=== PATIENT | female | born 1975 | race Native Hawaiian/Other Pacific Islander ===

== ENCOUNTER → 2018-11-04 | Outpatient (CLI) | payer OTHER ==
[~2018-11-04] MED LIST: ACHD5005 PO; AMOX500C2 PO; CEPH-38; CLOT45CR28 VG; DOXY100C2 PO; FRS325T PO; Glyburide PO; IBP600T1 PO; IBP800T PO; IBUP-1773 PO; INSASP10V SQ; INSU100C3 SQ; INSU100V13 IJ; INSULIN; LABE100T6 PO; METF-380 PO; METH4TAB PO; MTF500T PO; NAPR-243 PO; NPH,100V SQ; NPH,100V8 SQ; OMG1KC PO; PAMI30VI8 SQ; PRD20T PO; PREN1TAB39 PO; PREN1TAB86 PO; PRNMV1T PO; SULI200T4
--- NOTE | 2018-11-04 16:42 | Diagnostic Imaging Report ---
INDICATION: survey. TECHNIQUE: Multiple real-time grayscale images were obtained over the gravid uterus. COMPARISON: None FINDINGS: Intrauterine gestation is present. There is normal amount of amniotic fluid. Anterior placenta reveals no evidence of previa. cardiac activity is present with a rate of 150 beats per minute. Cervical length is 3.6 cm. No anomaly is identified on anatomic survey. biometry indicates gestational age of 21 weeks which indicates normal progression when compared to reported previous ultrasound exam. Biometrical measurements are as follows: Biparietal 5.10 cm, age 21 weeks 4 days. Head circumference 18.93 cm, age 21 weeks 2 days. Abdominal circumference 15.65 cm, age 20 weeks 6 days. Femur length 3.25 cm, age 20 weeks 1 days. Sonographic estimate age: 21 weeks 0 days. Sonographic estimated date of delivery: 03/17/2019. Estimated Weight: 365 gm (+/- 53 gm). LMP percentile: 39%. heart rate: 150 beats per minute. number: 1 of 1. IMPRESSION: Unremarkable obstetrical ultrasound with estimated gestational age of 21 weeks. Sonographic EDC is 03/17/2019. Dictated by: Dictated on workstation # [id number]
== END ==
LOC: RAD 14:39
PROVIDERS: ATTEND Obstetrics & Gynecology
DX: O24.112 Pre-existing type 2 diabetes mellitus, in pregnancy, second trimester (principal); O09.522 Supervision of elderly multigravida, second trimester; Z3A.21 21 weeks gestation of pregnancy
CPT/HCPCS: 76805

== ENCOUNTER → 2018-12-25 | Outpatient (CLI) | payer OTHER ==
--- NOTE | 2018-12-25 13:29 | Diagnostic Imaging Report ---
INDICATION: Follow-up growth and amniotic fluid volume. TECHNIQUE: Multiple real-time grayscale images were obtained over the gravid uterus. COMPARISON: 11/04/2018. FINDINGS: There is a single live fetus in a cephalic presentation. heart rate was recorded at 152 bpm. Placenta is anterior. Amniotic fluid volume is normal with amniotic fluid index of approximately 16 cm. A biophysical profile score is normal 8 out of 8. Biometrical measurements are as follows: Biparietal 7.54 cm, age 30 weeks 2 days. Head circumference 27.49 cm, age 30 weeks 1 days. Abdominal circumference 25.91 cm, age 30 weeks 1 days. Femur length 5.33 cm, age 28 weeks 3 days. Sonographic estimate age: 29 weeks 6 days. Sonographic estimated date of delivery: 03/06/2019. Estimated Weight: 1405 gm (+/- 205 gm). LMP percentile: 90%. heart rate: 152 beats per minute. number: 1 of 1. IMPRESSION: Single live IUP approximately 30 weeks gestational age measuring approximately two weeks earlier when compared with prior ultrasound from 11/04/2018. Biophysical profile score is normal at 8 out of 8. Dictated by: Dictated on workstation # [id number]
== END ==
LOC: RAD 11:08
PROVIDERS: ATTEND Nurse Practitioner Women's Health
DX: O24.913 Unspecified diabetes mellitus in pregnancy, third trimester (principal); Z3A.30 30 weeks gestation of pregnancy
CPT/HCPCS: 76805; 76819

== ENCOUNTER → 2019-01-21 | Outpatient (CLI) | payer OTHER ==
--- NOTE | 2019-01-21 12:55 | Diagnostic Imaging Report ---
INDICATION: Preexisting diabetes. TECHNIQUE: Multiple real-time grayscale images were obtained over the gravid uterus. COMPARISON: None 11/04/2018 and 12/25/2018. FINDINGS: The previous OB ultrasound exam of 12/25/2018 noted a single live fetus approximately 30 weeks gestation. On this study the fetus is again visualized. The fetus is transverse in presentation with the head on the maternal right. heart motion was noted and a rate of 156 BPM was recorded. There were no abnormalities identified. The biophysical profile score is 8 out of 8 and within normal limits. The placenta is anterior and there is no previa. The amniotic fluid index is 19.8 cm. On the prior exam, the JULIA was 16. The growth parameters have progressed as expected since the prior exam. The estimated weight however is in the 91st percentile. The cervix was identified and measures 4.5 cm in length. Biometrical measurements are as follows: Biparietal 8.44 cm, age 34 weeks 0 days. Head circumference 32.49 cm, age 36 weeks 6 days. Abdominal circumference 29.3 cm, age 33 weeks 4 days. Femur length 6.36 cm, age 33 weeks 0 days. Sonographic estimate age: 34 weeks 3 days. Sonographic estimated date of delivery: 03/01/2019. Estimated Weight: 2256 gm (+/- 329 gm). LMP percentile: 91%. heart rate: 156 beats per minute. number: 1 of 1. IMPRESSION: 1. There is a single live fetus approximately 32 weeks gestation +/- 1.5 weeks. EDC remains 03/17/2019 by the first exam of 11/04/2018. 2. There were no abnormalities identified. 3. The biophysical profile score is 8 out of 8 and within normal limits. 4. The growth parameters are at the upper most limits of normal with the estimated weight in the 91st percentile. Dictated by: Dictated on workstation # [id number]
== END ==
LOC: RAD 10:40
PROVIDERS: ATTEND Obstetrics & Gynecology
DX: O24.113 Pre-existing type 2 diabetes mellitus, in pregnancy, third trimester (principal); E11.9 Type 2 diabetes mellitus without complications; O09.293 Supervision of pregnancy with other poor reproductive or obstetric history, third trimester; O09.523 Supervision of elderly multigravida, third trimester; Z3A.32 32 weeks gestation of pregnancy
CPT/HCPCS: 76805; 76819

== ENCOUNTER → 2019-02-10 | Outpatient (CLI) | payer OTHER ==
--- NOTE | 2019-02-10 14:35 | Diagnostic Imaging Report ---
INDICATION: Gestational diabetes. TECHNIQUE: Multiple real-time grayscale images were obtained over the gravid uterus. COMPARISON: 01/21/2019. FINDINGS: There is a single live fetus in a cephalic presentation. heart rate was recorded at 138 bpm. Placenta is anterior. Amniotic fluid index is upper limits at 22 cm. Biophysical profile was also performed. Biophysical profile score is normal at 8 out of 8. Biometrical measurements are as follows: Biparietal 9.12 cm, age 37 weeks 0 days. Head circumference 33.89 cm, age 39 weeks 0 days. Abdominal circumference 36.52 cm, age 40 weeks 4 days. Femur length 6.97 cm, age 35 weeks 6 days. Sonographic estimate age: 38 weeks 1 days. Sonographic estimated date of delivery: 02/23/2019. Estimated Weight: 3617 gm (+/- 528 gm). LMP percentile: 98%. heart rate: 138 beats per minute. number: 1 of 1. IMPRESSION: Single live IUP measuring 38 weeks 1 day gestational age (+/- 3 weeks). Amniotic fluid index is upper limits at 22 cm. Biophysical profile score is normal at 8 out of 8. Dictated by: Dictated on workstation # [id number]
== END ==
LOC: RAD 10:38
PROVIDERS: ATTEND Nurse Practitioner Women's Health
DX: O24.419 Gestational diabetes mellitus in pregnancy, unspecified control (principal); Z3A.38 38 weeks gestation of pregnancy
CPT/HCPCS: 76805; 76819

== ENCOUNTER 2019-02-21 12:40 | Inpatient (IN) | payer OTHER ==
[2019-02-21] VITALS (20 sets, daily range): BP systolic 110–149; BP diastolic 56–84
[~2019-02-21] VITALS: Ht 160 cm; Wt 131.5 kg
--- NOTE | 2019-02-21 12:40 | NUR ---
NORMA CHACKO presented to unit via ambulatory from Dr Jimenez's office, unaccompanied , with c/o INDUCTION. NORMA CHACKO weighed, gowned, voided, and to bed. EFHM and TOCO applied, VS taken. NORMA CHACKO oriented to bed controls, call light, TV, heat, and A/C controls.
--- NOTE | 2019-02-21 13:00 | NUR ---
negative response on patella reflexes bilat.
[2019-02-21] MEDS ORDERED: AMPICILLIN FOR IV USE 2,000 MG in WATER (STERILE) FOR INJECTION 14.8 ML IV SCH (13:19)
[2019-02-21] MEDS ORDERED: CALCIUM GLUC. 10% 4.65 MEQ/10 ML VIAL IV PRN (13:30)
[2019-02-21] MEDS ORDERED: MISOPROSTOL 100 MCG (CYTOTEC) TAB PO NR (13:30)
[2019-02-21] MEDS ORDERED: MAGNESIUM 4 GM/100 ML IVPB 100 ML IV SCH (13:30)
[2019-02-21] MEDS ORDERED: TERBUTALINE INJ 1 MG/ML (BRETHINE) AMP SC PRN (13:30)
[2019-02-21] MEDS: LACTATED RINGERS 1,000 ML IV SCH ×2 (14:00→23:02)
[2019-02-21 14:16] LABS: BASOPHILS % (AUTO) 0 % (0-10); EOSINOPHILS # (AUTO) 0.1 10^3/uL (0.0-0.3); EOSINOPHILS % (AUTO) 1 % (0-10); HEMATOCRIT 38 % (35-52); HEMOGLOBIN 11.7 G/DL (11.5-16.0); LYMPHOCYTES # (AUTO) 1.2 X 10^3 (1.0-4.0); LYMPHOCYTES % (AUTO) 17 % (12-44); MEAN CORPUSCULAR HEMOGLOBIN 24 PG (25-34); MEAN CORPUSCULAR HGB CONC 31 G/DL (32-36); MEAN CORPUSCULAR VOLUME 78 FL (80-99); MEAN PLATELET VOLUME 10.6 FL (7.4-10.4); MONOCYTES # (AUTO) 0.7 X 10^3 (0.0-1.0); MONOCYTES % (AUTO) 11 % (0-12); NEUTROPHILS # (AUTO) 5.1 X 10^3 (1.8-7.8); NEUTROPHILS % (AUTO) 72 % (42-75); PLATELET COUNT 220 10^3/uL (130-400); RED CELL DISTRIBUTION WIDTH 14.3 % (10.0-14.5); WHITE BLOOD COUNT 7.1 10^3/uL (4.3-11.0)
[2019-02-21 14:25] LABS: BILIRUBIN,URINE NEGATIVE (NEGATIVE); CLARITY,URINE CLEAR; COLOR,URINE YELLOW; GLUCOSE, URINE (UA) TRACE (NEGATIVE); KETONES,URINE NEGATIVE (NEGATIVE); LEUKOCYTE ESTERASE ,URINE TRACE (NEGATIVE); NITRITE,URINE NEGATIVE (NEGATIVE); PROTEIN,URINE 2+ (NEGATIVE)
[2019-02-21 14:31] LABS: BACTERIA,URINE FEW /HPF; RBC,URINE RARE /HPF
[2019-02-21] MEDS: MAGNESIUM SULFATE DRIP 500 ML IV SCH (14:35)
[2019-02-21 14:38] LABS: ALANINE AMINOTRANSFERASE 13 U/L (0-55); ALBUMIN 3.4 GM/DL (3.2-4.5); ALKALINE PHOSPHATASE 126 U/L (40-136); BILIRUBIN,TOTAL 0.2 MG/DL (0.1-1.0); BUN/CREATININE RATIO 19; CALCIUM 9.3 MG/DL (8.5-10.1); CARBON DIOXIDE 19 MMOL/L (21-32); CHLORIDE 106 MMOL/L (98-107); CREATININE SERUM 0.64 MG/DL (0.60-1.30); GFR ESTIMATED > 60; GLUCOSE 84 MG/DL (70-105); MAGNESIUM 1.8 MG/DL (1.6-2.4); POTASSIUM 4.2 MMOL/L (3.6-5.0); SODIUM 137 MMOL/L (135-145); TOTAL PROTEIN 7.1 GM/DL (6.4-8.2); URIC ACID 5.4 MG/DL (2.6-7.2)
[2019-02-21] MEDS ORDERED: MISOPROSTOL 100 MCG (CYTOTEC) TAB PO SCH (17:30)
--- NOTE | 2019-02-21 17:51 | NUR ---
called to check on pt. status update given. no new orders received.
--- NOTE | 2019-02-21 17:55 | NUR ---
clear liquid diet served.
[2019-02-21] MEDS: AMPICILLIN FOR IV USE 1,000 MG in WATER (STERILE) FOR INJECTION 7.4 ML IV SCH ×2 (18:26→22:53)
--- NOTE | 2019-02-21 18:52 | NUR ---
was called with SVE update. new orders received.
[2019-02-22] VITALS (59 sets, daily range): BP systolic 113–239; BP diastolic 56–112
[2019-02-22] MEDS: MAGNESIUM SULFATE DRIP 500 ML IV SCH ×3 (00:43→21:02)
[2019-02-22] MEDS: AMPICILLIN FOR IV USE 1,000 MG in WATER (STERILE) FOR INJECTION 7.4 ML IV SCH ×4 (03:10→14:54)
[2019-02-22] MEDS ORDERED: OXYTOCIN/NORMAL SALINE 500 ML IV SCH ×2 (06:02→11:47)
--- NOTE | 2019-02-22 06:29 | Progress Note ---
Progress Note Assessment/Plan Date Seen by Provider: Feb 22, 2019 Time Seen by Provider: 06:00 Events since last exam Diuresed 2300 ml BP much better with bedrest and magnesium misoprostol x 1 given. Rare contractions, but has dilated to 5-6 cm dilation. Cervix is more effaced but still high (-2) however, easier to examine. Has received several doses of ampicillin toco 2 5-6 minutes, she is comfortable with contractions and has been able to sleep in a recliner FHT initially more reassuring than in the office. However, with magnesium, rare accelerations. There are no decelerations however Blood sugars have been < 100 and have required treatment for symptomatic hypogl ycemia (took am meds but did not eat lunch or dinner). No insulin has been given. 02/21/19 02/21/19 02/21/19 02/21/19 18:45 19:15 19:45 20:15 Pulse 80 84 84 80 Resp 20 20 20 18 B/P (MAP) 141/67 (91) 133/63 (86) 129/78 (95) 131/60 (83) O2 Delivery Room Air Room Air Room Air Room Air 02/21/19 02/21/19 02/21/19 02/21/19 20:45 21:15 21:45 22:15 Temp 36.2 Pulse 77 78 78 84 Resp 18 18 18 18 B/P (MAP) 144/67 (92) 124/56 (78) 140/65 (90) 147/64 (91) O2 Delivery Room Air Room Air Room Air Room Air 02/21/19 02/21/19 02/21/19 02/22/19 22:45 23:15 23:45 00:15 Temp 36.2 Pulse 80 80 74 75 Resp 18 18 18 18 B/P (MAP) 119/59 (79) 135/62 (86) 133/62 (85) 126/60 (82) O2 Delivery Room Air Room Air Room Air Room Air 02/22/19 02/22/19 02/22/19 02/22/19 00:45 01:15 01:45 02:15 Temp 36.0 Pulse 75 73 75 Resp 18 18 18 18 B/P (MAP) 135/59 (84) 128/62 (84) 120/79 (93) O2 Delivery Room Air Room Air Room Air Room Air 02/22/19 02/22/19 02/22/19 02/22/19 02:45 03:15 03:45 04:15 Temp 36.5 Pulse 72 74 73 73 Resp 18 18 18 18 B/P (MAP) 129/59 (82) 121/56 (77) 113/57 (75) 128/61 (83) O2 Delivery Room Air Room Air Room Air Room Air 02/22/19 02/22/19 04:45 05:02 Pulse 70 73 Resp 18 18 B/P (MAP) 140/65 (90) 128/61 (83) O2 Delivery Room Air Room Air 02/22/19 00:00 Intake Total 1987.4 ml Output Total 1250 ml Balance 737.4 ml Laboratory Tests Test 02/21/19 14:00 02/21/19 14:10 02/21/19 14:39 02/21/19 16:49 Range/Units White Blood Count 7.1 4.3-11.0 10^3/uL Red Blood Count 4.83 4.35-5.85 10^6/uL Hemoglobin 11.7 11.5-16.0 G/DL Hematocrit 38 35-52 % Mean Corpuscular Volume 78 L 80-99 FL Mean Corpuscular Hemoglobin 24 L 25-34 PG Mean Corpuscular Hemoglobin Concent 31 L 32-36 G/DL Red Cell Distribution Width 14.3 10.0-14.5 % Platelet Count 220 130-400 10^3/uL Mean Platelet Volume 10.6 H 7.4-10.4 FL Neutrophils (%) (Auto) 72 42-75 % Lymphocytes (%) (Auto) 17 12-44 % Monocytes (%) (Auto) 11 0-12 % Eosinophils (%) (Auto) 1 0-10 % Basophils (%) (Auto) 0 0-10 % Neutrophils # (Auto) 5.1 1.8-7.8 X 10^3 Lymphocytes # (Auto) 1.2 1.0-4.0 X 10^3 Monocytes # (Auto) 0.7 0.0-1.0 X 10^3 Eosinophils # (Auto) 0.1 0.0-0.3 10^3/uL Basophils # (Auto) 0.0 0.0-0.1 10^3/uL Sodium Level 137 135-145 MMOL/L Potassium Level 4.2 3.6-5.0 MMOL/L Chloride Level 106 98-107 MMOL/L Carbon Dioxide Level 19 L 21-32 MMOL/L Anion Gap 12 5-14 MMOL/L Blood Urea Nitrogen 12 7-18 MG/DL Creatinine 0.64 0.60-1.30 MG/DL Estimat Glomerular Filtration Rate > 60 BUN/Creatinine Ratio 19 Glucose Level 84 70-105 MG/DL Uric Acid 5.4 2.6-7.2 MG/DL Calcium Level 9.3 8.5-10.1 MG/DL Corrected Calcium 9.8 8.5-10.1 MG/DL Magnesium Level 1.8 1.6-2.4 MG/DL Total Bilirubin 0.2 0.1-1.0 MG/DL Aspartate Amino Transf (AST/SGOT) 18 5-34 U/L Alanine Aminotransferase (ALT/SGPT) 13 0-55 U/L Alkaline Phosphatase 126 40-136 U/L Lactate Dehydrogenase 238 H 125-220 U/L Total Protein 7.1 6.4-8.2 GM/DL Albumin 3.4 3.2-4.5 GM/DL Urine Color YELLOW Urine Clarity CLEAR Urine pH 6.0 5-9 Urine Specific Mckittrick 1.020 1.016-1.022 Urine Protein 2+ H NEGATIVE Urine Glucose (UA) TRACE H NEGATIVE Urine Ketones NEGATIVE NEGATIVE Urine Nitrite NEGATIVE NEGATIVE Urine Bilirubin NEGATIVE NEGATIVE Urine Urobilinogen 0.2 < = 1.0 MG/DL Urine Leukocyte Esterase TRACE NEGATIVE Urine RBC (Auto) TRACE-I NEGATIVE Urine RBC RARE /HPF Urine WBC 5-10 H /HPF Urine Squamous Epithelial Cells 5-10 /HPF Urine Crystals NONE /LPF Urine Bacteria FEW H /HPF Urine Casts NONE /LPF Urine Mucus NEGATIVE /LPF Urine Culture Indicated YES Glucometer 62 L 85 70-110 MG/DL Test 02/21/19 22:01 02/21/19 22:56 02/22/19 06:06 Range/Units Glucometer 61 L 93 89 70-110 MG/DL Assessment/Plan 1. 36 4/7 week gestation 2. Preeclampsia on Magnesium 3. preexisting diabetes on insulin/metformin and glyburide. adequate control (last A1C was 5.6 but more difficult to control recently) 4. GBS + 5. advanced maternal age over 40 6. polyhydramnios/LGA 7. grand multipara 8. history of shoulder dystocia Plan - continue magnesium, ampicillin. Start oxytocin for augmentation. will AROM when able but head still high. I also have to go to the OR, so do not want to AROM until I have completed the surgery. Anticipate Vitals Last set of Vitals Signs Vital Signs Date Time Temp Pulse Resp B/P (MAP) Pulse Ox O2 Delivery O2 Flow Rate FiO2 02/22/19 05:02 73 18 128/61 (83) Room Air 02/22/19 03:45 36.5 02/21/19 13:15 98 I&O I&O Intake and Output 02/22/19 00:00 Intake Total 1987.4 ml Output Total 1250 ml Balance 737.4 ml Intake Oral 1080 ml IV Total 907.4 ml Output Urine Total 1250 ml Daily Weight Change No Labs Laboratory Tests 02/21/19 14:00: White Blood Count 7.1, Red Blood Count 4.83, Hemoglobin 11.7, Hematocrit 38, Mean Corpuscular Volume 78L, Mean Corpuscular Hemoglobin 24L, Mean Corpuscular Hemoglobin Concent 31L, Red Cell Distribution Width 14.3, Platelet Count 220, Mean Platelet Volume 10.6H, Neutrophils (%) (Auto) 72, Lymphocytes (%) (Auto) 17, Monocytes (%) (Auto) 11, Eosinophils (%) (Auto) 1, Basophils (%) (Auto) 0, Neutrophils # (Auto) 5.1, Lymphocytes # (Auto) 1.2, Monocytes # (Auto) 0.7, Eosinophils # (Auto) 0.1, Basophils # (Auto) 0.0, Sodium Level 137, Potassium Level 4.2, Chloride Level 106, Carbon Dioxide Level 19L, Anion Gap 12, Blood Urea Nitrogen 12, Creatinine 0.64, Estimat Glomerular Filtration Rate > 60, BUN/Creatinine Ratio 19, Glucose Level 84, Uric Acid 5.4, Calcium Level 9.3, Corrected Calcium 9.8, Magnesium Level 1.8, Total Bilirubin 0.2, Aspartate Amino Transf (AST/SGOT) 18, Alanine Aminotransferase (ALT/SGPT) 13, Alkaline Phosphatase 126, Lactate Dehydrogenase 238H, Total Protein 7.1, Albumin 3.4 02/21/19 14:10: Urine Color YELLOW, Urine Clarity CLEAR, Urine pH 6.0, Urine Specific Mckittrick 1.020, Urine Protein 2+H, Urine Glucose (UA) TRACEH, Urine Ketones NEGATIVE, Urine Nitrite NEGATIVE, Urine Bilirubin NEGATIVE, Urine Urobilinogen 0.2, Urine Leukocyte Esterase TRACE, Urine RBC (Auto) TRACE-I, Urine RBC RARE, Urine WBC 5- 10H, Urine Squamous Epithelial Cells 5-10, Urine Crystals NONE, Urine Bacteria FEWH, Urine Casts NONE, Urine Mucus NEGATIVE, Urine Culture Indicated YES 02/21/19 14:39: Glucometer 62L 02/21/19 16:49: Glucometer 85 02/21/19 22:01: Glucometer 61L 02/21/19 22:56: Glucometer 93 02/22/19 06:06: Glucometer 89 Clinical Quality Measures DVT/VTE Risk/Contraindication: Risk Factor Score Per Nursin RFS Level Per Nursing on Admit: 2=Moderate NIKKI CRUZ DO Feb 22, 2019 06:29
--- NOTE | 2019-02-22 10:05 | NUR ---
was called with SVE update. no new orders received.
[2019-02-22] MEDS ORDERED: WITCH HAZEL(TUCKS) 40 EA JAR TOP PRN (12:00)
[2019-02-22] MEDS ORDERED: TETANUS,DIPTH,PERTUSS P/F (BOOSTRIX) 0.5 ML VIAL IM ONE (12:00)
[2019-02-22] MEDS ORDERED: MEASLES,MUMPS,RUBELLA 1 EA INJ SQ ONE (12:00)
[2019-02-22] MEDS ORDERED: BENZOCAINE/MENTHOL (DERMOPLAST) 56 ML CAN TP PRN (12:00)
[2019-02-22] MEDS ORDERED: LACTATED RINGERS 1,000 ML IV ONE (12:52)
[2019-02-22] MEDS: LACTATED RINGERS 1,000 ML IV SCH (12:56)
[2019-02-22] MEDS ORDERED: LIDOCAINE/EPI 2% 1:200,00 (XYLOCAINE) 10 ML VIAL ONE (13:59)
[2019-02-22] MEDS ORDERED: CATHETER FLUSH 10 ML SYR IV SCH (14:00)
[2019-02-22] MEDS ORDERED: AMPICILLIN FOR IV USE 1,000 MG/VIAL ONE (14:48)
[2019-02-22] MEDS ORDERED: WATER (STERILE) FOR INJECTION 10 ML ONE (14:49)
--- NOTE | 2019-02-22 15:28 | OB Labor & Delivery Record ---
Vag Delivery Note Vag Delivery Note Date of Delivery: 02/22/19 Preoperative Diagnosis: Georgia Chowdary is a (43 /Para 8/5 ,Gestational Age 36 4/7 weeks with preeclampsia, GBS +, non reassuring testing, polyhyrdamnios, suspected LGA/macrosomia, preexisting type II diabetes, advancer maternal age, abnormal qs (increased risk of down syndrome, normal anatomy scan). Postoperative Diagnosis: Same, moderate shoulder dystocia x 1 minute Surgeon: NIKKI CRUZ Anesthesia: none Delivery Type: [spontaneous vaginal Findings: Viable female , apgars pending (currently on Vapotherm, weight 9#6ounces Lacerations: none Intact placenta with 3 vessel cord. No nuchal cord or body cord. Moderate shoulder dystocia Estimated Blood Loss: 150 ml Complications: None Condition: Stable Description of Procedure: The patient is a 43 year old female who presented for induction of labor. she was started on magnesium sulfate. She was given misoprostol x 1 and then had augmentation with Pitocin and AROM.She was admitted and informed consent was obtained. Her labor course was remarkable for AROM, augmentation, ampicillin, good blood pressure control and diuresis with Magnesium sulfate. She progressed slowly to complete dilatation and began to push. However, was able to bring the baby from 0-+3 station with 1 push. the head was then delivered and the mother did not continue to push despite desperate urging to do so. The head was out but there was should dystocia, mainly due to maternal effort and tissue dy stocia, but the shoulder were delivered. Please see dystocia note. She was then set up for delivery. The 's head was delivered atraumatically in the SOILA position. The shoulders and remainder of the infant's body were then delivered (see note). Upon delivery, The cord was doubly clamped and cut and the was handed off to the pediatric staff. Cord blood was sampled and cord gases sent. An intact placenta with 3-vessel cord delivered via Luís and there was found to be moderate bleeding with a boggy uterus.~ Vigorous fundal massage was performed and the fundus was found to be firm. IV oxytocin was given. Examination of the vagina and perineum revealed no lacerations. Following the delivery, sponge, instrument and needle counts were correct. Mom and baby were both in stable condition in the labor suite. Vitals - Labs Vital Signs - I&O Vital Signs Date Time Temp Pulse Resp B/P (MAP) Pulse Ox O2 Delivery O2 Flow Rate FiO2 02/22/19 13:00 94 18 149/65 (93) Room Air 02/22/19 12:45 93 18 137/66 (89) Room Air 02/22/19 12:30 18 Room Air 02/22/19 12:15 93 18 154/69 (97) Room Air 02/22/19 12:00 93 18 154/69 (97) Room Air 02/22/19 11:45 99 18 164/79 (107) Room Air 02/22/19 11:30 100 18 143/63 (89) Room Air 02/22/19 11:15 90 18 149/67 (94) Room Air 02/22/19 11:00 36.7 94 18 135/56 (82) Room Air 02/22/19 10:45 90 18 149/67 (94) Room Air 02/22/19 10:30 90 18 137/64 (88) Room Air 02/22/19 10:15 88 18 150/65 (93) Room Air 02/22/19 10:00 85 18 142/64 (90) Room Air 02/22/19 09:45 84 18 137/63 (87) Room Air 02/22/19 09:30 87 18 145/67 (93) Room Air 02/22/19 09:15 94 18 139/66 (90) Room Air 02/22/19 09:00 80 18 139/62 (87) Room Air 02/22/19 08:45 87 18 150/65 (93) 96 Room Air 02/22/19 08:30 87 18 146/68 (94) 96 Room Air 02/22/19 08:15 78 18 136/62 (86) Room Air 02/22/19 08:00 79 18 139/67 (91) Room Air 02/22/19 07:50 36.2 02/22/19 07:45 86 18 135/67 (89) Room Air 02/22/19 07:30 84 18 129/62 (84) Room Air 02/22/19 07:15 76 18 128/64 (85) Room Air 02/22/19 07:00 85 18 131/61 (84) Room Air 02/22/19 06:45 85 18 140/65 (90) Room Air 02/22/19 06:30 83 18 138/63 (88) Room Air 02/22/19 06:15 84 18 124/60 (81) Room Air 02/22/19 05:45 36.2 72 18 136/62 (86) Room Air 02/22/19 05:15 71 18 139/63 (88) Room Air 02/22/19 05:02 73 18 128/61 (83) Room Air 02/22/19 04:45 70 18 140/65 (90) Room Air 02/22/19 04:15 73 18 128/61 (83) Room Air 02/22/19 03:45 36.5 73 18 113/57 (75) Room Air 02/22/19 03:15 74 18 121/56 (77) Room Air 02/22/19 02:45 72 18 129/59 (82) Room Air 02/22/19 02:15 75 18 120/79 (93) Room Air 02/22/19 01:45 73 18 128/62 (84) Room Air 02/22/19 01:15 36.0 75 18 135/59 (84) Room Air 02/22/19 00:45 18 Room Air 02/22/19 00:15 75 18 126/60 (82) Room Air 02/21/19 23:45 74 18 133/62 (85) Room Air 02/21/19 23:15 80 18 135/62 (86) Room Air 02/21/19 22:45 36.2 80 18 119/59 (79) Room Air 02/21/19 22:15 84 18 147/64 (91) Room Air 02/21/19 21:45 78 18 140/65 (90) Room Air 02/21/19 21:15 78 18 124/56 (78) Room Air 02/21/19 20:45 36.2 77 18 144/67 (92) Room Air 02/21/19 20:15 80 18 131/60 (83) Room Air 02/21/19 19:45 84 20 129/78 (95) Room Air 02/21/19 19:15 84 20 133/63 (86) Room Air 02/21/19 18:45 80 20 141/67 (91) Room Air 02/21/19 18:15 84 20 141/63 (89) Room Air 02/21/19 17:45 35.6 78 20 110/60 (77) Room Air 02/21/19 17:15 72 20 147/78 (101) Room Air 02/21/19 16:45 75 20 140/75 (96) Room Air 02/21/19 16:15 81 20 140/84 (102) Room Air 02/21/19 15:45 75 20 145/78 (100) Room Air I & O 02/22/19 07:00 Intake Total 3234.8 ml Output Total 3550 ml Balance -315.2 ml Labs Laboratory Tests 02/21/19 16:49: Glucometer 85 02/21/19 22:01: Glucometer 61L 02/21/19 22:56: Glucometer 93 02/22/19 06:06: Glucometer 89 02/22/19 10:57: Glucometer 160H Microbiology 02/21/19 Urine Culture - Final, Complete NO GROWTH NIKKI CRUZ DO Feb 22, 2019 15:28
--- NOTE | 2019-02-22 15:34 | OB Shoulder Dystocia Record ---
Shoulder Dystocia Note Shoulder Dystocia Start Time of Delivery of HEAD: 15:06 Time shoulder dystocia called: 15:06 HOB in lowered position: Yes Time of delivery of BODY: 15:07 (Total time 60 seconds. ) Positional Maneuvers Garry, Suprapubic: Right delivery of the posterior arm by Menticoglou maneuver delivered the left arm and then baby then delivered Delivery Approach Delivery of posterior arm: Left NIKKI CRUZ DO Feb 22, 2019 15:34
--- NOTE | 2019-02-22 16:15 | NUR ---
FFu/0. family @ side. no c/o's voiced.
[2019-02-22] MEDS: ACETAMINOPHEN 500 MG TAB (TYLENOL) PO SCH ×2 (16:42→23:18)
[2019-02-22] MEDS: IBUPROFEN 600 MG (MOTRIN) TAB PO SCH ×2 (16:42→23:18)
--- NOTE | 2019-02-22 16:55 | NUR ---
FFu/0. moderate rubra noted. no clots expressed. ena-care offered. v-pad and mesh panties in place.
--- NOTE | 2019-02-22 16:57 | NUR ---
pt transferred to room 308 via w/c with [facility] NRP @ side.
[2019-02-22] MEDS: metFORMIN 500 MG (GLUCOPHAGE) TAB PO SCH (18:47)
--- NOTE | 2019-02-22 18:52 | NUR ---
calf SCD's applied.
--- NOTE | 2019-02-22 19:09 | NUR ---
report given to HAILEY Denis. care assumed of pt.
--- NOTE | 2019-02-22 20:22 | NUR ---
Assessment completed. blood sugar and b/p reported to new orders received.
[2019-02-22] MEDS ORDERED: inSUlin ASPART (NovoLOG) 1 UNIT/0.01 ML (CHARGE PER UNIT) SC ONE (20:30)
--- NOTE | 2019-02-22 20:30 | NUR ---
Diabetic teaching provided to patient. discussed the importance of following a diabetic diet and proper food choices. patient and verbalized understanding.
[2019-02-22] MEDS: LABETALOL 200 MG (NORMODYNE) TAB PO SCH (20:36)
[2019-02-22] MEDS: DOCUSATE SODIUM 100 MG (COLACE) CAP PO SCH (20:36)
--- NOTE | 2019-02-22 22:02 | NUR ---
pericare completed. pad and panties changed. gown changed. pt tolerated well. notified of repeat blood sugar
[2019-02-22] MEDS: inSUlin ASPART (NovoLOG) 1 UNIT/0.01 ML (CHARGE PER UNIT) SC SCH (22:12)
[2019-02-23] VITALS: BP 132/64
[2019-02-23 01:00] VITALS: BP 115/58
[2019-02-23 02:00] VITALS: BP 122/58
--- NOTE | 2019-02-23 02:10 | NUR ---
pt up eating [employer] sandwich will check 2hr pp,
[2019-02-23 03:00] VITALS: BP 120/58
--- NOTE | 2019-02-23 03:00 | NUR ---
long mason, cristian RAMIREZ,
[2019-02-23] MEDS: inSUlin ASPART (NovoLOG) 1 UNIT/0.01 ML (CHARGE PER UNIT) SC SCH ×2 (04:24→09:58)
[2019-02-23 04:32] VITALS: BP 134/63
--- NOTE | 2019-02-23 04:32 | NUR ---
pt requesting shower. shower set up, iv covered. pt denies any dizziness, ambulating well. Pt assisted to shower. orientated to call light. will continue to monitor closely
[2019-02-23] MEDS: ACETAMINOPHEN 500 MG TAB (TYLENOL) PO SCH (05:18)
[2019-02-23] MEDS: IBUPROFEN 600 MG (MOTRIN) TAB PO SCH ×2 (05:19→11:26)
--- NOTE | 2019-02-23 05:23 | NUR ---
pt finished with shower, positive void. pericare completed. 3 5-6cm clots noted in hat. ff 1 below. discussed with patient to notify rn if she continues to pass clots. pt verbalized understanding. will continue to monitor.
[2019-02-23] MEDS ORDERED: GLYBURIDE 3 MG PO SCH (06:30)
[2019-02-23] MEDS: metFORMIN 500 MG (GLUCOPHAGE) TAB PO SCH (06:33)
[2019-02-23 06:42] LABS: BASOPHILS % (AUTO) 0 % (0-10); EOSINOPHILS # (AUTO) 0.1 10^3/uL (0.0-0.3); EOSINOPHILS % (AUTO) 1 % (0-10); HEMATOCRIT 32 % (35-52); LYMPHOCYTES # (AUTO) 1.2 X 10^3 (1.0-4.0); LYMPHOCYTES % (AUTO) 14 % (12-44); MEAN CORPUSCULAR HEMOGLOBIN 25 PG (25-34); MEAN CORPUSCULAR HGB CONC 32 G/DL (32-36); MEAN CORPUSCULAR VOLUME 78 FL (80-99); MEAN PLATELET VOLUME 10.3 FL (7.4-10.4); MONOCYTES % (AUTO) 12 % (0-12); NEUTROPHILS # (AUTO) 6.6 X 10^3 (1.8-7.8); NEUTROPHILS % (AUTO) 74 % (42-75); PLATELET COUNT 221 10^3/uL (130-400); RED CELL DISTRIBUTION WIDTH 14.4 % (10.0-14.5)
[2019-02-23] MEDS ORDERED: PRENATAL VITAMIN 1 EA TAB PO SCH (07:00)
[2019-02-23] MEDS ORDERED: MISOPROSTOL 200 MCG (CYTOTEC) TABLET PO ONE (07:30)
[2019-02-23] MEDS ORDERED: ACET-93 PO (07:32)
[2019-02-23] MEDS ORDERED: IBUP-1773 PO (07:32)
--- NOTE | 2019-02-23 08:00 | NUR ---
here. dismissal orders received.
--- NOTE | 2019-02-23 08:32 | Postpartum Progress Note ---
Note Note Day # 1 s/p Subjective: Patient is without complaints. Ambulating, voiding. Tolerating a regular diet without nausea or vomiting. Normal lochia. Pain is well controlled with oral pain medications. bottle feeding. She began eating yesterday and is not following an ADA diet. Without eating during labor her blood sugars were normal but as soon as she ate she had blood sugars into the 400s. She states she did not understand the diabetic diet and had not been following this She was given SS insulin but this does not really touch her blood sugars. She was taking Levemir and Metformin prior to getting . she was also on Losartan. She is not sure of the dosing but does have it at home. I have asked that she resume her prepregnancy dosing. however, she will require frequent dosing changes as her A1C was 10 at her first ob visit which indicates that her blood sugars were not well controlled at all. She will be going to see her baby at [place]. Will continue the glyburide/metf ormin for now and then she can restart the levemir when she is able to get it at home. Would recommend follow up with her PCP as soon as possible (Dr. Gazra) She diuresed over 3 liters when the magnesium was started and then another 3 liters after delivery. the edema is much better today. Passed a large clot this am. Cytotec given orally Objective: 02/22/19 02/22/19 02/22/19 02/23/19 21:00 22:00 23:00 00:00 Pulse 99 86 84 84 Resp 18 18 18 18 B/P (MAP) 182/79 (113) 144/76 (98) 145/63 (90) 132/64 (86) Pulse Ox 97 97 93 93 O2 Delivery Room Air Room Air Room Air Room Air 02/23/19 02/23/19 02/23/19 02/23/19 01:00 02:00 03:00 04:32 Temp 36.5 Pulse 84 76 76 78 Resp 18 18 18 18 B/P (MAP) 115/58 (77) 122/58 (79) 120/58 (78) 134/63 (86) Pulse Ox 93 93 94 94 O2 Delivery Room Air Room Air Room Air Room Air 02/23/19 00:00 Intake Total 1960 ml Output Total 1450 ml Balance 510 ml Laboratory Tests Test 02/22/19 10:57 02/22/19 20:07 02/22/19 21:47 02/23/19 04:19 Range/Units Glucometer 160 H 459 *H 341 H 292 H 70-110 MG/DL Test 02/23/19 06:30 Range/Units White Blood Count 9.0 4.3-11.0 10^3/uL Red Blood Count 4.04 L 4.35-5.85 10^6/uL Hemoglobin 10.0 L 11.5-16.0 G/DL Hematocrit 32 L 35-52 % Mean Corpuscular Volume 78 L 80-99 FL Mean Corpuscular Hemoglobin 25 25-34 PG Mean Corpuscular Hemoglobin Concent 32 32-36 G/DL Red Cell Distribution Width 14.4 10.0-14.5 % Platelet Count 221 130-400 10^3/uL Mean Platelet Volume 10.3 7.4-10.4 FL Neutrophils (%) (Auto) 74 42-75 % Lymphocytes (%) (Auto) 14 12-44 % Monocytes (%) (Auto) 12 0-12 % Eosinophils (%) (Auto) 1 0-10 % Basophils (%) (Auto) 0 0-10 % Neutrophils # (Auto) 6.6 1.8-7.8 X 10^3 Lymphocytes # (Auto) 1.2 1.0-4.0 X 10^3 Monocytes # (Auto) 1.0 0.0-1.0 X 10^3 Eosinophils # (Auto) 0.1 0.0-0.3 10^3/uL Basophils # (Auto) 0.0 0.0-0.1 10^3/uL Physical Exam: General - Alert and oriented, no apparent distress Abdomen - Soft, appropriately tender to palpation, non-distended, fundus firm at umbilicus Extremities - 2+ edema, negative Ravi's bilaterally Assessment: 1. post- day # 1, status post spontaneous vaginal delivery. Recovering well, hemodynamically stable 2. Preeclampsia with residual elevated blood pressures Continue labatelol in house but will restart Losartan post 3. Preexisting diabetes/GDM B - poor antepartum control of blood sugars. Much improvement during (last A1C was 5.6) but macrosomic baby with polyhydramnios 4. AMA (41) I strongly encouraged Georgia and her that this is the last . It is too risky to her and to the baby. Needs follow up with me JANE Plan: Routine care. Encourage breast feeding. Encourage ambulation. Ferrous sulfate supplementation. Plan for discharge today. Plan as above Vitals - Labs Vital Signs - I&O Vital Signs Date Time Temp Pulse Resp B/P (MAP) Pulse Ox O2 Delivery O2 Flow Rate FiO2 02/23/19 04:32 78 18 134/63 (86) 94 Room Air 02/23/19 03:00 36.5 76 18 120/58 (78) 94 Room Air 02/23/19 02:00 76 18 122/58 (79) 93 Room Air 02/23/19 01:00 84 18 115/58 (77) 93 Room Air 02/23/19 00:00 84 18 132/64 (86) 93 Room Air 02/22/19 23:00 84 18 145/63 (90) 93 Room Air 02/22/19 22:00 86 18 144/76 (98) 97 Room Air 02/22/19 21:00 99 18 182/79 (113) 97 Room Air 02/22/19 20:00 36.9 97 18 161/72 (101) 97 Room Air 02/22/19 18:52 99 18 157/78 (104) 93 Room Air 02/22/19 18:00 36.2 105 18 136/74 (94) 98 Room Air 02/22/19 16:45 93 18 161/71 (101) Room Air 02/22/19 16:30 94 18 168/81 (110) Room Air 02/22/19 16:15 36.4 93 18 164/76 (105) Room Air 02/22/19 16:00 92 18 160/73 (102) Room Air 02/22/19 15:45 88 18 156/74 (101) Room Air 02/22/19 15:30 89 18 149/70 (96) Room Air 02/22/19 15:00 110 20 179/112 (134) Room Air 02/22/19 14:45 103 20 149/75 (99) Room Air 02/22/19 14:30 101 20 169/81 (110) Room Air 02/22/19 14:15 102 20 239/111 (153) Room Air 02/22/19 14:00 101 18 156/68 (97) Room Air 02/22/19 13:51 36.1 02/22/19 13:45 96 18 142/71 (94) Room Air 02/22/19 13:30 95 18 134/70 (91) Room Air 02/22/19 13:15 93 18 159/70 (99) Room Air 02/22/19 13:00 94 18 149/65 (93) Room Air 02/22/19 12:45 93 18 137/66 (89) Room Air 02/22/19 12:30 18 Room Air 02/22/19 12:15 93 18 154/69 (97) Room Air 02/22/19 12:00 93 18 154/69 (97) Room Air 02/22/19 11:45 99 18 164/79 (107) Room Air 02/22/19 11:30 100 18 143/63 (89) Room Air 02/22/19 11:15 90 18 149/67 (94) Room Air 02/22/19 11:00 36.7 94 18 135/56 (82) Room Air 02/22/19 10:45 90 18 149/67 (94) Room Air 02/22/19 10:30 90 18 137/64 (88) Room Air 02/22/19 10:15 88 18 150/65 (93) Room Air 02/22/19 10:00 85 18 142/64 (90) Room Air 02/22/19 09:45 84 18 137/63 (87) Room Air 02/22/19 09:30 87 18 145/67 (93) Room Air 02/22/19 09:15 94 18 139/66 (90) Room Air 02/22/19 09:00 80 18 139/62 (87) Room Air 02/22/19 08:45 87 18 150/65 (93) 96 Room Air 02/22/19 08:30 87 18 146/68 (94) 96 Room Air 02/22/19 08:15 78 18 136/62 (86) Room Air 02/22/19 08:00 79 18 139/67 (91) Room Air 02/22/19 07:50 36.2 02/22/19 07:45 86 18 135/67 (89) Room Air 02/22/19 07:30 84 18 129/62 (84) Room Air I & O 02/23/19 07:00 Intake Total 3660 ml Output Total 4600 ml Balance -940 ml Labs Laboratory Tests 02/22/19 10:57: Glucometer 160H 02/22/19 20:07: Glucometer 459*H 02/22/19 21:47: Glucometer 341H 02/23/19 04:19: Glucometer 292H 02/23/19 06:30: White Blood Count 9.0, Red Blood Count 4.04L, Hemoglobin 10.0L, Hematocrit 32L, Mean Corpuscular Volume 78L, Mean Corpuscular Hemoglobin 25, Mean Corpuscular Hemoglobin Concent 32, Red Cell Distribution Width 14.4, Platelet Count 221, Mean Platelet Volume 10.3, Neutrophils (%) (Auto) 74, Lymphocytes (%) (Auto) 14, Monocytes (%) (Auto) 12, Eosinophils (%) (Auto) 1, Basophils (%) (Auto) 0, Neutrophils # (Auto) 6.6, Lymphocytes # (Auto) 1.2, Monocytes # (Auto) 1.0, Eosinophils # (Auto) 0.1, Basophils # (Auto) 0.0 Microbiology 02/21/19 Urine Culture - Final, Complete NO GROWTH NIKKI CRUZ DO Feb 23, 2019 08:32
[2019-02-23] MEDS ORDERED: MISO200T4 PO (08:36)
[2019-02-23] MEDS ORDERED: GLYB3TAB3 PO (08:36)
[2019-02-23] MEDS ORDERED: METF-397 PO (08:36)
[2019-02-23] MEDS ORDERED: IBUP-844 PO (08:36)
--- NOTE | 2019-02-23 08:53 | Short Stay Summary ---
Discharge Summary Hospital Course Was the Problem List Reviewed?: Yes Problems/Dx: (1) Preeclampsia Status: Resolved Assessment & Plan: Restart Losartan at prepregnancy dosing. Georgia states she has prescription at home. Follow up in my office in 7-10 days for BP check and evaluation 02/22/19 02/22/19 02/22/19 02/23/19 21:00 22:00 23:00 00:00 Pulse 99 86 84 84 Resp 18 18 18 18 B/P (MAP) 182/79 (113) 144/76 (98) 145/63 (90) 132/64 (86) Pulse Ox 97 97 93 93 O2 Delivery Room Air Room Air Room Air Room Air 02/23/19 02/23/19 02/23/19 02/23/19 01:00 02:00 03:00 04:32 Temp 36.5 Pulse 84 76 76 78 Resp 18 18 18 18 B/P (MAP) 115/58 (77) 122/58 (79) 120/58 (78) 134/63 (86) Pulse Ox 93 93 94 94 O2 Delivery Room Air Room Air Room Air Room Air 02/23/19 00:00 Intake Total 1960 ml Output Total 1450 ml Balance 510 ml Qualifiers: Qualified Codes: O14.93 - Unspecified pre-eclampsia, third trimester (2) Group B streptococcal carriage complicating Status: Resolved (3) Pre-eclampsia during in third trimester, antepartum Status: Resolved (4) Preexisting diabetes complicating in third trimester, antepartum Status: Chronic Assessment & Plan: Will continue metformin and glyburide. Restart Levemir at prepregnancy dosing. Patient states she has prescription at home. Follow up with Dr. Garza within 2 weeks of delivery. Need to see diabetic education again as reeducation is necessary. Blood sugar elevations are directly related to food choices. Laboratory Tests Test 02/22/19 10:57 02/22/19 20:07 02/22/19 21:47 02/23/19 04:19 Range/Units Glucometer 160 H 459 *H 341 H 292 H 70-110 MG/DL Test 02/23/19 06:30 Range/Units White Blood Count 9.0 4.3-11.0 10^3/uL Red Blood Count 4.04 L 4.35-5.85 10^6/uL Hemoglobin 10.0 L 11.5-16.0 G/DL Hematocrit 32 L 35-52 % Mean Corpuscular Volume 78 L 80-99 FL Mean Corpuscular Hemoglobin 25 25-34 PG Mean Corpuscular Hemoglobin Concent 32 32-36 G/DL Red Cell Distribution Width 14.4 10.0-14.5 % Platelet Count 221 130-400 10^3/uL Mean Platelet Volume 10.3 7.4-10.4 FL Neutrophils (%) (Auto) 74 42-75 % Lymphocytes (%) (Auto) 14 12-44 % Monocytes (%) (Auto) 12 0-12 % Eosinophils (%) (Auto) 1 0-10 % Basophils (%) (Auto) 0 0-10 % Neutrophils # (Auto) 6.6 1.8-7.8 X 10^3 Lymphocytes # (Auto) 1.2 1.0-4.0 X 10^3 Monocytes # (Auto) 1.0 0.0-1.0 X 10^3 Eosinophils # (Auto) 0.1 0.0-0.3 10^3/uL Basophils # (Auto) 0.0 0.0-0.1 10^3/uL (5) Advanced maternal age (AMA), 40 years or greater Status: Chronic Assessment & Plan: I do not recommend that Georgia attempt again. The risks to mom and baby are just too risky. Follow up with me regarding her options. (6) 36 weeks gestation of Status: Resolved (7) Non-reactive NST (non-stress test) Status: Resolved Final Diagnosis: Delivered Hospital Course Date of Admission: Feb 21, 2019 at 12:40 Admission Diagnosis : Family Physician/Provider: Rani Mistry DO Date of Discharge: 02/23/19 Discharge Diagnosis: 1. Preeclampsia, third trimester 2. non reactive testing 3. Preexisting diabetes in 4. Advanced maternal age 5. GBS positive 6. Abnormal quad screen 7. Macrosomia 8. shoulder dystocia Hospital Course: Georgia was admitted to the hospital from the clinic on 02/21/19 due to proteinuria (new onset) and elevations of blood pressure. she does have preexisting hypertension but was not treated through the as the blood pressures were controlled until the last visit (160/90s). She was admitted and induction was begun. Her cervix was not favorable so misoprostol cervical ripening was done. Magnesium was started for seizure prophylaxis. Ampicillin was also started. She diuresed 3 liters of urine in the first 6 hours on the magnesium. She did not require antihypertensives while in labor. As she was npo, her blood sugars were controlled (she had taken her insulin and glyburide that morning). She did have a blood sugar of 160 just prior to delivery. She delivered on 02/22. Baby was (36 4/7 weeks) and macrosomic (> 4200 grams) with polyhydramnios. The baby was transferred to [place] due to respiratory difficulty requiring surfactant and hypoglycemia. Baby is reportedly doing well. After delivery, mother was started back on oral diet with a 2000 kcal ADA diet. However, she did not follow this and resultant blood sugars were in the 3-400 range. Sliding scale was used as the metformin had just been restarted. in addition blood pressures were more elevated after delivery. Labetalol was given for blood pressures. She diuresed over 3 liters in 12 hours and the magnesium and protocol was discontinued. Despite some large clots with the lochia post , her post hemoglobin was 11.3. She was given a dose of oral misoprostol to help with the clots and bleeding but her fundus was firm. and she was asymptomatic. She will be discharged to home. She will be visiting her baby at [place]. She will restart her prepregnancy dosing of losartan so labetalol was not continued. in addition, she has Levemir at home and will resume the prepregnancy dosing at home. She will also continue metformin and glyburide at the predelivery dosing. i have encouraged her to follow up with Dr. Garza within two weeks for reassessment of blood sugars. She was on Levemir and metformin before but her A1C was 10. During we were able to achieve an A1C of 5.6. She also needs reeducation of the diabetic diet and ways to control her blood sugar. Labs and Pending Lab Test: Laboratory Tests 02/22/19 10:57: Glucometer 160H 02/22/19 20:07: Glucometer 459*H 02/22/19 21:47: Glucometer 341H 02/23/19 04:19: Glucometer 292H 02/23/19 06:30: White Blood Count 9.0, Red Blood Count 4.04L, Hemoglobin 10.0L, Hematocrit 32L, Mean Corpuscular Volume 78L, Mean Corpuscular Hemoglobin 25, Mean Corpuscular Hemoglobin Concent 32, Red Cell Distribution Width 14.4, Platelet Count 221, Mean Platelet Volume 10.3, Neutrophils (%) (Auto) 74, Lymphocytes (%) (Auto) 14, Monocytes (%) (Auto) 12, Eosinophils (%) (Auto) 1, Basophils (%) (Auto) 0, Neutrophils # (Auto) 6.6, Lymphocytes # (Auto) 1.2, Monocytes # (Auto) 1.0, Eosinophils # (Auto) 0.1, Basophils # (Auto) 0.0 Microbiology 02/21/19 Urine Culture - Final, Complete NO GROWTH Home Meds Active Misoprostol 200 Mcg Tablet 200 Mcg PO TID 1 Days Glyburide Micronized (Glyburide,Micronized) 3 Mg Tablet 5 Mg PO DAILY@0630 Metformin HCl 500 Mg Tablet 1,000 Mg PO BID@07,17 Ibu (Ibuprofen) 600 Mg Tablet 600 Mg PO Q6HR Acetaminophen 500 Mg Tablet 1,000 Mg PO Q6HR Ibuprofen 600 Mg Tablet 600 Mg PO Q6H Reported Labetalol HCl 100 Mg Tablet 100 Mg PO DAILY Metformin 500 Mg (Metformin HCl) 500 Mg Tablet 1 Each PO BID WITH MEALS Assessment/Pt Instructions She will restart her prepregnancy dosing of losartan so labetalol was not continued. in addition, she has Levemir at home and will resume the prepregnancy dosing at home. She will also continue metformin and glyburide at the predelivery dosing. i have encouraged her to follow up with Dr. Garza within two weeks for reassessment of blood sugars. She was on Levemir and metformin before but her A1C was 10. During we were able to achieve an A1C of 5.6. She also needs reeducation of the diabetic diet and ways to control her blood sugar Discharge Instructions Discharge Diet: ADA Diet Activity as Tolerated: Yes Pneumonia Vaccine Order Indica: Yes Discharge Physical Examination General Appearance: Alert, Oriented X3 HEENT: Atraumatic Respiratory: Clear to Auscultation, Normal Air Movement Extremities: Other (2+ edema no pitting) Allergies: Coded Allergies: No Known Drug Allergies (Unverified , 8/7/16) Copy Copies To 1: DON GARZA MD Discharge Summary Date of Admission Feb 21, 2019 at 12:40 Date of Discharge Discharge Date: Feb 23, 2019 Admission Diagnosis 1. Preeclampsia, third trimester 2. non reactive testing 3. Preexisting diabetes in 4. Advanced maternal age 5. GBS positive 6. Abnormal quad screen Consults/Procedures Procedures Vaginal delivery Shoulder dystocia Discharge Diagnosis 1. Preeclampsia, third trimester 2. non reactive testing 3. Preexisting diabetes in 4. Advanced maternal age 5. GBS positive 6. Abnormal quad screen 7. Macrosomia 8. shoulder dystocia (1) Shoulder (girdle) dystocia during labor and delivery, delivered Status: Resolved (2) Macrosomia Status: Resolved (3) Group B streptococcal carriage complicating Status: Resolved (4) Pre-eclampsia during in third trimester, antepartum Status: Resolved (5) Preexisting diabetes complicating in third trimester, antepartum Status: Chronic (6) Advanced maternal age (AMA), 40 years or greater Status: Chronic (7) 36 weeks gestation of Status: Resolved (8) Non-reactive NST (non-stress test) Status: Resolved (9) Preeclampsia Status: Resolved Qualifiers: Qualified Codes: O14.93 - Unspecified pre-eclampsia, third trimester Clinical Quality Measures DVT/VTE Risk/Contraindication: Risk Factor Score Per Nursin RFS Level Per Nursing on Admit: 2=Moderate NIKKI CRUZ DO Feb 23, 2019 08:49
[2019-02-23] MEDS ORDERED: FERROUS SULF 325 MG (IRON) TAB PO SCH (09:00)
[2019-02-23] MEDS ORDERED: MISOPROSTOL 200 MCG (CYTOTEC) TABLET ONE (09:47)
--- NOTE | 2019-02-23 09:48 | NUR ---
FSBS 254mg/dl.
[2019-02-23] MEDS: LABETALOL 200 MG (NORMODYNE) TAB PO SCH (09:49)
[2019-02-23] MEDS: DOCUSATE SODIUM 100 MG (COLACE) CAP PO SCH (09:49)
[2019-02-23 09:50] VITALS: BP 141/73
--- NOTE | 2019-02-23 09:50 | NUR ---
initial shift assessment completed, see interventions for further.
--- NOTE | 2019-02-23 11:26 | NUR ---
dismissal instructions given, verbalizes understanding.. reviewed dismissal medications and schedule. instructed to schedule follow up appointment. signature page signed, placed on chart.
--- NOTE | 2019-02-23 11:35 | NUR ---
pt dismissed to private vehicle via w/c with this RN and family members @ side. pt stable with no sx's of distress noted.
== END 2019-02-23 11:35 | disposition home or self-care (01) | DRG 807 ==
LOC: LDRP 12:40
PROVIDERS: ADMIT Obstetrics & Gynecology; ATTEND Obstetrics & Gynecology
PROC: 10E0XZZ Delivery of Products of Conception, External Approach (ICD-10-PCS; principal; 2019-02-22)
PROC: 3E033VJ Introduction of Other Hormone into Peripheral Vein, Percutaneous Approach (ICD-10-PCS; 2019-02-22)
PROC: 10907ZC Drainage of Amniotic Fluid, Therapeutic from Products of Conception, Via Natural or Artificial Opening (ICD-10-PCS; 2019-02-22)
PROC: 3E0P7VZ Introduction of Hormone into Female Reproductive, Via Natural or Artificial Opening (ICD-10-PCS; 2019-02-22)
DX: O11.4 Pre-existing hypertension with pre-eclampsia, complicating childbirth (principal); Z37.0 Single live birth; O10.92 Unspecified pre-existing hypertension complicating childbirth; O24.32 Unspecified pre-existing diabetes mellitus in childbirth; O40.3XX0 Polyhydramnios, third trimester, not applicable or unspecified; E11.9 Type 2 diabetes mellitus without complications; O99.824 Streptococcus B carrier state complicating childbirth; O36.63X0 Maternal care for excessive fetal growth, third trimester, not applicable or unspecified; O66.0 Obstructed labor due to shoulder dystocia; Z3A.36 36 weeks gestation of pregnancy; Z79.4 Long term (current) use of insulin; O76 Abnormality in fetal heart rate and rhythm complicating labor and delivery
CPT/HCPCS: 36415; 80053; 81000; 82962; 83615; 83735; 84550; 85025; 86850; 86900; 86901; 87088

== ENCOUNTER 2019-07-26 05:26 | Inpatient (IN) | payer MEDICAID, OTHER ==
[~2019-07-26] VITALS: Ht 162.5 cm; Wt 105.0 kg
[2019-07-26] VITALS (13 sets, daily range): BP systolic 139–176; BP diastolic 81–115
[~2019-07-26 05:26] MED LIST changes: +ACET-93 PO; +GLYB3TAB3 PO; +IBUP-844 PO; +METF-397 PO; +MISO200T4 PO
[2019-07-26] MEDS ORDERED: NS IV 500 ML 500 ML IV ONE (05:31)
[2019-07-26] MEDS ORDERED: NS IV 1000 ML 1,000 ML IV SCH (05:31)
--- OUTSIDE RECORDS SUMMARY | 2019-07-26 05:33 | XMS REPORT ---
Author Author Georgia Hilton Organization [facility] Address [address] [place] [address] Care Team Providers Care Import Specialist Name Role Phone LENORE Hilton Unavailable PROBLEMS Type Condition ICD9-CM Code MRT67-DF Code Onset Dates Condition S tatus SNOMED Code Problem Type 2 diabetes mellitus with other diabetic kid mirela complication E11.29 Active 84132130 Problem Mixed hyperlipidemia E78.2 Active 231748567 Problem Onychomycosis due to dermatophyte B35.1 Active 635018156 Problem Other hammer toe(s) (acquired), right foot M20.41 Active 933108448 Problem Essential hypertension I10 Active 36713335 Problem BMI 40.0-44.9, adult Z68.41 Active 084469960 Problem Type 2 diabetes mellitus with hyperglycemia E11.65 Active [id number] Problem long 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 care pharmacist 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.4 Active 114702771 Problem Type 2 diabetes mellitus wit h diabetic neuropathy, 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 Active 403210 06 Problem Other hammer toe(s) (acquired), left foot M20.42 Active [id number] ALLERGIES No Information ENCOUNTERS Encounter Location Date Diagnosis [place] [address] [address] [facility] [id number] [address] [place] [phone] Sep, [id number] [facility] [id number] [address] [place] [address] June, Type 2 diabetes mellitus wit h other diabetic kidney complication E11.29 ; Essential hypertension I10 ; skilled nursing 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.4 ; Mixed hyperlipidemia E78.2 and BMI 40.0-44.9, adult Z68.41 [id number] [facility] [id number] [address] [place] [address] 12 Jun, 2019 Type 2 diabetes mellitus wit h other diabetic kidney complication E11.29 [place] [address] [address] [facility] [id number] [address] [place] [address] 08 Jun, 2019 Type 2 diabetes mellitus wit h diabetic neuropathy, 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 ; Other hammer toe(s) (acquired), left foot M20.42 ; Other hammer toe(s) (acquired), right foot M20.41 and Onychomycosis due to dermatophyte B35.1 [place] [address] [address] [facility] [id number] [address] [place] [address] June, Type 2 diabetes mellitus wit h diabetic neuropathy, unspecified whether senior care insulin use E11.40 and Type 2 diabetes mellitus with other diabetic kidney complication E11.29 [place] [address] [address] [facility] [id number] [address] [place] [address] May, [place] [address] [address] [place] [id number] [address] [place] [address] May, Type 2 diabetes mellitus wit h hyperglycemia E11.65 [place] [address] [address] [facility] [id number] [address] [place] [address] May, Type 2 diabetes mellitus wit h hyperglycemia E11.65 ; Type 2 diabetes mellitus with diabetic neuropathy, unspecified whether senior care insulin use E11.40 ; Blurry vision H53.8 ; Type 2 diabetes mellitus with other diabetic kidney complication E11.29 ; Mixed hyperlipidemia E78.2 ; skilled nursing 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.4 and BMI 40.0-44.9, adult Z68.41 [place] [address] [address] [facility] [id number] [address] [place] [address] May, [place] [address] [address] [facility] [id number] [address] [place] [address] Apr, [place] [address] [address] [place] [id number] [address] [place] [address] Apr, [place] [address] [address] [facility] [id number] [address] [place] [address] Apr, Type 2 diabetes mellitus wit h other diabetic kidney complication E11.29 [place] [address] [address] 14 Mar, 2019 Onychomycosis B35.1 ; Other hammer toe(s) (acquired), right foot M20.41 ; Other hammer toe(s) (acquired), left foot M20.42 and Type 2 diabetes mellitus with diabetic neuropathy, 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 [address] 17 Feb, 2019 [place] [address] [address] Feb, [address] [address] Feb, Type 2 diabetes mellitus wit h other diabetic kidney complication E11.29 ; Type 2 diabetes mellitus with hyperglycemia E11.65 ; skilled nursing 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.4 ; Essential hypertension I10 and BMI 40.0-44.9, adult Z68.[address] [address] Nov, [address] [address] Oct, [address] [address] Aug, Onychomycosis B35.1 ; Contus ion of right foot, initial encounter S90.31XA ; Contusion of toe with damage to nail, unspecified toe, initial encounter S90.229A and Type 2 diabetes mellitus with diabetic neuropathy, unspecified whether senior care insulin use E11.[address] [address] 15 Aug, [address] [address] Jul, [address] [address] Jul, [place] [address] [id number] [address] [place] [address] Jul, [facility] [address] [id number] [address] [place] [address] Jul, [facility] [address] [id number] [address] [place] [address] Jul, Type 2 diabetes mellitus wit h other diabetic kidney complication E11.29 [facility] [address] [id number] [address] [place] [address] June, [facility] [address] [id number] [address] [place] [address] June, [facility] [address] [id number] [address] [place] [address] June, [facility] [address] [facility] [id number] [address] [place] [phone] May, [facility] [address] [facility] [id number] [address] [place] [address] May, Type 2 diabetes mellitus wit h other diabetic kidney complication E11.29 and Type 2 diabetes mellitus with hyperglycemia E11.65 [facility] [address] [id number] [address] [place] [address] May, [facility] [address] [facility] [id number] [address] [place] [address] May, Onychomycosis B35.1 ; Other hammer toe(s) (acquired), left foot M20.42 ; Other hammer toe(s) (acquired), right foot M20.41 and Type 2 diabetes mellitus with diabetic neuropathy, unspecified whether senior care insulin use E11.40 [facility] [address] [id number] [address] [place] [address] May, [facility] [address] [facility] [id number] [address] [place] [address] Mar, [facility] [address] [facility] [id number] [address] [place] [address] 15 Mar, 2018 [place] [address] [address] [place] [id number] [address] [place] [address] 07 Mar, 2018 Type 2 diabetes mellitus wit h other diabetic kidney complication E11.29 ; Essential hypertension I10 ; Mixed hyperlipidemia E78.2 ; Type 2 diabetes mellitus with hyperglycemia E11.65 ; skilled nursing 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.4 and Type 2 diabetes mellitus with diabetic neuropathy, 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 [place] [address] [address] [place] [id number] [address] [place] [address] 07 Feb, 2018 [place] [address] [address] [place] [id number] [address] [place] [address] 13 Jan, 2018 [place] [address] [address] [place] [id number] [place] [phone] 16 Dec, 2017 Onychomycosis B35.1 ; Type 2 diabetes mellitus with diabetic neuropathy, unspecified whether senior care insulin use E11.40 ; Other hammer toe(s) (acquired), right foot M20.41 and Other hammer toe(s) (acquired), left foot M20.42 [place] [address] [address] 08 Dec, 2017 [place] [address] [address] [place] [id number] [place] [address] 07 Dec, 2017 Dental examination Z01.20 [place] [address] [address] [place] [id number] [address] [place] [address] 07 Dec, 2017 Type 2 diabetes mellitus wit h other diabetic kidney complication E11.29 ; Type 2 diabetes mellitus with hyperglycemia E11.65 ; Essential hypertension I10 and Mixed hyperlipidemia E78.2 [place] [address] [address] [place] [id number] [address] [place] [address] 08 Nov, 2017 Type 2 diabetes mellitus wit h other diabetic kidney complication E11.29 ; Type 2 diabetes mellitus with hyperglycemia E11.65 ; Essential hypertension I10 ; Vaginal itching N89.8 and Encounter for immunization Z23 [place] [address] [address] [place] [id number] [place] [address] 13 Oct, 2017 Type 2 diabetes mellitus wit h other diabetic kidney complication E11.29 [facility] [address] [id number] [address] [place] [id number] 04 Oct, 2017 [facility] [address] [facility] [id number] [address] [place] [address] Sep, Onychomycosis B35.1 and Type 2 diabetes mellitus without complications E11.9 [facility] [address] [id number] [address] [place] [address] Aug, [facility] [address] [id number] [address] [place] [address] Jul, [facility] [address] [facility] [id number] [address] [place] [address] Jul, [facility] [address] [facility] [facility] [id number] [address] [place] [address] Jul, [facility] [address] [facility] [id number] [address] [place] [phone] June, [facility] [address] [facility] [id number] [address] [place] [address] June, Type 2 diabetes mellitus wit h other diabetic kidney complication E11.29 ; Essential hypertension I10 ; Mixed hyperlipidemia E78.2 ; long term care pharmacist 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.4 and High blood triglycerides E78.1 [facility] [address] [facility] [id number] [address] [place] [address] May, [facility] [address] [id number] [address] [place] [address] Apr, [facility] [address] [facility] [id number] [address] [place] [address] Apr, [facility] [address] [facility] [id number] [address] [place] [address] Mar, [facility] [address] [facility] [id number] [address] [place] [address] Feb, [facility] [address] [id number] [address] [place] [address] Feb, [facility] [address] [id number] [address] [place] [phone] Feb, [facility] [address] [facility] [id number] [address] [place] [address] Jan, Type 2 diabetes mellitus wit h other diabetic kidney complication E11.29 [facility] [address] [id number] [id number] Dec, Dental examination Z01.20 [facility] [address] [id number] [address] [place] [address] Dec, High blood triglycerides E78 .1 [facility] [address] [id number] [place] [id number] Dec, Dental examination Z01.20 [facility] [address] [facility] [id number] [address] [place] [address] Dec, High blood triglycerides E78 .1 [facility] [address] [facility] [id number] [address] [place] [address] 09 Dec, 2016 Type 2 diabetes mellitus wit h other diabetic kidney complication E11.29 [facility] [address] [facility] [id number] [address] [place] [address] Nov, Type 2 diabetes mellitus wit h other diabetic kidney complication E11.29 [facility] [address] [facility] [id number] [address] [place] [address] Nov, [facility] [address] [facility] [id number] [address] [place] [address] Nov, Type 2 diabetes mellitus wit h other diabetic kidney complication E11.29 [facility] [address] [facility] [id number] [address] [place] [address] 09 Nov, 2016 long term care pharmacist current use of ins ulin Z79.4 ; Encounter for immunization Z23 ; Essential hypertension I10 ; Type 2 diabetes mellitus with other diabetic kidney complication E11.29 and Mixed hyperlipidemia E78.2 [facility] [address] [id number] [address] [place] [id number] 04 Nov, 2016 [facility] [address] [id number] [address] [place] [address] 20 Oct, 2016 [facility] [address] [id number] [address] [place] [id number] 15 Oct, 2016 Candidiasis of female genita eduard B37.3 and Vaginal discharge N89.8 [facility] [address] [id number] [address] [place] [phone] 15 Oct, 2016 [facility] [address] [id number] [address] [place] [address] 14 Oct, 2016 [facility] [address] [id number] [address] [place] [address] Sep, Vaginal yeast infection B37. 3 [facility] [address] [id number] [address] [place] [address] Jul, [facility] [address] [id number] [address] [place] [address] Jul, [facility] [address] [id number] [address] [place] [address] Jul, [facility] [address] [id number] [address] [place] [address] June, [facility] [address] [id number] [address] [place] [address] June, [facility] [address] [id number] [address] [place] [address] June, Type 2 diabetes mellitus wit hout complications E11.9 [facility] [address] [id number] [address] [place] [address] June, Essential hypertension I10 ; Type 2 diabetes mellitus without complications E11.9 ; skilled nursing 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.4 and Hair loss L65.9 [facility] [address] [place] [id number] [address] [place] [address] June, [facility] [address] [place] [id number] [address] [place] [address] May, Onychomycosis B35.1 ; Onycho cryptosis L60.0 and Type 2 diabetes mellitus without complications E11.9 [place] [id number] [place] [address] May, [facility] [address] [place] [id number] [address] [place] [address] Apr, Type 2 diabetes mellitus wit hout complications E11.9 [place] [address] [place] [id number] [place] [address] Apr, [place] [address] [place] [id number] [place] [address] Apr, Type 2 diabetes mellitus wit hout complications E11.9 ; Type 2 diabetes mellitus with hyperglycemia E11.65 and skilled nursing 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.4 [place] [address] [address] Apr, [place] [address] [place] [id number] [place] [phone] Mar, [place] [address] [place] [id number] [address] [place] [address] Mar, [place] [address] [place] [id number] [address] [place] [address] Mar, Mixed hyperlipidemia E78.2 ; Type 2 diabetes mellitus with other diabetic kidney complication E11.29 ; Essential hypertension I10 and Onychomycosis due to dermatophyte B35.1 [place] [address] [address] [place] [id number] [address] [place] [address] Jan, Type 2 diabetes mellitus wit h other diabetic kidney complication E11.29 ; Mixed hyperlipidemia E78.2 and Essential hypertension I10 [place] [address] [place] [id number] [address] [place] [address] Sep, [facility] [address] [id number] [address] [place] [address] Sep, [facility] [address] [id number] [address] [place] [address] Feb, [facility] [address] [facility] [id number] [address] [place] [address] Feb, Type 2 diabetes mellitus wit h other diabetic kidney complication E11.29 ; Essential hypertension I10 and Abnormal menstrual cycle N92.6 [facility] [address] [id number] [address] [place] [address] Dec, Type 2 diabetes mellitus wit h other diabetic kidney complication E11.29 [facility] [address] [id number] [address] [place] [address] Nov, Type 2 diabetes mellitus wit h other diabetic kidney complication E11.29 and Essential hypertension I10 [facility] [address] [facility] [id number] [address] [place] [id number] Nov, [facility] [address] [facility] [id number] [address] [place] [address] Nov, [facility] [address] [facility] [id number] [address] [place] [address] Nov, [facility] [address] [id number] [address] [place] [address] Oct, [facility] [address] [facility] [id number] [address] [place] [address] 17 Oct, 2014 [facility] [address] [facility] [id number] [address] [place] [address] 15 Oct, 2014 Diabetes type 2, uncontrolle d 250.02 and Hyperlipidemia 272.4 [facility] [address] [id number] [address] [place] [address] 14 Oct, 2014 Hyperlipidemia 272.4 and Penny betes type 2, uncontrolled 250.02 [facility] [address] [id number] [address] [place] [address] Sep, [facility] [address] [id number] [address] [place] [address] Sep, [facility] [address] [id number] [address] [place] [address] Aug, [facility] [address] [id number] [address] [place] [address] Aug, [facility] [address] [id number] [address] [place] [address] Aug, [facility] [address] [id number] [address] [place] [address] Aug, [facility] [address] [id number] [address] [place] [phone] Aug, [facility] [address] [id number] [address] [place] [address] Aug, [facility] [address] [id number] [address] [place] [address] Aug, [facility] [address] [id number] [address] [place] [address] Jul, [facility] [address] [id number] [address] [place] [address] Jul, [facility] [address] [id number] [address] [place] [address] Jul, Hyperlipidemia 272.4 [facility] [address] [id number] [address] [place] [address] Jul, [facility] [address] [id number] [address] [place] [address] Jul, Diabetes type 2, uncontrolle d 250.02 ; Ankle pain, right 719.47 and Hyperlipidemia 272.4 [facility] [address] [id number] [address] [place] [address] June, [facility] [address] [id number] [address] [place] [address] June, Unspecified essential hypert ension 401.9 ; Diabetes type 2, uncontrolled 250.02 ; Joint pain 719.40 and Hyperlipidemia 272.4 [facility] [address] [id number] [address] [place] [address] May, [facility] [address] [id number] [address] [place] [address] May, [facility] [address] [id number] [address] [place] [address] May, [facility] [address] [id number] [address] [place] [address] May, [facility] [address] [id number] [address] [place] [phone] Apr, [facility] [address] [id number] [address] [place] [phone] Apr, [facility] [address] [id number] [address] [place] [address] Feb, [facility] [address] [id number] [address] [place] [phone] Feb, [facility] [address] [id number] [address] [place] [address] Feb, [facility] [address] [id number] [address] [place] [address] Feb, [facility] [address] [id number] [address] [place] [address] Feb, [facility] [address] [id number] [address] [place] [address] Feb, [facility] [address] [id number] [address] [place] [phone] Feb, [facility] [address] [id number] [address] [place] [phone] Feb, [facility] [address] [id number] [address] [place] [address], [place] [address] Dec, [facility] [address] [id number] [address] [place] [address], [place] [address] Dec, [facility] [address] [id number] [address] [place] [address], [place] [address] Dec, [facility] [address] [id number] [address] [place] [address], [place] [address] Dec, [facility] [address] [id number] [address] [place] [address], [place] [address] Dec, [facility] [address] [id number] [address] [place] [address], [place] [address] Nov, [facility] [address] [id number] [address] [place] [address], [place] [address] Nov, [facility] [address] [id number] [address] [place] [address], [place] [address] Nov, [facility] [address] [id number] [address] [place] [address], [place] [address] Nov, [facility] [address] [id number] [address] [place] [address], [place] [address] 26 Oct, 2013 [facility] [address] [id number] [address] [place] [address], [place] [address] 26 Oct, 2013 [facility] [address] [id number] [address] [place] [address], [place] [address] 25 Oct, 2013 [facility] [address] [id number] [address] [place] [address], [place] [address] Oct, [facility] [address] [id number] [address] [place] [address], [place] [address] Aug, [facility] [address] [id number] [address] [place] [address], [place] [address] Aug, [facility] [address] [id number] [address] [place] [address], [place] [address] Aug, [facility] [address] [id number] [address] [place] [address], [place] [address] Aug, [facility] [address] [id number] [address] [place] [address], [place] [address] Jul, [facility] [address] [id number] [address] [place] [address], [place] [address] Jul, [facility] [address] [id number] [address] [place] [address], [place] [address] June, [facility] [address] [id number] [address] [place] [address], [place] [address] June, [facility] [address] [id number] [address] [place] [address], [place] [address] May, [facility] [address] [id number] [address] [place] [address], [place] [address] May, [facility] [address] [id number] [address] [place] [address], [place] [address] May, [facility] [address] [id number] [address] [place] [address], [place] [address] May, [facility] [address] [id number] [address] [place] [address], [place] [address] May, [facility] [address] [id number] [address] [place] [address], [place] [address] May, [facility] [address] [id number] [address] [place] [address], [place] [address] Apr, [facility] [address] [id number] [address] [place] [address], [place] [address] Apr, [facility] [address] [id number] [address] [place] [address], [place] [address] Mar, [facility] [address] [id number] [address] [place] [address], [place] [address] Mar, [facility] [address] [id number] [address] [place] [address], [place] [address] Jan, [facility] [address] [id number] [address] [place] [address], [place] [address] Jan, [facility] [address] [id number] [address] [place] [address], [place] [address] Dec, [facility] [address] [id number] [address] [place] [address], [place] [address] Dec, [facility] [address] [id number] [address] [place] [address], [place] [address] Dec, [facility] [address] [id number] [address] [place] [address], [place] [address] Dec, [facility] [address] [id number] [address] [place] [address], [place] [address] Dec, [facility] [address] [id number] [address] [place] [address], [place] [address] Dec, [facility] [address] [id number] [address] [place] [address], [place] [address] Nov, [facility] [address] [id number] [address] [place] [address], [place] [address] Nov, [facility] [address] [id number] [address] [place] [address], [place] [address] Nov, [facility] [address] [id number] [address] [place] [address], [place] [address] Nov, [facility] [address] [id number] [address] [place] [address], [place] [address] Nov, [facility] [address] [id number] [address] [place] [address], [place] [address] Nov, [facility] [address] [id number] [address] [place] [address], [place] [address] 08 Nov, 2012 [facility] [address] [id number] [address] [place] [address], [place] [address] Nov, [facility] [address] [id number] [address] [place] [address], [place] [address] Nov, [facility] [address] [id number] [address] [place] [address], [place] [address] 06 Oct, 2012 [facility] [address] [id number] [address] [place] [address], [place] [address] 04 Oct, 2012 [facility] [address] [id number] [address] [place] [address], [place] [address] 17 Aug, 2012 [facility] [address] [id number] [address] [place] [address], [place] [address] 16 Aug, 2012 [facility] [address] [id number] [address] [place] [address], [place] [address] 15 Aug, 2012 [facility] [address] [id number] [address] [place] [address], [place] [address] Jul, [facility] [address] [id number] [address] [place] [address], [place] [address] Dec, [facility] [address] [id number] [address] [place] [address], [place] [address] Nov, [facility] [address] [id number] [address] [place] [address], [place] [address] Nov, [facility] [address] [id number] [address] [place] [address], [place] [address] 30 Nov, 2011 [facility] [address] [id number] [address] [place] [phone] Nov, [facility] [address] [id number] [address] [place] [address], [place] [address] Nov, [facility] [address] [id number] [address] [place] [address], [place] [address] Nov, [facility] [address] [id number] [address] [place] [address], [place] [address] Mar, [facility] [address] [id number] [address] [place] [address], [place] [address] 16 Feb, 2011 [facility] [address] [id number] [address] [place] [address], [place] [address] 13 Feb, 2011 [facility] [address] [id number] [address] [place] [address], [place] [address] 10 Feb, 2011 [facility] [address] [id number] [address] [place] [address], [place] [address] 10 Feb, 2011 [facility] [address] [id number] [address] [place] [address], [place] [address] 09 Feb, 2011 [facility] [address] [id number] [address] [place] [address], [place] [address] 09 Jan, 2011 [facility] [address] [id number] [address] [place] [address], [place] [address] 12 Oct, 2010 [facility] [address] [id number] [address] [place] [address], [place] [address] 13 Feb, 2010 [facility] [address] [id number] [address] [place] [address], [place] [address] 19 Jan, 2010 [facility] [address] [id number] [address] [place] [address], [place] [address] 14 Jan, 2010 [facility] [address] [id number] [address] [place] [address], [place] [address] 13 Jan, 2010 [facility] [address] [id number] [address] [place] [address], [place] [address] 13 Jan, 2010 [facility] [address] [id number] [address] [place] [address], [place] [address] 24 Dec, 2009 [facility] [address] [id number] [address] [place] [address], [place] [address] Dec, [facility] [address] [id number] [address] [place] [address], [place] [address] 30 Dec, 2008 [facility] [address] [id number] [address] [place] [address], [place] [address] 14 Aug, 2008 [facility] [address] [facility] [id number] [address] [place] [id number] Jul, [facility] [address] [id number] [address] [place] [phone] June, [facility] [address] [facility] [place] [id number] [address] [place] [id number] June, [facility] [address] [facility] [place] [id number] [address] [place] [phone] May, [facility] [address] [facility] [place] [id number] [address] [place] [phone] Apr, IMMUNIZATIONS No Known Immunizations SOCIAL HISTORY Never Assessed REASON FOR VISIT PLAN OF CARE VITAL SIGNS Height 64 in 2012-11-28 Weight 219.8 lbs 2012-11-28 Temperature 98.2 degrees Fahrenheit 2012-11-28 Heart Rate 80 bpm 2012-11-28 Respiratory Rate 16 2012-11-28 Blood pressure systolic 118 mmHg 2012-11-28 Blood pressure diastolic 66 mmHg 2012-11-28 MEDICATIONS Unknown Medications RESULTS No Results PROCEDURES Procedure Date Ordered Result Body Site HEPATIC FUNCTION PANEL Nov 28, 2012 MRI LUMBAR SPINE W/O DYE Nov 28, 2012 VENIPUNCT, ROUTINE* Nov 28, 2012 INSTRUCTIONS MEDICATIONS ADMINISTERED No Known Medications MEDICAL (GENERAL) HISTORY Type Description Date Medical History HYPERTENSION Medical History RENAL DISEASE- MICROALBUMINURIA Medical History HYPERLIPIDEMIA Medical History DM TYPE 2- DX'D 2007 Surgical History No Surgical history information
--- OUTSIDE RECORDS SUMMARY | 2019-07-26 05:33 | XMS REPORT ---
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 [facility] Address [address] [place] [address] Care Team Providers Care Sas Developer Name Role Phone GUIDO LUNA Unavailable Unavailable [facility] Unavailable LUNACHINAA Starr Unavailable PREMA ARANGO Unavailable Unavailable JADE TINEO Unavailable Unavailable NIKKI CRUZ Unavailable LUNACHINAA K Unavailable [facility] Unavailable [phone] CHERYL GUIDO K Unavailable GAULT, DON Unavailable GAULT, DON Unavailable GAULT, DON Unavailable GAULT, DON Unavailable GAULT, DON Unavailable GAULT, DON Unavailable GAULT, DON Unavailable JOSE M, JOHNNY Unavailable GAULT, DON Unavailable zzMORRIS, RADHA Unavailable zzMORRIS, RADHA Unavailable GAULT, DON Unavailable AHMED, EDEL Unavailable AHMED, EDEL Unavailable GAULT, DON Unavailable GAULT, DON Unavailable GAULT, DON Unavailable GAULT, DON Unavailable GAULT, DON Unavailable GAULT, DON Unavailable GAULT, DON Unavailable STUART MUELLER Unavailable GAULT, DON Unavailable GAULT, DON Unavailable GAULT, DON Unavailable GAULT, DON Unavailable GAULT, DON Unavailable GAULT, DON Unavailable GAULT, DON Unavailable GAULT, DON Unavailable GAULT, DON Unavailable JOSE M, JOHNNY Unavailable GAULT, DON Unavailable GAULT, DON Unavailable GAULT, DON Unavailable GAULT, DON Unavailable CHRISTINA MARIA Unavailable JOSE M, JOHNNY Unavailable GAULT, DON Unavailable Migration, Doctor Unavailable Unavailable Migration, Doctor Unavailable Unavailable Migration, Doctor Unavailable Unavailable SLIM DIAZ APRN Unavailable Unavailable FENECH DO, QUYEN S Unavailable Unavailable CRUZ DO, NIKKI C Unavailable Unavailable CRUZ DO, NIKKI C Unavailable Unavailable AMANDA, LENORE R ULTRASOUND COORDINATOR Unavailable Unavailable DIEGO MOSQUEDA Unavailable Unavailable OC DO, REGINA K Unavailable Unavailable ERLINDA CLARK, DANIELLE Layton Unavailable Unavailable Migration, Doctor Unavailable Unavailable Migration, Doctor Unavailable Unavailable Migration, Doctor Unavailable Unavailable Migration, Doctor Unavailable Unavailable zzSANCHEZ, LENORE Unavailable zzSANCHEZ, LENORE Unavailable zzSANCHEZ, LENORE Unavailable zzSANCHEZ, LENORE Unavailable zzSANCHEZ, LENORE Unavailable zzSANCHEZ, LENORE Unavailable GAULT, DON Unavailable Unavailable zzSANCHEZ, LENORE Unavailable DIEGO MOSQUEDA Unavailable Unavailable SLIM DIAZ ULTRASOUND COORDINATOR Unavailable Unavailable LENORE PATEL ULTRASOUND COORDINATOR Unavailable Unavailable DANIELLE COFFEY MD Unavailable Unavailable NIKKI CRUZ DO Unavailable Unavailable QUYEN SANTIZO DO Unavailable Unavailable NANCY LEONARDO, NIKKI Osuna Unavailable Unavailable BRENDA MO ULTRASOUND COORDINATOR Unavailable Unavailable LUNA, GUIDO Unavailable LUNA, GUIDO Unavailable Unavailable Unavailable Migration, Doctor Unavailable Unavailable Migration, Doctor Unavailable Unavailable zzSANCHEZ, LENORE Unavailable LUNA, GUIDO Unavailable LUNA, GUIDO Unavailable LUNA, GUIDO Unavailable LUNA, GUIDO Unavailable LUNA, GUIDO Unavailable zzSANCHEZ, LENORE Unavailable zzSANCHEZ, LENORE Unavailable zzSANCHEZ, LENORE Unavailable LUNA, GUIDO Unavailable zzSANCHEZ, LENORE Unavailable zzSANCHEZ, LENORE Unavailable Unavailable Unavailable Unavailable Unavailable Unavailable Unavailable Unavailable Unavailable Allergies Normalized Allergy Reported Date of Reaction(s) Care Provider Facility Allergy Type classification allergen Allergy Onset DA (20 Unclassified No Known Drug 10-03-2015 - no information NIKKI CRUZ , Not Available sources.) Allergies DO (21989) Medications The data below is from unstructured sourcesNo Known Medications No Known Medications No Known Medications No Known Medications No Known Medications No Known Medications No Known Medications No Known Medications No Known Medications No Known Medications No Known Medications No Known Medications No Known Medications Unknown Medications Unknown Medications Unknown Medications Unknown Medications Unknown Medications Unknown Medications Unknown Medications Unknown Medications Unknown Medications Unknown Medications Unknown Medications Unknown Medications Unknown Medications Unknown Medications Unknown Medications Unknown Medications Unknown Medications Unknown Medications Unknown Medications Unknown Medications Unknown Medications Unknown Medications Unknown Medications Unknown Medications Unknown Medications Unknown Medications Unknown Medications Unknown Medications Unknown Medications Unknown Medications Unknown Medications Unknown Medications Unknown Medications Unknown Medications Unknown Medications Unknown Medications Unknown Medications Unknown Medications Unknown Medications Unknown Medications Unknown Medications Unknown Medications Unknown Medications Unknown Medications Unknown Medications Unknown Medications Unknown Medications Unknown Medications Unknown Medications Unknown Medications Unknown Medications Unknown Medications Unknown Medications Unknown Medications Unknown Medications Unknown Medications Unknown Medications Unknown Medications Unknown Medications Unknown Medications Unknown Medications Unknown Medications Unknown Medications Unknown Medications Unknown Medications Unknown Medications Unknown Medications Unknown Medications Unknown Medications Unknown Medications Unknown Medications Unknown Medications Unknown Medications No Known Medications No Known Medications No Known Medications No Known Medications No Known Medications No Known Medications No Known Medications No Known Medications No Known Medications No Known Medications No Known Medications No Known Medications No Known Medications No Known Medications No Known Medications No Known Medications No Known Medications No Known Medications No Known Medications No Known Medications No Known Medications No Known Medications No Known Medications No Known Medications No Known Medications No Known Medications No Known Medications No Known Medications No Known Medications No Known Medications No Known Medications No Known Medications No Known Medications No Known Medications No Known Medications No Known Medications No Known Medications No Known Medications No Known Medications No Known Medications No Known Medications No Known Medications No Known Medications No Known Medications No Known Medications No Known Medications No Known Medications No Known Medications No Known Medications No Known Medications No Known Medications No Known Medications No Known Medications No Known Medications No Known Medications No Known Medications No Known Medications No Known Medications No Known Medications No Known Medications No Known Medications No Known Medications No Known Medications No Known Medications Unknown Medications No Known Medications Problems Active Problems Problem Normalized Date Last Normalized Normalized Provider Fa cility Classification Problem(s) Recorded Problem Problem Sta tus Duration Residual 21 weeks Episodic Active NIKKI CRUZ , [facility] Via codes; gestation of DO [facility] - (7 sources.) [place] () Residual 22 weeks Episodic Active DIEGO [facility] Via codes; gestation of GAVIOTA LEWIS [facility] - (6 sources.) [place] () Residual 28 weeks Episodic Active DANIELLE [facility] Via codes; [facility] of [facility] - (7 sources.) [place] () Residual 30 weeks Episodic Active BRENDA MO [facility] Via codes; gestation of [facility] - (5 sources.) [place] () Residual 32 weeks Episodic Active NIKKI CRUZ , [facility] Via codes; gestation of DO [facility] - (5 sources.) [place] () Residual 35 weeks Episodic Active NIKKI CRUZ , [facility] Via codes; gestation of DO [facility] - (8 sources.) [place] () Residual 36 weeks Episodic Active NIKKI CRUZ , [facility] Via codes; gestation of DO [facility] - (4 sources.) [place] (22434) Residual 38 weeks Episodic Active NIKKI CRUZ , [facility] Via codes; gestation of DO [facility] - (13 sources.) [place] (25545) Other Abnormality in Episodic Active NIKKI CRUZ , [facility] Via complications heart DO [facility] of ; rate and Hospital - puerperium rhythm [place] affecting complicating (29777) management of labor and mother (4 delivery sources.) Other Abnormality in Episodic Active NIKKI CRUZ , [facility] Via complications heart DO [facility] of ; rate or Hospital - puerperium rhythm, [place] affecting delivered, (63617) management of with or mother (9 without sources.) mention of antepartum condition Other Anemia of Chronic Active NIKKI CRUZ , Not Avai lable complications mother, DO (09556) of ; delivered, puerperium with mention affecting of management of complication mother (1 source.) Other nervous Carpal tunnel Chronic Active SLIM DIAZ [facility] Via system syndrome [facility] disorders (20 Hospital - sources.) [place] (75890) Chronic kidney Chronic kidney Chronic Active NIKKI CRUZ , [facility] Via disease (11 disease, DO [facility] sources.) unspecified Hospital - [place] (32351) External cause Civilian Episodic Active DIEGO [facility] Via codes: activity done GAVIOTA LEWIS Unspecified (6 for income or Hospital - sources.) pay [place] (46617) Other Decreased Episodic Active QUYEN SANTIZO [facility] Via complications , DO [facility] of movements, Hospital - (10 sources.) affecting [place] management of (14692) mother, antepartum condition or complication Spondylosis; 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 intervertebral disorders; disc without other back myelopathy problems (1 source.) Other Excessive Episodic Active NIKKI CRUZ , Not Avai lable complications growth, DO (86837) of affecting (11 sources.) management of mother, delivered, with or without mention of antepartum condition External cause Fall on same Episodic Active DIEGO [facility] Via codes: Fall (6 level from GAVIOTA LEWIS sources.) slipping, Hospital - tripping and [place] stumbling (59740) without subsequent striking against object, initial encounter Diabetes or Gestational Episodic Active NIKKI CRUZ , [facility] Via abnormal diabetes DO [facility] glucose mellitus in Hospital - tolerance , [place] complicating insulin (09204) ; controlled childbirth; or Translations: the puerperium [ GESTATNL (24 sources.) DIAB IN CHLDBRTH, CTRL BY ORAL , GESTATIONAL DIABETES MELLITUS IN PREGNAN] Other Maternal care Episodic Active NIKKI CRUZ , [facility] Via complications for excessive DO [facility] of growth, Hospital - (4 sources.) third [place] trimester, not (88089) applicable or unspecified Umbilical cord Other and Episodic Active NIKKI CRUZ , [facility] Via complication unspecified DO [facility] (9 sources.) cord [facility] without (43996) mention of compression, complicating labor and delivery, delivered, with or without mention of antepartum condition Other Other current Episodic Active NIKKI CRUZ , Not Available complications conditions DO (95873) of ; classifiable puerperium elsewhere of affecting mother, management of delivered, mother (11 with or sources.) without mention of antepartum condition Other Other Episodic Active DIEGO [facility] Via complications specified GAVIOTA LEWIS of diseases and Hospital - (9 sources.) conditions [place] complicating (74136) , childbirth and the puerperium External cause Other Episodic Active DIEGO [facility] Via codes: Place specified GAVIOTA LWEIS of occurrence places as the Hospital - (6 sources.) place of [place] occurrence of (18756) the external cause Other Pain in right Episodic Active DANIELLE [facility] Via connective lower leg [facility] COFFEY tissue disease [facility] - (18 sources.) [place] (00166) Polyhydramnios Polyhydramnios Episodic Active NIKKI CRUZ , Not Available and other , delivered, DO (40899) problems of with or amniotic without cavity (6 mention of sources.) antepartum condition Translations: [ POLYHYDRAMNIOS , THIRD TRIMESTER, NOT HEMALATHA] Fetopelvic Shoulder Episodic Active NIKKI CRUZ , Not Avai lable disproportion; (girdle) DO (49333) obstruction (6 dystocia, sources.) delivered, with or without mention of antepartum condition Translations: [ OBSTRUCTED LABOR DUE TO SHOULDER DYSTOCI] Other Streptococcus Episodic Active NIKKI CRUZ , [facility] Via complications B carrier DO [facility] of ; [facility] - puerperium complicating [place] affecting childbirth (69264) management of mother (4 sources.) Other Supervision of Episodic Active NIKKI CRUZ , [facility] Via complications elderly DO [facility] of multigravida, Hospital - (7 sources.) second [place] trimester (85081) Other Supervision of Episodic Active NIKKI CRUZ , [facility] Via complications elderly DO [facility] of multigravida, Hospital - (13 sources.) third [place] trimester (45131) Other Supervision of Episodic Active NIKKI CRUZ , [facility] Via complications elderly DO [facility] of primigravida, Hospital - (8 sources.) third [place] trimester (01472) Other Supervision of Episodic Active NIKKI CRUZ , [facility] Via complications with DO [facility] of other [facility] - (5 sources.) reproductive [place] or obstetric (95451) history, third trimester Other injuries Unspecified Episodic Active DIEGO [facility] V ia and conditions injury of GAVIOTA LEWIS due to right hip, Hospital - external initial [place] causes (9 encounter (88412) sources.) Hypertension Unspecified Chronic Active NIKKI CRUZ , Not Available complicating pre-existing DO (11472) ; hypertension childbirth and complicating the puerperium , (23 sources.) third trimester Translations: [ HYPERTENS NOS-DELIVERED, PRE-EXIST HYP CHRONIC KIDNEY DISEASE COM, PRE-EXISTING HTN WITH PRE-ECLAMPSIA, COM, UNSP PRE-EXISTING HYPERTENSION COMPLICAT] Past or Other Problems Problem Normalized Date Last Normalized Normalized Provider Fa cility Classification Problem(s) Recorded Problem Problem Sta tus Duration Residual 22 weeks no information no information DIEGO Not Available codes; gestation of GAVIOTA LEWIS (81441) unclassified (3 sources.) Residual 28 weeks no information no information DANIELLE Not Available codes; gestation of ERLINDA , (00998) unclassified MD (2 sources.) Residual 35 weeks no information no information NIKKI NANCY , Not Available codes; gestation of DO (97980) unclassified (3 sources.) Residual 38 weeks no information no information NIKKI CRUZ , Not Available codes; gestation of DO (11334) unclassified (3 sources.) Other upper Acute upper Episodic Completed REGINA OC , DO Not Available respiratory respiratory (46728) infections (1 infections of source.) unspecified site Deficiency and Anemia, Episodic Completed NIKKI CRUZ , Not Available other anemia unspecified DO (05794) (1 source.) External cause Civilian no information no information DIEGO Not Available codes: activity done GAVIOTA LEWIS (57250) Unspecified (3 for income or sources.) pay Other lower Cough Episodic Completed REGINA OC , DO Not Av ailable respiratory (61473) disease (1 source.) External cause Fall on same no information no information GRETC HEN Not Available codes: Fall (3 level from GAVIOTA LEWIS (34613) sources.) slipping, tripping and stumbling without subsequent striking against object, initial encounter Diabetes or Gestational no information no information NIKKI PENG AW , Not Available abnormal diabetes DO (11208) glucose mellitus in tolerance childbirth, complicating controlled by ; oral childbirth; or hypoglycemic the puerperium drugs (3 sources.) External cause Other no information no information DIEGO Not Available codes: Place specified GAVIOTA LEWIS (35595) of occurrence places as the (3 sources.) place of occurrence of the external cause Other Pain in joint, Episodic Completed DIEGO Not Marybel ilable non-traumatic pelvic region GAVIOTA LEWIS (56604) joint and thigh disorders (1 source.) Other lower Painful Episodic Completed REGINA OC , DO Not Av ailable respiratory respiration (38795) disease (1 source.) Other Supervision of no information no information NIKKI THAKUR , Not Available complications elderly DO (33179) of multigravida, (3 sources.) third trimester Other Supervision of no information no information NIKKI THAKUR , Not Available complications elderly DO (79647) of primigravida, (3 sources.) third trimester Procedures Procedure Normalized Procedure Procedure Result Performer Facility Date 01-02-2018 Billing Notes on claim no information no name [facility] ([id number]) 01-11-2018 Debridement nail any no information no name Co replaced by [facility] [address] [place] [address] (50011) 10-05-2017 Debridement nail any no information no name [facility] replaced by [facility] [address] [place] [address] ([id number]) 02-22-2019 DELIVERY OF PRODUCTS no information no name [facility] (16512) 01-17-2016 DELIVERY OF PRODUCTS no information no name [facility] (48667) DELIVERY OF PRODUCTS no information no name Not Avail able (74912) OF CONCEPTION, EXTE 02-22-2019 DRAINAGE OF AMNIOTIC no information no name [facility] [place], THERAP FROM [facility] (64983) Episiotomy no information no name Not Available ( 95330) 12-03-2017 Hemoglobin no information no name [facility] glycosylated a1c [facility] (60889) 02-22-2019 INTRODUCTION OF no information no name [facility] HORMONE INTO [facility] REPROD, ([id number]) 02-22-2019 INTRODUCTION OF OTH no information no name [facility] HORMONE INTO [facility] (76739) 02-12-2014 Other manually no information no name [facility] assisted delivery [facility] (31673) Other manually no information no name Not Available ( 89141) assisted delivery 01-02-2018 Screening of a patient no information no name [facility] (95890) Vacuum extraction with no information no name Not Marybel ilable (63384) episiotomy Immunizations Normalized Immunization Date Notes Care Provider Facili ty Immunization influenza, 12-11-2018 no information no name [facility] injectable, [facility] quadrivalent, - [facility] preservative free (76564) influenza, 12-03-2017 no information DON DENTON [address] [facility], [place] (46189) preservative free influenza, 12-04-2016 no information no name Not Availab le injectable, (81802) quadrivalent, preservative free influenza, seasonal, 12-03-2017 - no information DON DENTON [phone] [facility] injectable 12-03-2017 [facility] Translations: [ [place] (97059) SINGLE IMMUNIZATION ADMIN, IMMUNIZATION ADMIN, EACH ADD (please include units)] pneumococcal 12-03-2017 - no information DON DENTON [address] [facility] conjugate vaccine, 12-03-2017 [facility] 13 valent [place] (86824) Translations: [ PCV 13] Results Test Name Value Interpretation Reference Range Date Time Fa cility (Normalized) (Normalized) (Medline Reference) a1c (in house) on null Hemoglobin 12.9 % (no code) 0 - 5.7 % [facility] A1c/Hemoglobin.t [facility] fraction (Bld) (23245) Hemoglobin 9.7 % (no code) 0 - 5.7 % [facility] A1c/Hemoglobin.t [facility] fraction (d) (65335) A1C (IN HOUSE) 0856 (no code) [facility] (13367) A1C (IN HOUSE) 04/2019 (no code) [facility] (19765) not yet categorized on 2019-07-24 Control neg~neg~+ (no code) [facility] (78195) Exp date 2022-01-15 (no code) [facility] (68152) Exp date neg~+~410c11~ (no code) [facility] 03-06-29 [facility] (43278) Lot # [id number] (no code) [facility] (55164) not yet categorized on 2019-03-06 Exp date 09/2020 (no code) [facility] (38193) Lot 6.8~10.7~0552 (no code) [facility] (69959) not yet categorized on 2018-08-01 Exp date 04/2020 (no code) [facility] (85759) Lot 10.7~11.0~0993 (no code) [facility] (86314) other on 2017-07-16 Exp date 04/2019 (no code) [facility] (18655) Lot 9.7~8.7~0856 (no code) [facility] (75360) urinalysis on 2016-12-05 Albumin DL <= 20 99.7 (no code) 12-05-2016 Not Avail able mg/L mass conc 12:11-0400 (44328) (U) Albumin/Creatini 131.0 (H) 12-05-2016 Not Avail able ne DL <= 20 mg/L 12:11-0400 (76906) mass ratio (U) Creatinine mass 76.1 mg/dL (no code) 12-05-2016 Not Availa ble conc (U) 12: (86443) other on 2016-12-05 Albumin/Globulin 1.4 {ratio} (no code) 1 - 2.5 {ratio} 7 Not Available mass ratio 11: (79833) Cholesterol in Comment (no code) 12-05-2016 Not Availab le LDL mass conc : (63777) Cholesterol in Comment (no code) 12-05-2016 Not Availab le VLDL mass conc : (10683) Globulin 3.3 g/dL (no code) 2 - 3.5 g/dL 12-05-2016 Not Avail able Calculated mass : (77760) conc (S) Immature 0.0 10*3/uL (no code) 0 - 0.2 10*3/uL 12-05-2016 Not Available granulocytes 08: (33481) #/vol (Bld) Immature 0 % (no code) 0 - 0.5 % 12-05-2016 Not Availabl e granulocytes/100 08: (08502) WBC (Bld) metabolic panel on 2016-12-05 Albumin mass 4.6 g/dL (no code) 3.4 - 5.4 g/dL 12-05-2016 Not Available conc 11: (60073) ALP enzyme 71 U/L (no code) 44 - 147 U/L 12-05-2016 Not Avai lable act/vol 11: (22179) ALT enzyme 17 U/L (no code) 4 - 40 U/L 12-05-2016 Not Availa ble act/vol 11: (22651) AST enzyme 16 U/L (no code) 10 - 34 U/L 12-05-2016 Not Avail able act/vol 11: (27068) Bilirubin mass mg/dL (no code) 0.1 - 1.2 mg/dL 12-05-2016 N ot Available conc : (41840) Calcium mass 9.9 mg/dL (no code) 8.5 - 10.2 mg/dL 12-05-2016 No t Available conc 11: (17045) Chloride molar 98 mmol/L (no code) 95 - 106 mmol/L 12-05-2016 N ot Available conc 11: (29544) CO2 molar conc 21 mmol/L (no code) 23 - 29 mmol/L 12-05-2016 No t Available 11: (28423) Creatinine mass 0.66 mg/dL (no code) 12-05-2016 Not Availa ble conc 11: (52382) GFR/1.73 sq M 129 (no code) - 120 12-05-2016 Not Avai lable predicted among mL/min/{1.73_m2} mL/min/{1.73_m2} 11: (24535) blacks MDRD vol rate/area (S/P/Bld) GFR/1.73 sq M 112 (no code) 90 120 12-05-2016 Not Avai lable predicted among mL/min/{1.73_m2} mL/min/{1.73_m2} 11: (19373) non-blacks MDRD vol rate/area (S/P/Bld) Glucose mass 207 mg/dL (H) 60 - 125 mg/dL 12-05-2016 Not Available conc 11: (62855) Potassium molar 4.3 mmol/L (no code) 3.7 - 5.2 mmol/L 12-05-2016 Not Available conc : (48799) Protein mass 7.9 g/dL (no code) 6.4 - 8.3 g/dL 12-05-2016 Not Available conc 11: (67206) Sodium molar 138 mmol/L (no code) 135 - 145 mmol/L 12-05-2016 N ot Available conc : (16136) Urea nitrogen 18 mg/dL (no code) 7 - 20 mg/dL 12-05-2016 Not A vailable mass conc 11: (73288) Urea 27 mg/mg (H) 6 - 22 mg/mg 12-05-2016 Not Avail able nitrogen/Creatin 11: (29690) ine mass ratio hematology on 2016-12-05 Basophils Auto 0.0 10*3/uL (no code) 0 - 0.3 10*3/uL 12-05-2016 Not Available #/vol (Bld) 08: (61946) Basophils/100 0 % (no code) 0.5 - 1 % 12-05-2016 Not Avai lable WBC Auto (Bld) 08: (63011) Eosinophils Auto 0.1 10*3/uL (no code) 0.05 - 0.5 12-05-2016 No t Available #/vol (Bld) 10*3/uL 08: (04420) Eosinophils/100 1 % (no code) 1 - 4 % 12-05-2016 Not Av ailable WBC Auto (Bld) 08: (79131) Erythrocyte 12.9 % (no code) 11.6 - 14.6 % 12-05-2016 Not Av ailable distribution 08: (64469) width Auto Ratio (RBC) Hematocrit Auto 36.2 % (no code) 36.1 - 50.3 % 12-05-2016 No t Available Volume Fraction 08: (24292) (Bld) Hemoglobin mass 11.6 g/dL (no code) 12.1 - 17.2 g/dL 12-05-2016 Not Available conc (Bld) 08: (95484) Lymphocytes Auto 1.7 10*3/uL (no code) 0.9 - 2.9 12-05-2016 Not Available #/vol (Bld) 10*3/uL 08: (26234) Lymphocytes/100 30 % (no code) 20 - 40 % 12-05-2016 Not Av ailable WBC Auto (Bld) 08: (87360) MCH Auto Entitic 26.4 pg (L) 27 - 31 pg 12-05-2016 Not Available mass (RBC) 08: (45528) MCHC Auto mass 32.0 g/dL (no code) 32 - 36 g/dL 12-05-2016 Not Available conc (RBC) 08: ([id number]) MCV Auto Entitic 82 fL (no code) 80 - 100 fL 12-05-2016 Not Available volume (RBC) 08: ([id number]) Monocytes Auto 0.5 10*3/uL (no code) 0.3 - 0.9 12-05-2016 Not A vailable #/vol (Bld) 10*3/uL 08:040 ([id number]) Monocytes/100 8 % (no code) 2 - 8 % 12-05-2016 Not Avai lable WBC Auto (Bld) 08: ([id number]) Neutrophils Auto 3.6 10*3/uL (no code) 1.7 - 7 10*3/uL 7 Not Available #/vol (Bld) 08: ([id number]) Neutrophils/100 61 % (no code) 40 - 60 % 12-05-2016 Not Av ailable WBC Auto (Bld) 08: ([id number]) Platelets Auto 337 10*3/uL (no code) 150 - 450 12-05-2016 Not A vailable #/vol (Bld) 10*3/uL 08: ([id number]) RBC Auto #/vol 4.40 10*6/uL (no code) 4.2 - 6.1 12-05-2016 Not Available (Bld) 10*6/uL 08:040 ([id number]) WBC Auto #/vol 5.9 10*3/uL (no code) 3.5 - 10.5 12-05-2016 Not Available (Bld) 10*3/uL 08:0 ([id number]) cardiac on 2016-12-05 Cholesterol in 31 mg/dL (L) 12-05-2016 Not Availab le HDL mass conc 11:0400 ([id number]) Cholesterol mass 190 mg/dL (no code) 180 - 200 mg/dL 12-05-2016 Not Available conc 11:0400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
--- OUTSIDE RECORDS SUMMARY | 2019-07-26 05:33 | XMS REPORT ---
Author Author Georgia LUNA Organization [facility] Address [address] [place] [address] Care Team Providers Care House Admin Name Role Phone CHERYLCHINAA Unavailable PROBLEMS Type Condition ICD9-CM Code CLX94-HA Code Onset Dates Condition S tatus SNOMED Code Problem Type 2 diabetes mellitus with other diabetic kid mirela complication E11.29 Active 31333898 Problem Mixed hyperlipidemia E78.2 Active 024896574 Problem Onychomycosis due to dermatophyte B35.1 Active 964873288 Problem Other hammer toe(s) (acquired), right foot M20.41 Active 571691950 Problem Essential hypertension I10 Active 88612196 Problem BMI 40.0-44.9, adult Z68.41 Active 343828672 Problem Type 2 diabetes mellitus with hyperglycemia E11.65 Active [id number] Problem senior care 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.4 Active 823223689 Problem Type 2 diabetes mellitus wit h diabetic neuropathy, unspecified whether buttermaker helper insulin use E11.40 Active 479385 06 Problem Other hammer toe(s) (acquired), left foot M20.42 Active 32136537 ALLERGIES No Information ENCOUNTERS Encounter Location Date Diagnosis [place] [address] [facility] [id number] [address] [place] [phone] Sep, [facility] [address] [facility] [id number] [address] [place] [phone] June, [facility] [address] [facility] [id number] [address] [place] [phone] June, Type 2 diabetes mellitus wit h other diabetic kidney complication E11.29 [facility] [address] [facility] [id number] [address] [place] [phone] June, Type 2 diabetes mellitus wit h diabetic neuropathy, unspecified whether buttermaker helper insulin use E11.40 ; Other hammer toe(s) (acquired), left foot M20.42 ; Other hammer toe(s) (acquired), right foot M20.41 and Onychomycosis due to dermatophyte B35.1 [place] [address] [place] [id number] [address] [place] [phone] June, Type 2 diabetes mellitus wit h diabetic neuropathy, unspecified whether buttermaker helper insulin use E11.40 and Type 2 diabetes mellitus with other diabetic kidney complication E11.29 [place] [id number] [place] [phone] May, [place] [address] [place] [id number] [address] [place] [id number] May, Type 2 diabetes mellitus wit h hyperglycemia E11.65 [place] [address] [place] [id number] [address] [place] [phone] May, Type 2 diabetes mellitus wit h hyperglycemia E11.65 ; Type 2 diabetes mellitus with diabetic neuropathy, unspecified whether residential insulin use E11.40 ; Blurry vision H53.8 ; Type 2 diabetes mellitus with other diabetic kidney complication E11.29 ; Mixed hyperlipidemia E78.2 ; senior care 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.4 and BMI 40.0-44.9, adult Z68.41 [place] [address] [place] [id number] [address] [place] [phone] May, [place] [address] [place] [id number] [address] [place] [phone] Apr, [place] [address] [place] [id number] [address] [place] [phone] Apr, [place] [address] [place] [id number] [address] [place] [phone] Apr, Type 2 diabetes mellitus wit h other diabetic kidney complication E11.29 [place] [address] [place] [id number] [address] [place] [phone] Mar, Onychomycosis B35.1 ; Other hammer toe(s) (acquired), right foot M20.41 ; Other hammer toe(s) (acquired), left foot M20.42 and Type 2 diabetes mellitus with diabetic neuropathy, unspecified whether residential insulin use E11.40 [place] [address] [place] [id number] [address] [place] [phone] 17 Feb, 2019 [facility] [address] [place] [id number] [address] [place] [phone] 14 Feb, 2019 [place] [address] [place] [id number] [place] [phone] Feb, Type 2 diabetes mellitus wit h other diabetic kidney complication E11.29 ; Type 2 diabetes mellitus with hyperglycemia E11.65 ; oysterman 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.4 ; Essential hypertension I10 and BMI 40.0-44.9, adult Z68.41 [place] [address] [place] [id number] [address] [place] [id number] 30 Nov, 2018 [place] [address] [place] [id number] [address] [place] [phone] Oct, [place] [address] [place] [id number] [address] [place] [phone] Aug, Onychomycosis B35.1 ; Contus ion of right foot, initial encounter S90.31XA ; Contusion of toe with damage to nail, unspecified toe, initial encounter S90.229A and Type 2 diabetes mellitus with diabetic neuropathy, unspecified whether buttermaker helper insulin use E11.40 [place] [address] [place] [id number] [address] [place] [id number] 15 Aug, 2018 [place] [address] [place] [id number] [address] [place] [phone] Jul, [place] [address] [place] [id number] [address] [place] [phone] Jul, [facility] [address] [place] [id number] [address] [place] [phone] Jul, [place] [address] [place] [id number] [address] [place] [phone] Jul, [facility] [address] [facility] [id number] [address] [place] [phone] Jul, Type 2 diabetes mellitus wit h other diabetic kidney complication E11.29 [facility] [address] [facility] [id number] [address] [place] [phone] June, [facility] [address] [facility] [id number] [address] [place] [phone] June, [facility] [address] [facility] [id number] [address] [place] [phone] June, [facility] [address] [facility] [id number] [address] [place] [phone] May, [facility] [address] [facility] [id number] [address] [place] [phone] May, Type 2 diabetes mellitus wit h other diabetic kidney complication E11.29 and Type 2 diabetes mellitus with hyperglycemia E11.65 [facility] [address] [facility] [id number] [address] [place] [phone] May, [facility] [address] [facility] [id number] [address] [place] [phone] May, Onychomycosis B35.1 ; Other hammer toe(s) (acquired), left foot M20.42 ; Other hammer toe(s) (acquired), right foot M20.41 and Type 2 diabetes mellitus with diabetic neuropathy, unspecified whether residential insulin use E11.40 [facility] [address] [facility] [id number] [address] [place] [phone] May, [facility] [address] [facility] [id number] [address] [place] [phone] Mar, [facility] [address] [facility] [id number] [address] [place] [phone] Mar, [facility] [address] [facility] [id number] [address] [place] [phone] Mar, Type 2 diabetes mellitus wit h other diabetic kidney complication E11.29 ; Essential hypertension I10 ; Mixed hyperlipidemia E78.2 ; Type 2 diabetes mellitus with hyperglycemia E11.65 ; senior care 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.4 and Type 2 diabetes mellitus with diabetic neuropathy, unspecified whether residential insulin use E11.40 [place] [address] [place] [id number] [address] [place] [id number] 07 Feb, 2018 [place] [address] [id number] 13 Jan, 2018 [place] [address] [id number] 16 Dec, 2017 Onychomycosis B35.1 ; Type 2 diabetes mellitus with diabetic neuropathy, unspecified whether residential insulin use E11.40 ; Other hammer toe(s) (acquired), right foot M20.41 and Other hammer toe(s) (acquired), left foot M20.42 [place] [address] [id number] 08 Dec, 2017 [place] [address] [id number] 07 Dec, 2017 Dental examination Z01.[address] [id number] 07 Dec, 2017 Type 2 diabetes mellitus wit h other diabetic kidney complication E11.29 ; Type 2 diabetes mellitus with hyperglycemia E11.65 ; Essential hypertension I10 and Mixed hyperlipidemia E78.2 [place] [address] [id number] 08 Nov, 2017 Type 2 diabetes mellitus wit h other diabetic kidney complication E11.29 ; Type 2 diabetes mellitus with hyperglycemia E11.65 ; Essential hypertension I10 ; Vaginal itching N89.8 and Encounter for immunization Z23 [place] [address] [place] [id number] [address] [place] [id number] 13 Oct, 2017 Type 2 diabetes mellitus wit h other diabetic kidney complication E11.29 [place] [address] [id number] 04 Oct, 2017 [place] [address] [id number] [address] [place] [phone] Sep, Onychomycosis B35.1 and Type 2 diabetes mellitus without complications E11.9 [facility] [address] [id number] [address] [place] [phone] Aug, [facility] [address] [id number] [address] [place] [phone] Jul, [facility] [address] [id number] [address] [place] [phone] Jul, [facility] [address] [id number] [address] [place] [phone] Jul, [facility] [address] [facility] [id number] [address] [place] [phone] June, [facility] [address] [facility] [id number] [address] [place] [phone] June, Type 2 diabetes mellitus wit h other diabetic kidney complication E11.29 ; Essential hypertension I10 ; Mixed hyperlipidemia E78.2 ; oysterman 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.4 and High blood triglycerides E78.1 [facility] [address] [id number] [address] [place] [phone] May, [facility] [address] [facility] [id number] [address] [place] [id number] Apr, [facility] [address] [id number] [address] [place] [phone] Apr, [facility] [address] [facility] [id number] [address] [place] [phone] Mar, [facility] [address] [facility] [id number] [address] [place] [phone] Feb, [facility] [address] [facility] [id number] [address] [place] [phone] Feb, [facility] [address] [facility] [id number] [address] [place] [phone] Feb, [facility] [address] [facility] [id number] [address] [place] [id number] Jan, Type 2 diabetes mellitus wit h other diabetic kidney complication E11.29 [facility] [address] [id number] [id number] Dec, Dental examination Z01.20 [facility] [address] [id number] [address] [place] [phone] Dec, High blood triglycerides E78 .1 [facility] [address] [id number] [id number] Dec, Dental examination Z01.20 [facility] [address] [id number] [address] [place] [phone] Dec, High blood triglycerides E78 .1 [facility] [address] [facility] [id number] [address] [place] [phone] Dec, Type 2 diabetes mellitus wit h other diabetic kidney complication E11.29 [facility] [address] [id number] [address] [place] [id number] Nov, Type 2 diabetes mellitus wit h other diabetic kidney complication E11.29 [facility] [address] [facility] [id number] [address] [place] [phone] Nov, [facility] [address] [facility] [id number] [address] [place] [id number] Nov, Type 2 diabetes mellitus wit h other diabetic kidney complication E11.29 [facility] [address] [id number] [address] [place] [phone] 09 Nov, 2016 oysterman current use of ins ulin Z79.4 ; Encounter for immunization Z23 ; Essential hypertension I10 ; Type 2 diabetes mellitus with other diabetic kidney complication E11.29 and Mixed hyperlipidemia E78.2 [facility] [address] [id number] [address] [place] [phone] Nov, [facility] [address] [facility] [id number] [address] [place] [phone] 20 Oct, 2016 [facility] [address] [id number] [address] [place] [id number] 15 Oct, 2016 Candidiasis of female genita eduard B37.3 and Vaginal discharge N89.8 [facility] [address] [id number] [address] [place] [phone] 15 Oct, 2016 [facility] [address] [id number] [address] [place] [phone] 14 Oct, 2016 [facility] [address] [id number] [address] [place] [phone] Sep, Vaginal yeast infection B37. 3 [facility] [address] [id number] [address] [place] [phone] Jul, [facility] [address] [id number] [address] [place] [phone] Jul, [facility] [address] [id number] [address] [place] [phone] Jul, [facility] [address] [id number] [address] [place] [id number] June, [facility] [address] [id number] [address] [place] [phone] June, [facility] [address] [id number] [address] [place] [id number] June, Type 2 diabetes mellitus wit hout complications E11.9 [facility] [address] [id number] [address] [place] [phone] June, Essential hypertension I10 ; Type 2 diabetes mellitus without complications E11.9 ; senior care 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.4 and Hair loss L65.9 [facility] [address] [id number] [address] [place] [phone] June, [facility] [address] [id number] [address] [place] [id number] 21 Apr, 2017 Onychomycosis B35.1 ; Onycho cryptosis L60.0 and Type 2 diabetes mellitus without complications E11.9 [facility] [address] [facility] [id number] [address] [place] [phone] May, [facility] [address] [facility] [id number] [address] [place] [phone] Apr, Type 2 diabetes mellitus wit hout complications E11.9 [facility] [address] [facility] [id number] [address] [place] [phone] Apr, [facility] [address] [facility] [id number] [address] [place] [phone] Apr, Type 2 diabetes mellitus wit hout complications E11.9 ; Type 2 diabetes mellitus with hyperglycemia E11.65 and oysterman 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.4 [facility] [address] [place] [id number] [address] [place] [phone] Apr, [facility] [address] [facility] [id number] [address] [place] [phone] Mar, [facility] [address] [facility] [id number] [address] [place] [phone] Mar, [facility] [address] [facility] [id number] [address] [place] [phone] Mar, Mixed hyperlipidemia E78.2 ; Type 2 diabetes mellitus with other diabetic kidney complication E11.29 ; Essential hypertension I10 and Onychomycosis due to dermatophyte B35.1 [facility] [address] [facility] [id number] [address] [place] [phone] Jan, Type 2 diabetes mellitus wit h other diabetic kidney complication E11.29 ; Mixed hyperlipidemia E78.2 and Essential hypertension I10 [facility] [address] [facility] [id number] [address] [place] [phone] Sep, [facility] [address] [facility] [id number] [address] [place] [phone] Sep, [facility] [address] [id number] [address] [place] [phone] Feb, [facility] [address] [id number] [address] [place] [id number] Feb, Type 2 diabetes mellitus wit h other diabetic kidney complication E11.29 ; Essential hypertension I10 and Abnormal menstrual cycle N92.6 [facility] [address] [id number] [address] [place] [id number] Dec, Type 2 diabetes mellitus wit h other diabetic kidney complication E11.29 [facility] [address] [id number] [address] [place] [phone] Nov, Type 2 diabetes mellitus wit h other diabetic kidney complication E11.29 and Essential hypertension I10 [facility] [address] [id number] [address] [place] [phone] Nov, [facility] [address] [facility] [id number] [address] [place] [phone] Nov, [facility] [address] [id number] [address] [place] [phone] Nov, [facility] [address] [id number] [address] [place] [phone] Oct, [facility] [address] [id number] [address] [place] [phone] Oct, [facility] [address] [id number] [address] [place] [id number] 15 Oct, 2014 Diabetes type 2, uncontrolle d 250.02 and Hyperlipidemia 272.4 [facility] [address] [id number] [address] [place] [id number] Oct, Hyperlipidemia 272.4 and Penny betes type 2, uncontrolled 250.02 [facility] [address] [id number] [address] [place] [id number] Sep, [facility] [address] [facility] [id number] [address] [place] [phone] Sep, [facility] [address] [id number] [address] [place] [phone] Aug, [facility] [address] [id number] [address] [place] [id number] Aug, [facility] [address] [id number] [address] [place] [phone] Aug, [facility] [address] [id number] [address] [place] [id number] Aug, [facility] [address] [id number] [address] [place] [phone] Aug, [facility] [address] [id number] [address] [place] [phone] Aug, [facility] [address] [id number] [address] [place] [phone] Aug, [facility] [address] [id number] [address] [place] [phone] Jul, [facility] [address] [id number] [address] [place] [phone] Jul, [facility] [address] [id number] [address] [place] [phone] Jul, Hyperlipidemia 272.4 [facility] [address] [id number] [address] [place] [phone] Jul, [facility] [address] [id number] [address] [place] [phone] Jul, Diabetes type 2, uncontrolle d 250.02 ; Ankle pain, right 719.47 and Hyperlipidemia 272.4 [facility] [address] [id number] [address] [place] [id number] June, [facility] [address] [id number] [address] [place] [phone] June, Unspecified essential hypert ension 401.9 ; Diabetes type 2, uncontrolled 250.02 ; Joint pain 719.40 and Hyperlipidemia 272.4 [facility] [address] [id number] [address] [place] [address], [place] [address] 28 May, 2014 [facility] [address] [id number] [address] [place] [address], [place] [address] 28 May, 2014 [facility] [address] [id number] [address] [place] [address], [place] [phone] 14 May, 2014 [facility] [address] [id number] [address] [place] [address], [place] [address] May, [facility] [address] [id number] [address] [place] [address], [place] [address] 30 Apr, 2014 [facility] [address] [id number] [address] [place] [address], [place] [address] Apr, [facility] [address] [id number] [address] [place] [address], [place] [address] Feb, [facility] [address] [id number] [address] [place] [address], [place] [address] Feb, [facility] [address] [id number] [address] [place] [address], [place] [address] Feb, [facility] [address] [id number] [address] [place] [address], [place] [address] Feb, [facility] [address] [id number] [address] [place] [address], [place] [address] Feb, [facility] [address] [id number] [address] [place] [address], [place] [address] Feb, [facility] [address] [id number] [address] [place] [address], [place] [address] Feb, [facility] [address] [id number] [address] [place] [address], [place] [address] Feb, [facility] [address] [id number] [address] [place] [address], [place] [address] Dec, [facility] [address] [id number] [address] [place] [address], [place] [address] Dec, [facility] [address] [id number] [address] [place] [address], [place] [address] Dec, [facility] [address] [id number] [address] [place] [address], [place] [address] Dec, [facility] [address] [id number] [address] [place] [address], [place] [address] Dec, [facility] [address] [id number] [address] [place] [address], [place] [address] Nov, [facility] [address] [id number] [address] [place] [address], [place] [address] Nov, [facility] [address] [id number] [address] [place] [address], [place] [address] Nov, [facility] [address] [id number] [address] [place] [address], [place] [address] Nov, [facility] [address] [id number] [address] [place] [address], [place] [address] Oct, [facility] [address] [id number] [address] [place] [address], [place] [address] Oct, [facility] [address] [id number] [address] [place] [address], [place] [address] Oct, [facility] [address] [id number] [address] [place] [address], [place] [address] Oct, [facility] [address] [id number] [address] [place] [address], [place] [address] Aug, [facility] [address] [id number] [address] [place] [address], [place] [address] Aug, [facility] [address] [id number] [address] [place] [address], [place] [address] Aug, [facility] [address] [id number] [address] [place] [address], [place] [address] Aug, [facility] [address] [id number] [address] [place] [address], [place] [address] Jul, [facility] [address] [id number] [address] [place] [address], [place] [address] Jul, [facility] [address] [id number] [address] [place] [address], [place] [address] June, [facility] [address] [id number] [address] [place] [address], [place] [address] June, [facility] [address] [id number] [address] [place] [address], [place] [address] May, [facility] [address] [id number] [address] [place] [address], [place] [address] May, [facility] [address] [id number] [address] [place] [address], [place] [address] May, [facility] [address] [id number] [address] [place] [address], [place] [address] May, [facility] [address] [id number] [address] [place] [address], [place] [address] May, [facility] [address] [id number] [address] [place] [address], [place] [address] May, [facility] [address] [id number] [address] [place] [address], [place] [address] Apr, [facility] [address] [id number] [address] [place] [address], [place] [address] Apr, [facility] [address] [id number] [address] [place] [address], [place] [address] Mar, [facility] [address] [id number] [address] [place] [address], [place] [address] Mar, [facility] [address] [id number] [address] [place] [address], [place] [address] Jan, [facility] [address] [id number] [address] [place] [address], [place] [address] Jan, [facility] [address] [id number] [address] [place] [address], [place] [address] Dec, [facility] [address] [id number] [address] [place] [address], [place] [address] Dec, [facility] [address] [id number] [address] [place] [address], [place] [address] Dec, [facility] [address] [id number] [address] [place] [address], [place] [address] Dec, [facility] [address] [id number] [address] [place] [address], [place] [address] Dec, [facility] [address] [id number] [address] [place] [address], [place] [address] Dec, [facility] [address] [id number] [address] [place] [address], [place] [address] Nov, [facility] [address] [id number] [address] [place] [address], [place] [address] Nov, [facility] [address] [id number] [address] [place] [address], [place] [address] Nov, [facility] [address] [id number] [address] [place] [address], [place] [address] Nov, [facility] [address] [id number] [address] [place] [address], [place] [address] Nov, [facility] [address] [id number] [address] [place] [address] Nov, [facility] [address] [id number] [address] [place] [address], [place] [address] Nov, [facility] [address] [id number] [address] [place] [address], [place] [address] Nov, [facility] [address] [id number] [address] [place] [address] Nov, [facility] [address] [id number] [address] [place] [address], [place] [address] 06 Oct, 2012 [facility] [address] [id number] [address] [place] [address], [place] [address] 04 Oct, 2012 [facility] [address] [id number] [address] [place] [address], [place] [address] 17 Aug, 2012 [facility] [address] [id number] [address] [place] [address], [place] [address] 16 Aug, 2012 [facility] [address] [id number] [address] [place] [address], [place] [address] 15 Aug, 2012 [facility] [address] [id number] [address] [place] [address], [place] [address] Jul, [facility] [address] [id number] [address] [place] [address], [place] [address] Dec, [facility] [address] [id number] [address] [place] [address], [place] [address] Nov, [facility] [address] [id number] [address] [place] [address], [place] [address] Nov, [facility] [address] [id number] [address] [place] [address], [place] [address] 30 Nov, 2011 [facility] [address] [id number] [address] [place] [address], [place] [address] 30 Nov, 2011 [facility] [address] [id number] [address] [place] [address], [place] [address] Nov, [facility] [address] [id number] [address] [place] [address], [place] [address] Nov, [facility] [address] [id number] [address] [place] [address], [place] [address] Mar, [facility] [address] [id number] [address] [place] [address], [place] [address] Feb, [facility] [address] [id number] [address] [place] [address], [place] [address] Feb, [facility] [address] [id number] [address] [place] [address], [place] [address] 10 Feb, 2011 [facility] [address] [id number] [address] [place] [address], [place] [address] 10 Feb, 2011 [facility] [address] [id number] [address] [place] [address], [place] [address] 09 Feb, 2011 [facility] [address] [id number] [address] [place] [address], [place] [address] 09 Jan, 2011 [facility] [address] [id number] [address] [place] [address], [place] [address] 12 Oct, 2010 [facility] [address] [id number] [address] [place] [address], [place] [address] 13 Feb, 2010 [facility] [address] [id number] [address] [place] [address], [place] [address] 19 Jan, 2010 [facility] [address] [id number] [address] [place] [address], [place] [address] 14 Jan, 2010 [facility] [address] [id number] [address] [place] [address], [place] [address] Jan, [facility] [address] [id number] [address] [place] [address], [place] [address] Jan, [facility] [address] [id number] [address] [place] [address], [place] [address] 24 Dec, 2009 [facility] [address] [id number] [address] [place] [address], [place] [address] Dec, [facility] [address] [id number] [address] [place] [address], [place] [address] 30 Dec, 2008 [facility] [address] [id number] [address] [place] [address], [place] [address] 14 Aug, 2008 [facility] [address] [id number] [address] [place] [address], [place] [address] Jul, [facility] [address] [id number] [address] [place] [address], [place] [address] June, [facility] [address] [facility] [id number] [address] [place] [id number] June, [facility] [address] [facility] [id number] [address] [place] [address] May, [facility] [address] [facility] [id number] [address] [place] [address] Apr, IMMUNIZATIONS No Known Immunizations SOCIAL HISTORY Never Assessed REASON FOR VISIT PLAN OF CARE VITAL SIGNS MEDICATIONS Unknown Medications RESULTS No Results PROCEDURES No Known procedures INSTRUCTIONS MEDICATIONS ADMINISTERED No Known Medications MEDICAL (GENERAL) HISTORY Type Description Date Medical History HYPERTENSION Medical History RENAL DISEASE- MICROALBUMINURIA Medical History HYPERLIPIDEMIA Medical History DM TYPE 2- DX'D 2007 Surgical History No Surgical history information
--- OUTSIDE RECORDS SUMMARY | 2019-07-26 05:33 | XMS REPORT ---
Author Author Georgia Hilton Organization [facility] Address [address] [place] [address] Care Team Providers Care Inventory Control Coordinator Name Role Phone LENORE Hilton Unavailable PROBLEMS Type Condition ICD9-CM Code [id number] Code Onset Dates Condition S tatus SNOMED Code Problem Type 2 diabetes mellitus with other diabetic kid mirela complication E11.29 Active 04015988 Problem Mixed hyperlipidemia E78.2 Active 306551801 Problem Onychomycosis due to dermatophyte B35.1 Active 664824861 Problem Other hammer toe(s) (acquired), right foot M20.41 Active 685744637 Problem Essential hypertension I10 Active 66088513 Problem BMI 40.0-44.9, adult Z68.41 Active 028029331 Problem Type 2 diabetes mellitus with hyperglycemia E11.65 Active [id number] Problem 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.4 Active 835685401 Problem Type 2 diabetes mellitus wit h diabetic neuropathy, unspecified whether exterminator helper termite insulin use E11.40 Active 241613 06 Problem Other hammer toe(s) (acquired), left foot M20.42 Active [id number] ALLERGIES No Information ENCOUNTERS Encounter Location Date Diagnosis [place] [address] [address] [facility] [place] [id number] [address] [place] [phone] Sep, [place] [id number] [facility] [place] [id number] [address] [place] [phone] June, [place] [address] [address] [facility] [place] [id number] [address] [place] [address] June, Type 2 diabetes mellitus wit h other diabetic kidney complication E11.29 [place] [id number] [facility] [place] [id number] [address] [place] [id number] June, Type 2 diabetes mellitus wit h diabetic neuropathy, unspecified whether assisted insulin use E11.40 ; Other hammer toe(s) (acquired), left foot M20.42 ; Other hammer toe(s) (acquired), right foot M20.41 and Onychomycosis due to dermatophyte B35.1 [place] [address] [address] [place] [id number] [address] [place] [address] June, Type 2 diabetes mellitus wit h diabetic neuropathy, unspecified whether exterminator helper termite insulin use E11.40 and Type 2 diabetes mellitus with other diabetic kidney complication E11.29 [place] [address] [address] [place] [id number] [address] [place] [id number] May, [place] [address] [address] [place] [id number] [address] [place] [address] May, Type 2 diabetes mellitus wit h hyperglycemia E11.65 [place] [address] [address] [place] [id number] [address] [place] [address] May, Type 2 diabetes mellitus wit h hyperglycemia E11.65 ; Type 2 diabetes mellitus with diabetic neuropathy, unspecified whether assisted insulin use E11.40 ; Blurry vision H53.8 ; Type 2 diabetes mellitus with other diabetic kidney complication E11.29 ; Mixed hyperlipidemia E78.2 ; 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.4 and BMI 40.0-44.9, adult Z68.41 [place] [address] [address] [place] [id number] [address] [place] [phone] May, [place] [address] [address] [place] [id number] [address] [place] [phone] Apr, [place] [address] [address] [place] [id number] [address] [place] [address] Apr, [place] [address] [address] [place] [id number] [address] [place] [id number] Apr, Type 2 diabetes mellitus wit h other diabetic kidney complication E11.29 [place] [address] [address] [facility] [place] [id number] [address] [place] [phone] Mar, Onychomycosis B35.1 ; Other hammer toe(s) (acquired), right foot M20.41 ; Other hammer toe(s) (acquired), left foot M20.42 and Type 2 diabetes mellitus with diabetic neuropathy, unspecified whether exterminator helper termite insulin use E11.40 [facility] [address] [facility] [place] [id number] [address] [place] [id number] 17 Feb, 2019 [facility] [address] [place] [id number] [address] [place] [phone] Feb, [facility] [address] [place] [id number] [place] [id number] Feb, Type 2 diabetes mellitus wit h other diabetic kidney complication E11.29 ; Type 2 diabetes mellitus with hyperglycemia E11.65 ; alf 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.4 ; Essential hypertension I10 and BMI 40.0-44.9, adult Z68.41 [place] [address] [address] [place] [id number] [address] [place] [id number] 30 Nov, 2018 [place] [address] [address] [place] [id number] [address] [place] [address] Oct, [place] [address] [address] [place] [id number] [address] [place] [address] Aug, Onychomycosis B35.1 ; Contus ion of right foot, initial encounter S90.31XA ; Contusion of toe with damage to nail, unspecified toe, initial encounter S90.229A and Type 2 diabetes mellitus with diabetic neuropathy, unspecified whether exterminator helper termite insulin use E11.40 [place] [address] [address] [place] [id number] [address] [place] [id number] 15 Aug, 2018 [place] [address] [address] [place] [id number] [address] [place] [id number] Jul, [place] [address] [address] [place] [id number] [address] [place] [phone] Jul, [place] [address] [address] [facility] [place] [id number] [address] [place] [phone] Jul, [place] [address] [address] [place] [id number] [address] [place] [phone] Jul, [facility] [address] [facility] [place] [id number] [address] [place] [address] Jul, Type 2 diabetes mellitus wit h other diabetic kidney complication E11.29 [facility] [address] [id number] [address] [place] [phone] June, [facility] [address] [id number] [address] [place] [phone] June, [facility] [address] [id number] [address] [place] [id number] June, [facility] [address] [facility] [place] [id number] [address] [place] [phone] May, [facility] [address] [facility] [place] [id number] [address] [place] [id number] May, Type 2 diabetes mellitus wit h other diabetic kidney complication E11.29 and Type 2 diabetes mellitus with hyperglycemia E11.65 [facility] [address] [facility] [place] [id number] [address] [place] [phone] May, [facility] [address] [facility] [place] [id number] [address] [place] [id number] May, Onychomycosis B35.1 ; Other hammer toe(s) (acquired), left foot M20.42 ; Other hammer toe(s) (acquired), right foot M20.41 and Type 2 diabetes mellitus with diabetic neuropathy, unspecified whether assisted insulin use E11.40 [facility] [address] [facility] [place] [id number] [address] [place] [phone] May, [facility] [address] [facility] [place] [id number] [address] [place] [id number] Mar, [facility] [address] [facility] [place] [id number] [address] [place] [phone] Mar, [facility] [address] [facility] [place] [id number] [address] [place] [address] Mar, Type 2 diabetes mellitus wit h other diabetic kidney complication E11.29 ; Essential hypertension I10 ; Mixed hyperlipidemia E78.2 ; Type 2 diabetes mellitus with hyperglycemia E11.65 ; alf 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.4 and Type 2 diabetes mellitus with diabetic neuropathy, unspecified whether assisted insulin use E11.40 [place] [id number] [place] [id number] 07 Feb, 2018 [place] [address] [id number] 13 Jan, 2018 [place] [address] [id number] 16 Dec, 2017 Onychomycosis B35.1 ; Type 2 diabetes mellitus with diabetic neuropathy, unspecified whether exterminator helper termite insulin use E11.40 ; Other hammer toe(s) (acquired), right foot M20.41 and Other hammer toe(s) (acquired), left foot M20.42 [place] [address] [id number] 08 Dec, 2017 [place] [address] [id number] 07 Dec, 2017 Dental examination Z01.[address] [id number] 07 Dec, 2017 Type 2 diabetes mellitus wit h other diabetic kidney complication E11.29 ; Type 2 diabetes mellitus with hyperglycemia E11.65 ; Essential hypertension I10 and Mixed hyperlipidemia E78.2 [place] [address] [id number] 08 Nov, 2017 Type 2 diabetes mellitus wit h other diabetic kidney complication E11.29 ; Type 2 diabetes mellitus with hyperglycemia E11.65 ; Essential hypertension I10 ; Vaginal itching N89.8 and Encounter for immunization Z23 [place] [address] [address] [place] [id number] [address] [place] [id number] 13 Oct, 2017 Type 2 diabetes mellitus wit h other diabetic kidney complication E11.29 [place] [address] [id number] Oct, [facility] [address] [id number] [address] [place] [phone] Sep, Onychomycosis B35.1 and Type 2 diabetes mellitus without complications E11.9 [facility] [address] [id number] [address] [place] [phone] Aug, [facility] [address] [id number] [address] [place] [phone] Jul, [facility] [address] [id number] [address] [place] [id number] Jul, [facility] [address] [id number] [address] [place] [phone] Jul, [facility] [address] [id number] [address] [place] [id number] June, [facility] [address] [id number] [address] [place] [phone] June, Type 2 diabetes mellitus wit h other diabetic kidney complication E11.29 ; Essential hypertension I10 ; Mixed hyperlipidemia E78.2 ; 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.4 and High blood triglycerides E78.1 [facility] [address] [id number] [address] [place] [phone] May, [facility] [address] [id number] [address] [place] [phone] Apr, [facility] [address] [id number] [address] [place] [phone] Apr, [facility] [address] [id number] [address] [place] [phone] Mar, [facility] [address] [id number] [address] [place] [phone] Feb, [facility] [address] [id number] [address] [place] [id number] Feb, [facility] [address] [id number] [address] [place] [id number] Feb, [facility] [address] [id number] [address] [place] [id number] Jan, Type 2 diabetes mellitus wit h other diabetic kidney complication E11.29 [facility] [address] [facility] [address] [id number] [id number] Dec, Dental examination Z01.20 [facility] [address] [id number] [address] [place] [id number] Dec, High blood triglycerides E78 .1 [facility] [address] [facility] [address] [id number] [id number] Dec, Dental examination Z01.20 [facility] [address] [facility] [place] [id number] [address] [place] [phone] Dec, High blood triglycerides E78 .1 [facility] [address] [facility] [place] [id number] [address] [place] [id number] 09 Dec, 2016 Type 2 diabetes mellitus wit h other diabetic kidney complication E11.29 [facility] [address] [facility] [place] [id number] [address] [place] [id number] 30 Nov, 2016 Type 2 diabetes mellitus wit h other diabetic kidney complication E11.29 [facility] [address] [facility] [place] [id number] [address] [place] [id number] Nov, [facility] [address] [facility] [place] [id number] [address] [place] [id number] 17 Nov, 2016 Type 2 diabetes mellitus wit h other diabetic kidney complication E11.29 [facility] [address] [id number] [address] [place] [id number] 09 Nov, 2016 alf current use of ins ulin Z79.4 ; Encounter for immunization Z23 ; Essential hypertension I10 ; Type 2 diabetes mellitus with other diabetic kidney complication E11.29 and Mixed hyperlipidemia E78.2 [facility] [address] [facility] [place] [id number] [address] [place] [phone] Nov, [facility] [address] [id number] [address] [place] [id number] 20 Oct, 2016 [facility] [address] [id number] [address] [place] [id number] 15 Oct, 2016 Candidiasis of female genita eduard B37.3 and Vaginal discharge N89.8 [facility] [address] [id number] [address] [place] [id number] 15 Oct, 2016 [facility] [address] [id number] [address] [place] [id number] 14 Oct, 2016 [facility] [address] [id number] [address] [place] [id number] Sep, Vaginal yeast infection B37. 3 [facility] [address] [id number] [address] [place] [id number] Jul, [facility] [address] [id number] [address] [place] [phone] Jul, [facility] [address] [id number] [address] [place] [id number] Jul, [facility] [address] [id number] [address] [place] [id number] June, [facility] [address] [id number] [address] [place] [id number] June, [facility] [address] [id number] [address] [place] [id number] June, Type 2 diabetes mellitus wit hout complications E11.9 [facility] [address] [id number] [address] [place] [id number] June, Essential hypertension I10 ; Type 2 diabetes mellitus without complications E11.9 ; alf 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.4 and Hair loss L65.9 [facility] [address] [id number] [address] [place] [id number] June, [facility] [address] [facility] [place] [id number] [address] [place] [id number] May, Onychomycosis B35.1 ; Onycho cryptosis L60.0 and Type 2 diabetes mellitus without complications E11.9 [facility] [address] [facility] [place] [id number] [address] [place] [id number] May, [facility] [address] [facility] [place] [id number] [address] [place] [phone] Apr, Type 2 diabetes mellitus wit hout complications E11.9 [facility] [address] [facility] [place] [id number] [address] [place] [id number] Apr, [facility] [address] [facility] [place] [id number] [address] [place] [phone] Apr, Type 2 diabetes mellitus wit hout complications E11.9 ; Type 2 diabetes mellitus with hyperglycemia E11.65 and 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.4 [facility] [address] [facility] [place] [id number] [address] [place] [address] Apr, [facility] [address] [facility] [place] [id number] [address] [place] [phone] Mar, [facility] [address] [facility] [place] [id number] [address] [place] [phone] Mar, [facility] [address] [facility] [place] [id number] [address] [place] [id number] Mar, Mixed hyperlipidemia E78.2 ; Type 2 diabetes mellitus with other diabetic kidney complication E11.29 ; Essential hypertension I10 and Onychomycosis due to dermatophyte B35.1 [facility] [address] [facility] [place] [id number] [address] [place] [id number] Jan, Type 2 diabetes mellitus wit h other diabetic kidney complication E11.29 ; Mixed hyperlipidemia E78.2 and Essential hypertension I10 [facility] [address] [facility] [place] [id number] [address] [place] [id number] Sep, [facility] [address] [facility] [place] [id number] [address] [place] [id number] Sep, [facility] [address] [place] [id number] [address] [place] [id number] Feb, [facility] [address] [facility] [place] [id number] [address] [place] [id number] Feb, Type 2 diabetes mellitus wit h other diabetic kidney complication E11.29 ; Essential hypertension I10 and Abnormal menstrual cycle N92.6 [facility] [address] [id number] [address] [place] [id number] Dec, Type 2 diabetes mellitus wit h other diabetic kidney complication E11.29 [facility] [address] [id number] [address] [place] [address] Nov, Type 2 diabetes mellitus wit h other diabetic kidney complication E11.29 and Essential hypertension I10 [facility] [address] [id number] [address] [place] [id number] Nov, [facility] [address] [facility] [place] [id number] [address] [place] [id number] Nov, [facility] [address] [id number] [address] [place] [phone] Nov, [facility] [address] [facility] [place] [id number] [address] [place] [id number] Oct, [facility] [address] [facility] [place] [id number] [address] [place] [phone] Oct, [facility] [address] [facility] [place] [id number] [address] [place] [id number] 15 Oct, 2014 Diabetes type 2, uncontrolle d 250.02 and Hyperlipidemia 272.4 [facility] [address] [id number] [address] [place] [id number] Oct, Hyperlipidemia 272.4 and Penny betes type 2, uncontrolled 250.02 [facility] [address] [id number] [address] [place] [phone] Sep, [facility] [address] [facility] [place] [id number] [address] [place] [phone] Sep, [facility] [address] [id number] [address] [place] [id number] Aug, [facility] [address] [id number] [address] [place] [id number] Aug, [facility] [address] [id number] [address] [place] [id number] Aug, [facility] [address] [id number] [address] [place] [phone] Aug, [facility] [address] [id number] [address] [place] [id number] Aug, [facility] [address] [id number] [address] [place] [id number] Aug, [facility] [address] [id number] [address] [place] [id number] Aug, [facility] [address] [id number] [address] [place] [id number] Jul, [facility] [address] [id number] [address] [place] [id number] Jul, [facility] [address] [id number] [address] [place] [id number] Jul, Hyperlipidemia 272.4 [facility] [address] [id number] [address] [place] [id number] Jul, [facility] [address] [id number] [address] [place] [id number] Jul, Diabetes type 2, uncontrolle d 250.02 ; Ankle pain, right 719.47 and Hyperlipidemia 272.4 [facility] [address] [id number] [address] [place] [id number] June, [facility] [address] [id number] [address] [place] [id number] June, Unspecified essential hypert ension 401.9 ; Diabetes type 2, uncontrolled 250.02 ; Joint pain 719.40 and Hyperlipidemia 272.4 [facility] [address] [id number] [address] [place] [address], [place] [id number] May, [facility] [address] [id number] [address] [place] [address], [place] [id number] 28 May, 2014 [facility] [address] [id number] [address] [place] [address], [place] [address] 14 May, 2014 [facility] [address] [id number] [address] [place] [address], [place] [id number] May, [facility] [address] [id number] [address] [place] [address], [place] [address] Apr, [facility] [address] [id number] [address] [place] [address], [place] [address] Apr, [facility] [address] [id number] [address] [place] [address], [place] [address] Feb, [facility] [address] [id number] [address] [place] [address], [place] [address] Feb, [facility] [address] [id number] [address] [place] [address], [place] [address] Feb, [facility] [address] [id number] [address] [place] [address], [place] [address] Feb, [facility] [address] [id number] [address] [place] [address], [place] [address] Feb, [facility] [address] [id number] [address] [place] [id number] Feb, [facility] [address] [id number] [address] [place] [address], [place] [address] Feb, [facility] [address] [id number] [address] [place] [address], [place] [address] Feb, [facility] [address] [id number] [address] [place] [address], [place] [address] Dec, [facility] [address] [id number] [address] [place] [id number] Dec, [facility] [address] [id number] [address] [place] [address], [place] [address] Dec, [facility] [address] [id number] [address] [place] [address], [place] [address] Dec, [facility] [address] [id number] [address] [place] [address] [address] Dec, [facility] [address] [id number] [address] [place] [address], [place] [address] Nov, [facility] [address] [id number] [address] [place] [address], [place] [address] Nov, [facility] [address] [id number] [address] [place] [address], [place] [address] Nov, [facility] [address] [id number] [address] [place] [address], [place] [address] Nov, [facility] [address] [id number] [address] [place] [address], [place] [address] Oct, [facility] [address] [id number] [address] [place] [address], [place] [address] Oct, [facility] [address] [id number] [address] [place] [address], [place] [address] Oct, [facility] [address] [id number] [address] [place] [address], [place] [address] Oct, [facility] [address] [id number] [address] [place] [address], [place] [address] Aug, [facility] [address] [id number] [address] [place] [address], [place] [address] Aug, [facility] [address] [id number] [address] [place] [address], [place] [address] Aug, [facility] [address] [id number] [address] [place] [address], [place] [address] Aug, [facility] [address] [id number] [address] [place] [address], [place] [address] Jul, [facility] [address] [id number] [address] [place] [address], [place] [address] Jul, [facility] [address] [id number] [address] [place] [address], [place] [address] June, [facility] [address] [id number] [address] [place] [address], [place] [address] June, [facility] [address] [id number] [address] [place] [address], [place] [address] May, [facility] [address] [id number] [address] [place] [address], [place] [address] May, [facility] [address] [id number] [address] [place] [address], [place] [address] May, [facility] [address] [id number] [address] [place] [address], [place] [address] May, [facility] [address] [id number] [address] [place] [address], [place] [address] May, [facility] [address] [id number] [address] [place] [address], [place] [address] May, [facility] [address] [id number] [address] [place] [address], [place] [address] Apr, [facility] [address] [id number] [address] [place] [address], [place] [address] Apr, [facility] [address] [id number] [address] [place] [address], [place] [address] Mar, [facility] [address] [id number] [address] [place] [address], [place] [address] Mar, [facility] [address] [id number] [address] [place] [address], [place] [address] Jan, [facility] [address] [id number] [address] [place] [address] [address] Jan, [facility] [address] [id number] [address] [place] [address], [place] [address] Dec, [facility] [address] [id number] [address] [place] [address], [place] [address] Dec, [facility] [address] [id number] [address] [place] [address], [place] [address] Dec, [facility] [address] [id number] [address] [place] [address], [place] [address] Dec, [facility] [address] [id number] [address] [place] [address], [place] [address] Dec, [facility] [address] [id number] [address] [place] [address], [place] [address] Dec, [facility] [address] [id number] [address] [place] [address], [place] [address] Nov, [facility] [address] [id number] [address] [place] [id number] Nov, [facility] [address] [id number] [address] [place] [address] Nov, [facility] [address] [id number] [address] [place] [address] Nov, [facility] [address] [id number] [address] [place] [address] Nov, [facility] [address] [id number] [address] [place] [id number] Nov, [facility] [address] [id number] [address] [place] [address] Nov, [facility] [address] [id number] [address] [place] [address] Nov, [facility] [address] [id number] [address] [place] [address] Nov, [facility] [address] [id number] [address] [place] [address], [place] [address] 06 Oct, 2012 [facility] [address] [id number] [address] [place] [address], [place] [address] 04 Oct, 2012 [facility] [address] [id number] [address] [place] [address], [place] [address] 17 Aug, 2012 [facility] [address] [id number] [address] [place] [address], [place] [address] 16 Aug, 2012 [facility] [address] [id number] [address] [place] [address], [place] [address] 15 Aug, 2012 [facility] [address] [id number] [address] [place] [address], [place] [address] 10 Jul, 2012 [facility] [address] [id number] [address] [place] [address], [place] [address] Dec, [facility] [address] [id number] [address] [place] [address], [place] [address] Nov, [facility] [address] [id number] [address] [place] [address], [place] [address] Nov, [facility] [address] [id number] [address] [place] [address], [place] [address] 30 Nov, 2011 [facility] [address] [id number] [address] [place] [address], [place] [address] 30 Nov, 2011 [facility] [address] [id number] [address] [place] [address], [place] [address] 29 Nov, 2011 [facility] [address] [id number] [address] [place] [address], [place] [address] Nov, [facility] [address] [id number] [address] [place] [address], [place] [address] Mar, [facility] [address] [id number] [address] [place] [address], [place] [address] Feb, [facility] [address] [id number] [address] [place] [address], [place] [address] Feb, [facility] [address] [id number] [address] [place] [address], [place] [address] 10 Feb, 2011 [facility] [address] [id number] [address] [place] [address], [place] [address] 10 Feb, 2011 [facility] [address] [id number] [address] [place] [address], [place] [address] 09 Feb, 2011 [facility] [address] [id number] [address] [place] [address], [place] [address] 09 Jan, 2011 [facility] [address] [id number] [address] [place] [address], [place] [address] 12 Oct, 2010 [facility] [address] [id number] [address] [place] [address], [place] [address] 13 Feb, 2010 [facility] [address] [id number] [address] [place] [address], [place] [address] 19 Jan, 2010 [facility] [address] [id number] [address] [place] [address], [place] [address] 14 Jan, 2010 [facility] [address] [id number] [address] [place] [address], [place] [address] Jan, [facility] [address] [id number] [address] [place] [address], [place] [address] Jan, [facility] [address] [id number] [address] [place] [address], [place] [address] 24 Dec, 2009 [facility] [address] [id number] [address] [place] [address], [place] [address] Dec, [facility] [address] [id number] [address] [place] [address], [place] [address] 30 Dec, 2008 [facility] [address] [id number] [address] [place] [address], [place] [address] 14 Aug, 2008 [facility] [address] [id number] [address] [place] [address], [place] [address] 16 Jul, 2008 [facility] [address] [id number] [address] [place] [id number] June, [facility] [address] [facility] [place] [id number] [address] [place] [id number] June, [facility] [address] [facility] [place] [id number] [address] [place] [id number] May, [facility] [address] [facility] [place] [id number] [address] [place] [id number] Apr, IMMUNIZATIONS No Known Immunizations SOCIAL HISTORY [...]
--- OUTSIDE RECORDS SUMMARY | 2019-07-26 05:34 | XMS REPORT ---
Author Author Georgia Hilton Organization 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 Name Role Phone LENORE Hilton Unavailable PROBLEMS Type Condition ICD9-CM Code [id number] Code Onset Dates Condition S tatus SNOMED Code Problem Type 2 diabetes mellitus with other diabetic kid mirela complication E11.29 Active 21077157 Problem Mixed hyperlipidemia E78.2 Active 130288860 Problem Onychomycosis due to dermatophyte B35.1 Active 154153536 Problem Other hammer toe(s) (acquired), right foot M20.41 Active 835389135 Problem Essential hypertension I10 Active 09218172 Problem BMI 40.0-44.9, adult Z68.41 Active 422377065 Problem Type 2 diabetes mellitus with hyperglycemia E11.65 Active [id number] Problem 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 Active 223218352 Problem Type 2 diabetes mellitus wit h diabetic neuropathy, 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 Active 786446 06 Problem Other hammer toe(s) (acquired), left foot M20.42 Active 22630842 ALLERGIES No Information ENCOUNTERS Encounter Location Date Diagnosis [place] [address] [id number] [address] [place] [id number] June, [place] [address] [place] [id number] [address] [place] [id number] 14 May, 2019 Type 2 diabetes mellitus wit h hyperglycemia E11.65 [place] [address] [id number] [address] [place] [id number] 09 May, 2019 Type 2 diabetes mellitus wit h hyperglycemia E11.65 ; Type 2 diabetes mellitus with diabetic neuropathy, unspecified whether skilled nursing insulin use E11.40 ; Blurry vision H53.8 ; Type 2 diabetes mellitus with other diabetic kidney complication E11.29 ; Mixed hyperlipidemia E78.2 ; [facility] 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.4 and BMI 40.0-44.9, adult Z68.41 [place] [address] [address] May, [place] [address] [place] [id number] [address] [place] [phone] Apr, [place] [address] [place] [id number] [place] [address] Apr, [place] [address] [place] [id number] [phone] Apr, Type 2 diabetes mellitus wit h other diabetic kidney complication E11.[address] [address] Mar, Onychomycosis B35.1 ; Other hammer toe(s) (acquired), right foot M20.41 ; Other hammer toe(s) (acquired), left foot M20.42 and Type 2 diabetes mellitus with diabetic neuropathy, unspecified whether skilled nursing insulin use E11.40 [place] [address] [address] 17 Feb, 2019 [place] [address] [id number] Feb, [place] [address] [address] Feb, Type 2 diabetes mellitus wit h other diabetic kidney complication E11.29 ; Type 2 diabetes mellitus with hyperglycemia E11.65 ; [facility] 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.4 ; Essential hypertension I10 and BMI 40.0-44.9, adult Z68.41 [place] [address] [place] [id number] [address] [place] [id number] Nov, [place] [address] [place] [id number] [place] [id number] Oct, [place] [address] [address] Aug, Onychomycosis B35.1 ; Contus ion of right foot, initial encounter S90.31XA ; Contusion of toe with damage to nail, unspecified toe, initial encounter S90.229A and Type 2 diabetes mellitus with diabetic neuropathy, unspecified whether skilled nursing insulin use E11.40 [facility] [address] [id number] [address] [place] [id number] 15 Aug, 2018 [facility] [address] [id number] [address] [place] [id number] 27 Jul, 2018 [facility] [address] [id number] [address] [place] [id number] Jul, [facility] [address] [id number] [address] [place] [id number] Jul, [facility] [address] [id number] [address] [place] [id number] Jul, [facility] [address] [id number] [address] [place] [id number] Jul, Type 2 diabetes mellitus wit h other diabetic kidney complication E11.29 [facility] [address] [id number] [address] [place] [id number] June, [facility] [address] [id number] [address] [place] [phone] June, [facility] [address] [id number] [address] [place] [id number] June, [facility] [address] [id number] [address] [place] [id number] May, [facility] [address] [id number] [address] [place] [address] May, Type 2 diabetes mellitus wit h other diabetic kidney complication E11.29 and Type 2 diabetes mellitus with hyperglycemia E11.65 [facility] [address] [id number] [address] [place] [id number] 17 May, 2018 [place] [address] [id number] [address] [place] [id number] 05 May, 2018 Onychomycosis B35.1 ; Other hammer toe(s) (acquired), left foot M20.42 ; Other hammer toe(s) (acquired), right foot M20.41 and Type 2 diabetes mellitus with diabetic neuropathy, unspecified whether skilled nursing insulin use E11.40 [place] [address] [id number] [address] [place] [id number] May, [place] [address] [id number] [address] [place] [phone] Mar, [place] [address] [id number] [address] [place] [phone] Mar, [place] [address] [id number] [address] [place] [id number] 07 Mar, 2018 Type 2 diabetes mellitus wit h other diabetic kidney complication E11.29 ; Essential hypertension I10 ; Mixed hyperlipidemia E78.2 ; Type 2 diabetes mellitus with hyperglycemia E11.65 ; [facility] 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.4 and Type 2 diabetes mellitus with diabetic neuropathy, 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 [place] [address] [id number] [address] [place] [id number] Feb, [place] [address] [id number] [address] [place] [id number] Jan, [place] [address] [id number] [address] [place] [address] Dec, Onychomycosis B35.1 ; Type 2 diabetes mellitus with diabetic neuropathy, unspecified whether skilled nursing insulin use E11.40 ; Other hammer toe(s) (acquired), right foot M20.41 and Other hammer toe(s) (acquired), left foot M20.42 [place] [address] [id number] [address] [place] [id number] 08 Dec, 2017 [place] [address] [id number] [address] [place] [id number] 07 Dec, [address] [facility] [address] [id number] [address] [place] [id number] 07 Dec, 2017 Type 2 diabetes mellitus wit h other diabetic kidney complication E11.29 ; Type 2 diabetes mellitus with hyperglycemia E11.65 ; Essential hypertension I10 and Mixed hyperlipidemia E78.2 [facility] [address] [id number] [address] [place] [id number] 08 Nov, 2017 Type 2 diabetes mellitus wit h other diabetic kidney complication E11.29 ; Type 2 diabetes mellitus with hyperglycemia E11.65 ; Essential hypertension I10 ; Vaginal itching N89.8 and Encounter for immunization Z23 [facility] [address] [id number] [address] [place] [phone] 13 Oct, 2017 Type 2 diabetes mellitus wit h other diabetic kidney complication E11.29 [facility] [address] [id number] [address] [place] [id number] Oct, [facility] [address] [id number] [address] [place] [address] Sep, Onychomycosis B35.1 and Type 2 diabetes mellitus without complications E11.9 [facility] [address] [id number] [address] [place] [phone] Aug, [facility] [address] [id number] [address] [place] [phone] Jul, [facility] [address] [id number] [address] [place] [phone] Jul, [facility] [address] [id number] [address] [place] [address] Jul, [facility] [address] [id number] [address] [place] [phone] June, [facility] [address] [id number] [address] [place] [id number] June, Type 2 diabetes mellitus wit h other diabetic kidney complication E11.29 ; Essential hypertension I10 ; Mixed hyperlipidemia E78.2 ; [facility] 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.4 and High blood triglycerides E78.1 [facility] [address] [id number] [address] [place] [phone] May, [facility] [address] [id number] [address] [place] [id number] Apr, [facility] [address] [id number] [address] [place] [phone] Apr, [facility] [address] [id number] [address] [place] [id number] Mar, [facility] [address] [id number] [address] [place] [phone] Feb, [facility] [address] [id number] [address] [place] [id number] Feb, [facility] [address] [id number] [address] [place] [id number] Feb, [facility] [address] [id number] [address] [place] [id number] Jan, Type 2 diabetes mellitus wit h other diabetic kidney complication E11.29 [facility] [address] [id number] [id number] 21 Dec, [address] [facility] [address] [id number] [address] [place] [id number] 17 Dec, 2016 High blood triglycerides E78 .1 [facility] [id number] [place] [id number] 14 Dec, [address] [facility] [address] [id number] [address] [place] [id number] 09 Dec, 2016 High blood triglycerides E78 .1 [facility] [address] [id number] [address] [place] [id number] 09 Dec, 2016 Type 2 diabetes mellitus wit h other diabetic kidney complication E11.29 [facility] [address] [id number] [address] [place] [id number] 30 Nov, 2016 Type 2 diabetes mellitus wit h other diabetic kidney complication E11.29 [facility] [address] [id number] [address] [place] [id number] 18 Nov, 2016 [facility] [address] [id number] [address] [place] [id number] 17 Nov, 2016 Type 2 diabetes mellitus wit h other diabetic kidney complication E11.29 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 [address] [id number] 20 Oct, 2016 [facility] [address] [place] [id number] [id number] 15 Oct, 2016 Candidiasis of female genita eduard B37.3 and Vaginal discharge N89.8 [facility] [address] [place] [id number] [place] [id number] 15 Oct, 2016 [facility] [address] [place] [id number] [place] [id number] 14 Oct, 2016 [facility] [address] [place] [id number] [place] [phone] Sep, Vaginal yeast infection B37. 3 [facility] [address] [id number] [address] [place] [id number] Jul, [facility] [address] [place] [id number] [place] [phone] Jul, [facility] [address] [place] [id number] [place] [id number] 07 Jul, 2016 [place] [address] [id number] [address] [place] [address] June, [facility] [address] [id number] [address] [place] [id number] June, [facility] [address] [id number] [address] [place] [id number] June, Type 2 diabetes mellitus wit hout complications E11.9 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 [address] [id number] [address] [place] [id number] June, [place] [address] [id number] [address] [place] [phone] May, Onychomycosis B35.1 ; Onycho cryptosis L60.0 and Type 2 diabetes mellitus without complications E11.9 [facility] [address] [id number] [address] [place] [address] May, [facility] [address] [id number] [address] [place] [id number] Apr, Type 2 diabetes mellitus wit hout complications E11.9 [place] [address] [id number] [address] [place] [id number] Apr, 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 [address] [id number] [address] [place] [id number] Apr, [facility] [address] [id number] [address] [place] [phone] Mar, [facility] [address] [id number] [address] [place] [id number] Mar, [facility] [address] [id number] [address] [place] [phone] Mar, Mixed hyperlipidemia E78.2 ; Type 2 diabetes mellitus with other diabetic kidney complication E11.29 ; Essential hypertension I10 and Onychomycosis due to dermatophyte B35.1 [facility] [address] [id number] [address] [place] [id number] Jan, Type 2 diabetes mellitus wit h other diabetic kidney complication E11.29 ; Mixed hyperlipidemia E78.2 and Essential hypertension I10 [facility] [address] [id number] [address] [place] [id number] Sep, [facility] [address] [id number] [address] [place] [phone] Sep, [facility] [address] [id number] [address] [place] [id number] Feb, [facility] [address] [id number] [address] [place] [id number] Feb, Type 2 diabetes mellitus wit h other diabetic kidney complication E11.29 ; Essential hypertension I10 and Abnormal menstrual cycle N92.6 [facility] [address] [id number] [address] [place] [id number] Dec, Type 2 diabetes mellitus wit h other diabetic kidney complication E11.29 [facility] [address] [id number] [address] [place] [id number] Nov, Type 2 diabetes mellitus wit h other diabetic kidney complication E11.29 and Essential hypertension I10 [facility] [address] [id number] [address] [place] [address] Nov, [facility] [address] [id number] [address] [place] [id number] Nov, [facility] [address] [id number] [address] [place] [id number] Nov, [facility] [address] [id number] [address] [place] [id number] Oct, [facility] [address] [id number] [address] [place] [id number] Oct, [facility] [address] [id number] [address] [place] [id number] 15 Oct, 2014 Diabetes type 2, uncontrolle d 250.02 and Hyperlipidemia 272.4 [facility] [address] [id number] [address] [place] [id number] 14 Oct, 2014 Hyperlipidemia 272.4 and Penny betes type 2, uncontrolled 250.02 [facility] [address] [id number] [address] [place] [id number] Sep, [facility] [address] [id number] [address] [place] [phone] Sep, [facility] [address] [id number] [address] [place] [id number] Aug, [facility] [address] [id number] [address] [place] [id number] Aug, [facility] [address] [id number] [address] [place] [id number] Aug, [facility] [address] [id number] [address] [place] [id number] Aug, [facility] [address] [id number] [address] [place] [id number] Aug, [facility] [address] [id number] [address] [place] [phone] Aug, [facility] [address] [id number] [address] [place] [id number] Aug, [facility] [address] [id number] [address] [place] [phone] Jul, [facility] [address] [id number] [address] [place] [id number] Jul, [facility] [address] [id number] [address] [place] [id number] Jul, Hyperlipidemia 272.4 [facility] [address] [id number] [address] [place] [id number] Jul, [facility] [address] [id number] [address] [place] [id number] Jul, Diabetes type 2, uncontrolle d 250.02 ; Ankle pain, right 719.[address] [facility] [address] [id number] [address] [place] [id number] June, [facility] [address] [id number] [address] [place] [id number] June, Unspecified essential hypert ension 401.9 ; Diabetes type 2, uncontrolled 250.02 ; Joint pain 719.[address] [facility] [address] [id number] [address] [place] [id number] May, [facility] [address] [id number] [address] [place] [id number] May, [facility] [address] [id number] [address] [place] [id number] May, [facility] [address] [id number] [address] [place] [phone] May, [facility] [address] [id number] [address] [place] [id number] Apr, [facility] [address] [id number] [address] [place] [phone] Apr, [facility] [address] [id number] [address] [place] [id number] Feb, [facility] [address] [id number] [address] [place] [id number] Feb, [facility] [address] [id number] [address] [place] [address] [place] [phone] Feb, [facility] [address] [id number] [address] [place] [address], [place] [phone] Feb, [facility] [address] [id number] [address] [place] [id number] 16 Feb, 2014 [facility] [address] [id number] [address] [place] [address], [place] [id number] 16 Feb, 2014 [facility] [address] [id number] [address] [place] [address], [place] [id number] 15 Feb, 2014 [facility] [address] [id number] [address] [place] [address], [place] [id number] 15 Feb, 2014 [facility] [address] [id number] [address] [place] [address], [place] [id number] Dec, [facility] [address] [id number] [address] [place] [address], [place] [id number] Dec, [facility] [address] [id number] [address] [place] [address], [place] [id number] Dec, [facility] [address] [id number] [address] [place] [address], [place] [id number] Dec, [facility] [address] [id number] [address] [place] [address], [place] [id number] Dec, [facility] [address] [id number] [address] [place] [address], [place] [id number] Nov, [facility] [address] [id number] [address] [place] [id number] Nov, [facility] [address] [id number] [address] [place] [address], [place] [id number] Nov, [facility] [address] [id number] [address] [place] [id number] Nov, [facility] [address] [id number] [address] [place] [address], [place] [id number] Oct, [facility] [address] [id number] [facility] [place] [id number] Oct, [facility] [address] [id number] [address] [place] [address], [place] [id number] Oct, [facility] [address] [id number] [address] [place] [address], [place] [id number] Oct, [facility] [address] [id number] [address] [place] [address], [place] [id number] Aug, [facility] [address] [id number] [address] [place] [address], [place] [id number] Aug, [facility] [address] [id number] [address] [place] [address], [place] [id number] Aug, [facility] [address] [id number] [address] [place] [address], [place] [id number] Aug, [facility] [address] [id number] [address] [place] [address], [place] [id number] Jul, [facility] [address] [id number] [address] [place] [address], [place] [id number] Jul, [facility] [address] [id number] [address] [place] [address], [place] [id number] June, [facility] [address] [id number] [address] [place] [address], [place] [id number] June, [facility] [address] [id number] [address] [place] [address], [place] [id number] May, [facility] [address] [id number] [address] [place] [address], [place] [id number] May, [facility] [address] [id number] [address] [place] [address], [place] [id number] May, [facility] [facility] [address] [id number] [address] [place] [address], [place] [id number] May, [facility] [address] [id number] [address] [place] [address], [place] [id number] May, [facility] [address] [id number] [address] [place] [address], [place] [id number] May, [facility] [address] [id number] [address] [place] [address], [place] [id number] Apr, [facility] [address] [id number] [address] [place] [address], [place] [id number] Apr, [facility] [address] [id number] [address] [place] [address], [place] [id number] Mar, [facility] [address] [id number] [address] [place] [address], [place] [id number] Mar, [facility] [address] [id number] [address] [place] [address], [place] [id number] Jan, [facility] [address] [id number] [address] [place] [address], [place] [id number] Jan, [facility] [address] [id number] [address] [place] [address], [place] [id number] Dec, [facility] [address] [id number] [address] [place] [address], [place] [id number] Dec, [facility] [address] [id number] [address] [place] [address], [place] [id number] Dec, [facility] [address] [id number] [address] [place] [address], [place] [id number] Dec, [facility] [address] [id number] [address] [place] [id number] Dec, [facility] [address] [id number] [address] [place] [address], [place] [id number] Dec, [facility] [address] [id number] [address] [place] [address], [place] [id number] Nov, [facility] [address] [id number] [address] [place] [address], [place] [id number] Nov, [facility] [address] [id number] [address] [place] [address], [place] [id number] 17 Nov, 2012 [facility] [address] [id number] [address] [place] [address], [place] [id number] 17 Nov, 2012 [facility] [address] [id number] [address] [place] [address], [place] [id number] 10 Nov, 2012 [facility] [address] [id number] [address] [place] [address], [place] [id number] 10 Nov, 2012 [facility] [address] [id number] [address] [place] [address], [place] [id number] 08 Nov, 2012 [facility] [address] [id number] [address] [place] [address], [place] [id number] 04 Nov, 2012 [facility] [address] [id number] [address] [place] [address], [place] [id number] Nov, [facility] [address] [id number] [address] [place] [address], [place] [id number] 06 Oct, 2012 [facility] [address] [id number] [address] [place] [address], [place] [id number] 04 Oct, 2012 [facility] [address] [id number] [address] [place] [address], [place] [id number] 17 Aug, 2012 [facility] [address] [id number] [address] [place] [address], [place] [id number] 16 Aug, 2012 [facility] [address] [id number] [address] [place] [address], [place] [id number] 15 Aug, 2012 [facility] [address] [id number] [address] [place] [address], [place] [id number] 10 Jul, 2012 [facility] [address] [id number] [address] [place] [address], [place] [id number] 05 Dec, 2011 [facility] [address] [id number] [address] [place] [address], [place] [id number] Nov, [facility] [address] [id number] [address] [place] [address], [place] [id number] Nov, [facility] [address] [id number] [address] [place] [address], [place] [id number] Nov, [facility] [address] [id number] [address] [place] [address], [place] [id number] Nov, [facility] [address] [id number] [address] [place] [address], [place] [id number] Nov, [facility] [address] [id number] [address] [place] [address], [place] [id number] Nov, [facility] [address] [id number] [address] [place] [address], [place] [id number] Mar, [facility] [address] [id number] [address] [place] [address], [place] [id number] Feb, [facility] [address] [id number] [address] [place] [address], [place] [id number] Feb, [facility] [address] [id number] [address] [place] [id number] Feb, [facility] [address] [id number] [address] [place] [address], [place] [id number] Feb, [facility] [address] [id number] [address] [place] [id number] Feb, [facility] [address] [id number] [address] [place] [id number] Jan, [facility] [address] [id number] [address] [place] [id number] Oct, [facility] [address] [id number] [address] [place] [address], [place] [id number] Feb, [facility] [address] [id number] [address] [place] [id number] 19 Jan, 2010 [facility] [address] [id number] [address] [place] [id number] 14 Jan, 2010 [facility] [address] [id number] [address] [place] [id number] [address], [address] [facility] [address] [id number] [address] [place] [id number] Jan, [facility] [address] [id number] [address] [place] [id number] Dec, [facility] [address] [id number] [address] [place] [id number] Dec, [facility] [address] [id number] [address] [place] [id number] Dec, [facility] [address] [id number] [address] [place] [id number] Aug, [facility] [address] [id number] [address] [place] [id number] Jul, [facility] [address] [id number] [address] [place] [id number] June, [facility] [address] [id number] [address] [place] [id number] June, [facility] [address] [id number] [address] [place] [id number] May, [facility] [address] [id number] [address] [place] [id number] Apr, IMMUNIZATIONS No Known Immunizations SOCIAL HISTORY [...]
--- OUTSIDE RECORDS SUMMARY | 2019-07-26 05:34 | XMS REPORT ---
Author Author Georgia LUNA Organization [facility] Address [address] [place] [address] Care Team Providers Care Extract Mixer Name Role Phone CHERYLGUIDO Unavailable PROBLEMS Type Condition ICD9-CM Code [id number] Code Onset Dates Condition S tatus SNOMED Code Problem Type 2 diabetes mellitus with other diabetic kid mirela complication E11.29 Active 99210821 Problem Mixed hyperlipidemia E78.2 Active 679197401 Problem Onychomycosis due to dermatophyte B35.1 Active 248291491 Problem Other hammer toe(s) (acquired), right foot M20.41 Active 399186662 Problem Essential hypertension I10 Active 41312789 Problem BMI 40.0-44.9, adult Z68.41 Active 719711795 Problem Type 2 diabetes mellitus with hyperglycemia E11.65 Active [id number] Problem care home 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.4 Active 618481010 Problem Type 2 diabetes mellitus wit h diabetic neuropathy, unspecified whether intermediate frame tender insulin use E11.40 Active 499423 06 Problem Other hammer toe(s) (acquired), left foot M20.42 Active [id number] ALLERGIES No Information ENCOUNTERS Encounter Location Date Diagnosis [place] [id number] [facility] [id number] [address] [place] [address] June, [facility] [address] [id number] [address] [place] [address] May, [facility] [address] [id number] [address] [place] [address] May, [facility] [address] [facility] [id number] [address] [place] [address] Apr, [facility] [address] [facility] [id number] [address] [place] [address] Apr, [facility] [id number] [place] [address] 20 Apr, 2019 Type 2 diabetes mellitus wit h other diabetic kidney complication E11.29 [place] [address] [place] [address] 14 Mar, 2019 Onychomycosis B35.1 ; Other hammer toe(s) (acquired), right foot M20.41 ; Other hammer toe(s) (acquired), left foot M20.42 and Type 2 diabetes mellitus with diabetic neuropathy, unspecified whether intermediate frame tender insulin use E11.40 [place] [address] [place] [address] 17 Feb, 2019 [place] [address] [address] Feb, [place] [address] [address] Feb, Type 2 diabetes mellitus wit h other diabetic kidney complication E11.29 ; Type 2 diabetes mellitus with hyperglycemia E11.65 ; care home 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.4 ; Essential hypertension I10 and BMI 40.0-44.9, adult Z68.41 [place] [address] [place] [id number] [address] [place] [address] 30 Nov, 2018 [place] [address] [place] [id number] [address] [place] [address] Oct, [place] [address] [place] [id number] [address] [place] [address] Aug, Onychomycosis B35.1 ; Contus ion of right foot, initial encounter S90.31XA ; Contusion of toe with damage to nail, unspecified toe, initial encounter S90.229A and Type 2 diabetes mellitus with diabetic neuropathy, unspecified whether longterm insulin use E11.40 [place] [address] [place] [id number] [address] [place] [address] 15 Aug, 2018 [place] [address] [place] [id number] [address] [place] [address] Jul, [facility] [address] [id number] [address] [place] [address] Jul, [facility] [address] [id number] [address] [place] [address] Jul, [facility] [address] [id number] [address] [place] [address] Jul, [facility] [address] [id number] [address] [place] [address] Jul, Type 2 diabetes mellitus wit h other diabetic kidney complication E11.29 [facility] [address] [id number] [address] [place] [address] June, [facility] [address] [id number] [address] [place] [address] June, [facility] [address] [id number] [address] [place] [address] June, [facility] [address] [id number] [address] [place] [address] May, [facility] [address] [id number] [address] [place] [address] May, Type 2 diabetes mellitus wit h other diabetic kidney complication E11.29 and Type 2 diabetes mellitus with hyperglycemia E11.65 [facility] [address] [id number] [address] [place] [address] 17 May, 2018 [facility] [address] [id number] [address] [place] [address] May, Onychomycosis B35.1 ; Other hammer toe(s) (acquired), left foot M20.42 ; Other hammer toe(s) (acquired), right foot M20.41 and Type 2 diabetes mellitus with diabetic neuropathy, unspecified whether longterm insulin use E11.40 [facility] [address] [id number] [address] [place] [address] May, [facility] [address] [id number] [address] [place] [address] Mar, [facility] [address] [facility] [id number] [address] [place] [address] Mar, [facility] [address] [facility] [id number] [address] [place] [address] 07 Mar, 2018 Type 2 diabetes mellitus wit h other diabetic kidney complication E11.29 ; Essential hypertension I10 ; Mixed hyperlipidemia E78.2 ; Type 2 diabetes mellitus with hyperglycemia E11.65 ; 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 and Type 2 diabetes mellitus with diabetic neuropathy, unspecified whether longterm insulin use E11.40 [facility] [address] [facility] [id number] [address] [place] [address] Feb, [facility] [address] [facility] [id number] [address] [place] [address] Jan, [facility] [address] [place] [id number] [address] [place] [address] 16 Dec, 2017 Onychomycosis B35.1 ; Type 2 diabetes mellitus with diabetic neuropathy, unspecified whether longterm insulin use E11.40 ; Other hammer toe(s) (acquired), right foot M20.41 and Other hammer toe(s) (acquired), left foot M20.42 [place] [place] [id number] [address] [place] [address] 08 Dec, 2017 [facility] [address] [place] [id number] [address] [place] [address] Dec, Dental examination Z01.20 [place] [address] [facility] [id number] [address] [place] [address] 07 Dec, 2017 Type 2 diabetes mellitus wit h other diabetic kidney complication E11.29 ; Type 2 diabetes mellitus with hyperglycemia E11.65 ; Essential hypertension I10 and Mixed hyperlipidemia E78.2 [facility] [address] [facility] [id number] [address] [place] [address] 08 Nov, 2017 Type 2 diabetes mellitus wit h other diabetic kidney complication E11.29 ; Type 2 diabetes mellitus with hyperglycemia E11.65 ; Essential hypertension I10 ; Vaginal itching N89.8 and Encounter for immunization Z23 [facility] [address] [id number] [address] [place] [address] 13 Oct, 2017 Type 2 diabetes mellitus wit h other diabetic kidney complication E11.29 [facility] [address] [id number] [address] [place] [address] 04 Oct, 2017 [facility] [address] [id number] [address] [place] [address] Sep, Onychomycosis B35.1 and Type 2 diabetes mellitus without complications E11.9 [facility] [address] [id number] [address] [place] [address] Aug, [facility] [address] [id number] [address] [place] [address] Jul, [facility] [address] [facility] [id number] [address] [place] [address] Jul, [facility] [address] [id number] [address] [place] [address] Jul, [facility] [address] [facility] [id number] [address] [place] [address] June, [facility] [address] [facility] [id number] [address] [place] [address] June, Type 2 diabetes mellitus wit h other diabetic kidney complication E11.29 ; Essential hypertension I10 ; Mixed hyperlipidemia E78.2 ; care home 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.4 and High blood triglycerides E78.1 [facility] [address] [id number] [address] [place] [address] May, [facility] [address] [id number] [address] [place] [address] Apr, [facility] [address] [facility] [id number] [address] [place] [address] Apr, [facility] [address] [facility] [id number] [address] [place] [address] Mar, [facility] [address] [id number] [address] [place] [address] Feb, [facility] [address] [id number] [address] [place] [address] Feb, [facility] [address] [facility] [id number] [address] [place] [address] Feb, [facility] [address] [facility] [id number] [address] [place] [address] Jan, Type 2 diabetes mellitus wit h other diabetic kidney complication E11.29 [facility] [address] [id number] [id number] Dec, Dental examination Z01.20 [facility] [address] [facility] [id number] [address] [place] [address] 17 Dec, 2016 High blood triglycerides E78 .1 [facility] [address] [id number] [id number] Dec, Dental examination Z01.20 [facility] [address] [facility] [id number] [address] [place] [address] 09 Dec, 2016 High blood triglycerides E78 .1 [facility] [address] [facility] [id number] [address] [place] [address] 09 Dec, 2016 Type 2 diabetes mellitus wit h other diabetic kidney complication E11.29 [facility] [address] [id number] [address] [place] [address] 30 Nov, 2016 Type 2 diabetes mellitus wit h other diabetic kidney complication E11.29 [facility] [address] [id number] [address] [place] [address] Nov, [facility] [address] [facility] [id number] [address] [place] [address] 17 Nov, 2016 Type 2 diabetes mellitus wit h other diabetic kidney complication E11.29 [facility] [address] [facility] [id number] [address] [place] [address] Nov, 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 ; Encounter for immunization Z23 ; Essential hypertension I10 ; Type 2 diabetes mellitus with other diabetic kidney complication E11.29 and Mixed hyperlipidemia E78.2 [facility] [address] [id number] [address] [place] [address] 04 Nov, 2016 [facility] [address] [id number] [address] [place] [address] 20 Oct, 2016 [facility] [address] [id number] [address] [place] [address] 15 Oct, 2016 Candidiasis of female genita eduard B37.3 and Vaginal discharge N89.8 [facility] [address] [id number] [address] [place] [address] 15 Oct, 2016 [facility] [address] [facility] [id number] [address] [place] [address] Oct, [facility] [address] [facility] [id number] [address] [place] [address] Sep, Vaginal yeast infection B37. 3 [facility] [address] [id number] [address] [place] [address] Jul, [facility] [address] [id number] [address] [place] [address] Jul, [facility] [address] [id number] [address] [place] [address] Jul, [facility] [address] [facility] [id number] [address] [place] [address] June, [facility] [address] [id number] [address] [place] [address] June, [facility] [address] [facility] [id number] [address] [place] [address] June, Type 2 diabetes mellitus wit hout complications E11.9 [facility] [address] [facility] [id number] [address] [place] [address] June, Essential hypertension I10 ; Type 2 diabetes mellitus without complications E11.9 ; care home 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.4 and Hair loss L65.9 [place] [address] [place] [id number] [address] [place] [address] June, [place] [address] [facility] [id number] [address] [place] [address] May, Onychomycosis B35.1 ; Onycho cryptosis L60.0 and Type 2 diabetes mellitus without complications E11.9 [place] [address] [facility] [id number] [address] [place] [address] May, [place] [address] [place] [id number] [address] [place] [address] Apr, Type 2 diabetes mellitus wit hout complications E11.9 [place] [address] [place] [id number] [address] [place] [address] Apr, [place] [address] [place] [id number] [address] [place] [address] Apr, Type 2 diabetes mellitus wit hout complications E11.9 ; Type 2 diabetes mellitus with hyperglycemia E11.65 and care home 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.4 [place] [address] [facility] [id number] [address] [place] [address] Apr, [place] [address] [facility] [id number] [address] [place] [address] Mar, [place] [address] [place] [id number] [address] [place] [address] Mar, [place] [address] [facility] [id number] [address] [place] [address] Mar, Mixed hyperlipidemia E78.2 ; Type 2 diabetes mellitus with other diabetic kidney complication E11.29 ; Essential hypertension I10 and Onychomycosis due to dermatophyte B35.1 [place] [address] [facility] [id number] [address] [place] [address] Jan, Type 2 diabetes mellitus wit h other diabetic kidney complication E11.29 ; Mixed hyperlipidemia E78.2 and Essential hypertension I10 [facility] [address] [facility] [id number] [address] [place] [address] Sep, [facility] [address] [facility] [id number] [address] [place] [address] Sep, [facility] [address] [facility] [id number] [address] [place] [address] Feb, [facility] [address] [facility] [id number] [address] [place] [address] Feb, Type 2 diabetes mellitus wit h other diabetic kidney complication E11.29 ; Essential hypertension I10 and Abnormal menstrual cycle N92.6 [facility] [address] [facility] [id number] [address] [place] [address] Dec, Type 2 diabetes mellitus wit h other diabetic kidney complication E11.29 [facility] [address] [facility] [id number] [address] [place] [address] Nov, Type 2 diabetes mellitus wit h other diabetic kidney complication E11.29 and Essential hypertension I10 [facility] [address] [facility] [id number] [address] [place] [address] Nov, [facility] [address] [facility] [id number] [address] [place] [address] Nov, [facility] [address] [facility] [id number] [address] [place] [address] Nov, [facility] [address] [facility] [id number] [address] [place] [address] Oct, [facility] [address] [facility] [id number] [address] [place] [address] 17 Oct, 2014 [facility] [address] [facility] [id number] [address] [place] [address] 15 Oct, 2014 Diabetes type 2, uncontrolle d 250.02 and Hyperlipidemia 272.4 [facility] [address] [facility] [id number] [address] [place] [address] Oct, Hyperlipidemia 272.4 and Penny betes type 2, uncontrolled 250.02 [facility] [address] [id number] [address] [place] [address] Sep, [facility] [address] [id number] [address] [place] [address] Sep, [facility] [address] [id number] [address] [place] [address] Aug, [facility] [address] [id number] [address] [place] [address] Aug, [facility] [address] [id number] [address] [place] [address] Aug, [facility] [address] [id number] [address] [place] [address] Aug, [facility] [address] [id number] [address] [place] [address] Aug, [facility] [address] [id number] [address] [place] [address] Aug, [facility] [address] [id number] [address] [place] [address] Aug, [facility] [address] [id number] [address] [place] [address] Jul, [facility] [address] [id number] [address] [place] [id number] Jul, [facility] [address] [id number] [address] [place] [address] Jul, Hyperlipidemia 272.4 [facility] [address] [id number] [address] [place] [address] Jul, [facility] [address] [id number] [address] [place] [address] Jul, Diabetes type 2, uncontrolle d 250.02 ; Ankle pain, right 719.47 and Hyperlipidemia 272.4 [facility] [address] [id number] [address] [place] [address] June, [facility] [address] [id number] [address] [place] [address] June, Unspecified essential hypert ension 401.9 ; Diabetes type 2, uncontrolled 250.02 ; Joint pain 719.40 and Hyperlipidemia 272.4 [facility] [address] [id number] [address] [place] [address] May, [facility] [address] [id number] [address] [place] [address] May, [facility] [address] [id number] [address] [place] [address] May, [facility] [address] [id number] [address] [place] [address] May, [facility] [address] [id number] [address] [place] [address] Apr, [facility] [address] [id number] [address] [place] [address] Apr, [facility] [address] [id number] [address] [place] [address] Feb, [facility] [address] [id number] [address] [place] [address] Feb, [facility] [address] [id number] [address] [place] [address] Feb, [facility] [address] [id number] [address] [place] [address] Feb, [facility] [address] [id number] [address] [place] [address] Feb, [facility] [address] [id number] [address] [place] [address] Feb, [facility] [address] [id number] [address] [place] [address] Feb, [facility] [address] [id number] [address] [place] [address], [place] [address] Feb, [facility] [address] [id number] [address] [place] [address], [place] [address] Dec, [facility] [address] [id number] [address] [place] [address], [place] [address] Dec, [facility] [address] [id number] [address] [place] [address], [place] [address] Dec, [facility] [address] [id number] [address] [place] [address], [place] [address] Dec, [facility] [address] [id number] [address] [place] [address], [place] [address] Dec, [facility] [address] [id number] [address] [place] [address], [place] [address] Nov, [facility] [address] [id number] [address] [place] [address], [place] [address] Nov, [facility] [address] [id number] [address] [place] [address], [place] [address] Nov, [facility] [address] [id number] [address] [place] [address], [place] [address] Nov, [facility] [address] [id number] [address] [place] [address], [place] [address] Oct, [facility] [address] [id number] [address] [place] [address], [place] [address] 26 Oct, 2013 [facility] [address] [id number] [address] [place] [address], [place] [address] 25 Oct, 2013 [facility] [address] [id number] [address] [place] [address], [place] [address] 25 Oct, 2013 [facility] [address] [id number] [address] [place] [address], [place] [address] 14 Aug, 2013 [facility] [address] [id number] [address] [place] [address], [place] [address] Aug, [facility] [address] [id number] [address] [place] [address], [place] [address] Aug, [facility] [address] [id number] [address] [place] [address], [place] [address] Aug, [facility] [address] [id number] [address] [place] [address], [place] [address] Jul, [facility] [address] [id number] [address] [place] [address], [place] [address] Jul, [facility] [address] [id number] [address] [place] [address], [place] [address] June, [facility] [address] [id number] [address] [place] [address], [place] [address] June, [facility] [address] [id number] [address] [place] [address], [place] [address] May, [facility] [address] [id number] [address] [place] [address], [place] [address] May, [facility] [address] [id number] [address] [place] [address], [place] [address] May, [facility] [address] [id number] [address] [place] [address], [place] [address] May, [facility] [address] [id number] [address] [place] [address], [place] [address] May, [facility] [address] [id number] [address] [place] [address], [place] [address] May, [facility] [address] [id number] [address] [place] [address], [place] [address] Apr, [facility] [address] [id number] [address] [place] [address], [place] [address] Apr, [facility] [address] [id number] [address] [place] [address], [place] [address] Mar, [facility] [address] [id number] [address] [place] [address], [place] [address] Mar, [facility] [address] [id number] [address] [place] [address], [place] [address] Jan, [facility] [address] [id number] [address] [place] [address], [place] [address] Jan, [facility] [address] [id number] [address] [place] [address], [place] [address] Dec, [facility] [address] [id number] [address] [place] [address], [place] [address] Dec, [facility] [address] [id number] [address] [place] [address], [place] [address] Dec, [facility] [address] [id number] [address] [place] [address], [place] [address] Dec, [facility] [address] [id number] [address] [place] [address] Dec, [facility] [address] [id number] [address] [place] [address], [place] [address] Dec, [facility] [address] [id number] [address] [place] [address] Nov, [facility] [address] [id number] [address] [place] [address] Nov, [facility] [address] [id number] [address] [place] [address] Nov, [facility] [address] [id number] [address] [place] [address] Nov, [facility] [address] [id number] [address] [place] [address] Nov, [facility] [address] [id number] [address] [place] [address] Nov, [facility] [address] [id number] [address] [place] [address], [place] [address] 08 Nov, 2012 [facility] [address] [id number] [address] [place] [address], [place] [address] 04 Nov, 2012 [facility] [address] [id number] [address] [place] [address], [place] [address] 03 Nov, 2012 [facility] [address] [id number] [address] [place] [address], [place] [address] 06 Oct, 2012 [facility] [address] [id number] [address] [place] [address], [place] [address] 04 Oct, 2012 [facility] [address] [id number] [address] [place] [address], [place] [address] 17 Aug, 2012 [facility] [address] [id number] [address] [place] [address], [place] [address] 16 Aug, 2012 [facility] [address] [id number] [address] [place] [address], [place] [address] 15 Aug, 2012 [facility] [address] [id number] [address] [place] [address], [place] [address] 10 Jul, 2012 [facility] [address] [id number] [address] [place] [address], [place] [address] 05 Dec, 2011 [facility] [address] [id number] [address] [place] [address], [place] [address] 31 Nov, 2011 [facility] [address] [id number] [address] [place] [address], [place] [address] 31 Nov, 2011 [facility] [address] [id number] [address] [place] [address], [place] [address] 30 Nov, 2011 [facility] [address] [id number] [address] [place] [address], [place] [address] 30 Nov, 2011 [facility] [address] [id number] [address] [place] [address], [place] [address] 29 Nov, 2011 [facility] [address] [id number] [address] [place] [address], [place] [address] 29 Nov, 2011 [facility] [address] [id number] [address] [place] [address], [place] [address] 08 Mar, 2011 [facility] [address] [id number] [address] [place] [address], [place] [address] 16 Feb, 2011 [facility] [address] [id number] [address] [place] [address], [place] [address] 13 Feb, 2011 [facility] [address] [id number] [address] [place] [address], [place] [address] 10 Feb, 2011 [facility] [address] [id number] [address] [place] [address], [place] [address] 10 Feb, 2011 [facility] [address] [id number] [address] [place] [address], [place] [address] 09 Feb, 2011 [facility] [address] [id number] [address] [place] [address], [place] [address] 09 Jan, 2011 [facility] [address] [id number] [address] [place] [address], [place] [address] 12 Oct, 2010 [facility] [address] [id number] [address] [place] [address], [place] [address] 13 Feb, 2010 [facility] [address] [id number] [address] [place] [address], [place] [address] 19 Jan, 2010 [facility] [address] [id number] [address] [place] [address], [place] [address] 14 Jan, 2010 [facility] [address] [id number] [address] [place] [address], [place] [address] 13 Jan, 2010 [facility] [address] [id number] [address] [place] [address], [place] [address] 13 Jan, 2010 [facility] [address] [id number] [address] [place] [address], [place] [address] 24 Dec, 2009 [facility] [address] [id number] [address] [place] [address], [place] [address] Dec, [facility] [address] [id number] [address] [address] 30 Dec, 2008 [facility] [address] [facility] [id number] [address] [place] [address] Aug, [facility] [address] [facility] [id number] [address] [place] [address] Jul, [facility] [address] [facility] [id number] [address] [place] [address] June, [facility] [address] [facility] [id number] [address] [place] [address] June, [facility] [address] [facility] [id number] [address] [place] [address] May, [facility] [address] [facility] [id number] [address] [place] [address] Apr, IMMUNIZATIONS No Known Immunizations SOCIAL HISTORY Never Assessed REASON FOR VISIT PLAN OF CARE VITAL SIGNS Height 64 in 2012-12-30 Temperature 97.6 degrees Fahrenheit 2012-12-30 Heart Rate 80 bpm 2012-12-30 Respiratory Rate 20 2012-12-30 Blood pressure systolic 138 mmHg 2012-12-30 Blood pressure diastolic 86 mmHg 2012-12-30 MEDICATIONS Unknown Medications RESULTS No Results PROCEDURES Procedure Date Ordered Result Body Site MICROALBUMIN, SEMIQUANT Dec 30, 2012 GLYCATED HEMOGLOBIN TEST Dec 30, 2012 MICROALBUMIN, QUANTITATIVE Dec 30, 2012 INSTRUCTIONS MEDICATIONS ADMINISTERED No Known Medications MEDICAL (GENERAL) HISTORY Type Description Date Medical History HYPERTENSION Medical History RENAL DISEASE- MICROALBUMINURIA Medical History HYPERLIPIDEMIA Medical History DM TYPE 2- DX'D 2007 Surgical History No Surgical history information
--- OUTSIDE RECORDS SUMMARY | 2019-07-26 05:34 | XMS REPORT ---
Author Author Georgia Hilton Organization [facility] Address [address] [place] [address] Care Team Providers Care Assistant Commissioner Name Role Phone LENORE Hilton Unavailable PROBLEMS Type Condition ICD9-CM Code SIZ47-XK Code Onset Dates Condition S tatus SNOMED Code Problem Type 2 diabetes mellitus with other diabetic kid mirela complication E11.29 Active 60086612 Problem Mixed hyperlipidemia E78.2 Active 422374764 Problem Onychomycosis due to dermatophyte B35.1 Active 034455995 Problem Other hammer toe(s) (acquired), right foot M20.41 Active 345772562 Problem Essential hypertension I10 Active 22739237 Problem BMI 40.0-44.9, adult Z68.41 Active 520428506 Problem Type 2 diabetes mellitus with hyperglycemia E11.65 Active [id number] Problem 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 [id number] [address] [place] [phone] 26 Jun, 2019 [place] [address] [facility] [id number] [address] [place] [address] June, [place] [address] [facility] [id number] [address] [place] [phone] 14 May, 2019 Type 2 diabetes mellitus wit h hyperglycemia E11.65 [place] [address] [facility] [id number] [address] [place] [id number] 09 May, 2019 Type 2 diabetes mellitus wit h hyperglycemia E11.65 ; Type 2 diabetes mellitus with diabetic neuropathy, unspecified whether terminal worker insulin use E11.40 ; Blurry vision H53.8 ; Type 2 diabetes mellitus with other diabetic kidney complication E11.29 ; Mixed hyperlipidemia E78.2 ; [facility]FP 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.4 and BMI 40.0-44.9, adult Z68.41 [place] [address] [facility] [id number] [address] [place] [id number] May, [place] [address] [facility] [id number] [address] [place] [id number] Apr, [place] [address] [facility] [id number] [address] [place] [phone] Apr, [place] [address] [place] [id number] [address] [place] [address] Apr, Type 2 diabetes mellitus wit h other diabetic kidney complication E11.29 [place] [id number] [address] [place] [address] Mar, Onychomycosis B35.1 ; Other hammer toe(s) (acquired), right foot M20.41 ; Other hammer toe(s) (acquired), left foot M20.42 and Type 2 diabetes mellitus with diabetic neuropathy, unspecified whether terminal worker insulin use E11.40 [place] [address] [place] [id number] [address] [place] [phone] 17 Feb, [address] [place] [address] 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.4 ; Essential hypertension I10 and BMI 40.0-44.9, adult Z68.41 [place] [address] [place] [id number] [address] [place] [phone] Nov, [place] [address] [place] [id number] [address] [place] [phone] Oct, [facility] [address] [id number] [address] [place] [id number] Aug, Onychomycosis B35.1 ; Contus ion of right foot, initial encounter S90.31XA ; Contusion of toe with damage to nail, unspecified toe, initial encounter S90.229A and Type 2 diabetes mellitus with diabetic neuropathy, unspecified whether mcfp insulin use E11.40 [facility] [address] [id number] [address] [place] [id number] 15 Aug, 2018 [facility] [address] [id number] [address] [place] [phone] Jul, [facility] [address] [id number] [address] [place] [phone] Jul, [facility] [address] [id number] [address] [place] [phone] Jul, [facility] [address] [id number] [address] [place] [id number] Jul, [facility] [address] [id number] [address] [place] [address] Jul, Type 2 diabetes mellitus wit h other diabetic kidney complication E11.29 [facility] [address] [id number] [address] [place] [address] June, [facility] [address] [id number] [address] [place] [address] June, [facility] [address] [id number] [address] [place] [id number] June, [facility] [address] [id number] [address] [place] [address] May, [facility] [address] [id number] [address] [place] [address] May, Type 2 diabetes mellitus wit h other diabetic kidney complication E11.29 and Type 2 diabetes mellitus with hyperglycemia E11.65 [place] [address] [place] [id number] [address] [place] [address] May, [place] [address] [place] [id number] [address] [place] [address] May, Onychomycosis B35.1 ; Other hammer toe(s) (acquired), left foot M20.42 ; Other hammer toe(s) (acquired), right foot M20.41 and Type 2 diabetes mellitus with diabetic neuropathy, unspecified whether terminal worker insulin use E11.40 [place] [address] [place] [id number] [address] [place] [id number] May, [place] [address] [place] [id number] [address] [place] [address] Mar, [place] [address] [place] [id number] [address] [place] [address] Mar, [place] [address] [place] [id number] [address] [place] [address] Mar, Type 2 diabetes mellitus wit h other diabetic kidney complication E11.29 ; Essential hypertension I10 ; Mixed hyperlipidemia E78.2 ; Type 2 diabetes mellitus with hyperglycemia E11.65 ; [facility]FP 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.4 and Type 2 diabetes mellitus with diabetic neuropathy, unspecified whether terminal worker insulin use E11.40 [place] [address] [place] [id number] [address] [place] [phone] Feb, [place] [address] [place] [id number] [address] [place] [address] Jan, [place] [address] [place] [id number] [address] [place] [address] Dec, Onychomycosis B35.1 ; Type 2 diabetes mellitus with diabetic neuropathy, unspecified whether terminal worker insulin use E11.40 ; Other hammer toe(s) (acquired), right foot M20.41 and Other hammer toe(s) (acquired), left foot M20.42 [place] [address] [place] [id number] [address] [place] [address] Dec, [facility] [address] [facility] [id number] [address] [place] [address] Dec, Dental examination Z01.20 [facility] [address] [facility] [id number] [address] [place] [id number] 07 Dec, 2017 Type 2 diabetes mellitus wit h other diabetic kidney complication E11.29 ; Type 2 diabetes mellitus with hyperglycemia E11.65 ; Essential hypertension I10 and Mixed hyperlipidemia E78.2 [facility] [address] [facility] [id number] [address] [place] [id number] 08 Nov, 2017 Type 2 diabetes mellitus wit h other diabetic kidney complication E11.29 ; Type 2 diabetes mellitus with hyperglycemia E11.65 ; Essential hypertension I10 ; Vaginal itching N89.8 and Encounter for immunization Z23 [facility] [address] [facility] [id number] [address] [place] [id number] 13 Oct, 2017 Type 2 diabetes mellitus wit h other diabetic kidney complication E11.29 [facility] [address] [facility] [id number] [address] [place] [address] Oct, [facility] [address] [facility] [id number] [address] [place] [address] Sep, Onychomycosis B35.1 and Type 2 diabetes mellitus without complications E11.9 [facility] [address] [facility] [id number] [address] [place] [phone] Aug, [facility] [address] [facility] [id number] [address] [place] [address] Jul, [facility] [address] [facility] [id number] [address] [place] [phone] Jul, [facility] [address] [facility] [id number] [address] [place] [phone] Jul, [facility] [address] [facility] [id number] [address] [place] [address] June, [facility] [address] [facility] [id number] [address] [place] [address] June, Type 2 diabetes mellitus wit h other diabetic kidney complication E11.29 ; Essential hypertension I10 ; Mixed hyperlipidemia E78.2 ; [facility]FP 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.4 and High blood triglycerides E78.1 [facility] [address] [id number] [address] [place] [address] May, [facility] [address] [id number] [address] [place] [address] Apr, [facility] [address] [id number] [address] [place] [phone] Apr, [facility] [address] [id number] [address] [place] [address] Mar, [facility] [address] [facility] [id number] [address] [place] [address] Feb, [facility] [address] [facility] [id number] [address] [place] [address] Feb, [facility] [address] [id number] [address] [place] [address] Feb, [facility] [address] [facility] [id number] [address] [place] [id number] Jan, Type 2 diabetes mellitus wit h other diabetic kidney complication E11.29 [facility] [address] [facility] [address] [id number] [id number] Dec, Dental examination Z01.20 [facility] [address] [id number] [address] [place] [id number] 17 Dec, 2016 High blood triglycerides E78 .[address] [facility] [address] [id number] [id number] 14 Dec, 2016 Dental examination Z01.20 [facility] [address] [facility] [id number] [address] [place] [id number] 09 Dec, 2016 High blood triglycerides E78 .1 [facility] [address] [facility] [id number] [address] [place] [id number] Dec, Type 2 diabetes mellitus wit h other diabetic kidney complication E11.29 [facility] [address] [facility] [id number] [address] [place] [phone] 30 Nov, 2016 Type 2 diabetes mellitus wit h other diabetic kidney complication E11.29 [facility] [address] [facility] [id number] [address] [place] [id number] 18 Nov, 2016 [facility] [address] [facility] [id number] [address] [place] [address] 17 Nov, 2016 Type 2 diabetes mellitus wit h other diabetic kidney complication E11.29 [facility] [address] [facility] [id number] [address] [place] [phone] 09 Nov, 2016 [facility] current use of ins ulin Z79.4 ; Encounter for immunization Z23 ; Essential hypertension I10 ; Type 2 diabetes mellitus with other diabetic kidney complication E11.29 and Mixed hyperlipidemia E78.2 [facility] [address] [facility] [id number] [address] [place] [phone] 04 Nov, 2016 [facility] [address] [facility] [id number] [address] [place] [address] Oct, [facility] [address] [facility] [id number] [address] [place] [id number] 15 Oct, 2016 Candidiasis of female genita eduard B37.3 and Vaginal discharge N89.8 [facility] [address] [facility] [id number] [address] [place] [phone] 15 Oct, 2016 [facility] [address] [facility] [id number] [address] [place] [id number] 14 Oct, 2016 [facility] [address] [facility] [id number] [address] [place] [phone] Sep, Vaginal yeast infection B37. 3 [facility] [address] [facility] [id number] [address] [place] [phone] Jul, [facility] [address] [facility] [id number] [address] [place] [address] Jul, [place] [address] [facility] [id number] [address] [place] [phone] Jul, [facility] [address] [facility] [id number] [address] [place] [phone] June, [facility] [address] [facility] [id number] [address] [place] [phone] June, [facility] [address] [facility] [id number] [address] [place] [address] June, Type 2 diabetes mellitus wit hout complications E11.9 [facility] [address] [facility] [id number] [address] [place] [address] June, Essential hypertension I10 ; Type 2 diabetes mellitus without complications E11.9 ; intermission coordinator 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.4 and Hair loss L65.9 [facility] [address] [facility] [id number] [address] [place] [id number] June, [facility] [address] [facility] [id number] [address] [place] [address] May, Onychomycosis B35.1 ; Onycho cryptosis L60.0 and Type 2 diabetes mellitus without complications E11.9 [facility] [address] [facility] [id number] [address] [place] [address] May, [facility] [address] [facility] [id number] [address] [place] [id number] Apr, Type 2 diabetes mellitus wit hout complications E11.9 [facility] [address] [facility] [id number] [address] [place] [address] Apr, [facility] [address] [facility] [id number] [address] [place] [address] Apr, Type 2 diabetes mellitus wit hout complications E11.9 ; Type 2 diabetes mellitus with hyperglycemia E11.65 and [facility]FP 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.4 [facility] [address] [facility] [id number] [address] [place] [phone] Apr, [facility] [address] [id number] [address] [place] [address] Mar, [facility] [address] [facility] [id number] [address] [place] [id number] Mar, [facility] [address] [facility] [id number] [address] [place] [address] Mar, Mixed hyperlipidemia E78.2 ; Type 2 diabetes mellitus with other diabetic kidney complication E11.29 ; Essential hypertension I10 and Onychomycosis due to dermatophyte B35.1 [facility] [address] [id number] [address] [place] [address] Jan, Type 2 diabetes mellitus wit h other diabetic kidney complication E11.29 ; Mixed hyperlipidemia E78.2 and Essential hypertension I10 [facility] [address] [facility] [id number] [address] [place] [phone] Sep, [facility] [address] [facility] [id number] [address] [place] [address] Sep, [facility] [address] [facility] [id number] [address] [place] [id number] Feb, [facility] [address] [facility] [id number] [address] [place] [address] Feb, Type 2 diabetes mellitus wit h other diabetic kidney complication E11.29 ; Essential hypertension I10 and Abnormal menstrual cycle N92.6 [facility] [address] [facility] [id number] [address] [place] [phone] Dec, Type 2 diabetes mellitus wit h other diabetic kidney complication E11.29 [facility] [address] [id number] [address] [place] [address] Nov, Type 2 diabetes mellitus wit h other diabetic kidney complication E11.29 and Essential hypertension I10 [facility] [address] [facility] [id number] [address] [place] [address] Nov, [facility] [address] [facility] [id number] [address] [place] [address] Nov, [facility] [address] [id number] [address] [place] [phone] Nov, [facility] [address] [id number] [address] [place] [address] Oct, [facility] [address] [id number] [address] [place] [phone] Oct, [facility] [address] [id number] [address] [place] [address] 15 Oct, 2014 Diabetes type 2, uncontrolle d 250.02 and Hyperlipidemia 272.4 [facility] [address] [id number] [address] [place] [address] Oct, Hyperlipidemia 272.4 and Penny betes type 2, uncontrolled 250.02 [facility] [address] [id number] [address] [place] [id number] Sep, [facility] [address] [id number] [address] [place] [phone] Sep, [facility] [address] [id number] [address] [place] [address] Aug, [facility] [address] [id number] [address] [place] [phone] Aug, [facility] [address] [id number] [address] [place] [address] Aug, [facility] [address] [id number] [address] [place] [address] Aug, [facility] [address] [id number] [address] [place] [address] Aug, [facility] [address] [id number] [address] [place] [phone] Aug, [facility] [address] [id number] [address] [place] [address] Aug, [facility] [address] [id number] [address] [place] [id number] Jul, [facility] [address] [id number] [address] [place] [address] Jul, [facility] [address] [id number] [address] [place] [id number] Jul, Hyperlipidemia 272.4 [facility] [address] [id number] [address] [place] [id number] Jul, [facility] [address] [id number] [address] [place] [id number] Jul, Diabetes type 2, uncontrolle d 250.02 ; Ankle pain, right 719.47 and Hyperlipidemia 272.4 [facility] [address] [id number] [address] [place] [address] June, [facility] [address] [id number] [address] [place] [address] June, Unspecified essential hypert ension 401.9 ; Diabetes type 2, uncontrolled 250.02 ; Joint pain 719.40 and Hyperlipidemia 272.4 [facility] [address] [id number] [address] [place] [phone] May, [facility] [address] [id number] [address] [place] [phone] May, [facility] [address] [id number] [address] [place] [phone] May, [facility] [address] [id number] [address] [place] [phone] May, [facility] [address] [id number] [address] [place] [phone] Apr, [facility] [address] [id number] [address] [place] [phone] Apr, [facility] [address] [id number] [address] [place] [address] Feb, [facility] [address] [id number] [address] [place] [address] [place] [address] Feb, [facility] [address] [id number] [address] [place] [address], [place] [address] Feb, [facility] [address] [id number] [address] [place] [address] Feb, [facility] [address] [id number] [address] [place] [address], [place] [address] Feb, [facility] [address] [id number] [address] [place] [address], [place] [address] Feb, [facility] [address] [id number] [address] [place] [address], [place] [address] Feb, [facility] [address] [id number] [address] [place] [address], [place] [address] Feb, [facility] [address] [id number] [address] [place] [address], [place] [address] Dec, [facility] [address] [id number] [address] [place] [address], [place] [id number] Dec, [facility] [address] [id number] [address] [place] [address], [place] [address] Dec, [facility] [address] [id number] [address] [place] [address], [place] [address] Dec, [facility] [address] [id number] [address] [place] [address], [place] [address] Dec, [facility] [address] [id number] [address] [place] [id number] Nov, [facility] [address] [id number] [address] [place] [address], [place] [address] Nov, [facility] [address] [id number] [address] [place] [address], [place] [address] Nov, [facility] [address] [id number] [address] [place] [id number] Nov, [facility] [address] [id number] [facility] [place] [address] Oct, [facility] [address] [id number] [address] [place] [address], [place] [address] Oct, [facility] [address] [address] [id number] [address] [place] [address], [place] [address] Oct, [facility] [address] [id number] [address] [place] [address], [place] [address] Oct, [facility] [address] [id number] [address] [place] [address], [place] [address] Aug, [facility] [address] [id number] [address] [place] [address], [place] [address] Aug, [facility] [address] [id number] [address] [place] [address], [place] [address] Aug, [facility] [address] [id number] [address] [place] [address], [place] [address] Aug, [facility] [address] [id number] [address] [place] [address], [place] [address] Jul, [facility] [address] [id number] [address] [place] [address], [place] [address] Jul, [facility] [address] [id number] [address] [place] [address], [place] [address] June, [facility] [address] [id number] [address] [place] [address], [place] [address] June, [facility] [address] [id number] [address] [place] [address], [place] [address] May, [facility] [address] [id number] [address] [place] [address], [place] [address] May, [facility] [address] [id number] [address] [place] [address], [place] [address] May, [facility] [address] [id number] [address] [place] [address], [place] [address] May, [facility] [address] [id number] [address] [place] [address], [place] [address] May, [facility] [address] [id number] [address] [place] [address], [place] [address] May, [facility] [address] [id number] [address] [place] [address], [place] [address] Apr, [facility] [address] [id number] [address] [place] [address], [place] [address] Apr, [facility] [address] [id number] [address] [place] [address], [place] [address] Mar, [facility] [address] [id number] [address] [place] [address], [place] [address] Mar, [facility] [address] [id number] [address] [place] [address], [place] [address] Jan, [facility] [address] [id number] [address] [place] [address], [place] [address] Jan, [facility] [address] [id number] [address] [place] [address], [place] [address] Dec, [facility] [address] [id number] [address] [place] [address], [place] [address] Dec, [facility] [address] [id number] [address] [place] [address], [place] [address] Dec, [facility] [address] [id number] [address] [place] [address] Dec, [facility] [address] [id number] [address] [place] [address], [place] [address] Dec, [facility] [address] [id number] [address] [place] [address], [place] [address] Dec, [facility] [address] [id number] [address] [place] [address], [place] [address] Nov, [facility] [address] [id number] [address] [place] [address], [place] [address] 23 Nov, 2012 [facility] [address] [id number] [address] [place] [address], [place] [address] Nov, 2012 [facility] [address] [id number] [address] [place] [address], [place] [address] 17 Nov, 2012 [facility] [address] [id number] [address] [place] [address], [place] [address] Nov, [facility] [address] [id number] [address] [place] [address], [place] [address] 10 Nov, 2012 [facility] [address] [id number] [address] [place] [address], [place] [address] 08 Nov, 2012 [facility] [address] [id number] [address] [place] [address], [place] [address] Nov, [facility] [address] [id number] [address] [place] [address], [place] [address] Nov, [facility] [address] [id number] [address] [place] [address], [place] [address] 06 Oct, 2012 [facility] [address] [id number] [address] [place] [address], [place] [address] 04 Oct, 2012 [facility] [address] [id number] [address] [place] [address], [place] [address] 17 Aug, 2012 [facility] [address] [id number] [address] [place] [address], [place] [address] 16 Aug, 2012 [facility] [address] [id number] [address] [place] [address], [place] [address] 15 Aug, 2012 [facility] [address] [id number] [address] [place] [address], [place] [address] 10 Jul, 2012 [facility] [address] [id number] [address] [place] [address], [place] [address] 05 Dec, 2011 [facility] [address] [id number] [address] [place] [address], [place] [address] Nov, [facility] [address] [id number] [address] [place] [address], [place] [address] Nov, [facility] [address] [id number] [address] [place] [address], [place] [address] Nov, [facility] [address] [id number] [address] [place] [address], [place] [address] Nov, [facility] [address] [id number] [address] [place] [address], [place] [address] Nov, [facility] [address] [id number] [address] [place] [address], [place] [address] Nov, [facility] [address] [id number] [address] [place] [address], [place] [address] Mar, [facility] [address] [id number] [address] [place] [address], [place] [address] Feb, [facility] [address] [id number] [address] [place] [address] Feb, [facility] [address] [id number] [address] [place] [address], [place] [address] Feb, [facility] [address] [id number] [address] [place] [address] Feb, [facility] [address] [id number] [address] [place] [address] Feb, [facility] [address] [id number] [address] [place] [address] Jan, [facility] [address] [id number] [address] [place] [address], [place] [address] Oct, [facility] [address] [id number] [address] [place] [address] 13 Feb, 2010 [facility] [address] [id number] [address] [place] [address] Jan, [facility] [address] [id number] [address] [place] [address] 14 Jan, 2010 [facility] [address] [id number] [address] [place] [address] 13 Jan, 2010 [facility] [address] [id number] [address] [place] [address] Jan, [facility] [address] [id number] [address] [place] [address] Dec, [facility] [address] [id number] [address] [place] [address] Dec, [facility] [address] [id number] [address] [place] [address] Dec, [facility] [address] [id number] [address] [place] [address] Aug, [facility] [address] [id number] [address] [place] [address] Jul, [facility] [address] [id number] [address] [place] [address] June, [facility] [address] [id number] [address] [place] [address] June, [facility] [address] [id number] [address] [place] [address] May, [facility] [address] [id number] [address] [place] [address] Apr, IMMUNIZATIONS No Known Immunizations SOCIAL HISTORY [...]
--- OUTSIDE RECORDS SUMMARY | 2019-07-26 05:34 | XMS REPORT ---
Author Author Georgia Hilton Organization [facility] Address [address] [place] [address] Care Team Providers Care Driller Multiple Spindle Name Role Phone LENORE Hilton Unavailable PROBLEMS Type Condition ICD9-CM Code NNB51-SY Code Onset Dates Condition S tatus SNOMED Code Problem Type 2 diabetes mellitus with other diabetic kid mirela complication E11.29 Active 56331180 Problem Mixed hyperlipidemia E78.2 Active 211243008 Problem Onychomycosis due to dermatophyte B35.1 Active 571526164 Problem Other hammer toe(s) (acquired), right foot M20.41 Active 808353990 Problem Essential hypertension I10 Active 29429460 Problem BMI 40.0-44.9, adult Z68.41 Active 359230205 Problem Type 2 diabetes mellitus with hyperglycemia E11.65 Active [id number] Problem 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 Active 552069785 Problem Type 2 diabetes mellitus wit h diabetic neuropathy, unspecified whether intermission coordinator insulin use E11.40 Active 036008 06 Problem Other hammer toe(s) (acquired), left foot M20.42 Active [id number] ALLERGIES No Information ENCOUNTERS Encounter Location Date Diagnosis [place] [address] [address] [facility] [id number] [address] [place] [address] June, [place] [address] [address] [place] [id number] [address] [place] [id number] 14 May, 2019 Type 2 diabetes mellitus wit h hyperglycemia E11.65 [place] [address] [address] [facility] [id number] [address] [place] [id number] 09 May, 2019 Type 2 diabetes mellitus wit h hyperglycemia E11.65 ; Type 2 diabetes mellitus with diabetic neuropathy, unspecified whether penitentiary insulin use E11.40 ; Blurry vision H53.8 ; Type 2 diabetes mellitus with other diabetic kidney complication E11.29 ; Mixed hyperlipidemia E78.2 ; group home 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.4 and BMI 40.0-44.9, adult Z68.41 [place] [address] [address] May, [place] [address] [address] [place] [id number] [address] [place] [phone] Apr, [place] [address] [address] [place] [id number] [place] [address] Apr, [place] [address] [address] [place] [id number] [place] [phone] Apr, Type 2 diabetes mellitus wit h other diabetic kidney complication E11.[address] [address] Mar, Onychomycosis B35.1 ; Other hammer toe(s) (acquired), right foot M20.41 ; Other hammer toe(s) (acquired), left foot M20.42 and Type 2 diabetes mellitus with diabetic neuropathy, unspecified whether penitentiary insulin use E11.40 [place] [address] [id number] 17 Feb, 2019 [place] [address] [address] Feb, [place] [address] [address] Feb, Type 2 diabetes mellitus wit h other diabetic kidney complication E11.29 ; Type 2 diabetes mellitus with hyperglycemia E11.65 ; group home 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.4 ; Essential hypertension I10 and BMI 40.0-44.9, adult Z68.41 [place] [address] [address] [place] [id number] [address] [place] [id number] Nov, [place] [address] [address] [place] [id number] [address] [place] [id number] Oct, [place] [address] [address] Aug, Onychomycosis B35.1 ; Contus ion of right foot, initial encounter S90.31XA ; Contusion of toe with damage to nail, unspecified toe, initial encounter S90.229A and Type 2 diabetes mellitus with diabetic neuropathy, unspecified whether penitentiary insulin use E11.40 [facility] [address] [id number] [address] [place] [id number] 15 Aug, 2018 [facility] [address] [id number] [address] [place] [id number] 27 Jul, 2018 [facility] [address] [id number] [address] [place] [phone] Jul, [facility] [address] [id number] [address] [place] [id number] Jul, [facility] [address] [id number] [address] [place] [id number] Jul, [facility] [address] [id number] [address] [place] [id number] Jul, Type 2 diabetes mellitus wit h other diabetic kidney complication E11.29 [facility] [address] [id number] [address] [place] [id number] June, [facility] [address] [id number] [address] [place] [id number] June, [facility] [address] [id number] [address] [place] [id number] June, [facility] [address] [id number] [address] [place] [id number] May, [facility] [address] [id number] [address] [place] [address] May, Type 2 diabetes mellitus wit h other diabetic kidney complication E11.29 and Type 2 diabetes mellitus with hyperglycemia E11.65 [facility] [address] [id number] [address] [place] [id number] 17 May, 2018 [place] [address] [address] [facility] [id number] [address] [place] [id number] 05 May, 2018 Onychomycosis B35.1 ; Other hammer toe(s) (acquired), left foot M20.42 ; Other hammer toe(s) (acquired), right foot M20.41 and Type 2 diabetes mellitus with diabetic neuropathy, unspecified whether penitentiary insulin use E11.40 [place] [address] [address] [facility] [id number] [address] [place] [phone] May, [place] [address] [address] [facility] [id number] [address] [place] [phone] Mar, [place] [address] [address] [facility] [id number] [address] [place] [id number] Mar, [place] [address] [address] [facility] [id number] [address] [place] [id number] 07 Mar, 2018 Type 2 diabetes mellitus wit h other diabetic kidney complication E11.29 ; Essential hypertension I10 ; Mixed hyperlipidemia E78.2 ; Type 2 diabetes mellitus with hyperglycemia E11.65 ; group home 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.4 and Type 2 diabetes mellitus with diabetic neuropathy, unspecified whether intermission coordinator insulin use E11.40 [place] [address] [address] [facility] [id number] [address] [place] [phone] Feb, [place] [address] [address] [facility] [id number] [address] [place] [address] Jan, [place] [address] [address] [facility] [id number] [address] [place] [id number] Dec, Onychomycosis B35.1 ; Type 2 diabetes mellitus with diabetic neuropathy, unspecified whether penitentiary insulin use E11.40 ; Other hammer toe(s) (acquired), right foot M20.41 and Other hammer toe(s) (acquired), left foot M20.42 [place] [address] [address] [facility] [id number] [address] [place] [id number] 08 Dec, 2017 [place] [address] [address] [facility] [id number] [address] [place] [id number] 07 Dec, 2017 Dental examination Z01.20 [facility] [address] [facility] [id number] [address] [place] [id number] 07 Dec, 2017 Type 2 diabetes mellitus wit h other diabetic kidney complication E11.29 ; Type 2 diabetes mellitus with hyperglycemia E11.65 ; Essential hypertension I10 and Mixed hyperlipidemia E78.2 [facility] [address] [facility] [id number] [address] [place] [id number] 08 Nov, 2017 Type 2 diabetes mellitus wit h other diabetic kidney complication E11.29 ; Type 2 diabetes mellitus with hyperglycemia E11.65 ; Essential hypertension I10 ; Vaginal itching N89.8 and Encounter for immunization Z23 [facility] [address] [facility] [id number] [address] [place] [id number] 13 Oct, 2017 Type 2 diabetes mellitus wit h other diabetic kidney complication E11.29 [facility] [address] [facility] [id number] [address] [place] [id number] Oct, [facility] [address] [facility] [id number] [address] [place] [phone] Sep, Onychomycosis B35.1 and Type 2 diabetes mellitus without complications E11.9 [facility] [address] [facility] [id number] [address] [place] [phone] Aug, [facility] [address] [facility] [id number] [address] [place] [phone] Jul, [facility] [address] [facility] [id number] [address] [place] [phone] Jul, [facility] [address] [id number] [address] [place] [id number] Jul, [facility] [address] [facility] [id number] [address] [place] [phone] June, [facility] [address] [facility] [id number] [address] [place] [address] June, Type 2 diabetes mellitus wit h other diabetic kidney complication E11.29 ; Essential hypertension I10 ; Mixed hyperlipidemia E78.2 ; group home 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.4 and High blood triglycerides E78.1 [facility] [address] [id number] [address] [place] [id number] May, [facility] [address] [id number] [address] [place] [id number] Apr, [facility] [address] [id number] [address] [place] [phone] Apr, [facility] [address] [id number] [address] [place] [phone] Mar, [facility] [address] [id number] [address] [place] [phone] Feb, [facility] [address] [id number] [address] [place] [phone] Feb, [facility] [address] [id number] [address] [place] [address] Feb, [facility] [address] [id number] [address] [place] [id number] Jan, Type 2 diabetes mellitus wit h other diabetic kidney complication E11.29 [facility] [address] [facility] [address] [id number] [id number] 21 Dec, 2016 Dental examination Z01.20 [facility] [address] [id number] [address] [place] [id number] 17 Dec, 2016 High blood triglycerides E78 .1 [facility] [id number] [place] [id number] 14 Dec, 2016 Dental examination Z01.20 [facility] [address] [id number] [address] [place] [id number] 09 Dec, 2016 High blood triglycerides E78 .1 [facility] [address] [id number] [address] [place] [id number] 09 Dec, 2016 Type 2 diabetes mellitus wit h other diabetic kidney complication E11.29 [facility] [address] [id number] [address] [place] [id number] 30 Nov, 2016 Type 2 diabetes mellitus wit h other diabetic kidney complication E11.29 [facility] [address] [facility] [id number] [address] [place] [phone] 18 Nov, 2016 [facility] [address] [facility] [id number] [address] [place] [id number] 17 Nov, 2016 Type 2 diabetes mellitus wit h other diabetic kidney complication E11.29 [facility] [address] [place] [id number] [place] [phone] 09 Nov, 2016 termite treater current use of ins ulin Z79.4 ; Encounter for immunization Z23 ; Essential hypertension I10 ; Type 2 diabetes mellitus with other diabetic kidney complication E11.29 and Mixed hyperlipidemia E78.2 [facility] [address] [place] [id number] [address] [place] [id number] 04 Nov, 2016 [facility] [address] [address] 20 Oct, 2016 [facility] [address] [place] [id number] [place] [phone] 15 Oct, 2016 Candidiasis of female genita eduard B37.3 and Vaginal discharge N89.8 [facility] [address] [place] [id number] [address] [place] [id number] 15 Oct, 2016 [facility] [address] [place] [id number] [address] [place] [id number] 14 Oct, 2016 [facility] [address] [place] [id number] [address] [place] [phone] Sep, Vaginal yeast infection B37. 3 [facility] [address] [facility] [id number] [address] [place] [id number] Jul, [facility] [address] [place] [id number] [place] [id number] Jul, [facility] [address] [place] [id number] [address] [place] [id number] 07 Jul, 2016 [place] [address] [address] [facility] [id number] [address] [place] [phone] June, [facility] [address] [facility] [id number] [address] [place] [phone] June, [facility] [address] [facility] [id number] [address] [place] [id number] June, Type 2 diabetes mellitus wit hout complications E11.9 [facility] [address] [facility] [id number] [address] [place] [address] June, Essential hypertension I10 ; Type 2 diabetes mellitus without complications E11.9 ; 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 and Hair loss L65.9 [facility] [address] [facility] [id number] [address] [place] [address] June, [place] [address] [address] [facility] [id number] [address] [place] [address] May, Onychomycosis B35.1 ; Onycho cryptosis L60.0 and Type 2 diabetes mellitus without complications E11.9 [facility] [address] [facility] [id number] [address] [place] [phone] May, [facility] [address] [facility] [id number] [address] [place] [phone] Apr, Type 2 diabetes mellitus wit hout complications E11.9 [place] [address] [address] [facility] [id number] [address] [place] [phone] Apr, [facility] [address] [facility] [id number] [address] [place] [id number] Apr, Type 2 diabetes mellitus wit hout complications E11.9 ; Type 2 diabetes mellitus with hyperglycemia E11.65 and 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 [facility] [address] [facility] [id number] [address] [place] [phone] Apr, [facility] [address] [facility] [id number] [address] [place] [address] Mar, [facility] [address] [facility] [id number] [address] [place] [phone] Mar, [facility] [address] [facility] [id number] [address] [place] [address] Mar, Mixed hyperlipidemia E78.2 ; Type 2 diabetes mellitus with other diabetic kidney complication E11.29 ; Essential hypertension I10 and Onychomycosis due to dermatophyte B35.1 [facility] [address] [facility] [id number] [address] [place] [phone] Jan, Type 2 diabetes mellitus wit h other diabetic kidney complication E11.29 ; Mixed hyperlipidemia E78.2 and Essential hypertension I10 [facility] [address] [facility] [id number] [address] [place] [id number] Sep, [facility] [address] [facility] [id number] [address] [place] [id number] Sep, [facility] [address] [facility] [id number] [address] [place] [address] Feb, [facility] [address] [facility] [id number] [address] [place] [address] Feb, Type 2 diabetes mellitus wit h other diabetic kidney complication E11.29 ; Essential hypertension I10 and Abnormal menstrual cycle N92.6 [facility] [address] [facility] [id number] [address] [place] [address] Dec, Type 2 diabetes mellitus wit h other diabetic kidney complication E11.29 [facility] [address] [facility] [id number] [address] [place] [id number] Nov, Type 2 diabetes mellitus wit h other diabetic kidney complication E11.29 and Essential hypertension I10 [facility] [address] [facility] [id number] [address] [place] [id number] Nov, [facility] [address] [facility] [id number] [address] [place] [id number] Nov, [facility] [address] [facility] [id number] [address] [place] [address] Nov, [facility] [place] [address] [id number] [address] [place] [id number] Oct, [facility] [place] [address] [id number] [address] [place] [id number] Oct, [facility] [place] [address] [id number] [address] [place] [id number] 15 Oct, 2014 Diabetes type 2, uncontrolle d 250.02 and Hyperlipidemia 272.4 [facility] [place] [address] [id number] [address] [place] [id number] 14 Oct, 2014 Hyperlipidemia 272.4 and Penny betes type 2, uncontrolled 250.02 [facility] [place] [address] [id number] [address] [place] [id number] Sep, [facility] [place] [address] [id number] [address] [place] [id number] Sep, [facility] [place] [address] [id number] [address] [place] [id number] Aug, [facility] [place] [address] [id number] [address] [place] [id number] Aug, [facility] [place] [address] [id number] [address] [place] [id number] Aug, [facility] [place] [address] [id number] [address] [place] [phone] Aug, [facility] [place] [address] [id number] [address] [place] [id number] Aug, [facility] [place] [address] [id number] [address] [place] [id number] Aug, [facility] [place] [address] [id number] [address] [place] [id number] Aug, [facility] [place] [address] [id number] [address] [place] [id number] Jul, [facility] [place] [address] [id number] [address] [place] [id number] Jul, [facility] [address] [id number] [address] [place] [address] Jul, Hyperlipidemia 272.4 [facility] [address] [id number] [address] [place] [id number] Jul, [facility] [address] [id number] [address] [place] [id number] Jul, Diabetes type 2, uncontrolle d 250.02 ; Ankle pain, right 719.47 and Hyperlipidemia 272.4 [facility] [address] [id number] [address] [place] [phone] June, [facility] [address] [id number] [address] [place] [id number] June, Unspecified essential hypert ension 401.9 ; Diabetes type 2, uncontrolled 250.02 ; Joint pain 719.40 and Hyperlipidemia 272.4 [facility] [address] [id number] [address] [place] [id number] May, [facility] [address] [id number] [address] [place] [id number] May, [facility] [address] [id number] [address] [place] [id number] May, [facility] [address] [id number] [address] [place] [phone] May, [facility] [address] [id number] [address] [place] [id number] Apr, [facility] [address] [id number] [address] [place] [id number] Apr, [facility] [address] [id number] [address] [place] [id number] Feb, [facility] [address] [id number] [address] [place] [id number] Feb, [facility] [address] [id number] [address] [place] [address] [place] [address] Feb, [facility] [address] [id number] [address] [place] [address], [place] [address] Feb, [facility] [address] [id number] [address] [place] [id number] 16 Feb, 2014 [facility] [address] [id number] [address] [place] [address], [place] [id number] 16 Feb, 2014 [facility] [address] [id number] [address] [place] [address], [place] [id number] 15 Feb, 2014 [facility] [address] [id number] [address] [place] [address], [place] [address] 15 Feb, 2014 [facility] [address] [id number] [address] [place] [address], [place] [address] Dec, [facility] [address] [id number] [address] [place] [address], [place] [id number] Dec, [facility] [address] [id number] [address] [place] [address], [place] [id number] Dec, [facility] [address] [id number] [address] [place] [address], [place] [address] Dec, [facility] [address] [id number] [address] [place] [address], [place] [address] Dec, [facility] [address] [id number] [address] [place] [address], [place] [address] Nov, [facility] [address] [id number] [address] [place] [id number] Nov, [facility] [address] [id number] [address] [place] [address], [place] [id number] Nov, [facility] [address] [id number] [address] [place] [id number] Nov, [facility] [address] [id number] [address] [place] [address], [place] [id number] Oct, [facility] [address] [id number] [facility] [place] [address] Oct, [facility] [address] [id number] [address] [place] [address], [place] [address] Oct, [facility] [address] [id number] [address] [place] [address], [place] [address] Oct, [facility] [address] [id number] [address] [place] [address], [place] [address] Aug, [facility] [address] [id number] [address] [place] [address], [place] [address] Aug, [facility] [facility] [address] [id number] [address] [place] [address], [place] [address] Aug, [facility] [address] [id number] [address] [place] [address], [place] [address] Aug, [facility] [address] [id number] [address] [place] [address], [place] [address] Jul, [facility] [address] [id number] [address] [place] [address], [place] [address] Jul, [facility] [address] [id number] [address] [place] [address], [place] [address] June, [facility] [address] [id number] [address] [place] [address], [place] [address] June, [facility] [address] [id number] [address] [place] [address], [place] [address] May, [facility] [address] [id number] [address] [place] [address], [place] [address] May, [facility] [address] [id number] [address] [place] [address], [place] [address] May, [facility] [address] [id number] [address] [place] [address], [place] [address] May, [facility] [address] [id number] [address] [place] [address], [place] [address] May, [facility] [address] [id number] [address] [place] [address], [place] [address] May, [facility] [address] [id number] [address] [place] [address], [place] [address] Apr, [facility] [address] [id number] [address] [place] [address], [place] [address] Apr, [facility] [address] [id number] [address] [place] [address], [place] [address] Mar, [facility] [address] [id number] [address] [place] [address], [place] [address] Mar, [facility] [address] [id number] [address] [place] [address], [place] [address] Jan, [facility] [address] [id number] [address] [place] [address], [place] [address] Jan, [facility] [address] [id number] [address] [place] [address], [place] [address] Dec, [facility] [address] [id number] [address] [place] [address], [place] [address] Dec, [facility] [address] [id number] [address] [place] [address], [place] [address] Dec, [facility] [address] [id number] [address] [place] [address], [place] [address] Dec, [facility] [address] [id number] [address] [place] [id number] Dec, [facility] [address] [id number] [address] [place] [address], [place] [address] Dec, [facility] [address] [id number] [address] [place] [address], [place] [address] Nov, [facility] [address] [id number] [address] [place] [address], [place] [address] Nov, [facility] [address] [id number] [address] [place] [address], [place] [address] 17 Nov, 2012 [facility] [address] [id number] [address] [place] [address], [place] [address] 17 Nov, 2012 [facility] [address] [id number] [address] [place] [address], [place] [address] 10 Nov, 2012 [facility] [address] [id number] [address] [place] [address], [place] [address] 10 Nov, 2012 [facility] [address] [id number] [address] [place] [address], [place] [address] 08 Nov, 2012 [facility] [address] [id number] [address] [place] [address], [place] [address] 04 Nov, 2012 [facility] [address] [id number] [address] [place] [address], [place] [address] Nov, [facility] [address] [id number] [address] [place] [address], [place] [address] 06 Oct, 2012 [facility] [address] [id number] [address] [place] [address], [place] [address] 04 Oct, 2012 [facility] [address] [id number] [address] [place] [address], [place] [address] 17 Aug, 2012 [facility] [address] [id number] [address] [place] [address], [place] [address] 16 Aug, 2012 [facility] [address] [id number] [address] [place] [address], [place] [address] 15 Aug, 2012 [facility] [address] [id number] [address] [place] [address], [place] [address] 10 Jul, 2012 [facility] [address] [id number] [address] [place] [address], [place] [address] 05 Dec, 2011 [facility] [address] [id number] [address] [place] [address], [place] [address] Nov, [facility] [address] [id number] [address] [place] [address], [place] [address] Nov, [facility] [address] [id number] [address] [place] [address], [place] [address] Nov, [facility] [address] [id number] [address] [place] [address], [place] [address] Nov, [facility] [address] [id number] [address] [place] [address], [place] [address] Nov, [facility] [address] [id number] [address] [place] [address], [place] [address] Nov, [facility] [address] [id number] [address] [place] [address], [place] [address] Mar, [facility] [address] [id number] [address] [place] [address], [place] [address] Feb, [facility] [address] [id number] [address] [place] [address], [place] [address] Feb, [facility] [address] [id number] [address] [place] [address] Feb, [facility] [address] [id number] [address] [place] [address], [place] [address] Feb, [facility] [address] [id number] [address] [place] [address] Feb, [facility] [address] [id number] [address] [place] [address] Jan, [facility] [address] [id number] [address] [place] [address] Oct, [facility] [address] [id number] [address] [place] [address], [place] [address] Feb, [facility] [address] [id number] [address] [place] [id number] 19 Jan, 2010 [facility] [address] [id number] [address] [place] [id number] 14 Jan, 2010 [facility] [address] [id number] [address] [place] [id number] 13 Jan, 2010 [facility] [address] [id number] [address] [place] [address] Jan, [facility] [address] [id number] [address] [place] [address] Dec, [facility] [address] [id number] [address] [place] [id number] Dec, [facility] [address] [id number] [address] [place] [id number] Dec, [facility] [address] [id number] [address] [place] [id number] Aug, [facility] [address] [id number] [address] [place] [address] Jul, [facility] [address] [id number] [address] [place] [id number] June, [facility] [address] [id number] [address] [place] [id number] June, [facility] [address] [id number] [address] [place] [id number] May, [facility] [address] [facility] [id number] [address] [place] [address] Apr, IMMUNIZATIONS No Known Immunizations SOCIAL HISTORY [...]
--- OUTSIDE RECORDS SUMMARY | 2019-07-26 05:35 | XMS REPORT ---
Author Author Georgia Hilton Organization [facility] Address [address] [place] [address] Care Team Providers Care Telecommunication Operator Name Role Phone LENORE Hilton Unavailable PROBLEMS Type Condition ICD9-CM Code [id number] Code Onset Dates Condition S tatus SNOMED Code Problem Type 2 diabetes mellitus with other diabetic kid mirela complication E11.29 Active 62639583 Problem Mixed hyperlipidemia E78.2 Active 468396870 Problem Onychomycosis due to dermatophyte B35.1 Active 307928004 Problem Other hammer toe(s) (acquired), right foot M20.41 Active 983723780 Problem Essential hypertension I10 Active 89890098 Problem BMI 40.0-44.9, adult Z68.41 Active 278580880 Problem Type 2 diabetes mellitus with hyperglycemia E11.65 Active [id number] Problem 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.4 Active 770100442 Problem Type 2 diabetes mellitus wit h diabetic neuropathy, unspecified whether case checker insulin use E11.40 Active 080233 06 Problem Other hammer toe(s) (acquired), left foot M20.42 Active [id number] ALLERGIES No Information ENCOUNTERS Encounter Location Date Diagnosis [facility] [id number] [place] [address] 14 Mar, 2019 [place] [address] [address] Feb, [place] [address] [address] Feb, [place] [address] [address] Feb, Type 2 diabetes mellitus with other diab etic kidney complication E11.29 ; Type 2 diabetes mellitus with hyperglycemia E11.65 ; [facility] 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.4 ; Essential hypertension I10 and BMI 40.0-44.9, adult Z68.41 [facility] [address] [address] Nov, [facility] [address] [address] Oct, [facility] [address] [address] Aug, Onychomycosis B35.1 ; Contusion of right foot, initial encounter S90.31XA ; Contusion of toe with damage to nail, unspecified toe, initial encounter S90.229A and Type 2 diabetes mellitus with diabetic neuropathy, unspecified whether case checker insulin use E11.40 [place] [address] [address] Aug, [facility] [address] [address] Jul, [facility] [address] [address] Jul, [facility] [address] [address] Jul, [facility] [address] [address] Jul, [facility] [address] [address] Jul, Type 2 diabetes mellitus with other diab etic kidney complication E11.29 [facility] [address] [address] June, [facility] [address] [address] June, [facility] [address] [address] June, [facility] [address] [address] May, [facility] [address] [address] May, Type 2 diabetes mellitus with other diab etic kidney complication E11.29 and Type 2 diabetes mellitus with hyperglycemia E11.65 [place] [address] [address] May, [place] [address] [address] May, Onychomycosis B35.1 ; Other hammer toe(s ) (acquired), left foot M20.42 ; Other hammer toe(s) (acquired), right foot M20.41 and Type 2 diabetes mellitus with diabetic neuropathy, unspecified whether case checker insulin use E11.40 [place] [address] [address] May, [place] [address] [address] Mar, [place] [address] [address] Mar, [place] [address] [address] Mar, Type 2 diabetes mellitus with other diab etic kidney complication E11.29 ; Essential hypertension I10 ; Mixed hyperlipidemia E78.2 ; Type 2 diabetes mellitus with hyperglycemia E11.65 ; [facility] 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.4 and Type 2 diabetes mellitus with diabetic neuropathy, unspecified whether case checker insulin use E11.40 [place] [address] [address] Feb, [place] [address] [address] Jan, [place] [address] [address] Dec, Onychomycosis B35.1 ; Type 2 diabetes me llitus with diabetic neuropathy, unspecified whether [facility] insulin use E11.40 ; Other hammer toe(s) (acquired), right foot M20.41 and Other hammer toe(s) (acquired), left foot M20.42 [place] [address] [address] 08 Dec, 2017 [facility] [address] [address] Dec, Dental examination Z01.20 [place] [address] [address] 07 Dec, 2017 Type 2 diabetes mellitus with other diab etic kidney complication E11.29 ; Type 2 diabetes mellitus with hyperglycemia E11.65 ; Essential hypertension I10 and Mixed hyperlipidemia E78.2 [place] [address] [address] 08 Nov, 2017 Type 2 diabetes mellitus with other diab etic kidney complication E11.29 ; Type 2 diabetes mellitus with hyperglycemia E11.65 ; Essential hypertension I10 ; Vaginal itching N89.8 and Encounter for immunization Z23 [place] [address] [address] 13 Oct, 2017 Type 2 diabetes mellitus with other diab etic kidney complication E11.29 [facility] [address] [address] Oct, [place] [address] [address] Sep, Onychomycosis B35.1 and Type 2 diabetes mellitus without complications E11.9 [place] [address] [address] Aug, [facility] [address] [address] Jul, [facility] [address] [address] Jul, [facility] [address] [address] Jul, [facility] [address] [address] June, [facility] [address] [address] June, Type 2 diabetes mellitus with other diab etic kidney complication E11.29 ; Essential hypertension I10 ; Mixed hyperlipidemia E78.2 ; [facility] 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.4 and High blood triglycerides E78.1 [facility] [address] [id number] [place] [address] May, [facility] [address] [id number] [place] [address] Apr, [facility] [address] [address] Apr, [facility] [address] [address] Mar, [facility] [address] [address] Feb, [facility] [address] [address] Feb, [facility] [address] [address] Feb, [facility] [id number] [place] [address] Jan, Type 2 diabetes mellitus with other diab etic kidney complication E11.29 [facility] [id number] [place] [id number] Dec, Dental examination Z01.20 [facility] [id number] [place] [address] 17 Dec, 2016 High blood triglycerides E78.1 [facility] [id number] [place] [id number] 14 Dec, 2016 Dental examination Z01.20 [facility] [id number] [place] [address] 09 Dec, 2016 High blood triglycerides E78.1 [facility] [address] [address] 09 Dec, 2016 Type 2 diabetes mellitus with other diab etic kidney complication E11.29 [facility] [id number] [place] [address] 30 Nov, 2016 Type 2 diabetes mellitus with other diab etic kidney complication E11.29 [facility] [address] [address] 18 Nov, 2016 [facility] [address] [address] 17 Nov, 2016 Type 2 diabetes mellitus with other diab etic kidney complication E11.29 [facility] [address] [address] 09 Nov, 2016 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.4 ; Encounter for immunization Z23 ; Essential hypertension I10 ; Type 2 diabetes mellitus with other diabetic kidney complication E11.29 and Mixed hyperlipidemia E78.2 [facility] [address] [facility] [id number] [place] [address] 04 Nov, 2016 [facility] [address] [address] 20 Oct, 2016 [facility] [address] [facility] [id number] [address] [place] [address] 15 Oct, 2016 Candidiasis of female genita eduard B37.3 and Vaginal discharge N89.8 [place] [address] [address] 15 Oct, 2016 [facility] [address] [address] 14 Oct, 2016 [facility] [address] [address] Sep, Vaginal yeast infection B37.3 [facility] [address] [address] 28 Jul, 2016 [place] [address] [address] 13 Jul, 2016 [facility] [address] [address] 07 Jul, 2016 [facility] [address] [address] June, [facility] [address] [address] June, [facility] [address] [address] June, Type 2 diabetes mellitus without complic ations E11.9 [facility] [address] [address] June, Essential hypertension I10 ; Type 2 diab etes mellitus without complications E11.9 ; [facility] 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.4 and Hair loss L65.9 [facility] [address] [address] June, [facility] [address] [address] May, Onychomycosis B35.1 ; Onychocryptosis L6 0.0 and Type 2 diabetes mellitus without complications E11.9 [facility] [address] [address] May, [facility] [address] [address] Apr, Type 2 diabetes mellitus without complic ations E11.9 [facility] [address] [address] Apr, [facility] [address] [address] Apr, Type 2 diabetes mellitus without complic ations E11.9 ; Type 2 diabetes mellitus with hyperglycemia E11.65 and [facility] 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.4 [facility] [address] [address] Apr, [facility] [address] [address] Mar, [facility] [address] [address] Mar, [facility] [address] [address] Mar, Mixed hyperlipidemia E78.2 ; Type 2 diab etes mellitus with other diabetic kidney complication E11.29 ; Essential hypertension I10 and Onychomycosis due to dermatophyte B35.1 [facility] [address] [address] Jan, Type 2 diabetes mellitus with other diab etic kidney complication E11.29 ; Mixed hyperlipidemia E78.2 and Essential hypertension I10 [facility] [address] [address] Sep, [facility] [address] [address] Sep, [facility] [address] [address] Feb, [facility] [address] [address] Feb, Type 2 diabetes mellitus with other diab etic kidney complication E11.29 ; Essential hypertension I10 and Abnormal menstrual cycle N92.6 [facility] [address] [address] Dec, Type 2 diabetes mellitus with other diab etic kidney complication E11.29 [place] [address] [address] Nov, Type 2 diabetes mellitus with other diab etic kidney complication E11.29 and Essential hypertension I10 [facility] [address] [address] Nov, [facility] [address] [address] Nov, [facility] [address] [address] Nov, [facility] [address] [address] Oct, [facility] [address] [address] 17 Oct, 2014 [facility] [address] [id number] [place] [address] 15 Oct, 2014 Diabetes type 2, uncontrolled 250.02 and Hyperlipidemia 272.4 [facility] [address] [id number] [place] [address] 14 Oct, 2014 Hyperlipidemia 272.4 and Diabetes type 2 , uncontrolled 250.02 [facility] [address] [id number] [place] [address] Sep, [facility] [address] [id number] [place] [address] Sep, [facility] [address] [id number] [place] [address] Aug, [facility] [address] [id number] [place] [address] Aug, [facility] [id number] [place] [address] Aug, [facility] [address] [id number] [place] [address] Aug, [facility] [id number] [place] [address] Aug, [facility] [address] [id number] [place] [address] Aug, [facility] [id number] [place] [address] Aug, [facility] [address] [id number] [place] [address] Jul, [facility] [id number] [place] [address] Jul, [facility] [address] [id number] [place] [address] Jul, Hyperlipidemia 272.4 [facility] [address] [id number] [place] [address] Jul, [facility] [id number] [place] [address] Jul, Diabetes type 2, uncontrolled 250.02 ; A nkle pain, right 719.47 and Hyperlipidemia 272.4 [facility] [id number] [place] [address] June, [facility] [id number] [place] [address] June, Unspecified essential hypertension 401.9 ; Diabetes type 2, uncontrolled 250.02 ; Joint pain 719.40 and Hyperlipidemia 272.4 [facility] [id number] [place] [address] May, [facility] [id number] [place] [address] May, [facility] [id number] [place] [address] May, [facility] [id number] [place] [address] May, [facility] [id number] [place] [address] Apr, [facility] [id number] [place] [address] Apr, [facility] [id number] [place] [address] Feb, [facility] [id number] [place] [address] Feb, [facility] [id number] [place] [address] Feb, [facility] [id number] [place] [address] Feb, [facility] [id number] [place] [address] Feb, [facility] [id number] [place] [address] Feb, [facility] [address] [id number] [place] [address] Feb, [facility] [address] [id number] [place] [address] Feb, [facility] [address] [id number] [place] [address] Dec, [facility] [address] [id number] [place] [address] Dec, [facility] [address] [id number] [place] [address] Dec, [facility] [address] [id number] [place] [address] Dec, [facility] [address] [id number] [place] [address] Dec, [facility] [address] [id number] [place] [address] Nov, [facility] [address] [id number] [place] [address] Nov, [facility] [address] [id number] [place] [address] Nov, [facility] [address] [id number] [place] [address] 17 Nov, 2013 [facility] [address] [id number] [place] [address] 26 Oct, 2013 [facility] [address] [id number] [place] [address] 26 Oct, 2013 [facility] [address] [id number] [place] [address] 25 Oct, 2013 [facility] [address] [id number] [place] [address] 25 Oct, 2013 [facility] [address] [id number] [place] [address] 14 Aug, 2013 [facility] [address] [id number] [place] [address] Aug, [facility] [address] [facility] [id number] [facility] [address] Aug, [facility] [address] [facility] [id number] [facility] [place] [address] Aug, [facility] [address] [facility] [id number] [facility] [place] [address] Jul, [facility] [address] [facility] [id number] [facility] [place] [address] Jul, [facility] [address] [facility] [id number] [facility] [place] [address] June, [facility] [address] [facility] [id number] [facility] [place] [address] June, [facility] [address] [id number] [place] [address] May, [facility] [address] [id number] [facility] [place] [address] May, [facility] [address] [facility] [id number] [facility] [place] [address] May, [facility] [address] [id number] [facility] [place] [address] May, [facility] [address] [id number] [place] [address] May, [facility] [address] [id number] [place] [address] May, [facility] [address] [facility] [id number] [facility] [place] [address] Apr, [facility] [address] [facility] [id number] [place] [address] Apr, [facility] [address] [facility] [id number] [place] [address] Mar, [facility] [address] [id number] [place] [address] Mar, [facility] [address] [id number] [place] [address] Jan, [facility] [address] [id number] [place] [address] Jan, [facility] [address] [id number] [place] [address] Dec, [facility] [address] [id number] [place] [address] Dec, [facility] [address] [id number] [place] [address] Dec, [facility] [address] [id number] [place] [address] Dec, [facility] [address] [id number] [place] [address] Dec, [facility] [address] [id number] [place] [address] Dec, [facility] [address] [id number] [place] [address] Nov, [facility] [address] [id number] [place] [address] Nov, [facility] [address] [id number] [place] [address] Nov, [facility] [address] [id number] [place] [address] Nov, [facility] [address] [id number] [place] [address] Nov, [facility] [address] [id number] [place] [address] Nov, [facility] [id number] [place] [address] Nov, [facility] [address] [id number] [place] [address] Nov, [facility] [address] [id number] [place] [address] Nov, [facility] [address] [id number] [place] [address] 06 Oct, 2012 [facility] [address] [id number] [place] [address] 04 Oct, 2012 [facility] [address] [id number] [place] [address] 17 Aug, 2012 [facility] [address] [id number] [place] [address] 16 Aug, 2012 [facility] [address] [id number] [place] [address] 15 Aug, 2012 [facility] [address] [id number] [place] [address] Jul, [facility] [address] [id number] [place] [address] Dec, [facility] [address] [id number] [place] [address] Nov, [facility] [address] [id number] [place] [address] Nov, [facility] [address] [id number] [place] [address] Nov, [facility] [address] [id number] [place] [address] Nov, [facility] [address] [id number] [place] [address] Nov, [facility] [address] [id number] [place] [address] Nov, [facility] [address] [id number] [place] [address] Mar, [facility] [address] [id number] [place] [address] Feb, [facility] [address] [id number] [place] [address] Feb, [facility] [address] [id number] [place] [address] Feb, [facility] [address] [id number] [place] [address] Feb, [facility] [address] [id number] [place] [address] Feb, [facility] [address] [id number] [place] [address] 09 Jan, 2011 [facility] [address] [id number] [place] [address] Oct, [facility] [address] [id number] [place] [address] Feb, [facility] [address] [id number] [place] [address] Jan, [facility] [address] [id number] [place] [address] 14 Jan, 2010 [facility] [address] [id number] [place] [address] Jan, [facility] [address] [id number] [place] [address] Jan, [facility] [address] [id number] [place] [address] Dec, [facility] [address] [id number] [place] [address] Dec, [facility] [address] [id number] [place] [address] Dec, [facility] [address] [id number] [place] [address] 14 Aug, 2008 [facility] [address] [id number] [place] [address] Jul, [facility] [address] [facility] [id number] [place] [address] June, [facility] [address] [id number] [place] [address] June, [facility] [id number] [place] [address] May, [facility] [address] [facility] [id number] [place] [address] Apr, IMMUNIZATIONS No Known Immunizations SOCIAL HISTORY Never Assessed REASON FOR VISIT PLAN OF CARE VITAL SIGNS Height 64 in 2013-07-03 Weight 216.7 lbs 2013-07-03 Temperature 98.2 degrees Fahrenheit 2013-07-03 Heart Rate 82 bpm 2013-07-03 Respiratory Rate 16 2013-07-03 Blood pressure systolic 122 mmHg 2013-07-03 Blood pressure diastolic 68 mmHg 2013-07-03 MEDICATIONS Unknown Medications RESULTS No Results PROCEDURES Procedure Date Ordered Result Body Site OB US < 14 WKS, SINGLE FETUS July 03, 2013 URINE TEST July 03, 2013 MICROALBUMIN, SEMIQUANT July 03, 2013 INSTRUCTIONS MEDICATIONS ADMINISTERED No Known Medications MEDICAL (GENERAL) HISTORY Type Description Date Medical History HYPERTENSION Medical History RENAL DISEASE- MICROALBUMINURIA Medical History HYPERLIPIDEMIA Medical History DM TYPE 2- DX'D 2007 Surgical History No Surgical history information
--- OUTSIDE RECORDS SUMMARY | 2019-07-26 05:35 | XMS REPORT ---
Author Georgia Berry Organization 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 Name Role Phone CHERYLCHINAA Unavailable PROBLEMS Type Condition ICD9-CM Code VMD29-UC Code Onset Dates Condition S tatus SNOMED Code Problem Type 2 diabetes mellitus with other diabetic kid mirela complication E11.29 Active 12570443 Problem Mixed hyperlipidemia E78.2 Active 097550515 Problem Onychomycosis due to dermatophyte B35.1 Active 849439391 Problem Other hammer toe(s) (acquired), right foot M20.41 Active 857069407 Problem Essential hypertension I10 Active 20376632 Problem BMI 40.0-44.9, adult Z68.41 Active 372973441 Problem Type 2 diabetes mellitus with hyperglycemia E11.65 Active [id number] Problem [facility] 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.4 Active 013033633 Problem Type 2 diabetes mellitus wit h diabetic neuropathy, unspecified whether director long term care insulin use E11.40 Active 296797 06 Problem Other hammer toe(s) (acquired), left foot M20.42 Active [id number] ALLERGIES No Information ENCOUNTERS Encounter Location Date Diagnosis [place] [address] [address] June, [facility] [address] [address] May, [place] [address] [address] 14 Mar, 2019 Onychomycosis B35.1 ; Other hammer toe(s ) (acquired), right foot M20.41 ; Other hammer toe(s) (acquired), left foot M20.42 and Type 2 diabetes mellitus with diabetic neuropathy, unspecified whether director long term care insulin use E11.40 [place] [address] [address] Feb, [place] [address] [address] Feb, [place] [address] [address] Feb, Type 2 diabetes mellitus with other diab etic kidney complication E11.29 ; Type 2 diabetes mellitus with hyperglycemia E11.65 ; director long term care 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.4 ; Essential hypertension I10 and BMI 40.0-44.9, adult Z68.41 [place] [address] [address] Nov, [place] [address] [address] Oct, [place] [address] [address] Aug, Onychomycosis B35.1 ; Contusion of right foot, initial encounter S90.31XA ; Contusion of toe with damage to nail, unspecified toe, initial encounter S90.229A and Type 2 diabetes mellitus with diabetic neuropathy, unspecified whether penitentiary insulin use E11.40 [place] [address] [address] Aug, [place] [address] [address] Jul, [place] [address] [address] Jul, [place] [address] [address] Jul, [place] [address] [address] Jul, [place] [address] [address] Jul, Type 2 diabetes mellitus with other diab etic kidney complication E11.29 [place] [address] [address] June, [facility] [address] [place] [id number] [place] [address] June, [facility] [address] [place] [id number] [place] [address] June, [facility] [address] [place] [address] [id number] [place] [address] May, [facility] [address] [place] [id number] [place] [address] May, Type 2 diabetes mellitus with other diab etic kidney complication E11.29 and Type 2 diabetes mellitus with hyperglycemia E11.65 [facility] [address] [place] [id number] [place] [address] May, [facility] [address] [place] [id number] [place] [address] May, Onychomycosis B35.1 ; Other hammer toe(s ) (acquired), left foot M20.42 ; Other hammer toe(s) (acquired), right foot M20.41 and Type 2 diabetes mellitus with diabetic neuropathy, unspecified whether director long term care insulin use E11.40 [facility] [address] [place] [id number] [place] [address] May, [facility] [address] [place] [id number] [place] [address] Mar, [facility] [address] [place] [id number] [place] [address] Mar, [facility] [address] [address] Mar, Type 2 diabetes mellitus with other diab etic kidney complication E11.29 ; Essential hypertension I10 ; Mixed hyperlipidemia E78.2 ; Type 2 diabetes mellitus with hyperglycemia E11.65 ; [facility] 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.4 and Type 2 diabetes mellitus with diabetic neuropathy, unspecified whether director long term care insulin use E11.40 [facility] [address] [place] [id number] [place] [address] Feb, [facility] [address] [address] Jan, [place] [address] [address] Dec, Onychomycosis B35.1 ; Type 2 diabetes me llitus with diabetic neuropathy, unspecified whether director long term care insulin use E11.40 ; Other hammer toe(s) (acquired), right foot M20.41 and Other hammer toe(s) (acquired), left foot M20.42 [place] [address] [address] 08 Dec, [address] [address] 07 Dec, 2017 Dental examination Z01.[address] [address] 07 Dec, 2017 Type 2 diabetes mellitus with other diab etic kidney complication E11.29 ; Type 2 diabetes mellitus with hyperglycemia E11.65 ; Essential hypertension I10 and Mixed hyperlipidemia E78.2 [place] [address] [address] 08 Nov, 2017 Type 2 diabetes mellitus with other diab etic kidney complication E11.29 ; Type 2 diabetes mellitus with hyperglycemia E11.65 ; Essential hypertension I10 ; Vaginal itching N89.8 and Encounter for immunization Z23 [place] [address] [address] 13 Oct, 2017 Type 2 diabetes mellitus with other diab etic kidney complication E11.29 [place] [address] [address] 04 Oct, [address] [address] Sep, Onychomycosis B35.1 and Type 2 diabetes mellitus without complications E11.9 [place] [address] [address] Aug, [place] [address] [address] Jul, [facility] [id number] [place] [address] Jul, [facility] [address] [place] [id number] [place] [address] Jul, [facility] [id number] [place] [address] June, [facility] [address] [place] [id number] [place] [address] June, Type 2 diabetes mellitus with other diab etic kidney complication E11.29 ; Essential hypertension I10 ; Mixed hyperlipidemia E78.2 ; director long term care 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.4 and High blood triglycerides E78.1 [facility] [address] [place] [id number] [place] [address] May, [facility] [address] [place] [id number] [place] [address] Apr, [facility] [address] [place] [id number] [place] [address] Apr, [facility] [address] [place] [id number] [place] [address] Mar, [facility] [address] [place] [id number] [place] [address] Feb, [facility] [address] [place] [id number] [place] [address] Feb, [facility] [address] [place] [address] [id number] [place] [address] Feb, [facility] [address] [place] [address] [id number] [place] [address] Jan, Type 2 diabetes mellitus with other diab etic kidney complication E11.[address] [facility] [id number] [employer] [place] [id number] Dec, Dental examination Z01.20 [facility] [id number] [place] [address] Dec, High blood triglycerides E78.[address] [facility] [address] [id number] [place] [id number] 14 Dec, 2016 Dental examination Z01.20 [place] [address] [address] Dec, High blood triglycerides E78.1 [place] [address] [address] 09 Dec, 2016 Type 2 diabetes mellitus with other diab etic kidney complication E11.29 [place] [address] [address] 30 Nov, 2016 Type 2 diabetes mellitus with other diab etic kidney complication E11.29 [place] [address] [address] Nov, [address] [address] Nov, Type 2 diabetes mellitus with other diab etic kidney complication E11.29 [place] [address] [address] Nov, [facility] 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.4 ; Encounter for immunization Z23 ; Essential hypertension I10 ; Type 2 diabetes mellitus with other diabetic kidney complication E11.29 and Mixed hyperlipidemia E78.2 [facility] [address] [place] [address] Nov, [address] [address] Oct, [facility] [address] [place], [place] [id number] [address] [place] [address] 15 Oct, 2016 Candidiasis of female genita eduard B37.3 and Vaginal discharge N89.[address] [address] 15 Oct, [address] [address] 14 Oct, [address] [address] Sep, Vaginal yeast infection B37.3 [facility] [address] [place] [id number] [place] [address] Jul, [facility] [address] [address] Jul, [facility] [address] [address] Jul, [facility] [address] [address] June, [facility] [address] [address] June, [facility] [address] [address] June, Type 2 diabetes mellitus without complic ations E11.9 [place] [address] [address] June, Essential hypertension I10 ; Type 2 diab etes mellitus without complications E11.9 ; director long term care 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.4 and Hair loss L65.9 [place] [address] [place] [id number] [place] [address] June, [facility] [address] [address] May, Onychomycosis B35.1 ; Onychocryptosis L6 0.0 and Type 2 diabetes mellitus without complications E11.9 [place] [address] [place] [id number] [place] [address] May, [facility] [address] [address] Apr, Type 2 diabetes mellitus without complic ations E11.9 [facility] [address] [place] [id number] [place] [address] Apr, [facility] [address] [address] Apr, Type 2 diabetes mellitus without complic ations E11.9 ; Type 2 diabetes mellitus with hyperglycemia E11.65 and [facility] 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.4 [place] [address] [address] Apr, [facility] [address] [address] Mar, [facility] [address] [address] Mar, [facility] [address] [address] Mar, Mixed hyperlipidemia E78.2 ; Type 2 diab etes mellitus with other diabetic kidney complication E11.29 ; Essential hypertension I10 and Onychomycosis due to dermatophyte B35.1 [place] [address] [address] Jan, Type 2 diabetes mellitus with other diab etic kidney complication E11.29 ; Mixed hyperlipidemia E78.2 and Essential hypertension I10 [place] [address] [address] Sep, [place] [address] [address] Sep, [facility] [address] [address] Feb, [place] [address] [address] Feb, Type 2 diabetes mellitus with other diab etic kidney complication E11.29 ; Essential hypertension I10 and Abnormal menstrual cycle N92.6 [place] [address] [address] Dec, Type 2 diabetes mellitus with other diab etic kidney complication E11.29 [place] [address] [address] Nov, Type 2 diabetes mellitus with other diab etic kidney complication E11.29 and Essential hypertension I10 [place] [address] [address] Nov, [facility] [id number] [place] [address] Nov, [facility] [id number] [place] [address] Nov, [facility] [id number] [place] [address] Oct, [facility] [id number] [place] [address] 17 Oct, 2014 [facility] [id number] [place] [address] 15 Oct, 2014 Diabetes type 2, uncontrolled 250.02 and Hyperlipidemia 272.4 [facility] [address] [place] [id number] [place] [address] 14 Oct, 2014 Hyperlipidemia 272.4 and Diabetes type 2 , uncontrolled 250.02 [facility] [address] [place] [id number] [place] [address] Sep, [facility] [id number] [place] [address] Sep, [facility] [id number] [place] [address] Aug, [facility] [id number] [place] [address] Aug, [facility] [address] [place] [id number] [place] [address] Aug, [facility] [id number] [place] [address] Aug, [facility] [id number] [place] [address] Aug, [facility] [id number] [place] [address] Aug, [facility] [id number] [place] [address] Aug, 2014 [facility] [address] [address] [id number] [place] [address] Jul, [facility] [address] [place] [address] [id number] [place] [address] Jul, [facility] [address] [id number] [place] [address] Jul, Hyper[address] [facility] [id number] [place] [address] Jul, [facility] [address] [id number] [place] [address] Jul, Diabetes type 2, uncontrolled 250.02 ; A nkle pain, right 719.[address] [facility] [id number] [place] [address] June, [facility] [id number] [place] [address] June, Unspecified essential hypertension 401.9 ; Diabetes type 2, uncontrolled 250.02 ; Joint pain 719.[address] [facility] [id number] [place] [address] May, [facility] [id number] [place] [address] May, [facility] [id number] [place] [address] May, [facility] [id number] [place] [address] May, [facility] [id number] [place] [address] Apr, [facility] [id number] [place] [address] Apr, [facility] [address] [id number] [place] [address] Feb, [facility] [address] [id number] [place] [address] Feb, [facility] [id number] [place] [address] 19 Feb, 2014 [facility] [id number] [place] [address] Feb, [facility] [id number] [place] [address] 16 Feb, 2014 [facility] [id number] [place] [address] 16 Feb, 2014 [facility] [id number] [place] [address] 15 Feb, 2014 [facility] [id number] [place] [address] 15 Feb, 2014 [facility] [id number] [place] [address] Dec, [facility] [id number] [place] [address] Dec, [facility] [id number] [place] [address] Dec, [facility] [id number] [place] [address] Dec, [facility] [id number] [place] [address] Dec, [facility] [id number] [place] [address] Nov, [facility] [id number] [place] [address] Nov, [facility] [id number] [place] [address] Nov, [facility] [id number] [place] [address] Nov, [facility] [id number] [place] [address] Oct, [facility] [id number] [place] [address] Oct, [facility] [address] [facility] [id number] [place] [address] Oct, [facility] [id number] [place] [address] Oct, [facility] [id number] [place] [address] Aug, [facility] [id number] [place] [address] Aug, [facility] [address] [facility] [id number] [place] [address] Aug, [facility] [id number] [place] [address] Aug, [facility] [id number] [place] [address] Jul, [facility] [id number] [place] [address] Jul, [facility] [id number] [place] [address] June, [facility] [id number] [place] [address] June, [facility] [id number] [place] [address] May, [facility] [id number] [place] [address] May, [facility] [id number] [place] [address] May, [facility] [id number] [place] [address] May, [facility] [id number] [place] [address] May, [facility] [id number] [place] [address] May, [facility] [id number] [place] [address] Apr, [facility] [id number] [place] [address] Apr, [facility] [id number] [place] [address] Mar, [facility] [id number] [place] [address] Mar, [facility] [id number] [place] [address] Jan, [facility] [id number] [place] [address] Jan, [facility] [id number] [place] [address] Dec, [facility] [id number] [place] [address] Dec, [facility] [id number] [place] [address] Dec, [facility] [id number] [place] [address] Dec, [facility] [id number] [place] [address] Dec, [facility] [id number] [place] [address] Dec, [facility] [id number] [place] [address] Nov, [facility] [id number] [place] [address] Nov, [facility] [id number] [place] [address] Nov, [facility] [id number] [place] [address] Nov, [facility] [id number] [place] [address] Nov, [facility] [id number] [place] [address] 10 Nov, 2012 [facility] [id number] [place] [address] 08 Nov, 2012 [facility] [id number] [place] [address] Nov, [facility] [id number] [place] [address] Nov, 2012 [facility] [id number] [place] [address] 06 Oct, 2012 [facility] [id number] [place] [address] 04 Oct, 2012 [facility] [id number] [place] [address] 17 Aug, 2012 [facility] [id number] [place] [address] 16 Aug, 2012 [facility] [id number] [place] [address] 15 Aug, 2012 [facility] [id number] [place] [address] Jul, [facility] [id number] [place] [address] Dec, [facility] [id number] [place] [address] Nov, [facility] [id number] [place] [address] Nov, [facility] [id number] [place] [address] 30 Nov, 2011 [facility] [id number] [place] [address] 30 Nov, 2011 [facility] [id number] [place] [address] Nov, [facility] [id number] [place] [address] 29 Nov, 2011 [facility] [id number] [place] [address] 08 Mar, 2011 [facility] [id number] [place] [address] 16 Feb, 2011 [facility] [id number] [place] [address] 13 Feb, 2011 [facility] [id number] [place] [address] Feb, [facility] [id number] [place] [address] 10 Feb, 2011 [facility] [id number] [place] [address] 09 Feb, 2011 [facility] [id number] [place] [address] 09 Jan, 2011 [facility] [id number] [place] [address] Oct, [facility] [id number] [place] [address] 13 Feb, 2010 [facility] [id number] [place] [address] 19 Jan, 2010 [facility] [id number] [place] [address] 14 Jan, 2010 [facility] [id number] [place] [address] 13 Jan, 2010 [facility] [id number] [place] [address] 13 Jan, 2010 [facility] [id number] [place] [address] 24 Dec, 2009 [facility] [id number] [place] [address] Dec, [facility] [id number] [place] [address] 30 Dec, 2008 [facility] [id number] [place] [address] 14 Aug, 2008 [facility] [id number] [place] [address] Jul, [facility] [id number] [place] [address] June, [facility] [id number] [place] [address] June, [facility] [id number] [place] [address] May, [facility] [id number] [place] [address] Apr, IMMUNIZATIONS No Known Immunizations SOCIAL HISTORY [...]
--- OUTSIDE RECORDS SUMMARY | 2019-07-26 05:35 | XMS REPORT ---
Author Georgia Berry Organization [facility] Address [address] [place] [address] Care Team Providers Care Inspector Air Carrier Name Role Phone CHERYLCHINAA Unavailable PROBLEMS Type Condition ICD9-CM Code YRF17-[place] Code Onset Dates Condition S tatus SNOMED Code Problem Type 2 diabetes mellitus with other diabetic kid mirela complication E11.29 Active 32878866 Problem Mixed hyperlipidemia E78.2 Active 820760438 Problem Onychomycosis due to dermatophyte B35.1 Active 746810791 Problem Other hammer toe(s) (acquired), right foot M20.41 Active 870284000 Problem Essential hypertension I10 Active 92648897 Problem BMI 40.0-44.9, adult Z68.41 Active 951705151 Problem Type 2 diabetes mellitus with hyperglycemia E11.65 Active [id number] Problem MCC 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.4 Active 810396603 Problem Type 2 diabetes mellitus wit h diabetic neuropathy, unspecified whether watermelon inspector insulin use E11.40 Active 346206 06 Problem Other hammer toe(s) (acquired), left foot M20.42 Active [id number] ALLERGIES No Information ENCOUNTERS Encounter Location Date Diagnosis [place] [address] [address] June, [facility] [address] [address] May, [place] [address] [address] 14 Mar, 2019 Onychomycosis B35.1 ; Other hammer toe(s ) (acquired), right foot M20.41 ; Other hammer toe(s) (acquired), left foot M20.42 and Type 2 diabetes mellitus with diabetic neuropathy, unspecified whether watermelon inspector insulin use E11.40 [place] [id number] [address] Feb, [place] [address] [address] Feb, [place] [address] [address] Feb, Type 2 diabetes mellitus with other diab etic kidney complication E11.29 ; Type 2 diabetes mellitus with hyperglycemia E11.65 ; 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 ; Essential hypertension I10 and BMI 40.0-44.9, adult Z68.41 [place] [address] [address] Nov, [place] [address] [address] Oct, [place] [address] [address] Aug, Onychomycosis B35.1 ; Contusion of right foot, initial encounter S90.31XA ; Contusion of toe with damage to nail, unspecified toe, initial encounter S90.229A and Type 2 diabetes mellitus with diabetic neuropathy, unspecified whether chcf insulin use E11.40 [place] [address] [address] Aug, [place] [address] [address] Jul, [place] [address] [address] Jul, [place] [address] [address] Jul, [place] [address] [address] Jul, [place] [address] [address] Jul, Type 2 diabetes mellitus with other diab etic kidney complication E11.29 [place] [address] [address] June, [facility] [address] [place] [id number] [place] [address] June, [facility] [address] [place] [id number] [place] [address] June, [facility] [address] [place] [id number] [place] [address] May, [facility] [address] [place] [id number] [place] [address] May, Type 2 diabetes mellitus with other diab etic kidney complication E11.29 and Type 2 diabetes mellitus with hyperglycemia E11.65 [facility] [address] [place] [id number] [place] [address] May, [facility] [address] [place] [id number] [place] [address] May, Onychomycosis B35.1 ; Other hammer toe(s ) (acquired), left foot M20.42 ; Other hammer toe(s) (acquired), right foot M20.41 and Type 2 diabetes mellitus with diabetic neuropathy, unspecified whether watermelon inspector insulin use E11.40 [facility] [address] [place] [id number] [place] [address] May, [facility] [address] [place] [id number] [place] [address] Mar, [facility] [address] [place] [id number] [place] [address] Mar, [facility] [address] [address] Mar, Type 2 diabetes mellitus with other diab etic kidney complication E11.29 ; Essential hypertension I10 ; Mixed hyperlipidemia E78.2 ; Type 2 diabetes mellitus with hyperglycemia E11.65 ; MCC 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.4 and Type 2 diabetes mellitus with diabetic neuropathy, unspecified whether watermelon inspector insulin use E11.40 [facility] [address] [place] [id number] [place] [address] Feb, [facility] [address] [address] Jan, [place] [address] [address] Dec, Onychomycosis B35.1 ; Type 2 diabetes me llitus with diabetic neuropathy, unspecified whether watermelon inspector insulin use E11.40 ; Other hammer toe(s) (acquired), right foot M20.41 and Other hammer toe(s) (acquired), left foot M20.42 [place] [address] [address] 08 Dec, [address] [address] 07 Dec, 2017 Dental examination Z01.[address] [address] 07 Dec, 2017 Type 2 diabetes mellitus with other diab etic kidney complication E11.29 ; Type 2 diabetes mellitus with hyperglycemia E11.65 ; Essential hypertension I10 and Mixed hyperlipidemia E78.2 [place] [address] [address] 08 Nov, 2017 Type 2 diabetes mellitus with other diab etic kidney complication E11.29 ; Type 2 diabetes mellitus with hyperglycemia E11.65 ; Essential hypertension I10 ; Vaginal itching N89.8 and Encounter for immunization Z23 [place] [address] [address] 13 Oct, 2017 Type 2 diabetes mellitus with other diab etic kidney complication E11.29 [place] [address] [address] 04 Oct, [address] [address] Sep, Onychomycosis B35.1 and Type 2 diabetes mellitus without complications E11.9 [place] [address] [address] Aug, [place] [address] [address] Jul, [facility] [address] [id number] [place] [address] Jul, [facility] [address] [place] [id number] [place] [address] Jul, [facility] [address] [id number] [place] [address] June, [facility] [address] [place] [id number] [place] [address] June, Type 2 diabetes mellitus with other diab etic kidney complication E11.29 ; Essential hypertension I10 ; Mixed hyperlipidemia E78.2 ; 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 and High blood triglycerides E78.1 [facility] [address] [place] [id number] [place] [address] May, [facility] [address] [place] [id number] [place] [address] Apr, [facility] [address] [place] [id number] [place] [address] Apr, [facility] [address] [place] [id number] [place] [address] Mar, [facility] [address] [place] [id number] [place] [address] Feb, [facility] [address] [place] [id number] [place] [address] Feb, [facility] [address] [place] [id number] [place] [address] Feb, [facility] [address] [place] [id number] [place] [address] Jan, Type 2 diabetes mellitus with other diab etic kidney complication E11.[address] [facility] [id number] [facility] [place] [id number] Dec, Dental examination Z01.20 [facility] [address] [id number] [place] [address] Dec, High blood triglycerides E78.[address] [facility] [id number] [place] [id number] 14 Dec, 2016 Dental examination Z01.20 [place] [address] [address] Dec, High blood triglycerides E78.1 [place] [address] [address] 09 Dec, 2016 Type 2 diabetes mellitus with other diab etic kidney complication E11.29 [place] [address] [address] 30 Nov, 2016 Type 2 diabetes mellitus with other diab etic kidney complication E11.29 [place] [address] [address] Nov, [address] [address] Nov, Type 2 diabetes mellitus with other diab etic kidney complication E11.29 [place] [address] [address] Nov, [facility] 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.4 ; Encounter for immunization Z23 ; Essential hypertension I10 ; Type 2 diabetes mellitus with other diabetic kidney complication E11.29 and Mixed hyperlipidemia E78.2 [facility] [address] [place] [address] Nov, [address] [address] Oct, [facility] [address] [place], [place] [id number] [address] [place] [address] 15 Oct, 2016 Candidiasis of female genita eduard B37.3 and Vaginal discharge N89.[address] [address] 15 Oct, [address] [address] 14 Oct, [address] [address] Sep, Vaginal yeast infection B37.3 [facility] [address] [place] [id number] [place] [address] Jul, [facility] [address] [address] Jul, [facility] [address] [address] Jul, [facility] [address] [address] June, [facility] [address] [address] June, [facility] [address] [address] June, Type 2 diabetes mellitus without complic ations E11.9 [place] [address] [address] June, Essential hypertension I10 ; Type 2 diab etes mellitus without complications E11.9 ; 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 and Hair loss L65.9 [place] [address] [place] [id number] [place] [address] June, [facility] [address] [address] May, Onychomycosis B35.1 ; Onychocryptosis L6 0.0 and Type 2 diabetes mellitus without complications E11.9 [place] [address] [place] [id number] [place] [address] May, [facility] [address] [address] Apr, Type 2 diabetes mellitus without complic ations E11.9 [facility] [address] [place] [id number] [place] [address] Apr, [facility] [address] [address] Apr, Type 2 diabetes mellitus without complic ations E11.9 ; Type 2 diabetes mellitus with hyperglycemia E11.65 and MCC 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.4 [place] [address] [address] Apr, [facility] [address] [address] Mar, [facility] [address] [address] Mar, [facility] [address] [address] Mar, Mixed hyperlipidemia E78.2 ; Type 2 diab etes mellitus with other diabetic kidney complication E11.29 ; Essential hypertension I10 and Onychomycosis due to dermatophyte B35.1 [place] [address] [address] Jan, Type 2 diabetes mellitus with other diab etic kidney complication E11.29 ; Mixed hyperlipidemia E78.2 and Essential hypertension I10 [place] [address] [address] Sep, [place] [address] [address] Sep, [facility] [address] [address] Feb, [place] [address] [address] Feb, Type 2 diabetes mellitus with other diab etic kidney complication E11.29 ; Essential hypertension I10 and Abnormal menstrual cycle N92.6 [place] [address] [address] Dec, Type 2 diabetes mellitus with other diab etic kidney complication E11.29 [place] [address] [address] Nov, Type 2 diabetes mellitus with other diab etic kidney complication E11.29 and Essential hypertension I10 [place] [address] [address] Nov, [facility] [address] [id number] [place] [address] Nov, [facility] [address] [id number] [place] [address] Nov, [facility] [address] [id number] [place] [address] Oct, [facility] [address] [id number] [place] [address] 17 Oct, 2014 [facility] [address] [id number] [place] [address] 15 Oct, 2014 Diabetes type 2, uncontrolled 250.02 and Hyperlipidemia 272.4 [facility] [address] [place] [id number] [place] [address] 14 Oct, 2014 Hyperlipidemia 272.4 and Diabetes type 2 , uncontrolled 250.02 [facility] [address] [place] [id number] [place] [address] Sep, [facility] [address] [id number] [place] [address] Sep, [facility] [address] [id number] [place] [address] Aug, [facility] [address] [id number] [place] [address] Aug, [facility] [address] [place] [id number] [place] [address] Aug, [facility] [address] [id number] [place] [address] Aug, [facility] [address] [id number] [place] [address] Aug, [facility] [address] [id number] [place] [address] Aug, [facility] [address] [id number] [place] [address] Aug, 2014 [facility] [address] [place] [id number] [place] [address] Jul, [facility] [address] [place] [id number] [place] [address] Jul, [facility] [address] [place] [id number] [place] [address] Jul, Hyperlipidemia 272.4 [facility] [address] [place] [id number] [place] [address] Jul, [facility] [address] [place] [id number] [place] [address] Jul, Diabetes type 2, uncontrolled 250.02 ; A nkle pain, right 719.47 and Hyperlipidemia 272.4 [facility] [address] [place] [id number] [place] [address] June, [facility] [address] [place] [id number] [place] [address] June, Unspecified essential hypertension 401.9 ; Diabetes type 2, uncontrolled 250.02 ; Joint pain 719.40 and Hyperlipidemia 272.4 [facility] [address] [place] [id number] [place] [address] May, [facility] [address] [place] [id number] [place] [address] May, [facility] [address] [place] [id number] [place] [address] May, [facility] [address] [place] [id number] [place] [address] May, [facility] [address] [place] [address] [id number] [place] [address] Apr, [facility] [address] [place] [address] [id number] [place] [address] Apr, [facility] [address] [place] [id number] [place] [address] Feb, [facility] [address] [place] [address] [id number] [place] [address] Feb, [facility] [address] [id number] [place] [address] 19 Feb, 2014 [facility] [address] [id number] [place] [address] Feb, [facility] [address] [id number] [place] [address] 16 Feb, 2014 [facility] [address] [id number] [place] [address] 16 Feb, 2014 [facility] [address] [id number] [place] [address] 15 Feb, 2014 [facility] [address] [id number] [place] [address] 15 Feb, 2014 [facility] [address] [id number] [place] [address] Dec, [facility] [address] [id number] [place] [address] Dec, [facility] [address] [id number] [place] [address] Dec, [facility] [address] [id number] [place] [address] Dec, [facility] [address] [id number] [place] [address] Dec, [facility] [address] [id number] [place] [address] Nov, [facility] [address] [id number] [place] [address] Nov, [facility] [address] [id number] [place] [address] Nov, [facility] [address] [id number] [place] [address] Nov, [facility] [address] [id number] [place] [address] Oct, [facility] [address] [id number] [place] [address] Oct, [facility] [address] [facility] [id number] [place] [address] Oct, [facility] [address] [id number] [place] [address] Oct, [facility] [address] [id number] [place] [address] Aug, [facility] [address] [id number] [place] [address] Aug, [facility] [address] [facility] [id number] [place] [address] Aug, [facility] [address] [id number] [place] [address] Aug, [facility] [address] [id number] [place] [address] Jul, [facility] [address] [id number] [place] [address] Jul, [facility] [address] [id number] [place] [address] June, [facility] [address] [id number] [place] [address] June, [facility] [address] [id number] [place] [address] May, [facility] [address] [id number] [place] [address] May, [facility] [address] [id number] [place] [address] May, [facility] [address] [id number] [place] [address] May, [facility] [address] [id number] [place] [address] May, [facility] [address] [id number] [place] [address] May, [facility] [address] [id number] [place] [address] Apr, [facility] [address] [id number] [place] [address] Apr, [facility] [address] [id number] [place] [address] Mar, [facility] [address] [id number] [place] [address] Mar, [facility] [address] [id number] [place] [address] Jan, [facility] [address] [id number] [place] [address] Jan, [facility] [address] [id number] [place] [address] Dec, [facility] [address] [id number] [place] [address] Dec, [facility] [address] [id number] [place] [address] Dec, [facility] [address] [id number] [place] [address] Dec, [facility] [address] [id number] [place] [address] Dec, [facility] [address] [id number] [place] [address] Dec, [facility] [address] [id number] [place] [address] Nov, [facility] [address] [id number] [place] [address] Nov, [facility] [address] [id number] [place] [address] Nov, [facility] [address] [id number] [place] [address] Nov, [facility] [address] [id number] [place] [address] Nov, [facility] [address] [id number] [place] [address] 10 Nov, 2012 [facility] [address] [id number] [place] [address] 08 Nov, 2012 [facility] [address] [id number] [place] [address] Nov, [facility] [address] [id number] [place] [address] Nov, 2012 [facility] [address] [id number] [place] [address] 06 Oct, 2012 [facility] [address] [id number] [place] [address] 04 Oct, 2012 [facility] [address] [id number] [place] [address] 17 Aug, 2012 [facility] [address] [id number] [place] [address] 16 Aug, 2012 [facility] [address] [id number] [place] [address] 15 Aug, 2012 [facility] [address] [id number] [place] [address] Jul, [facility] [address] [id number] [place] [address] Dec, [facility] [address] [id number] [place] [address] Nov, [facility] [address] [id number] [place] [address] Nov, [facility] [address] [id number] [place] [address] 30 Nov, 2011 [facility] [address] [id number] [place] [address] 30 Nov, 2011 [facility] [address] [id number] [place] [address] Nov, [facility] [address] [id number] [place] [address] 29 Nov, 2011 [facility] [address] [id number] [place] [address] 08 Mar, 2011 [facility] [address] [id number] [place] [address] 16 Feb, 2011 [facility] [address] [id number] [place] [address] 13 Feb, 2011 [facility] [address] [id number] [place] [address] Feb, [facility] [address] [id number] [place] [address] 10 Feb, 2011 [facility] [address] [id number] [place] [address] 09 Feb, 2011 [facility] [address] [id number] [place] [address] 09 Jan, 2011 [facility] [id number] [place] [address] Oct, [facility] [address] [id number] [place] [address] 13 Feb, 2010 [facility] [address] [id number] [place] [address] 19 Jan, 2010 [facility] [address] [id number] [place] [address] 14 Jan, 2010 [facility] [id number] [place] [address] 13 Jan, 2010 [facility] [address] [id number] [place] [address] 13 Jan, 2010 [facility] [address] [id number] [place] [address] 24 Dec, 2009 [facility] [address] [id number] [place] [address] Dec, [facility] [address] [id number] [place] [address] 30 Dec, 2008 [facility] [address] [id number] [place] [address] 14 Aug, 2008 [facility] [address] [id number] [place] [address] Jul, [facility] [address] [id number] [place] [address] June, [facility] [address] [id number] [place] [address] June, [facility] [address] [id number] [place] [address] May, [facility] [address] [id number] [place] [address] Apr, IMMUNIZATIONS No Known Immunizations SOCIAL HISTORY [...]
--- OUTSIDE RECORDS SUMMARY | 2019-07-26 05:35 | XMS REPORT ---
Author Georgia Berry Organization [facility] [place] Address [address] [place] [address] Care Team Providers Care Dye Tub Operator Name Role Phone CHERYLCHINAA Unavailable PROBLEMS Type Condition ICD9-CM Code UML01-BZ Code Onset Dates Condition S tatus SNOMED Code Problem Type 2 diabetes mellitus with other diabetic kid mirela complication E11.29 Active 76076857 Problem Mixed hyperlipidemia E78.2 Active 137197799 Problem Onychomycosis due to dermatophyte B35.1 Active 328607218 Problem Other hammer toe(s) (acquired), right foot M20.41 Active 812341242 Problem Essential hypertension I10 Active 75568486 Problem BMI 40.0-44.9, adult Z68.41 Active 669454298 Problem Type 2 diabetes mellitus with hyperglycemia E11.65 Active [id number] Problem FPC 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.4 Active 353575826 Problem Type 2 diabetes mellitus wit h diabetic neuropathy, unspecified whether terminal press operator insulin use E11.40 Active 061676 06 Problem Other hammer toe(s) (acquired), left foot M20.42 Active 55197438 ALLERGIES No Information ENCOUNTERS Encounter Location Date Diagnosis [place] [address] [address] June, [facility] [place] [address] [address] May, [place] [address] [address] 14 Mar, 2019 Onychomycosis B35.1 ; Other hammer toe(s ) (acquired), right foot M20.41 ; Other hammer toe(s) (acquired), left foot M20.42 and Type 2 diabetes mellitus with diabetic neuropathy, unspecified whether terminal press operator insulin use E11.40 [place] [address] [address] Feb, [place] [address] [address] Feb, [place] [address] [address] Feb, Type 2 diabetes mellitus with other diab etic kidney complication E11.29 ; Type 2 diabetes mellitus with hyperglycemia E11.65 ; termination clerk 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.4 ; Essential hypertension I10 and BMI 40.0-44.9, adult Z68.41 [place] [address] [address] Nov, [place] [address] [address] Oct, [place] [address] [address] Aug, Onychomycosis B35.1 ; Contusion of right foot, initial encounter S90.31XA ; Contusion of toe with damage to nail, unspecified toe, initial encounter S90.229A and Type 2 diabetes mellitus with diabetic neuropathy, unspecified whether mcc insulin use E11.40 [place] [address] [address] Aug, [place] [address] [address] Jul, [place] [address] [address] Jul, [place] [address] [address] Jul, [place] [address] [address] Jul, [place] [address] [address] Jul, Type 2 diabetes mellitus with other diab etic kidney complication E11.29 [place] [address] [address] June, [facility] [place] [address] [place] [id number] [place] [address] June, [facility] [place] [address] [place] [id number] [place] [address] June, [facility] [place] [address] [place] [id number] [place] [address] May, [facility] [place] [address] [place] [address] [address] [place] [address] May, Type 2 diabetes mellitus with other diab etic kidney complication E11.29 and Type 2 diabetes mellitus with hyperglycemia E11.65 [facility] [place] [address] [place] [address] [address] [place] [address] May, [facility] [place] [address] [place] [id number] [place] [address] May, Onychomycosis B35.1 ; Other hammer toe(s ) (acquired), left foot M20.42 ; Other hammer toe(s) (acquired), right foot M20.41 and Type 2 diabetes mellitus with diabetic neuropathy, unspecified whether terminal press operator insulin use E11.40 [facility] [place] [address] [address] [address] [place] [address] May, [facility] [place] [address] [place] [address] [address] [place] [address] Mar, [facility] [place] [address] [place] [id number] [place] [address] Mar, [facility] [place] [address] [address] Mar, Type 2 diabetes mellitus with other diab etic kidney complication E11.29 ; Essential hypertension I10 ; Mixed hyperlipidemia E78.2 ; Type 2 diabetes mellitus with hyperglycemia E11.65 ; FPC 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.4 and Type 2 diabetes mellitus with diabetic neuropathy, unspecified whether terminal press operator insulin use E11.40 [facility] [place] [address] [place] [id number] [place] [address] Feb, [facility] [place] [address] [address] Jan, [place] [address] [address] Dec, Onychomycosis B35.1 ; Type 2 diabetes me llitus with diabetic neuropathy, unspecified whether terminal press operator insulin use E11.40 ; Other hammer toe(s) (acquired), right foot M20.41 and Other hammer toe(s) (acquired), left foot M20.42 [place] [address] [address] 08 Dec, [address] [address] 07 Dec, 2017 Dental examination Z01.[address] [address] 07 Dec, 2017 Type 2 diabetes mellitus with other diab etic kidney complication E11.29 ; Type 2 diabetes mellitus with hyperglycemia E11.65 ; Essential hypertension I10 and Mixed hyperlipidemia E78.2 [place] [address] [address] 08 Nov, 2017 Type 2 diabetes mellitus with other diab etic kidney complication E11.29 ; Type 2 diabetes mellitus with hyperglycemia E11.65 ; Essential hypertension I10 ; Vaginal itching N89.8 and Encounter for immunization Z23 [place] [address] [address] 13 Oct, 2017 Type 2 diabetes mellitus with other diab etic kidney complication E11.29 [place] [address] [address] 04 Oct, [address] [address] Sep, Onychomycosis B35.1 and Type 2 diabetes mellitus without complications E11.9 [place] [address] [address] Aug, [place] [address] [address] Jul, [facility] [place] [address] [id number] [place] [address] Jul, [facility] [place] [address] [place] [id number] [place] [address] Jul, [facility] [place] [address] [id number] [place] [address] June, [facility] [place] [address] [place] [id number] [place] [address] June, Type 2 diabetes mellitus with other diab etic kidney complication E11.29 ; Essential hypertension I10 ; Mixed hyperlipidemia E78.2 ; termination clerk 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.4 and High blood triglycerides E78.1 [facility] [place] [address] [place] [id number] [place] [address] May, [facility] [place] [address] [place] [id number] [place] [address] Apr, [facility] [place] [address] [place] [id number] [place] [address] Apr, [facility] [place] [address] [place] [id number] [place] [address] Mar, [facility] [place] [address] [place] [id number] [place] [address] Feb, [facility] [place] [address] [place] [id number] [place] [address] Feb, [facility] [place] [address] [place] [address] [id number] [place] [address] Feb, [facility] [place] [address] [place] [id number] [place] [address] Jan, Type 2 diabetes mellitus with other diab etic kidney complication E11.[address] [facility] [address] [id number] [facility] [place] [id number] Dec, Dental examination Z01.20 [facility] [place] [address] [id number] [place] [address] Dec, High blood triglycerides E78.[address] [facility] [id number] [place] [id number] 14 Dec, 2016 Dental examination Z01.20 [place] [address] [address] Dec, High blood triglycerides E78.1 [place] [address] [address] 09 Dec, 2016 Type 2 diabetes mellitus with other diab etic kidney complication E11.29 [place] [address] [address] 30 Nov, 2016 Type 2 diabetes mellitus with other diab etic kidney complication E11.29 [place] [address] [address] Nov, [address] [address] Nov, Type 2 diabetes mellitus with other diab etic kidney complication E11.29 [place] [address] [address] Nov, [facility]PC 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.4 ; Encounter for immunization Z23 ; Essential hypertension I10 ; Type 2 diabetes mellitus with other diabetic kidney complication E11.29 and Mixed hyperlipidemia E78.2 [facility] [address] [place] [address] Nov, [address] [address] Oct, [facility] [address] [place], [place] [id number] [address] [place] [address] 15 Oct, 2016 Candidiasis of female genita eduard B37.3 and Vaginal discharge N89.[address] [address] 15 Oct, [address] [address] 14 Oct, [address] [address] Sep, Vaginal yeast infection B37.3 [facility] [place] [address] [place] [id number] [place] [address] Jul, [facility] [place] [address] [address] Jul, [facility] [place] [address] [address] Jul, [facility] [place] [address] [address] June, [facility] [place] [address] [address] June, [facility] [place] [address] [address] June, Type 2 diabetes mellitus without complic ations E11.9 [place] [address] [address] June, Essential hypertension I10 ; Type 2 diab etes mellitus without complications E11.9 ; termination clerk 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.4 and Hair loss L65.9 [place] [address] [place] [address] [place] [address] June, [facility] [place] [address] [address] May, Onychomycosis B35.1 ; Onychocryptosis L6 0.0 and Type 2 diabetes mellitus without complications E11.9 [place] [address] [place] [id number] [place] [address] May, [facility] [place] [address] [address] Apr, Type 2 diabetes mellitus without complic ations E11.9 [facility] [place] [address] [place] [address] [address] [place] [address] Apr, [facility] [place] [address] [address] Apr, Type 2 diabetes mellitus without complic ations E11.9 ; Type 2 diabetes mellitus with hyperglycemia E11.65 and FPC 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.4 [place] [address] [address] Apr, [facility] [place] [address] [address] Mar, [facility] [place] [address] [address] Mar, [facility] [place] [address] [address] Mar, Mixed hyperlipidemia E78.2 ; Type 2 diab etes mellitus with other diabetic kidney complication E11.29 ; Essential hypertension I10 and Onychomycosis due to dermatophyte B35.1 [place] [address] [address] Jan, Type 2 diabetes mellitus with other diab etic kidney complication E11.29 ; Mixed hyperlipidemia E78.2 and Essential hypertension I10 [place] [address] [address] Sep, [place] [address] [address] Sep, [facility] [place] [address] [address] Feb, [place] [address] [address] Feb, Type 2 diabetes mellitus with other diab etic kidney complication E11.29 ; Essential hypertension I10 and Abnormal menstrual cycle N92.6 [place] [address] [address] Dec, Type 2 diabetes mellitus with other diab etic kidney complication E11.29 [place] [address] [address] Nov, Type 2 diabetes mellitus with other diab etic kidney complication E11.29 and Essential hypertension I10 [place] [address] [address] Nov, [facility] [address] [id number] [place] [address] Nov, [facility] [address] [id number] [place] [address] Nov, [facility] [address] [id number] [place] [address] Oct, [facility] [address] [id number] [place] [address] 17 Oct, 2014 [facility] [address] [id number] [place] [address] 15 Oct, 2014 Diabetes type 2, uncontrolled 250.02 and Hyperlipidemia 272.4 [facility] [address] [place] [id number] [place] [address] 14 Oct, 2014 Hyperlipidemia 272.4 and Diabetes type 2 , uncontrolled 250.02 [facility] [place] [address] [place] [id number] [place] [address] Sep, [facility] [address] [id number] [place] [address] Sep, [facility] [address] [id number] [place] [address] Aug, [facility] [address] [id number] [place] [address] Aug, [facility] [address] [place] [id number] [place] [address] Aug, [facility] [address] [id number] [place] [address] Aug, [facility] [address] [id number] [place] [address] Aug, [facility] [address] [id number] [place] [address] Aug, [facility] [address] [id number] [place] [address] Aug, 2014 [facility] [address] [place] [id number] [place] [address] Jul, [facility] [place] [address] [place] [address] [id number] [place] [address] Jul, [facility] [place] [address] [place] [address] [id number] [place] [address] Jul, Hyperlipidemia 272.4 [facility] [place] [address] [id number] [place] [address] Jul, [facility] [place] [address] [place] [address] [id number] [place] [address] Jul, Diabetes type 2, uncontrolled 250.02 ; A nkle pain, right 719.47 and Hyperlipidemia 272.4 [facility] [place] [address] [id number] [place] [address] June, [facility] [place] [address] [place] [id number] [place] [address] June, Unspecified essential hypertension 401.9 ; Diabetes type 2, uncontrolled 250.02 ; Joint pain 719.40 and Hyperlipidemia 272.4 [facility] [place] [address] [place] [id number] [place] [address] May, [facility] [place] [address] [id number] [place] [address] May, [facility] [place] [address] [id number] [place] [address] May, [facility] [place] [address] [id number] [place] [address] May, [facility] [place] [address] [place] [id number] [place] [address] Apr, [facility] [place] [address] [id number] [place] [address] Apr, [facility] [place] [address] [place] [id number] [place] [address] Feb, [facility] [place] [address] [place] [address] [id number] [place] [address] Feb, [facility] [address] [id number] [place] [address] 19 Feb, 2014 [facility] [address] [id number] [place] [address] Feb, [facility] [address] [id number] [place] [address] 16 Feb, 2014 [facility] [address] [id number] [place] [address] 16 Feb, 2014 [facility] [address] [id number] [place] [address] 15 Feb, 2014 [facility] [address] [id number] [place] [address] 15 Feb, 2014 [facility] [address] [id number] [place] [address] Dec, [facility] [address] [id number] [place] [address] Dec, [facility] [address] [id number] [place] [address] Dec, [facility] [address] [id number] [place] [address] Dec, [facility] [address] [id number] [place] [address] Dec, [facility] [address] [id number] [place] [address] Nov, [facility] [address] [id number] [place] [address] Nov, [facility] [address] [id number] [place] [address] Nov, [facility] [address] [id number] [place] [address] Nov, [facility] [address] [id number] [place] [address] Oct, [facility] [address] [id number] [place] [address] Oct, [facility] [address] [facility] [id number] [place] [address] Oct, [facility] [address] [id number] [place] [address] Oct, [facility] [address] [id number] [place] [address] Aug, [facility] [address] [id number] [place] [address] Aug, [facility] [address] [facility] [id number] [place] [address] Aug, [facility] [address] [id number] [place] [address] Aug, [facility] [address] [id number] [place] [address] Jul, [facility] [address] [id number] [place] [address] Jul, [facility] [address] [id number] [place] [address] June, [facility] [address] [id number] [place] [address] June, [facility] [address] [id number] [place] [address] May, [facility] [address] [id number] [place] [address] May, [facility] [address] [id number] [place] [address] May, [facility] [address] [id number] [place] [address] May, [facility] [address] [id number] [place] [address] May, [facility] [address] [id number] [place] [address] May, [facility] [address] [id number] [place] [address] Apr, [facility] [address] [id number] [place] [address] Apr, [facility] [address] [id number] [place] [address] Mar, [facility] [address] [id number] [place] [address] Mar, [facility] [address] [id number] [place] [address] Jan, [facility] [address] [id number] [place] [address] Jan, [facility] [address] [id number] [place] [address] Dec, [facility] [address] [id number] [place] [address] Dec, [facility] [address] [id number] [place] [address] Dec, [facility] [address] [id number] [place] [address] Dec, [facility] [address] [id number] [place] [address] Dec, [facility] [address] [id number] [place] [address] Dec, [facility] [address] [id number] [place] [address] Nov, [facility] [address] [id number] [place] [address] Nov, [facility] [address] [id number] [place] [address] Nov, [facility] [address] [id number] [place] [address] Nov, [facility] [address] [id number] [place] [address] Nov, [facility] [address] [id number] [place] [address] 10 Nov, 2012 [facility] [address] [id number] [place] [address] 08 Nov, 2012 [facility] [address] [id number] [place] [address] Nov, [facility] [address] [id number] [place] [address] Nov, 2012 [facility] [address] [id number] [place] [address] 06 Oct, 2012 [facility] [address] [id number] [place] [address] 04 Oct, 2012 [facility] [address] [id number] [place] [address] 17 Aug, 2012 [facility] [address] [id number] [place] [address] 16 Aug, 2012 [facility] [address] [id number] [place] [address] 15 Aug, 2012 [facility] [address] [id number] [place] [address] Jul, [facility] [address] [id number] [place] [address] Dec, [facility] [address] [id number] [place] [address] Nov, [facility] [id number] [place] [address] Nov, [facility] [id number] [place] [address] 30 Nov, 2011 [facility] [id number] [place] [address] 30 Nov, 2011 [facility] [id number] [place] [address] Nov, [facility] [id number] [place] [address] 29 Nov, 2011 [facility] [id number] [place] [address] 08 Mar, 2011 [facility] [id number] [place] [address] 16 Feb, 2011 [facility] [id number] [place] [address] 13 Feb, 2011 [facility] [id number] [place] [address] Feb, [facility] [id number] [place] [address] 10 Feb, 2011 [facility] [id number] [place] [address] 09 Feb, 2011 [facility] [id number] [place] [address] 09 Jan, 2011 [facility] [id number] [place] [address] Oct, [facility] [id number] [place] [address] 13 Feb, 2010 [facility] [id number] [place] [address] 19 Jan, 2010 [facility] [id number] [place] [address] 14 Jan, 2010 [facility] [id number] [place] [address] 13 Jan, 2010 [facility] [id number] [place] [address] 13 Jan, 2010 [facility] [id number] [place] [address] 24 Dec, 2009 [facility] [id number] [place] [address] Dec, [facility] [id number] [place] [address] 30 Dec, 2008 [facility] [id number] [place] [address] 14 Aug, 2008 [facility] [place] [id number] [place] [address] Jul, [facility] [place] [id number] [place] [address] June, [facility] [place] [id number] [place] [address] June, [facility] [place] [id number] [place] [address] May, [facility] [place] [id number] [place] [address] Apr, IMMUNIZATIONS No Known Immunizations SOCIAL HISTORY [...]
--- OUTSIDE RECORDS SUMMARY | 2019-07-26 05:36 | XMS REPORT ---
Author Author Georgia LUNA Organization [facility] Address [address] [place] [address] Care Team Providers Care Management Scientist Name Role Phone CHERYLCHINAA Unavailable PROBLEMS Type Condition ICD9-CM Code LMP54-BP Code Onset Dates Condition S tatus SNOMED Code Problem Type 2 diabetes mellitus with other diabetic kid mirela complication E11.29 Active 98642626 Problem Mixed hyperlipidemia E78.2 Active 854230516 Problem Onychomycosis due to dermatophyte B35.1 Active 842270319 Problem Other hammer toe(s) (acquired), right foot M20.41 Active 795335202 Problem Essential hypertension I10 Active 67192243 Problem BMI 40.0-44.9, adult Z68.41 Active 608040289 Problem Type 2 diabetes mellitus with hyperglycemia E11.65 Active 299813196019086 Problem FPC 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.4 Active 592662294 Problem Type 2 diabetes mellitus wit h diabetic neuropathy, 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 592445 06 Problem Other hammer toe(s) (acquired), left foot M20.42 Active 28718405 ALLERGIES No Information ENCOUNTERS Encounter Location Date Diagnosis [place] [id number] [place] [address] Mar, [facility] [address] [address] Feb, [place] [address] [address] Feb, [place] [address] [address] Feb, Type 2 diabetes mellitus with other diab etic kidney complication E11.29 ; Type 2 diabetes mellitus with hyperglycemia E11.65 ; meterman 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.4 ; Essential hypertension I10 and BMI 40.0-44.9, adult Z68.41 [facility] [address] [address] Nov, [facility] [address] [address] Oct, [facility] [address] [address] Aug, Onychomycosis B35.1 ; Contusion of right foot, initial encounter S90.31XA ; Contusion of toe with damage to nail, unspecified toe, initial encounter S90.229A and Type 2 diabetes mellitus with diabetic neuropathy, unspecified whether senior care insulin use E11.40 [facility] [address] [address] Aug, [facility] [address] [address] Jul, [facility] [address] [address] Jul, [facility] [address] [address] Jul, [facility] [address] [address] Jul, [facility] [address] [address] Jul, Type 2 diabetes mellitus with other diab etic kidney complication E11.29 [facility] [address] [address] June, [facility] [address] [address] June, [facility] [address] [address] June, [facility] [address] [address] May, [facility] [address] [address] May, Type 2 diabetes mellitus with other diab etic kidney complication E11.29 and Type 2 diabetes mellitus with hyperglycemia E11.65 [place] [address] [address] May, [place] [address] [address] May, Onychomycosis B35.1 ; Other hammer toe(s ) (acquired), left foot M20.42 ; Other hammer toe(s) (acquired), right foot M20.41 and Type 2 diabetes mellitus with diabetic neuropathy, 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 [place] [address] [address] May, [place] [address] [address] Mar, [place] [address] [address] Mar, [place] [address] [address] Mar, Type 2 diabetes mellitus with other diab etic kidney complication E11.29 ; Essential hypertension I10 ; Mixed hyperlipidemia E78.2 ; Type 2 diabetes mellitus with hyperglycemia E11.65 ; meterman 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.4 and Type 2 diabetes mellitus with diabetic neuropathy, 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 [place] [address] [address] Feb, [place] [address] [address] Jan, [address] [address] Dec, Onychomycosis B35.1 ; Type 2 diabetes me llitus with diabetic neuropathy, 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 ; Other hammer toe(s) (acquired), right foot M20.41 and Other hammer toe(s) (acquired), left foot M20.42 [place] [id number] [place] [address] 08 Dec, 2017 [facility] [address] [address] Dec, Dental examination Z01.20 [facility] [address] [address] 07 Dec, 2017 Type 2 diabetes mellitus with other diab etic kidney complication E11.29 ; Type 2 diabetes mellitus with hyperglycemia E11.65 ; Essential hypertension I10 and Mixed hyperlipidemia E78.2 [place] [address] [address] 08 Nov, 2017 Type 2 diabetes mellitus with other diab etic kidney complication E11.29 ; Type 2 diabetes mellitus with hyperglycemia E11.65 ; Essential hypertension I10 ; Vaginal itching N89.8 and Encounter for immunization Z23 [place] [address] [address] 13 Oct, 2017 Type 2 diabetes mellitus with other diab etic kidney complication E11.29 [place] [address] [address] Oct, [place] [address] [address] Sep, Onychomycosis B35.1 and Type 2 diabetes mellitus without complications E11.9 [place] [address] [address] Aug, [facility] [address] [address] Jul, [facility] [address] [address] Jul, [facility] [address] [address] Jul, [facility] [address] [address] June, [facility] [address] [address] June, Type 2 diabetes mellitus with other diab etic kidney complication E11.29 ; Essential hypertension I10 ; Mixed hyperlipidemia E78.2 ; FPC 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.4 and High blood triglycerides E78.1 [facility] [address] [id number] [place] [address] May, [facility] [address] [id number] [place] [address] Apr, [facility] [address] [id number] [place] [address] Apr, [facility] [address] [id number] [place] [address] Mar, [facility] [address] [id number] [place] [address] Feb, [facility] [address] [id number] [place] [address] Feb, [facility] [id number] [place] [address] Feb, [facility] [address] [id number] [place] [address] Jan, Type 2 diabetes mellitus with other diab etic kidney complication E11.29 [facility] [address] [facility] [id number] [place] [id number] Dec, Dental examination Z01.20 [facility] [address] [id number] [place] [address] 17 Dec, 2016 High blood triglycerides E78.[address] [facility] [id number] [place] [id number] 14 Dec, 2016 Dental examination Z01.20 [facility] [address] [id number] [place] [address] 09 Dec, 2016 High blood triglycerides E78.1 [facility] [address] [id number] [place] [address] 09 Dec, 2016 Type 2 diabetes mellitus with other diab etic kidney complication E11.29 [facility] [address] [address] 30 Nov, 2016 Type 2 diabetes mellitus with other diab etic kidney complication E11.29 [facility] [address] [address] 18 Nov, 2016 [place] [address] [address] 17 Nov, 2016 Type 2 diabetes mellitus with other diab etic kidney complication E11.29 [place] [address] [address] 09 Nov, 2016 FPC 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.4 ; Encounter for immunization Z23 ; Essential hypertension I10 ; Type 2 diabetes mellitus with other diabetic kidney complication E11.29 and Mixed hyperlipidemia E78.2 [facility] [address] [facility] [id number] [address] [address] 04 Nov, 2016 [place] [address] [address] 20 Oct, 2016 [facility] [address] [facility] [id number] [place] [address] 15 Oct, 2016 Candidiasis of female genita eduard B37.3 and Vaginal discharge N89.8 [place] [address] [address] 15 Oct, 2016 [place] [address] [address] 14 Oct, 2016 [place] [address] [address] Sep, Vaginal yeast infection B37.3 [place] [address] [address] Jul, [place] [address] [address] 13 Jul, 2016 [place] [address] [address] 07 Jul, 2016 [place] [address] [address] June, [facility] [id number] [place] [address] June, [facility] [id number] [place] [address] June, Type 2 diabetes mellitus without complic ations E11.9 [facility] [address] [address] June, Essential hypertension I10 ; Type 2 diab etes mellitus without complications E11.9 ; meterman 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.4 and Hair loss L65.9 [facility] [id number] [place] [address] June, [facility] [address] [address] May, Onychomycosis B35.1 ; Onychocryptosis L6 0.0 and Type 2 diabetes mellitus without complications E11.9 [place] [id number] [place] [address] May, [facility] [address] [address] Apr, Type 2 diabetes mellitus without complic ations E11.9 [facility] [id number] [place] [address] Apr, [facility] [address] [address] Apr, Type 2 diabetes mellitus without complic ations E11.9 ; Type 2 diabetes mellitus with hyperglycemia E11.65 and meterman 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.4 [facility] [id number] [place] [address] Apr, [facility] [address] [address] Mar, [facility] [address] [address] Mar, [facility] [address] [address] Mar, Mixed hyperlipidemia E78.2 ; Type 2 diab etes mellitus with other diabetic kidney complication E11.29 ; Essential hypertension I10 and Onychomycosis due to dermatophyte B35.1 [facility] [id number] [place] [address] Jan, Type 2 diabetes mellitus with other diab etic kidney complication E11.29 ; Mixed hyperlipidemia E78.2 and Essential hypertension I10 [facility] [address] [address] Sep, [facility] [address] [address] Sep, [facility] [address] [address] Feb, [facility] [address] [address] Feb, Type 2 diabetes mellitus with other diab etic kidney complication E11.29 ; Essential hypertension I10 and Abnormal menstrual cycle N92.6 [facility] [address] [address] Dec, Type 2 diabetes mellitus with other diab etic kidney complication E11.29 [facility] [address] [address] Nov, Type 2 diabetes mellitus with other diab etic kidney complication E11.29 and Essential hypertension I10 [facility] [address] [address] Nov, [facility] [address] [address] Nov, [facility] [address] [address] Nov, [facility] [address] [address] Oct, [facility] [address] [address] 17 Oct, 2014 [facility] [address] [id number] [place] [address] 15 Oct, 2014 Diabetes type 2, uncontrolled 250.02 and Hyperlipidemia 272.4 [facility] [address] [id number] [place] [address] 14 Oct, 2014 Hyperlipidemia 272.4 and Diabetes type 2 , uncontrolled 250.02 [facility] [address] [id number] [place] [address] Sep, [facility] [address] [id number] [place] [address] Sep, [facility] [id number] [place] [address] Aug, [facility] [id number] [place] [address] Aug, [facility] [id number] [place] [address] Aug, [facility] [address] [id number] [place] [address] Aug, [facility] [id number] [place] [address] Aug, [facility] [id number] [place] [address] Aug, [facility] [id number] [place] [address] Aug, [facility] [id number] [place] [address] Jul, [facility] [address] [id number] [place] [address] Jul, [facility] [id number] [place] [address] Jul, Hyperlipidemia 272.4 [facility] [id number] [place] [address] Jul, [facility] [id number] [place] [address] Jul, Diabetes type 2, uncontrolled 250.02 ; A nkle pain, right 719.47 and Hyperlipidemia 272.4 [facility] [id number] [place] [address] June, [facility] [id number] [place] [address] June, Unspecified essential hypertension 401.9 ; Diabetes type 2, uncontrolled 250.02 ; Joint pain 719.40 and Hyperlipidemia 272.4 [facility] [id number] [place] [address] May, [facility] [id number] [place] [address] May, [facility] [id number] [place] [address] May, [facility] [id number] [place] [address] May, [facility] [id number] [place] [address] Apr, [facility] [id number] [place] [address] Apr, [facility] [id number] [place] [address] Feb, [facility] [id number] [place] [address] Feb, [facility] [id number] [place] [address] Feb, [facility] [id number] [place] [address] Feb, [facility] [id number] [place] [address] Feb, [facility] [id number] [place] [address] Feb, [facility] [id number] [place] [address] 15 Feb, 2014 [facility] [address] [id number] [place] [address] Feb, [facility] [address] [id number] [place] [address] Dec, [facility] [address] [id number] [place] [address] Dec, [facility] [address] [id number] [place] [address] Dec, [facility] [address] [id number] [place] [address] Dec, [facility] [address] [id number] [place] [address] Dec, [facility] [address] [id number] [place] [address] Nov, [facility] [address] [id number] [place] [address] Nov, [facility] [address] [id number] [place] [address] Nov, [facility] [address] [id number] [place] [address] Nov, [facility] [address] [id number] [place] [address] Oct, [facility] [address] [id number] [place] [address] 26 Oct, 2013 [facility] [address] [id number] [place] [address] 25 Oct, 2013 [facility] [address] [id number] [place] [address] 25 Oct, 2013 [facility] [address] [id number] [place] [address] 14 Aug, 2013 [facility] [address] [id number] [place] [address] Aug, [facility] [address] [facility] [id number] [place] [address] Aug, [facility] [address] [id number] [place] [address] Aug, [facility] [address] [id number] [place] [address] Jul, [facility] [address] [id number] [place] [address] Jul, [facility] [address] [id number] [place] [address] June, [facility] [address] [id number] [place] [address] June, [facility] [address] [id number] [place] [address] May, [facility] [address] [id number] [place] [address] May, [facility] [address] [id number] [place] [address] May, [facility] [address] [id number] [place] [address] May, [facility] [address] [id number] [place] [address] May, [facility] [address] [id number] [place] [address] May, [facility] [address] [id number] [place] [address] Apr, [facility] [address] [facility] [id number] [place] [address] Apr, [facility] [address] [id number] [place] [address] Mar, [facility] [address] [id number] [place] [address] Mar, [facility] [address] [id number] [place] [address] Jan, [facility] [address] [id number] [place] [address] Jan, [facility] [address] [id number] [place] [address] Dec, [facility] [address] [id number] [place] [address] Dec, [facility] [address] [id number] [place] [address] Dec, [facility] [address] [id number] [place] [address] Dec, [facility] [address] [id number] [place] [address] Dec, [facility] [address] [id number] [place] [address] Dec, [facility] [address] [id number] [place] [address] Nov, [facility] [address] [id number] [place] [address] Nov, [facility] [address] [id number] [place] [address] Nov, [facility] [address] [id number] [place] [address] Nov, [facility] [address] [id number] [place] [address] Nov, [facility] [address] [id number] [place] [address] Nov, [facility] [address] [id number] [place] [address] Nov, [facility] [address] [id number] [place] [address] Nov, [facility] [address] [id number] [place] [address] Nov, [facility] [address] [id number] [place] [address] 06 Oct, 2012 [facility] [address] [facility] [id number] [place] [address] 04 Oct, 2012 [facility] [address] [id number] [place] [address] 17 Aug, 2012 [facility] [address] [id number] [place] [address] 16 Aug, 2012 [facility] [address] [id number] [place] [address] 15 Aug, 2012 [facility] [address] [id number] [place] [address] Jul, [facility] [address] [id number] [place] [address] Dec, [facility] [address] [id number] [place] [address] Nov, [facility] [address] [id number] [place] [address] Nov, [facility] [address] [id number] [place] [address] Nov, [facility] [address] [id number] [place] [address] Nov, [facility] [address] [id number] [place] [address] Nov, [facility] [address] [id number] [place] [address] 29 Nov, 2011 [facility] [address] [id number] [place] [address] Mar, [facility] [address] [id number] [place] [address] Feb, [facility] [address] [id number] [place] [address] Feb, [facility] [address] [id number] [place] [address] Feb, [facility] [address] [id number] [place] [address] 10 Feb, 2011 [facility] [address] [id number] [place] [address] Feb, [facility] [address] [id number] [place] [address] 09 Jan, 2011 [facility] [address] [id number] [place] [address] Oct, [facility] [address] [id number] [place] [address] 13 Feb, 2010 [facility] [address] [id number] [place] [address] Jan, [facility] [address] [id number] [place] [address] 14 Jan, 2010 [facility] [id number] [place] [address] Jan, [facility] [address] [id number] [place] [address] Jan, [facility] [address] [id number] [place] [address] Dec, [facility] [address] [id number] [place] [address] Dec, [facility] [address] [id number] [place] [address] Dec[facility] [address] [id number] [place] [address] 14 Aug, 2008 [facility] [address] [id number] [place] [address] Jul, [facility] [address] [id number] [place] [address] June, [facility] [address] [id number] [place] [address] June, [facility] [address] [id number] [place] [address] May, [facility] [place] [address] [facility] [id number] [place] [address] Apr, IMMUNIZATIONS No Known Immunizations SOCIAL HISTORY [...]
--- OUTSIDE RECORDS SUMMARY | 2019-07-26 05:36 | XMS REPORT ---
Author Author Sandra Georgia Doctor Organization [facility] Address Unknown Phone Unavailable Care Team Providers Care Bilingual Trainer Name Role Phone Migration, Doctor Unavailable Unavailable PROBLEMS Type Condition ICD9-CM Code NXI40-LG Code Onset Dates Condition S tatus SNOMED Code Problem Type 2 diabetes mellitus with other diabetic kid mirela complication E11.29 Active 75076053 Problem Mixed hyperlipidemia E78.2 Active 710639844 Problem Onychomycosis due to dermatophyte B35.1 Active 523867163 Problem Other hammer toe(s) (acquired), right foot M20.41 Active 737418876 Problem Essential hypertension I10 Active 96651440 Problem BMI 40.0-44.9, adult Z68.41 Active 481565642 Problem Type 2 diabetes mellitus with hyperglycemia E11.65 Active [id number] Problem long-term 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.4 Active 601776920 Problem Type 2 diabetes mellitus wit h diabetic neuropathy, unspecified whether [place] use E11.40 Active 965373 06 Problem Other hammer toe(s) (acquired), left foot M20.42 Active [id number] ALLERGIES No Information ENCOUNTERS Encounter Location Date Diagnosis [place] [address] [address] 14 Mar, 2019 [place] [address] [address] Feb, [place] [address] [address] Feb, [place] [address] [address] 09 Feb, 2019 Type 2 diabetes mellitus with other diab etic kidney complication E11.29 ; Type 2 diabetes mellitus with hyperglycemia E11.65 ; long-term 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.4 ; Essential hypertension I10 and BMI 40.0-44.9, adult Z68.41 [place] [address] [address] Nov, [facility] [id number] [place] [address] Oct, [facility] [address] [address] Aug, Onychomycosis B35.1 ; Contusion of right foot, initial encounter S90.31XA ; Contusion of toe with damage to nail, unspecified toe, initial encounter S90.229A and Type 2 diabetes mellitus with diabetic neuropathy, unspecified whether intermediate card tender insulin use E11.40 [facility] [id number] [place] [address] Aug, [facility] [address] [address] Jul, [facility] [id number] [place] [address] Jul, [facility] [id number] [place] [address] Jul, [facility] [id number] [place] [address] Jul, [facility] [address] [address] Jul, Type 2 diabetes mellitus with other diab etic kidney complication E11.29 [facility] [id number] [place] [address] June, [facility] [id number] [place] [address] June, [facility] [id number] [place] [address] June, [facility] [address] [address] May, [facility] [address] [address] May, Type 2 diabetes mellitus with other diab etic kidney complication E11.29 and Type 2 diabetes mellitus with hyperglycemia E11.65 [place] [address] [address] May, [place] [address] [address] May, Onychomycosis B35.1 ; Other hammer toe(s ) (acquired), left foot M20.42 ; Other hammer toe(s) (acquired), right foot M20.41 and Type 2 diabetes mellitus with diabetic neuropathy, unspecified [facility] insulin use E11.40 [place] [address] [address] May, [place] [address] [address] Mar, [place] [address] [address] Mar, [place] [address] [address] Mar, Type 2 diabetes mellitus with other diab etic kidney complication E11.29 ; Essential hypertension I10 ; Mixed hyperlipidemia E78.2 ; Type 2 diabetes mellitus with hyperglycemia E11.65 ; salvage determiner 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.4 and Type 2 diabetes mellitus with diabetic neuropathy, unspecified whether [place] insulin use E11.40 [place] [address] [address] Feb, [place] [address] [address] Jan, [place] [address] [address] Dec, Onychomycosis B35.1 ; Type 2 diabetes me llitus with diabetic neuropathy, unspecified whether intermediate card tender insulin use E11.40 ; Other hammer toe(s) (acquired), right foot M20.41 and Other hammer toe(s) (acquired), left foot M20.42 [place] [address] [address] Dec, [place] [address] [address] 07 Dec, 2017 Dental examination Z01.20 [place] [address] [address] 07 Dec, 2017 Type 2 diabetes mellitus with other diab etic kidney complication E11.29 ; Type 2 diabetes mellitus with hyperglycemia E11.65 ; Essential hypertension I10 and Mixed hyperlipidemia E78.2 [place] [address] [address] 08 Nov, 2017 Type 2 diabetes mellitus with other diab etic kidney complication E11.29 ; Type 2 diabetes mellitus with hyperglycemia E11.65 ; Essential hypertension I10 ; Vaginal itching N89.8 and Encounter for immunization Z23 [place] [address] [address] 13 Oct, 2017 Type 2 diabetes mellitus with other diab etic kidney complication E11.29 [place] [address] [address] Oct, [place] [address] [address] Sep, Onychomycosis B35.1 and Type 2 diabetes mellitus without complications E11.9 [place] [address] [address] Aug, [place] [address] [address] Jul, [place] [address] [address] Jul, [place] [address] [address] Jul, [place] [address] [address] June, [place] [address] [address] June, Type 2 diabetes mellitus with other diab etic kidney complication E11.29 ; Essential hypertension I10 ; Mixed hyperlipidemia E78.2 ; long-term 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.4 and High blood triglycerides E78.1 [facility] [id number] [place] [address] May, [facility] [address] [address] Apr, [facility] [address] [address] Apr, [facility] [address] [address] Mar, [facility] [address] [address] Feb, [facility] [address] [address] Feb, [facility] [address] [address] Feb, [facility] [address] [address] Jan, Type 2 diabetes mellitus with other diab etic kidney complication E11.29 [facility] [address] [facility] [address] Dec, Dental examination Z01.20 [facility] [id number] [place] [address] 17 Dec, 2016 High blood triglycerides E78.1 [facility] [address] [facility] [address] 14 Dec, 2016 Dental examination Z01.20 [facility] [id number] [place] [address] 09 Dec, 2016 High blood triglycerides E78.1 [facility] [address] [address] 09 Dec, 2016 Type 2 diabetes mellitus with other diab etic kidney complication E11.29 [facility] [address] [address] Nov, Type 2 diabetes mellitus with other diab etic kidney complication E11.29 [facility] [address] [address] 18 Nov, 2016 [facility] [address] [address] 17 Nov, 2016 Type 2 diabetes mellitus with other diab etic kidney complication E11.29 [facility] [address] [address] 09 Nov, 2016 long-term 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.4 ; Encounter for immunization Z23 ; Essential hypertension I10 ; Type 2 diabetes mellitus with other diabetic kidney complication E11.29 and Mixed hyperlipidemia E78.2 [facility] [address] [address] 04 Nov, 2016 [facility] [address] [address] 20 Oct, 2016 [facility] [address] [address] 15 Oct, 2016 Candidiasis of female genita eduard B37.3 and Vaginal discharge N89.8 [facility] [address] [address] 15 Oct, 2016 [facility] [address] [address] 14 Oct, 2016 [facility] [address] [address] Sep, Vaginal yeast infection B37.3 [facility] [address] [address] Jul, [facility] [address] [address] Jul, [facility] [address] [address] Jul, [facility] [address] [address] June, [facility] [address] [address] June, [place] [address] [address] June, Type 2 diabetes mellitus without complic ations E11.9 [place] [address] [address] June, Essential hypertension I10 ; Type 2 diab etes mellitus without complications E11.9 ; long-term 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.4 and Hair loss L65.9 [place] [address] [address] June, [place] [address] [address] May, Onychomycosis B35.1 ; Onychocryptosis L6 0.0 and Type 2 diabetes mellitus without complications E11.9 [place] [address] [address] May, [place] [address] [address] Apr, Type 2 diabetes mellitus without complic ations E11.9 [place] [address] [address] Apr, [place] [address] [address] Apr, Type 2 diabetes mellitus without complic ations E11.9 ; Type 2 diabetes mellitus with hyperglycemia E11.65 and salvage determiner 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.4 [place] [address] [address] Apr, [place] [address] [address] Mar, [place] [address] [address] Mar, [place] [address] [address] Mar, Mixed hyperlipidemia E78.2 ; Type 2 diab etes mellitus with other diabetic kidney complication E11.29 ; Essential hypertension I10 and Onychomycosis due to dermatophyte B35.1 [facility] [address] [address] Jan, Type 2 diabetes mellitus with other diab etic kidney complication E11.29 ; Mixed hyperlipidemia E78.2 and Essential hypertension I10 [facility] [id number] [place] [address] Sep, [facility] [address] [address] Sep, [facility] [address] [address] Feb, [facility] [address] [address] Feb, Type 2 diabetes mellitus with other diab etic kidney complication E11.29 ; Essential hypertension I10 and Abnormal menstrual cycle N92.6 [facility] [address] [address] Dec, Type 2 diabetes mellitus with other diab etic kidney complication E11.29 [facility] [address] [address] Nov, Type 2 diabetes mellitus with other diab etic kidney complication E11.29 and Essential hypertension I10 [facility] [address] [address] Nov, [facility] [address] [address] Nov, [facility] [id number] [place] [address] Nov, [facility] [address] [address] Oct, [facility] [address] [address] Oct, [facility] [address] [address] Oct, Diabetes type 2, uncontrolled 250.02 and Hyperlipidemia 272.4 [facility] [id number] [place] [address] Oct, Hyperlipidemia 272.4 and Diabetes type 2 , uncontrolled 250.02 [facility] [id number] [place] [address] Sep, [facility] [id number] [place] [address] Sep, [facility] [id number] [place] [address] Aug, [facility] [id number] [place] [address] Aug, [facility] [id number] [place] [address] Aug, [facility] [id number] [place] [address] Aug, [facility] [id number] [place] [address] Aug, [facility] [id number] [place] [address] Aug, [facility] [id number] [place] [address] Aug, [facility] [id number] [place] [address] Jul, [facility] [id number] [place] [address] Jul, [facility] [id number] [place] [address] Jul, Hyperlipidemia 272.4 [facility] [id number] [place] [address] Jul, [facility] [id number] [place] [address] Jul, Diabetes type 2, uncontrolled 250.02 ; A nkle pain, right 719.47 and Hyperlipidemia 272.4 [facility] [id number] [place] [address] June, [facility] [id number] [place] [address] June, Unspecified essential hypertension 401.9 ; Diabetes type 2, uncontrolled 250.02 ; Joint pain 719.40 and Hyperlipidemia 272.4 [facility] [id number] [place] [address] May, [facility] [id number] [place] [address] May, [facility] [id number] [place] [address] May, [facility] [id number] [place] [address] May, [facility] [id number] [place] [address] Apr, [facility] [id number] [place] [address] Apr, [facility] [id number] [place] [address] Feb, [facility] [id number] [place] [address] Feb, [facility] [id number] [place] [address] Feb, [facility] [id number] [place] [address] Feb, [facility] [id number] [place] [address] Feb, [facility] [id number] [place] [address] Feb, [facility] [id number] [place] [address] Feb, [facility] [address] [id number] [place] [address] 15 Feb, 2014 [facility] [address] [id number] [place] [address] Dec, [facility] [address] [id number] [place] [address] Dec, [facility] [address] [id number] [place] [address] Dec, [facility] [address] [id number] [place] [address] Dec, [facility] [address] [id number] [place] [address] Dec, [facility] [address] [id number] [place] [address] Nov, [facility] [address] [id number] [place] [address] Nov, [facility] [address] [id number] [place] [address] Nov, [facility] [address] [id number] [place] [address] Nov, [facility] [address] [id number] [place] [address] Oct, [facility] [address] [id number] [place] [address] Oct, 2013 [facility] [address] [id number] [place] [address] 25 Oct, 2013 [facility] [address] [id number] [place] [address] 25 Oct, 2013 [facility] [address] [id number] [place] [address] Aug, [facility] [address] [id number] [place] [address] Aug, [facility] [address] [id number] [place] [address] Aug, [facility] [address] [id number] [place] [address] Aug, [facility] [address] [id number] [place] [address] Jul, [facility] [address] [id number] [place] [address] Jul, [facility] [address] [id number] [place] [address] June, [facility] [address] [id number] [place] [address] June, [facility] [address] [id number] [place] [address] May, [facility] [address] [id number] [place] [address] May, [facility] [address] [id number] [place] [address] May, [facility] [address] [id number] [place] [address] May, [facility] [address] [id number] [place] [address] May, [facility] [address] [id number] [place] [address] May, [facility] [address] [id number] [place] [address] Apr, [facility] [address] [id number] [place] [address] Apr, [facility] [address] [id number] [place] [address] Mar, [facility] [address] [id number] [place] [address] Mar, [facility] [address] [id number] [place] [address] Jan, [facility] [address] [id number] [place] [address] Jan, [facility] [address] [id number] [place] [address] Dec, [facility] [address] [id number] [place] [address] Dec, [facility] [address] [id number] [place] [address] Dec, [facility] [address] [id number] [place] [address] Dec, [facility] [address] [id number] [place] [address] Dec, [facility] [address] [id number] [place] [address] Dec, [facility] [address] [id number] [place] [address] Nov, [facility] [address] [id number] [place] [address] Nov, [facility] [address] [id number] [place] [address] Nov, [facility] [address] [id number] [place] [address] Nov, [facility] [address] [id number] [place] [address] Nov, [facility] [address] [id number] [place] [address] Nov, [facility] [address] [id number] [place] [address] 08 Nov, 2012 [facility] [address] [id number] [place] [address] Nov, [facility] [address] [id number] [place] [address] Nov, [facility] [address] [id number] [place] [address] Oct, [facility] [address] [id number] [place] [address] 04 Oct, 2012 [facility] [address] [id number] [place] [address] Aug, [facility] [address] [id number] [place] [address] 16 Aug, 2012 [facility] [address] [id number] [place] [address] Aug, [facility] [address] [id number] [place] [address] Jul, [facility] [address] [id number] [place] [address] Dec, [facility] [address] [id number] [place] [address] Nov, [facility] [address] [id number] [place] [address] Nov, [facility] [address] [id number] [place] [address] Nov, [facility] [address] [id number] [place] [address] Nov, [facility] [address] [id number] [place] [address] Nov, [facility] [address] [id number] [place] [address] Nov, [facility] [address] [id number] [place] [address] Mar, [facility] [address] [id number] [place] [address] Feb, [facility] [address] [id number] [place] [address] Feb, [facility] [address] [id number] [place] [address] Feb, [facility] [address] [id number] [place] [address] 10 Feb, 2011 [facility] [address] [id number] [place] [address] 09 Feb, 2011 [facility] [address] [id number] [place] [address] 09 Jan, 2011 [facility] [address] [id number] [place] [address] 12 Oct, 2010 [facility] [address] [id number] [place] [address] 13 Feb, 2010 [facility] [address] [id number] [place] [address] Jan, [facility] [address] [id number] [place] [address] 14 Jan, 2010 [facility] [address] [id number] [place] [address] 13 Jan, 2010 [facility] [address] [id number] [place] [address] Jan, [facility] [address] [id number] [place] [address] Dec, [facility] [address] [id number] [place] [address] Dec, [facility] [address] [id number] [place] [address] Dec, [facility] [address] [id number] [place] [address] 14 Aug, 2008 [facility] [address] [id number] [place] [address] Jul, [facility] [address] [id number] [place] [address] June, [facility] [address] [id number] [place] [address] June, [facility] [address] [id number] [place] [address] May, [facility] [address] [id number] [place] [address] Apr, IMMUNIZATIONS No Known Immunizations SOCIAL HISTORY Never Assessed REASON FOR VISIT PLAN OF CARE VITAL SIGNS Height 64 in 2013-06-16 Weight 218.6 lbs 2013-06-16 Temperature 97.1 degrees Fahrenheit 2013-06-16 Heart Rate 76 bpm 2013-06-16 Respiratory Rate 18 2013-06-16 Blood pressure systolic 120 mmHg 2013-06-16 Blood pressure diastolic 72 mmHg 2013-06-16 MEDICATIONS Unknown Medications RESULTS No Results PROCEDURES Procedure Date Ordered Result Body Site GLYCATED HEMOGLOBIN TEST June 16, 2013 LIPID PANEL June 16, 2013 COMPREHEN METABOLIC PANEL June 16, 2013 VENIPUNCT, ROUTINE* June 16, 2013 INSTRUCTIONS MEDICATIONS ADMINISTERED No Known Medications MEDICAL (GENERAL) HISTORY Type Description Date Medical History HYPERTENSION Medical History RENAL DISEASE- MICROALBUMINURIA Medical History HYPERLIPIDEMIA Medical History DM TYPE 2- DX'D 2007 Surgical History No Surgical history information
--- OUTSIDE RECORDS SUMMARY | 2019-07-26 05:36 | XMS REPORT ---
Author Author Sandra Georgia Doctor Organization [facility] Address Unknown Phone Unavailable Care Team Providers Care Terrapin Fisher Name Role Phone Migration, Doctor Unavailable Unavailable PROBLEMS Type Condition ICD9-CM Code OQL56-YK Code Onset Dates Condition S tatus SNOMED Code Problem Type 2 diabetes mellitus with other diabetic kid mirela complication E11.29 Active 93276855 Problem Mixed hyperlipidemia E78.2 Active 777769321 Problem Onychomycosis due to dermatophyte B35.1 Active 323525001 Problem Other hammer toe(s) (acquired), right foot M20.41 Active 571321459 Problem Essential hypertension I10 Active 19767452 Problem BMI 40.0-44.9, adult Z68.41 Active 789433711 Problem Type 2 diabetes mellitus with hyperglycemia E11.65 Active [id number] Problem FPC 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.4 Active 554280559 Problem Type 2 diabetes mellitus wit h diabetic neuropathy, unspecified whether fpc insulin use E11.40 Active 480015 06 Problem Other hammer toe(s) (acquired), left foot M20.42 Active 33832022 ALLERGIES No Information ENCOUNTERS Encounter Location Date Diagnosis [place] [address] [address] 14 Mar, 2019 [place] [address] [address] Feb, [place] [address] [address] Feb, [place] [address] [address] 09 Feb, 2019 Type 2 diabetes mellitus with other diab etic kidney complication E11.29 ; Type 2 diabetes mellitus with hyperglycemia E11.65 ; FPC 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.4 ; Essential hypertension I10 and BMI 40.0-44.9, adult Z68.41 [place] [address] [address] Nov, [facility] [place] [id number] [place] [address] Oct, [facility], [place] [address] [address] Aug, Onychomycosis B35.1 ; Contusion of right foot, initial encounter S90.31XA ; Contusion of toe with damage to nail, unspecified toe, initial encounter S90.229A and Type 2 diabetes mellitus with diabetic neuropathy, unspecified whether lobsterman insulin use E11.40 [facility], [place] [address] [id number] [place] [address] Aug, [facility], [place] [address] [address] Jul, [facility], [place] [id number] [place] [address] Jul, [facility], [place] [id number] [place] [address] Jul, [facility], [place] [id number] [place] [address] Jul, [facility], [place] [address] [address] Jul, Type 2 diabetes mellitus with other diab etic kidney complication E11.29 [facility], [place] [id number] [place] [address] June, [facility], [place] [id number] [place] [address] June, [facility], [place] [id number] [place] [address] June, [facility], [place] [address] [address] May, [facility], [place] [address] [address] May, Type 2 diabetes mellitus with other diab etic kidney complication E11.29 and Type 2 diabetes mellitus with hyperglycemia E11.65 [place] [address] [address] May, [place] [address] [address] May, Onychomycosis B35.1 ; Other hammer toe(s ) (acquired), left foot M20.42 ; Other hammer toe(s) (acquired), right foot M20.41 and Type 2 diabetes mellitus with diabetic neuropathy, unspecified whether fpc insulin use E11.40 [place] [address] [address] May, [place] [address] [address] Mar, [place] [address] [address] Mar, [place] [address] [address] Mar, Type 2 diabetes mellitus with other diab etic kidney complication E11.29 ; Essential hypertension I10 ; Mixed hyperlipidemia E78.2 ; Type 2 diabetes mellitus with hyperglycemia E11.65 ; rn long term care 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.4 and Type 2 diabetes mellitus with diabetic neuropathy, unspecified whether fpc insulin use E11.40 [place] [address] [address] Feb, [place] [address] [address] Jan, [place] [address] [address] Dec, Onychomycosis B35.1 ; Type 2 diabetes me llitus with diabetic neuropathy, unspecified whether lobsterman insulin use E11.40 ; Other hammer toe(s) (acquired), right foot M20.41 and Other hammer toe(s) (acquired), left foot M20.42 [place] [address] [address] Dec, [place] [address] [address] 07 Dec, 2017 Dental examination Z01.20 [place] [address] [address] 07 Dec, 2017 Type 2 diabetes mellitus with other diab etic kidney complication E11.29 ; Type 2 diabetes mellitus with hyperglycemia E11.65 ; Essential hypertension I10 and Mixed hyperlipidemia E78.2 [place] [address] [address] 08 Nov, 2017 Type 2 diabetes mellitus with other diab etic kidney complication E11.29 ; Type 2 diabetes mellitus with hyperglycemia E11.65 ; Essential hypertension I10 ; Vaginal itching N89.8 and Encounter for immunization Z23 [place] [address] [address] 13 Oct, 2017 Type 2 diabetes mellitus with other diab etic kidney complication E11.29 [place] [address] [address] Oct, [place] [address] [address] Sep, Onychomycosis B35.1 and Type 2 diabetes mellitus without complications E11.9 [place] [address] [address] Aug, [place] [address] [address] Jul, [place] [address] [address] Jul, [place] [address] [address] Jul, [place] [address] [address] June, [place] [address] [address] June, Type 2 diabetes mellitus with other diab etic kidney complication E11.29 ; Essential hypertension I10 ; Mixed hyperlipidemia E78.2 ; FPC 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.4 and High blood triglycerides E78.1 [facility], [place] [id number] [place] [address] May, [facility], [place] [address] [address] Apr, [facility], [place] [address] [address] Apr, [facility], [place] [address] [address] Mar, [facility], [place] [address] [address] Feb, [facility], [place] [address] [address] Feb, [facility], [place] [address] [address] Feb, [facility], [place] [address] [address] Jan, Type 2 diabetes mellitus with other diab etic kidney complication E11.29 [facility] [address] [facility] [id number] Dec, Dental examination Z01.20 [facility], [place] [id number] [place] [address] 17 Dec, 2016 High blood triglycerides E78.1 [facility] [place] [address] [facility] [address] 14 Dec, 2016 Dental examination Z01.20 [facility], [place] [id number] [place] [address] 09 Dec, 2016 High blood triglycerides E78.1 [facility], [place] [address] [address] 09 Dec, 2016 Type 2 diabetes mellitus with other diab etic kidney complication E11.29 [facility], [place] [address] [address] Nov, Type 2 diabetes mellitus with other diab etic kidney complication E11.29 [facility], [place] [address] [address] 18 Nov, 2016 [facility], [place] [address] [address] 17 Nov, 2016 Type 2 diabetes mellitus with other diab etic kidney complication E11.29 [facility], [place] [address] [address] 09 Nov, 2016 FPC 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.4 ; Encounter for immunization Z23 ; Essential hypertension I10 ; Type 2 diabetes mellitus with other diabetic kidney complication E11.29 and Mixed hyperlipidemia E78.2 [facility] [address] [address] 04 Nov, 2016 [facility], [place] [address] [address] 20 Oct, 2016 [facility] [address] [address] 15 Oct, 2016 Candidiasis of female genita eduard B37.3 and Vaginal discharge N89.8 [facility], [place] [address] [address] 15 Oct, 2016 [facility], [place] [address] [address] 14 Oct, 2016 [facility], [place] [address] [address] Sep, Vaginal yeast infection B37.3 [facility], [place] [address] [address] Jul, [facility], [place] [address] [address] Jul, [facility], [place] [address] [address] Jul, [facility], [place] [address] [address] June, [facility], [place] [address] [address] June, [place] [address] [address] June, Type 2 diabetes mellitus without complic ations E11.9 [place] [address] [address] June, Essential hypertension I10 ; Type 2 diab etes mellitus without complications E11.9 ; FPC 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.4 and Hair loss L65.9 [place] [address] [address] June, [place] [address] [address] May, Onychomycosis B35.1 ; Onychocryptosis L6 0.0 and Type 2 diabetes mellitus without complications E11.9 [place] [address] [address] May, [place] [address] [address] Apr, Type 2 diabetes mellitus without complic ations E11.9 [place] [address] [address] Apr, [place] [address] [address] Apr, Type 2 diabetes mellitus without complic ations E11.9 ; Type 2 diabetes mellitus with hyperglycemia E11.65 and rn long term care 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.4 [place] [address] [address] Apr, [place] [address] [address] Mar, [place] [address] [address] Mar, [place] [address] [address] Mar, Mixed hyperlipidemia E78.2 ; Type 2 diab etes mellitus with other diabetic kidney complication E11.29 ; Essential hypertension I10 and Onychomycosis due to dermatophyte B35.1 [facility], [place] [address] [address] Jan, Type 2 diabetes mellitus with other diab etic kidney complication E11.29 ; Mixed hyperlipidemia E78.2 and Essential hypertension I10 [facility], [place] [id number] [place] [address] Sep, [facility], [place] [address] [address] Sep, [facility], [place] [address] [address] Feb, [facility], [place] [address] [address] Feb, Type 2 diabetes mellitus with other diab etic kidney complication E11.29 ; Essential hypertension I10 and Abnormal menstrual cycle N92.6 [facility], [place] [address] [address] Dec, Type 2 diabetes mellitus with other diab etic kidney complication E11.29 [facility], [place] [address] [address] Nov, Type 2 diabetes mellitus with other diab etic kidney complication E11.29 and Essential hypertension I10 [facility], [place] [address] [address] Nov, [facility], [place] [address] [address] Nov, [facility], [place] [address] [id number] [place] [address] Nov, [facility], [place] [address] [address] Oct, [facility], [place] [address] [address] Oct, [facility], [place] [address] [address] Oct, Diabetes type 2, uncontrolled 250.02 and Hyperlipidemia 272.4 [facility], [place] [id number] [place] [address] Oct, Hyperlipidemia 272.4 and Diabetes type 2 , uncontrolled 250.02 [facility], [place] [id number] [place] [address] Sep, [facility], [place] [id number] [place] [address] Sep, [facility], [place] [id number] [place] [address] Aug, [facility], [place] [address] [id number] [place] [address] Aug, [facility], [place] [address] [id number] [place] [address] Aug, [facility], [place] [address] [id number] [place] [address] Aug, [facility], [place] [address] [place] [id number] [place] [address] Aug, [facility], [place] [address] [id number] [place] [address] Aug, [facility], [place] [address] [id number] [place] [address] Aug, [facility], [place] [id number] [place] [address] Jul, [facility], [place] [id number] [place] [address] Jul, [facility], [place] [id number] [place] [address] Jul, Hyperlipidemia 272.4 [facility], [place] [id number] [place] [address] Jul, [facility], [place] [id number] [place] [address] Jul, Diabetes type 2, uncontrolled 250.02 ; A nkle pain, right 719.47 and Hyperlipidemia 272.4 [facility], [place] [id number] [place] [address] June, [facility], [place] [id number] [place] [address] June, Unspecified essential hypertension 401.9 ; Diabetes type 2, uncontrolled 250.02 ; Joint pain 719.40 and Hyperlipidemia 272.4 [facility], [place] [id number] [place] [address] May, [facility], [place] [id number] [place] [address] May, [facility], [place] [id number] [place] [address] May, [facility], [place] [id number] [place] [address] May, [facility], [place] [id number] [place] [address] Apr, [facility], [place] [id number] [place] [address] Apr, [facility], [place] [id number] [place] [address] Feb, [facility], [place] [id number] [place] [address] Feb, [facility], [place] [id number] [place] [address] Feb, [facility], [place] [id number] [place] [address] Feb, [facility], [place] [id number] [place] [address] Feb, [facility], [place] [id number] [place] [address] Feb, [facility], [place] [id number] [place] [address] Feb, [facility] [address] [id number] [place] [address] 15 Feb, 2014 [facility] [address] [id number] [place] [address] Dec, [facility] [address] [id number] [place] [address] Dec, [facility] [address] [id number] [place] [address] Dec, [facility] [address] [id number] [place] [address] Dec, [facility] [address] [id number] [place] [address] Dec, [facility] [address] [id number] [place] [address] Nov, [facility] [address] [id number] [place] [address] Nov, [facility] [address] [id number] [place] [address] Nov, [facility] [address] [id number] [place] [address] Nov, [facility] [address] [id number] [place] [address] Oct, [facility] [address] [id number] [place] [address] Oct, 2013 [facility] [address] [id number] [place] [address] 25 Oct, 2013 [facility] [address] [id number] [place] [address] 25 Oct, 2013 [facility] [address] [id number] [place] [address] Aug, [facility] [address] [id number] [place] [address] Aug, [facility] [address] [id number] [place] [address] Aug, [facility] [address] [id number] [place] [address] Aug, [facility] [address] [id number] [place] [address] Jul, [facility] [address] [id number] [place] [address] Jul, [facility] [address] [id number] [place] [address] June, [facility] [address] [id number] [place] [address] June, [facility] [address] [id number] [place] [address] May, [facility] [address] [id number] [place] [address] May, [facility] [address] [id number] [place] [address] May, [facility] [address] [id number] [place] [address] May, [facility] [address] [id number] [place] [address] May, [facility] [address] [id number] [place] [address] May, [facility] [address] [id number] [place] [address] Apr, [facility] [address] [id number] [place] [address] Apr, [facility] [address] [id number] [place] [address] Mar, [facility] [address] [id number] [place] [address] Mar, [facility] [address] [id number] [place] [address] Jan, [facility] [address] [id number] [place] [address] Jan, [facility] [address] [id number] [place] [address] Dec, [facility] [address] [id number] [place] [address] Dec, [facility] [address] [id number] [place] [address] Dec, [facility] [address] [id number] [place] [address] Dec, [facility] [address] [id number] [place] [address] Dec, [facility] [address] [id number] [place] [address] Dec, [facility] [address] [id number] [place] [address] Nov, [facility] [address] [id number] [place] [address] Nov, [facility] [address] [id number] [place] [address] Nov, [facility] [address] [id number] [place] [address] Nov, [facility] [address] [id number] [place] [address] Nov, [facility] [address] [id number] [place] [address] Nov, [facility] [address] [id number] [place] [address] 08 Nov, 2012 [facility] [address] [id number] [place] [address] Nov, [facility] [address] [id number] [place] [address] Nov, [facility] [address] [id number] [place] [address] Oct, [facility] [address] [id number] [place] [address] 04 Oct, 2012 [facility] [address] [id number] [place] [address] Aug, [facility] [address] [id number] [place] [address] 16 Aug, 2012 [facility] [address] [id number] [place] [address] Aug, [facility] [address] [id number] [place] [address] Jul, [facility] [address] [id number] [place] [address] Dec, [facility] [address] [id number] [place] [address] Nov, [facility] [address] [id number] [place] [address] Nov, [facility] [address] [id number] [place] [address] Nov, [facility] [address] [id number] [place] [address] Nov, [facility] [address] [id number] [place] [address] Nov, [facility] [address] [id number] [place] [address] Nov, [facility] [address] [id number] [place] [address] Mar, [facility] [address] [id number] [place] [address] Feb, [facility] [address] [id number] [place] [address] Feb, [facility] [address] [id number] [place] [address] Feb, [facility] [address] [id number] [place] [address] 10 Feb, 2011 [facility] [address] [id number] [place] [address] 09 Feb, 2011 [facility] [address] [id number] [place] [id number] 09 Jan, 2011 [facility] [address] [id number] [place] [id number] 12 Oct, 2010 [facility] [address] [id number] [place] [address] 13 Feb, 2010 [facility] [address] [id number] [place] [address] Jan, [facility] [address] [id number] [place] [address] 14 Jan, 2010 [facility] [address] [id number] [place] [id number] 13 Jan, 2010 [facility] [address] [id number] [place] [address] Jan, [facility] [address] [id number] [place] [address] Dec, [facility] [address] [id number] [place] [id number] Dec, [facility] [address] [id number] [place] [address] Dec, [facility] [address] [id number] [place] [id number] 14 Aug, 2008 [facility] [address] [id number] [place] [address] Jul, [facility] [address] [id number] [place] [address] June, [facility] [address] [id number] [place] [address] June, [facility] [address] [id number] [place] [address] May, [facility] [address] [id number] [place] [address] 17 Apr, 2008 IMMUNIZATIONS No Known Immunizations SOCIAL HISTORY Never [...]
--- NOTE | 2019-07-26 05:41 | ED Respiratory ---
General Stated Complaint: SOB Source: patient, EMS ([place]) Exam Limitations: language barrier (Yakut as a second language) (JEFF REBOLLAR) History of Present Illness Date Seen by Provider: July 26, 2019 Time Seen by Provider: 05:20 Initial Comments Patient arrives to ER by EMS from [facility], her home with chief complaint of shortness of breath. She does have a history of asthma and uses albuterol. She received an albuterol and Atrovent en route which she says did not help her breathing. She was in the low 80s on room air when EMS arrived and they put her on 4 L by nasal cannula which brought her up to 96%. She's had a cough but no fevers or chills. She was seen , 2 days ago at [facility] where she follows with Dr. Garza and diagnosed with pneumonia and put on azithromycin and prednisone. Patient does not smoke nor does anyone in her household. She was never a smoker. She does have a strong family history of lung disease. She feels significantly worse since being seen on . She had swabs for strep, influenza and COVID-19 at the clinic but has not received the results yet. She has a history of diabetes, hypertension on losartan and takes a statin. She had a moderate headache earlier and took 2 Tylenol. Her headache is now mild. (JEFF REBOLLAR) Allergies and Home Medications Allergies Coded Allergies: No Known Drug Allergies (Unverified , 10/03/15) Home Medications Acetaminophen 500 Mg Tablet, 1,000 MG PO Q6HR Prescribed by: NIKKI CRUZ on 02/23/19 0732 Atorvastatin Calcium 40 Mg Tablet, 40 MG PO DAILY, (Reported) Canagliflozin 300 Mg Tablet, 300 MG PO DAILY, (Reported) Glyburide,Micronized 3 Mg Tablet, 5 MG PO DAILY@0630 Prescribed by: NIKKI CRUZ on 02/23/19 0836 Ibuprofen 600 Mg Tablet, 600 MG PO Q6H Prescribed by: NIKKI CRUZ on 02/23/19 0732 Ibuprofen 600 Mg Tablet, 600 MG PO Q6HR Prescribed by: NIKKI CRUZ on 02/23/19 0836 Losartan Potassium 25 Mg Tablet, 25 MG PO DAILY, (Reported) Metformin HCl 500 Mg Tablet, 1,000 MG PO BID@ Prescribed by: NIKKI CRUZ on 02/23/19835 Misoprostol 200 Mcg Tablet, 200 MCG PO TID Prescribed by: NIKKI CRUZ on 02/23/19835 Patient Home Medication List Home Medication List Reviewed: Yes (JEFF REBOLLAR) Review of Systems Review of Systems Constitutional: No chills, No fever; malaise, weakness EENTM: No ear discharge, No ear pain Respiratory: cough; No orthopnea; phlegm, short of breath; No wheezing Cardiovascular: No chest pain, No edema, No Hx of Intervention, No palpi tations, No syncope Gastrointestinal: No abdominal pain, No constipation, No diarrhea, No dysphagia Genitourinary: No discharge, No dysuria Musculoskeletal: No back pain, No joint pain Skin: No pruritus, No rash Psychiatric/Neurological: Headache; Denies Numbness, Denies Paresthesia (JEFF REBOLLAR) All Other Systems Reviewed Negative Unless Noted: Yes (JEFF REBOLLAR) Past Mxebnsm-Pficpq-Gqzddm Hx Patient Social History Alcohol Use: Denies Use Recreational Drug Use: No Smoking Status: Never a Smoker Recent Hopitalizations: No (JEFF REBOLLAR) Immunizations Up To Date Tetanus Booster (TDap): Unknown Date of Pneumonia Vaccine: Aug 01, 2012 Date of Influenza Vaccine: Dec 25, 2018 (JEFF REBOLLAR) Seasonal Allergies Seasonal Allergies: No (JEFF REBOLLAR) Past Medical History Surgeries: No Respiratory: No Cardiac: No Neurological: No Reproductive Disorders: No Female Reproductive Disorders: Denies Sexually Transmitted Disease: No HIV/AIDS: No Genitourinary: No Gastrointestinal: No Musculoskeletal: No Endocrine: Yes Diabetes, Insulin dep HEENT: No Cancer: No Psychosocial: No Integumentary: No Blood Disorders: No Adverse Reaction/Blood Tranf: No (JEFF REBOLLAR) Family Medical History Diabetes mellitus (MOTHER- NON INSULIN FATHER- INSULIN) FH: CVA (cerebrovascular accident) (PARENTS) FH: epilepsy (MGF) FH: stroke (PARENTS) Hypertension (FATHER, PGM) No Pertinent Family Hx (JEFF REBOLLAR) Physical Exam Vital Signs - First Documented 07/26/19 05:26 Temp 37.2 Pulse 84 Resp 20 B/P (MAP) 117/69 (85) Pulse Ox 94 O2 Delivery Nasal Cannula O2 Flow Rate 2.00 (EVAN GREEN MD) Capillary Refill : (JEFF REBOLLAR) Height: 5'4.00" Weight: 256lbs. 0.8oz. 116.220584ua; 51.36 BMI Method:Stated General Appearance: WD/WN, moderate distress Eyes: Left Eye Normal Inspection, Left Eye PERRL, Left Eye EOMI HEENT: PERRL/EOMI, normal ENT inspection, pharynx normal Neck: full range of motion, supple, normal inspection Respiratory: respiratory distress (mild to moderate), decreased breath sounds, accessory muscle use (mild), rales (right base) Cardiovascular: normal peripheral pulses, regular rate, rhythm, no edema Gastrointestinal: normal bowel sounds, non tender, soft Extremities: normal inspection, no pedal edema, normal capillary refill Neurologic/Psychiatric: alert, normal mood/affect, oriented x 3 Skin: normal color, warm/dry (JEFF REBOLLAR) Focused Exam Lactate Level 07/26/19 05:35: Lactic Acid Level 1.14 (EVAN GREEN MD) Lactic Acid Level Laboratory Tests Test 07/26/19 05:35 Lactic Acid Level 1.14 MMOL/L (0.50-2.00) (EVAN GREEN MD) Progress/Results/Core Measures Suspected Sepsis SIRS Temperature: Pulse: Respiratory Rate: Laboratory Tests 07/26/19 05:35: White Blood Count 7.3 Blood Pressure / Mean: 07/26/19 05:35: Lactic Acid Level 1.14 Laboratory Tests 07/26/19 05:35: Creatinine 0.74, INR Comment 1.0, Platelet Count 244, Total Bilirubin 0.5 (JEFF REBOLLAR) Results/Orders Lab Results Laboratory Tests Test 07/26/19 05:35 07/26/19 05:47 07/26/19 07:45 Range/Units White Blood Count 7.3 4.3-11.0 10^3/uL Red Blood Count 4.99 4.35-5.85 10^6/uL Hemoglobin 11.9 11.5-16.0 G/DL Hematocrit 38 35-52 % Mean Corpuscular Volume 76 L 80-99 FL Mean Corpuscular Hemoglobin 24 L 25-34 PG Mean Corpuscular Hemoglobin Concent 31 L 32-36 G/DL Red Cell Distribution Width 16.2 H 10.0-14.5 % Platelet Count 244 130-400 10^3/uL Mean Platelet Volume 10.2 7.4-10.4 FL Neutrophils (%) (Auto) 81 H 42-75 % Lymphocytes (%) (Auto) 9 L 12-44 % Monocytes (%) (Auto) 10 0-12 % Eosinophils (%) (Auto) 0 0-10 % Basophils (%) (Auto) 0 0-10 % Neutrophils # (Auto) 5.9 1.8-7.8 X 10^3 Lymphocytes # (Auto) 0.7 L 1.0-4.0 X 10^3 Monocytes # (Auto) 0.7 0.0-1.0 X 10^3 Eosinophils # (Auto) 0.0 0.0-0.3 10^3/uL Basophils # (Auto) 0.0 0.0-0.1 10^3/uL Erythrocyte Sedimentation Rate 53 H 0-20 MM/HR Prothrombin Time 13.2 12.2-14.7 SEC INR Comment 1.0 0.8-1.4 Activated Partial Thromboplast Time 34 24-35 SEC D-Dimer 0.38 0.00-0.49 UG/ML Sodium Level 140 135-145 MMOL/L Potassium Level 4.2 3.6-5.0 MMOL/L Chloride Level 103 98-107 MMOL/L Carbon Dioxide Level 26 21-32 MMOL/L Anion Gap 11 5-14 MMOL/L Blood Urea Nitrogen 13 7-18 MG/DL Creatinine 0.74 0.60-1.30 MG/DL Estimat Glomerular Filtration Rate > 60 BUN/Creatinine Ratio 18 Glucose Level 119 H 70-105 MG/DL Lactic Acid Level 1.14 0.50-2.00 MMOL/L Calcium Level 9.1 8.5-10.1 MG/DL Corrected Calcium 9.1 8.5-10.1 MG/DL Total Bilirubin 0.5 0.1-1.0 MG/DL Aspartate Amino Transf (AST/SGOT) 30 5-34 U/L Alanine Aminotransferase (ALT/SGPT) 68 H 0-55 U/L Alkaline Phosphatase 93 40-136 U/L Lactate Dehydrogenase 311 H 125-220 U/L Troponin I < 0.028 <0.028 NG/ML C-Reactive Protein High Sensitivity 16.57 H 0.00-0.50 MG/DL B-Type Natriuretic Peptide 16.7 <100.0 PG/ML Total Protein 8.3 H 6.4-8.2 GM/DL Albumin 4.0 3.2-4.5 GM/DL Procalcitonin 0.07 <0.10 NG/ML Blood Gas Puncture Site RIGHT RADIAL Blood Gas Patient Temperature 37.2 Arterial Blood pH 7.48 H 7.37-7.43 Arterial Blood Partial Pressure CO2 38 35-45 MMHG Arterial Blood Partial Pressure O2 74 L 79-93 MMHG Arterial Blood HCO3 28 H 23-27 MMOL/L Arterial Blood Total CO2 28.7 21.0-31.0 MMOL/L Arterial Blood Oxygen Saturation 93 L 94-100 % Arterial Blood Base Excess 4.1 H -2.5-2.5 MMOL/L Eugene Test YES-POS Blood Gas Ventilator Setting NO Blood Gas Inspired Oxygen 4L (EVAN GREEN MD) Micro Results Microbiology 07/26/19 Influenza Types A,B Antigen (TIMOTEO) - Final, Complete (EVAN GREEN MD) My Orders Orders - EVAN GREEN MD Hs C Reactive Protein (07/26/19 06:13) Coronavirus Sars-Cov-2 So 2018 (07/26/19 07:36) Methylprednisolone Sod Succ (Solu-Medrol (07/26/19 08:04) (EVAN GREEN MD) Medications Given in ED Current Medications Medications Dose Ordered Sig/Alicia Route Start Time Stop Time Status Last Admin Dose Admin Azithromycin 500 mg/Sodium Chloride 250 ml @ 250 mls/hr ONCE ONCE IV 07/26/19 05:45 07/26/19 06:44 DC 07/26/19 06:09 250 MLS/HR Ceftriaxone Sodium 1000 mg/ Sterile Water 10 ml @ 200 mls/hr ONCE ONCE IV 07/26/19 05:45 07/26/19 05:47 DC 07/26/19 06:08 200 MLS/HR Sodium Chloride 500 ml @ 0 mls/hr Q0M ONCE IV 07/26/19 05:31 07/26/19 05:36 DC 07/26/19 06:08 500 MLS/HR (EVAN GREEN MD) Vital Signs/I&O 07/26/19 07/26/19 07/26/19 05:26 05:26 08:16 Temp 37.2 Pulse 84 Resp 20 B/P (MAP) 117/69 (85) Pulse Ox 94 94 94 O2 Delivery Nasal Cannula OxyMask O2 Flow Rate 2.00 2.00 10.00 (EVAN GREEN MD) Vital Signs/I&O Capillary Refill : (JEFF REBOLLAR) Progress Note : Time: 05:56 Progress Note Patient has crackles in the right lower base and was previously diagnosed with pneumonia. We'll get a chest x-ray, septic workup, ABG, EKG, BNP and troponin. She does not have any edema or JVD. We'll contact the clinic when they open to find out the results of her COVID-19 testing. She was reading in the 92-96% range on 4 L by nasal cannula and doing some mouth breathing so switched her to 6 L by simple O2 mask. (JEFF REBOLLAR) Progress Note : Progress Note Assumed care of the patient at 0600 pending labs. 0645: Patient is person under investigation and we do not have results from [facility]. She is requiring 4 L of oxygen to maintain O2 saturations above 92%. She is not normally on oxygen. We have added labs to evaluate for COVID-19 infection as well as d- dimer. D-dimer is negative. Other labs pending. Patient will require admission. Patient has been placed in appropriate COVID-19 person under investigation precautions. 0805: Patient with continued oxygen requirement currently on oxygen mask at 10 L to keep sats greater than 92% (currently 94%). I have significant concerns related to viral pneumonia. I was able to discuss with Dr. Mistry from the clinic regarding patient's COVID-19 testing that was done on . That swab is negative. Patient was initiated on azithromycin for concerns for community-acquired pneumonia outpatient and she has had Rocephin and azithromycin here today due to those concerns. Chest x-ray shows significant bilateral pulmonary infiltrates versus edema. BNP is normal so I do not think this is edema. CRP is significantly elevated with a normal white count and greater than 3-1 ratio of ANC to ALC ratio. LDH and erythrocyte sedimentation rate are elevated. Pro calcitonin is normal. All findings still point to viral etiology for pneumonia and ARDS pattern on chest x-ray. I did discuss with the patient regarding findings and concerns. We did discuss advanced airways including intubation. She would like to try to continue with the mask right now but understands that she may need more assistance. I did discuss the case with Dr. Brush, on-call for [facility] and she accepts patient for admission to the ICU, inpatient status. Requested discussion with Dr. Reddy. This was done. He agrees with continuing Rocephin and azithromycin given viral in etiology for community acquired pneumonia coverage. Also recommends initiation of Solu-Medrol given patient's history of asthma. Solu-Medrol 125 mg IV was ordered. We have repeated the COVID-19 swab due to concerns about COVID-19 infection and patient will remain person under investigation with appropriate protocols. Patient to be admitted to the ICU. I will discuss with virtual ICU team as well. Patient agrees to plan.0840: Report given to [facility] ICU team. Patient tolerating ok currently. (EVAN GREEN MD) ECG Initial ECG Impression Date: July 26, 2019 (JEFF REBOLLAR) Initial ECG Impression Time: 06:15 Initial ECG Rate: 77 Initial ECG Comparisson: Unchanged Comment Sinus rhythm with rightward axis. No evidence of ST elevation AK. Similar to previous of 01/06/11. Interpreted by me. (EVAN GREEN MD) Diagnostic Imaging Diagonstic Imaging: Xray Plain Films/CT/US/NM/MRI: chest Comments [facility]. [place], [place] NAME: NORMA CHACKO [facility] REC#: [id number] PT STATUS: REG ER : 1975 PHYSICIAN: JEFF REBOLLAR MD ADMIT DATE: 07/26/19/ER Draft Date of Exam:07/26/19 CHEST 1 VIEW, AP/PA ONLY EXAMINATION: Chest 1 view INDICATION: Shortness of breath. COMPARISON: 01/06/2011 FINDINGS: Heart is enlarged, increased from prior exam. No pleural effusion. There are extensive bilateral airspace opacities. No pneumothorax. IMPRESSION: 1. Cardiomegaly with extensive bilateral airspace opacities. Findings may represent severe edema versus pneumonia. Dictated on workstation # [id number] Dict: 07/26/19 0745 Trans: 07/26/19 0747 [id number] Interpreted by: PETER STAPLETON MD Electronically signed by: Reviewed: Reviewed by Me (EVAN GREEN MD) Departure Communication (Admissions) Time/Spoke to Admitting Phy: 07:55 Time/Spoke to Consulting Phy: 07:58 (EVAN GREEN MD) Impression Primary Impression: Bilateral pneumonia Qualified Codes: J18.9 - Pneumonia, unspecified organism Additional Impressions: COVID-19 evaluation Respiratory distress Hypoxia Disposition: ADMITTED INPATIENT Condition: Critical Admissions Decision to Admit Reason: Admit from ER (General) Decision to Admit/Date: July 26, 2019 Time/Decision to Admit Time: 07:55 (EVAN GREEN MD) Departure-Patient Inst. Referrals: GUIDO MISTRY DO (PCP/Family) Primary Care Physician JEFF REBOLLAR July 26, 2019 05:41 EVAN GREEN MD July 26, 2019 06:52
--- OUTSIDE RECORDS SUMMARY | 2019-07-26 05:42 | XMS REPORT | Continuity of Care Document ---
Demographics Preferred Language Unknown Marital Status Unknown Mu-Ism Affiliation Unknown Race Unknown Ethnic Group Unknown Author Organization Unknown Address Unknown Phone Unavailable Allergies Active Description Code Type Severity Reaction Onset Reported/Identified Relationship to Patient Clinical Status Yes lisinopril Drug Allergy 10/20/2009 Yes lisinopril Drug Allergy N/A N/A 10/20/2009 Yes No Known Drug Allergies [id number] Drug Allergy Mild N/A 10/03/2015 Medications There is no data. Problems Date Dx Coded Attending Type Code Diagnosis Diagnosed By 05/12/2008 250.02 CRISTY BETES MELLITUS POORLY CONTROLLED 05/12/2008 641.90 Ble eding During 05/12/2008 250.02 CRISTY BETES MELLITUS POORLY CONTROLLED 05/12/2008 641.90 Ble eding During 05/12/2008 GUIDO LUNA DO 250.02 DIABETES MELLITUS POORLY CONTROLLED 05/12/2008 GUIDO LUNA DO 641.90 Bleeding During 05/12/2008 GUIDO LUNA DO K 250.02 DIABETES MELLITUS POORLY CONTROLLED 05/12/2008 GUIDO LUNA DO K 641.90 Bleeding During 05/12/2008 GUIDO LUNA DO K 250.02 DIABETES MELLITUS POORLY CONTROLLED 05/12/2008 GUIDO LUNA DO K 641.90 Bleeding During 05/12/2008 GUIDO LUNA DO K 250.02 DIABETES MELLITUS POORLY CONTROLLED 05/12/2008 GUIDO LUNA DO K 641.90 Bleeding During 05/12/2008 LENORE PATEL APRN R 250.02 DIABETES MELLITUS POORLY CONTROLLED 05/12/2008 AMANDA WASHBURN LENORE R 641.90 Bleeding During 05/12/2008 AMANDA WASHBURN LENORE R 250.02 DIABETES MELLITUS POORLY CONTROLLED 05/12/2008 BENITO PTAEL APRNINA R 641.90 Bleeding During 05/12/2008 GUIDO LUNA DO K 250.02 DIABETES MELLITUS POORLY CONTROLLED 05/12/2008 CHINA LUNA DOA K 641.90 Bleeding During 06/05/2008 V22.0 Pc N ormal First 06/05/2008 V23.9 High -risk Care Unspec 06/05/2008 V22.0 Pc N ormal First 06/05/2008 V23.9 High -risk Care Unspec 06/05/2008 LNUA DO, GUIDO K V22.0 Pc Normal First 06/05/2008 LUNA DO, GUIDO K V23.9 High-risk Care Unspec 06/05/2008 LUNA DO, GUIDO K V22.0 Pc Normal First 06/05/2008 LUNA DO, GUIDO K V23.9 High-risk Care Unspec 06/05/2008 LUNA DO GUIDO K V22.0 Pc Normal First 06/05/2008 LUNA DO, GUIDO K V23.9 High-risk Care Unspec 06/05/2008 LUNA DO, GUIDO K V22.0 Pc Normal First 06/05/2008 LUNA DO, GUIDO K V23.9 High-risk Care Unspec 06/05/2008 AMANDA EARLY CHILDHOOD, LENORE R V22.0 Pc Normal First 06/05/2008 AMANDA EARLY CHILDHOOD, LENORE R V23.9 High-risk Care Unspec 06/05/2008 AMANDA EARLY CHILDHOOD, LENORE R V22.0 Pc Normal First 06/05/2008 AMANDA EARLY CHILDHOOD, LENORE R V23.9 High-risk Care Unspec 06/05/2008 LUNA DO GUIDO K V22.0 Pc Normal First 06/05/2008 LUNA DO GUIDO K V23.9 High-risk Care Unspec 07/07/2008 616.10 VAG INITIS VULVOVAGINITIS UNSPECIFIED 07/07/2008 616.10 VAG INITIS VULVOVAGINITIS UNSPECIFIED 07/07/2008 GUIDO LUNA DO K 616.10 VAGINITIS VULVOVAGINITIS UNSPECIFIED 07/07/2008 CHINA LUNA DOA K 616.10 VAGINITIS VULVOVAGINITIS UNSPECIFIED 07/07/2008 LUNA CHINA LEONARDOA K 616.10 VAGINITIS VULVOVAGINITIS UNSPECIFIED 07/07/2008 LUNA CHINA LEONARDOA K 616.10 VAGINITIS VULVOVAGINITIS UNSPECIFIED 07/07/2008 AMANDA EARLY CHILDHOOD, LENORE R 616.10 VAGINITIS VULVOVAGINITIS UNSPECIFIED 07/07/2008 AMANDA EARLY CHILDHOOD, LENORE R 616.10 VAGINITIS VULVOVAGINITIS UNSPECIFIED 07/07/2008 GUIDO LUNA DO 616.10 VAGINITIS VULVOVAGINITIS UNSPECIFIED 09/08/2008 616.10 Vag initis Vulvovaginitis Unspecified 09/08/2008 616.10 Vag initis Vulvovaginitis Unspecified 09/08/2008 GUIDO LUNA DO 616.10 Vaginitis Vulvovaginitis Unspecified 09/08/2008 GUIDO LUNA DO 616.10 Vaginitis Vulvovaginitis Unspecified 09/08/2008 GUIDO LUNA DO K 616.10 Vaginitis Vulvovaginitis Unspecified 09/08/2008 GUIDO LUNA DO K 616.10 Vaginitis Vulvovaginitis Unspecified 09/08/2008 AMANDA WASHBURN, LENORE R 616.10 Vaginitis Vulvovaginitis Unspecified 09/08/2008 AMANDA WASHUBRN, LENORE R 616.10 Vaginitis Vulvovaginitis Unspecified 09/08/2008 GUIDO LUNA DO 616.10 Vaginitis Vulvovaginitis Unspecified 01/25/2009 V24.2 visi t for: exam 01/25/2009 V24.2 visi t for: exam 01/25/2009 GUIDO LUNA DO V24.2 visit for: exam 01/25/2009 GUIDO LUNA DO V24.2 visit for: exam 01/25/2009 GUIDO LUNA DO V24.2 visit for: exam 01/25/2009 GUIDO LUNA DO V24.2 visit for: exam 01/25/2009 BENITO PATEL APRNINA R V24.2 visit for: exam 01/25/2009 AMANDA WASHBURN, LENORE R V24.2 visit for: exam 01/25/2009 GUIDO LUNA DO V24.2 visit for: exam 05/17/2009 V25.40 Vis it For: Contraceptive Surveillance 05/17/2009 V25.40 Vis it For: Contraceptive Surveillance 05/17/2009 GUIDO LUNA DO V25.40 Visit For: Contraceptive Surveillance 05/17/2009 GUIDO LUNA DO V25.40 Visit For: Contraceptive Surveillance 05/17/2009 GUIDO LUNA DO V25.40 Visit For: Contraceptive Surveillance 05/17/2009 LUNA DO, GUIDO K V25.40 Visit For: Contraceptive Surveillance 05/17/2009 LENORE PATEL APRN V25.40 Visit For: Contraceptive Surveillance 05/17/2009 LENORE PATEL APRN V25.40 Visit For: Contraceptive Surveillance 05/17/2009 LUNA DO, GUIDO K V25.40 Visit For: Contraceptive Surveillance 08/23/2009 272.4 DYSL IPIDEMIA 08/23/2009 V58.69 ramona ing high-risk medication 08/23/2009 272.4 DYSL IPIDEMIA 08/23/2009 V58.69 ramona ing high-risk medication 08/23/2009 LUNA DO, GUIDO K 272.4 DYSLIPIDEMIA 08/23/2009 LUNA DO, GUIDO K V58.69 taking high-risk medication 08/23/2009 LUNA DO, GUIDO K 272.4 DYSLIPIDEMIA 08/23/2009 LUNA DO, GUIDO K V58.69 taking high-risk medication 08/23/2009 LUNA DO, GUIDO K 272.4 DYSLIPIDEMIA 08/23/2009 LUNA DO, GUIDO K V58.69 taking high-risk medication 08/23/2009 LUNA DO, GUIDO K 272.4 DYSLIPIDEMIA 08/23/2009 LUNA DO, GUIDO K V58.69 taking high-risk medication 08/23/2009 LENORE PATEL APRN R 272.4 DYSLIPIDEMIA 08/23/2009 LENORE PATEL APRN R V58.69 taking high-risk medication 08/23/2009 LENORE PATEL APRN R 272.4 DYSLIPIDEMIA 08/23/2009 LENORE PATEL APRN R V58.69 taking high-risk medication 08/23/2009 LUNA DO, GUIDO K 272.4 DYSLIPIDEMIA 08/23/2009 LUNA DO, GUIDO K V58.69 taking high-risk medication 02/07/2010 250.00 CRISTY BETES MELLITUS TYPE 2 02/07/2010 250.00 CRISTY BETES MELLITUS TYPE 2 02/07/2010 LUNA DO, GUIDO K 250.00 DIABETES MELLITUS TYPE 2 02/07/2010 LUNA DO, GUIDO K 250.00 DIABETES MELLITUS TYPE 2 02/07/2010 LUNA DO, GUIDO K 250.00 DIABETES MELLITUS TYPE 2 02/07/2010 LUNA DO, GUIDO K 250.00 DIABETES MELLITUS TYPE 2 02/07/2010 AMANDA EARLY CHILDHOOD, LENORE R 250.00 DIABETES MELLITUS TYPE 2 02/07/2010 AMANDA EARLY CHILDHOOD, LENORE R 250.00 DIABETES MELLITUS TYPE 2 02/07/2010 LUNA DO, GUIDO K 250.00 DIABETES MELLITUS TYPE 2 03/10/2010 V22.2 Preg nant Incidental 03/10/2010 V22.2 Preg nant Incidental 03/10/2010 LUNA DO, GUIDO K V22.2 Incidental 03/10/2010 LUNA DO, GUIDO K V22.2 Incidental 03/10/2010 LUNA DO, GUIDO K V22.2 Incidental 03/10/2010 LUNA DO, GUIDO K V22.2 Incidental 03/10/2010 AMANDA EARLY CHILDHOOD, LENORE R V22.2 Incidental 03/10/2010 AMANDA EARLY CHILDHOOD, LENORE R V22.2 Incidental 03/10/2010 LUNA DO, GUIDO K V22.2 Incidental 03/28/2010 Ot 640.03 10/03/2010 Ot 655.73 DEC R MOVEMNT ANTEPARTUM CONDITION 11/03/2010 Ot 250.00 CRISTY B LEAH WO COMPL, TYPE II OR UNSPEC TY 11/03/2010 Ot 272.4 HYPE RLIPIDEMIA NEC/NOS 11/03/2010 Ot 285.9 ANEM IA NOS 11/03/2010 Ot 642.91 HYP ERTENS NOS- DELIVERED 11/03/2010 Ot 648.01 CRISTY BETES- DELIVERED 11/03/2010 Ot 648.22 ANE [place]-DELIVERED W P/P 11/03/2010 Ot 648.91 OTH CURR COND- DELIVERED 11/03/2010 Ot 656.61 EXC ESS GRTH-DELIV 11/03/2010 Ot 657.01 POLYHYDRAMNIOS,DEL W OR W/O MENTN ANTEPA 11/03/2010 Ot 660.41 LOR ULDER DYSTOCIA-DELIV 11/03/2010 Ot V02.51 JASSI UP B STREPT CARRIER/SUSPECTED CARRIER 11/03/2010 Ot V27.0 DELI MOIRA-SINGLE LIVEBORN 01/06/2011 Ot 465.9 ACUT E URI NOS 01/06/2011 Ot 786.2 COUGH 01/06/2011 Ot 786.52 DOTTY NFUL RESPIRATION 03/06/2011 401.9 HYPE RTENSION (SYSTEMIC) 03/06/2011 V04.81 Vac cines Prophylactic Need Against Influenza 03/06/2011 401.9 HYPE RTENSION (SYSTEMIC) 03/06/2011 V04.81 VAC CINES PROPHYLACTIC NEED AGAINST INFLUENZA 03/06/2011 LUNA DO, GUIDO K 401.9 HYPERTENSION (SYSTEMIC) 03/06/2011 LUNA DO, GUIDO K V04.81 VACCINES PROPHYLACTIC NEED AGAINST INFLUENZA 03/06/2011 LUNA DO, GUIDO K 401.9 HYPERTENSION (SYSTEMIC) 03/06/2011 LUNA DO, GUIDO K V04.81 VACCINES PROPHYLACTIC NEED AGAINST INFLUENZA 03/06/2011 LUNA DO, GUIDO K 401.9 HYPERTENSION (SYSTEMIC) 03/06/2011 LUNA DO, GUIDO K V04.81 VACCINES PROPHYLACTIC NEED AGAINST INFLUENZA 03/06/2011 LUNA DO, GUIDO K 401.9 HYPERTENSION (SYSTEMIC) 03/06/2011 LUNA DO, GUIDO K V04.81 VACCINES PROPHYLACTIC NEED AGAINST INFLUENZA 03/06/2011 AMANDA EARLY CHILDHOOD, LENORE R 401.9 HYPERTENSION (SYSTEMIC) 03/06/2011 AMANDA EARLY CHILDHOOD, LENORE R V04.81 VACCINES PROPHYLACTIC NEED AGAINST INFLUENZA 03/06/2011 AMANDA EARLY CHILDHOOD, LENORE R 401.9 HYPERTENSION (SYSTEMIC) 03/06/2011 AMANDA EARLY CHILDHOOD, LENORE R V04.81 VACCINES PROPHYLACTIC NEED AGAINST INFLUENZA 03/06/2011 LUNA DO, GUIDO K 401.9 HYPERTENSION (SYSTEMIC) 03/06/2011 LUNA DO, GUIDO K V04.81 VACCINES PROPHYLACTIC NEED AGAINST INFLUENZA 12/25/2011 V72.42 Pre gnancy Test Positive 12/25/2011 V72.42 PRE GNANCY TEST POSITIVE 12/25/2011 LUNA DO, GUIDO K V72.42 TEST POSITIVE 12/25/2011 LUNA DO, GUIDO K V72.42 TEST POSITIVE 12/25/2011 LUNA DO, GUIDO K V72.42 TEST POSITIVE 12/25/2011 LUNA DO, GUIDO K V72.42 TEST POSITIVE 12/25/2011 AMANDA EARLY CHILDHOOD LENORE R V72.42 TEST POSITIVE 12/25/2011 AMANDA EARLY CHILDHOOD, LENORE R V72.42 TEST POSITIVE 12/25/2011 LUNA DO, GUIDO K V72.42 TEST POSITIVE 08/01/2012 NIKKI CRUZ DO Ot 648.0 1 DIABETES-DELIVERED 08/01/2012 NIKKI CRZU DO Ot 648.9 1 OTH CURR COND-DELIVERED 08/01/2012 NIKKI CRUZ DO Ot 656.6 1 EXCESS GRTH-DELIV 08/01/2012 NIKKI CRUZ DO Ot 657.0 1 POLYHYDRAMNIOS,DEL W OR W/O MENTN ANTEPA 08/01/2012 NANCY LEONARDO NIKKI Thao Ot 660.4 1 SHOULDER DYSTOCIA-DELIV 08/01/2012 NIKKI CRUZ DO Ot V02.5 1 GROUP B STREPT CARRIER/SUSPECTED CARRIER 08/01/2012 NANCY LEONARDO NIKKI Osuna Ot V03.8 2 PROPHYLACTIC VACC AGAINST STREPTOCOCCUS 08/01/2012 NANCY LEONARDO NIKKI Thao Ot V06.1 [id number], COMBINED [ 08/01/2012 NIKKI CRUZ DO Ot V27.0 DELIVER-SINGLE LIVEBORN 10/15/2012 DIEGO MOSQUEDA Ot 719.45 JOINT PAIN-PELVIS 10/15/2012 DIEGO MOSQUEDA Ot 724.3 SCIATICA 10/30/2012 110.1 DERM ATOPHYTOSIS OF NAIL 10/30/2012 848.8 OTHE R SPECIFIED SITES OF SPRAINS AND STRAINS 10/30/2012 CHINA LUNA DOA K 110.1 DERMATOPHYTOSIS OF NAIL 10/30/2012 CHINA LUNA DOA K 848.8 OTHER SPECIFIED SITES OF SPRAINS AND STRAINS 10/30/2012 CHINA LUNA DOA K 110.1 DERMATOPHYTOSIS OF NAIL 10/30/2012 CHINA LUNA DOA K 848.8 OTHER SPECIFIED SITES OF SPRAINS AND STRAINS 10/30/2012 CHINA LUNA DOA K 110.1 DERMATOPHYTOSIS OF NAIL 10/30/2012 CHINA LUNA DOA K 848.8 OTHER SPECIFIED SITES OF SPRAINS AND STRAINS 10/30/2012 LUNA CHINA LEONARDOA K 110.1 DERMATOPHYTOSIS OF NAIL 10/30/2012 CHINA LUNA DOA K 848.8 OTHER SPECIFIED SITES OF SPRAINS AND STRAINS 10/30/2012 LENORE PATEL APRN R 110.1 DERMATOPHYTOSIS OF NAIL 10/30/2012 LENORE PATEL APRN R 848.8 OTHER SPECIFIED SITES OF SPRAINS AND STRAINS 10/30/2012 LENORE PATEL APRN R 110.1 DERMATOPHYTOSIS OF NAIL 10/30/2012 LENORE PATEL APRN R 848.8 OTHER SPECIFIED SITES OF SPRAINS AND STRAINS 10/30/2012 GUIDO LUNA DO K 110.1 DERMATOPHYTOSIS OF NAIL 10/30/2012 GUIDO LUNA DO K 848.8 OTHER SPECIFIED SITES OF SPRAINS AND STRAINS 11/28/2012 GUIDO LUNA DO K 724.2 LUMBAGO/ LOW BACK PAIN 11/28/2012 CHINA LUNA DOA K 724.2 LUMBAGO/ LOW BACK PAIN 11/28/2012 CHINA LUNA DOA K 724.2 LUMBAGO/ LOW BACK PAIN 11/28/2012 CHINA LUNA DOA K 724.2 LUMBAGO/ LOW BACK PAIN 11/28/2012 LENORE PATEL APRN R 724.2 LUMBAGO/ LOW BACK PAIN 11/28/2012 LENORE PATEL APRN R 724.2 LUMBAGO/ LOW BACK PAIN 11/28/2012 GUIDO LUNA DO K 724.2 LUMBAGO/ LOW BACK PAIN 07/03/2013 LENORE PATEL APRN R V72.42 EXAMINATION OR TEST POSITIVE RESULT 07/03/2013 LENORE PATEL APRN R V72.42 EXAMINATION OR TEST POSITIVE RESULT 07/03/2013 GUIDO LUNA DO K V72.42 EXAMINATION OR TEST POSITIVE RESULT 08/26/2013 SLIM DIAZ APRN Ot 112 .1 CANDIDAL VULVOVAGINITIS 09/17/2013 SLIM DIAZ APRN Ot 354 .0 CARPAL TUNNEL SYNDROME 12/21/2013 QUYEN SANTIZO DO Ot 655.73 DECR MOVEMNT ANTEPARTUM CONDITION 12/21/2013 QUYEN SANTIZO DO Ot V04.81 ND FOR PROPHYLACTIC VACCIN AND INOCULATI 02/14/2014 NIKKI CRUZ DO Ot 648.0 1 DIABETES-DELIVERED 02/14/2014 NIKKI CRUZ DO Ot 648.9 1 OTH CURR COND-DELIVERED 02/14/2014 NIKKI CRUZ DO Ot 656.6 1 EXCESS GRTH-DELIV 02/14/2014 NIKKI CRUZ DO Ot 659.7 1 ABN DEL FET HT RT/RHYTHM,W OR W/O MENTIO 02/14/2014 NIKKI CRUZ DO Ot 663.3 1 CORD ENTANGLE NEC-DELIV 02/14/2014 NIKKI CRUZ DO Ot V02.5 1 GROUP B STREPT CARRIER/SUSPECTED CARRIER 02/14/2014 NIKKI CRUZ DO Ot V06.1 [id number], COMBINED [ 02/14/2014 NIKKI CRUZ DO Ot V27.0 DELIVER-SINGLE LIVEBORN 02/24/2014 Ot 250.00 02/24/2014 Ot 272.4 02/24/2014 LENORE PATEL APRN Ot 722.10 02/24/2014 LENORE PATEL APRN Ot V72.42 02/25/2014 Ot 250.00 02/25/2014 Ot 272.4 02/25/2014 LENORE PATEL APRN Ot 722.10 02/25/2014 LENORE PATEL APRN Ot V72.42 07/13/2014 SLIM DIAZ EARLY CHILDHOOD Ot 719.47 JOINT PAIN-ANKLE 08/14/2014 Ot V54.89 08/14/2014 Ot 649.53 08/14/2014 Ot V22.1 08/14/2014 Ot V22.0 08/14/2014 Ot 640.93 08/14/2014 Ot 648.03 08/14/2014 Ot 649.53 08/14/2014 Ot 250.00 08/14/2014 Ot 791.9 10/03/2015 DIEGO MOSQUEDA Ot O99.89 OT DISEASES AND CONDITIONS COMPL PREG/C 10/03/2015 DIEGO MOSQUEDA Ot S70.01XA CONTUSION OF RIGHT HIP, INITIAL ENCOUNTE 10/03/2015 DIEGO MOSQUEDA Ot S79.911A UNSPECIFIED INJURY OF RIGHT HIP, INITIAL 10/03/2015 DIEGO MOSQUEDA Ot W01.0XXA FALL SAME LEV FROM SLIP/TRIP W/O STRIKE 10/03/2015 DIEGO MOSQUEDA Ot Y92.[address] OF OCCURRENCE OF 10/03/2015 DIEGO MOSQUEDA Ot Y99.0 CIVILIAN ACTIVITY DONE FOR INCOME OR PAY 10/03/2015 DIEGO MOSQUEDA Ot Z3A.22 22 WEEKS GESTATION OF 10/03/2015 LENORE PATEL APRN Ot 722.10 LUMBAR DISC DISPLACEMENT 10/03/2015 AMANDA, LENORE R EARLY CHILDHOOD Ot V72.42 EXAMINATION OR TEST, POSITIVE 10/05/2015 DIEGO MOSQUEDA Ot O99.89 OTH DISEASES AND CONDITIONS COMPL PREG/C 10/05/2015 DIEGO MOSQUEDA Ot S70.01XA CONTUSION OF RIGHT HIP, INITIAL ENCOUNTE 10/05/2015 DIEGO MOSQUEDA Ot S79.911A UNSPECIFIED INJURY OF RIGHT HIP, INITIAL 10/05/2015 DIEGO MOSQUEDA Ot W01.0XXA FALL SAME LEV FROM SLIP/TRIP W/O STRIKE 10/05/2015 DIEGO MOSQUEDA Ot Y92.[address] OF OCCURRENCE OF 10/05/2015 DIEGO MOSQUEDA Ot Y99.0 CIVILIAN ACTIVITY DONE FOR INCOME OR PAY 10/05/2015 DIEGO MOSQUEDA Ot Z3A.22 22 WEEKS GESTATION OF 10/23/2015 DANIELLE COFFEY MD T Ot M79.661 PAIN IN RIGHT LOWER LEG 10/23/2015 DANIELLE COFFEY MD T Ot O24.113 PRE-EXISTING DIABETES, TYPE 2, IN PREGNA 10/23/2015 DANIELLE COFFEY MD T Ot Z3A.28 28 WEEKS GESTATION OF 10/23/2015 DANIELLE COFFEY MD T Ot 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 10/25/2015 DANIELLE COFFEY MD T Ot M79.661 PAIN IN RIGHT LOWER LEG 10/25/2015 DANIELLE COFFEY MD Ot O24.113 PRE-EXISTING DIABETES, TYPE 2, IN PREGNA 10/25/2015 DANIELLE COFFEY MD T Ot Z3A.28 28 WEEKS GESTATION OF 10/25/2015 DANIELLE COFFEY MD T Ot Z79.4 PRISON (CURRENT) USE OF INSULIN 12/30/2015 LENORE PATEL EARLY CHILDHOOD Ot 722.10 LUMBAR DISC DISPLACEMENT 12/30/2015 LENORE PATEL EARLY CHILDHOOD Ot V72.42 EXAMINATION OR TEST, POSITIVE 01/13/2016 LENORE PATEL EARLY CHILDHOOD Ot 722.10 LUMBAR DISC DISPLACEMENT 01/13/2016 LENORE PATEL EARLY CHILDHOOD Ot V72.42 EXAMINATION OR TEST, POSITIVE 01/14/2016 NIKKI CRUZ DO Ot I12.9 HYPERTENSIVE CHRONIC KIDNEY DISEASE W ST 01/14/2016 NIKKI CRUZ DO Ot N18.9 CHRONIC KIDNEY DISEASE, UNSPECIFIED 01/14/2016 MATILDE CRUZ DOA C Ot O09.5 13 SUPERVISION OF ELDERLY PRIMIGRAVIDA, THI 01/14/2016 MATILDE CRUZ DOA C Ot O10.2 13 PRE-EXIST HYP CHRONIC KIDNEY DISEASE COM 01/14/2016 MATILDE CRUZ DOA C Ot O24.4 14 GESTATIONAL DIABETES IN , INSUL 01/14/2016 NIKKI CRUZ DO C Ot Z3A.3 5 35 WEEKS GESTATION OF 01/19/2016 NIKKI CRUZ DO Ot O09.5 23 SUPERVISION OF ELDERLY MULTIGRAVIDA, [facility] 01/19/2016 NIKKI CRUZ DO C Ot O10.9 13 UNSP PRE-EXISTING HTN COMP , TH 01/19/2016 NIKKI CRUZ DO Ot O24.4 25 GESTATNL DIAB IN [facility] 01/19/2016 NIKKI CRUZ DO Ot Z23 ENCOUNTER FOR IMMUNIZATION 01/19/2016 NIKKI CRUZ DO Ot Z37.0 SINGLE LIVE 01/19/2016 NIKKI CRUZ DO Ot Z3A.3 8 38 WEEKS GESTATION OF 03/29/2016 LENORE PATEL EARLY CHILDHOOD Ot 722.10 LUMBAR DISC DISPLACEMENT 03/29/2016 LENORE PATEL EARLY CHILDHOOD Ot V72.42 EXAMINATION OR TEST, POSITIVE 03/29/2016 NIKKI CRUZ DO Ot I12.9 HYPERTENSIVE CHRONIC KIDNEY DISEASE W ST 03/29/2016 NIKKI CRUZ DO C Ot N18.9 CHRONIC KIDNEY DISEASE, UNSPECIFIED 03/29/2016 MATILDE CRUZ DOA C Ot O09.5 13 SUPERVISION OF ELDERLY PRIMIGRAVIDA, THI 03/29/2016 NIKKI CRUZ DO C Ot O10.2 13 PRE-EXIST HYP CHRONIC KIDNEY DISEASE COM 03/29/2016 NANCY LEONARDO NIKKI C Ot O24.4 14 GESTATIONAL DIABETES IN , INSUL 03/29/2016 NIKKI CRUZ DO C Ot Z3A.3 5 35 WEEKS GESTATION OF 05/02/2016 CRUZ DO, NIKKI C Ot I12.9 HYPERTENSIVE CHRONIC KIDNEY DISEASE W ST 05/02/2016 CRUZ DO, NIKKI C Ot N18.9 CHRONIC KIDNEY DISEASE, UNSPECIFIED 05/02/2016 CRUZ DO, NIKKI C Ot O09.5 13 SUPERVISION OF ELDERLY PRIMIGRAVIDA, [facility] 05/02/2016 CRUZ DO, NIKKI C Ot O10.2 13 PRE-EXIST HYP CHRONIC KIDNEY DISEASE COM 05/02/2016 CRUZ DO, NIKKI C Ot O24.4 14 GESTATIONAL DIABETES IN , INSUL 05/02/2016 CRUZ DO, NIKKI C Ot Z3A.3 5 35 WEEKS GESTATION OF 05/05/2016 CRUZ DO, NIKKI C Ot I12.9 HYPERTENSIVE CHRONIC KIDNEY DISEASE W ST 05/05/2016 CRUZ DO, NIKKI C Ot N18.9 CHRONIC KIDNEY DISEASE, UNSPECIFIED 05/05/2016 CRUZ DO, NIKKI C Ot O09.5 13 SUPERVISION OF ELDERLY PRIMIGRAVIDA, [facility] 05/05/2016 CRUZ DO, NIKKI C Ot O10.2 13 PRE-EXIST HYP CHRONIC KIDNEY DISEASE COM 05/05/2016 CRUZ DO, NIKKI C Ot O24.4 14 GESTATIONAL DIABETES IN , INSUL 05/05/2016 CRUZ DO, NIKKI C Ot Z3A.3 5 35 WEEKS GESTATION OF 10/02/2018 LENORE PATEL APRN Ot V72.42 EXAMINATION OR TEST, POSITIVE 10/02/2018 CRUZ DO, NIKKI C Ot I12.9 HYPERTENSIVE CHRONIC KIDNEY DISEASE W 10/02/2018 CRUZ DO, NIKKI C Ot N18.9 CHRONIC KIDNEY DISEASE, UNSPECIFIED 10/02/2018 CRUZ DO, NIKKI C Ot O09.5 13 SUPERVISION OF ELDERLY PRIMIGRAVIDA, [facility] 10/02/2018 CRUZ DO, NIKKI C Ot O10.2 13 PRE-EXIST HYP CHRONIC KIDNEY DISEASE COM 10/02/2018 CRUZ DO, NIKKI C Ot O24.4 14 GESTATIONAL DIABETES IN , INSUL 10/02/2018 CRUZ DO, NIKKI C Ot Z3A.3 5 35 WEEKS GESTATION OF 11/04/2018 LENORE PATEL EARLY CHILDHOOD Ot V72.42 EXAMINATION OR TEST, POSITIVE 11/04/2018 CRUZ DO, NIKKI C Ot I12.9 HYPERTENSIVE CHRONIC KIDNEY DISEASE W ST 11/04/2018 CRUZ DO, NIKKI C Ot N18.9 CHRONIC KIDNEY DISEASE, UNSPECIFIED 11/04/2018 CRUZ DO, NIKKI C Ot O09.5 13 SUPERVISION OF ELDERLY PRIMIGRAVIDA, THI 11/04/2018 CRUZ DO, NIKKI C Ot O10.2 13 PRE-EXIST HYP CHRONIC KIDNEY DISEASE COM 11/04/2018 CRUZ DO, NIKKI C Ot O24.4 14 GESTATIONAL DIABETES IN , INSUL 11/04/2018 CRUZ DO, NIKKI C Ot Z3A.3 5 35 WEEKS GESTATION OF 11/05/2018 LENORE PATEL EARLY CHILDHOOD Ot V72.42 EXAMINATION OR TEST, POSITIVE 11/05/2018 CRUZ DO, NIKKI C Ot I12.9 HYPERTENSIVE CHRONIC KIDNEY DISEASE W ST 11/05/2018 CRUZ DO, NKIKI C Ot N18.9 CHRONIC KIDNEY DISEASE, UNSPECIFIED 11/05/2018 CRUZ DO, NIKKI C Ot O09.5 13 SUPERVISION OF ELDERLY PRIMIGRAVIDA, THI 11/05/2018 CRUZ DO, NIKKI C Ot O10.2 13 PRE-EXIST HYP CHRONIC KIDNEY DISEASE COM 11/05/2018 CRUZ DO, NIKKI C Ot O24.4 14 GESTATIONAL DIABETES IN , INSUL 11/05/2018 CRUZ DO, NIKKI C Ot Z3A.3 5 35 WEEKS GESTATION OF 12/10/2018 CRUZ DO, NIKKI C Ot O09.5 22 SUPERVISION OF ELDERLY MULTIGRAVIDA, SEC 12/10/2018 CRUZ DO, NIKKI C Ot O24.1 12 PRE-EXISTING TYPE 2 DIABETES, IN PREGNAN 12/10/2018 CRUZ DO, NIKKI C Ot Z3A.2 1 21 WEEKS GESTATION OF 12/11/2018 CRUZ DO, NIKKI C Ot O09.5 22 SUPERVISION OF ELDERLY MULTIGRAVIDA, SEC 12/11/2018 CRUZ DO, NIKKI C Ot O24.1 12 PRE-EXISTING TYPE 2 DIABETES, IN PREGNAN 12/11/2018 CRUZ DO, NIKKI C Ot Z3A.2 1 21 WEEKS GESTATION OF 12/25/2018 LENORE PATEL EARLY CHILDHOOD Ot V72.42 EXAMINATION OR TEST, POSITIVE 12/25/2018 CRUZ DO, NIKKI C Ot I12.9 HYPERTENSIVE CHRONIC KIDNEY DISEASE W ST 12/25/2018 CRUZ DO, NIKKI C Ot N18.9 CHRONIC KIDNEY DISEASE, UNSPECIFIED 12/25/2018 CRUZ DO, NIKKI C Ot O09.5 13 SUPERVISION OF ELDERLY PRIMIGRAVIDA, THI 12/25/2018 CRUZ DO NIKKI C Ot O10.2 13 PRE-EXIST HYP CHRONIC KIDNEY DISEASE COM 12/25/2018 CRUZ DO, NIKKI C Ot O24.4 14 GESTATIONAL DIABETES IN , INSUL 12/25/2018 CRUZ DO NIKKI C Ot Z3A.3 5 35 WEEKS GESTATION OF 12/25/2018 CRUZ DO, NIKKI C Ot O09.5 22 SUPERVISION OF ELDERLY MULTIGRAVIDA, SEC 12/25/2018 CRUZ DO NIKKI C Ot O24.1 12 PRE-EXISTING TYPE 2 DIABETES, IN PREGNAN 12/25/2018 CRUZ DO, NIKKI C Ot Z3A.2 1 21 WEEKS GESTATION OF 12/25/2018 LENORE PATEL EARLY CHILDHOOD Ot V72.42 EXAMINATION OR TEST, POSITIVE 12/25/2018 CRUZ DO NIKKI C Ot I12.9 HYPERTENSIVE CHRONIC KIDNEY DISEASE W ST 12/25/2018 CRUZ DO, NIKKI C Ot N18.9 CHRONIC KIDNEY DISEASE, UNSPECIFIED 12/25/2018 CRUZ DO, NIKKI C Ot O09.5 13 SUPERVISION OF ELDERLY PRIMIGRAVIDA, THI 12/25/2018 CRUZ DO NIKKI C Ot O10.2 13 PRE-EXIST HYP CHRONIC KIDNEY DISEASE COM 12/25/2018 CRUZ DO, NIKKI C Ot O24.4 14 GESTATIONAL DIABETES IN , INSUL 12/25/2018 CRUZ DO NIKKI C Ot Z3A.3 5 35 WEEKS GESTATION OF 12/25/2018 CRUZ DO, NIKKI C Ot O09.5 22 SUPERVISION OF ELDERLY MULTIGRAVIDA, SEC 12/25/2018 CRUZ DO NIKKI C Ot O24.1 12 PRE-EXISTING TYPE 2 DIABETES, IN PREGNAN 12/25/2018 CRUZ DO, NIKKI C Ot Z3A.2 1 21 WEEKS GESTATION OF 12/30/2018 BRENDA MO EARLY CHILDHOOD Ot O24.913 UNSPECIFIED DIABETES MELLITUS IN PREGNAN 12/30/2018 BRENDA OM EARLY CHILDHOOD Ot Z3A.30 30 WEEKS GESTATION OF 01/08/2019 BRENDA MO EARLY CHILDHOOD Ot O24.913 UNSPECIFIED DIABETES MELLITUS IN PREGNAN 01/08/2019 BRENDA MO EARLY CHILDHOOD Ot Z3A.30 30 WEEKS GESTATION OF 01/21/2019 NANCY DOMATILDEA C Ot I12.9 HYPERTENSIVE CHRONIC KIDNEY DISEASE W ST 01/21/2019 NANCY DO NIKKI C Ot N18.9 CHRONIC KIDNEY DISEASE, UNSPECIFIED 01/21/2019 NANCY DO NIKKI C Ot O09.5 13 SUPERVISION OF ELDERLY PRIMIGRAVIDA, THI 01/21/2019 NANCY DOMATILDEA C Ot O10.2 13 PRE-EXIST HYP CHRONIC KIDNEY DISEASE COM 01/21/2019 NANCY DO NIKKI C Ot O24.4 14 GESTATIONAL DIABETES IN , INSUL 01/21/2019 NANCY DO NIKKI C Ot Z3A.3 5 35 WEEKS GESTATION OF 01/21/2019 NANCY DO NIKKI C Ot O09.5 22 SUPERVISION OF ELDERLY MULTIGRAVIDA, [facility] 01/21/2019 NANCY DO NIKKI C Ot O24.1 12 PRE-EXISTING TYPE 2 DIABETES, IN PREGNAN 01/21/2019 NANCY DO NIKKI C Ot Z3A.2 1 21 WEEKS GESTATION OF 01/22/2019 NANCY DO NIKKI C Ot E11.9 TYPE 2 DIABETES MELLITUS WITHOUT COMPLIC 01/22/2019 NANCY DO NIKKI C Ot O09.2 93 SUPRVSN OF PREG W POOR REPRODCTV OR OBST 01/22/2019 NANCY DO NIKKI C Ot O09.5 23 SUPERVISION OF ELDERLY MULTIGRAVIDA, THI 01/22/2019 NANCY DO NIKKI C Ot O24.1 13 PRE-EXISTING TYPE 2 DIABETES, IN PREGNAN 01/22/2019 CRUZ DO NIKKI C Ot Z3A.3 2 32 WEEKS GESTATION OF 01/24/2019 NANCY DO NIKKI C Ot E11.9 TYPE 2 DIABETES MELLITUS WITHOUT COMPLIC 01/24/2019 CRUZ DO NIKKI C Ot O09.2 93 SUPRVSN OF PREG W POOR REPRODCTV OR OBST 01/24/2019 NANCY DO NIKKI C Ot O09.5 23 SUPERVISION OF ELDERLY MULTIGRAVIDA, THI 01/24/2019 NANCY DO NIKKI C Ot O24.1 13 PRE-EXISTING TYPE 2 DIABETES, IN PREGNAN 01/24/2019 CRUZ DO NIKKI C Ot Z3A.3 2 32 WEEKS GESTATION OF 02/04/2019 NANCY DOMATILDEA C Ot E11.9 TYPE 2 DIABETES MELLITUS WITHOUT COMPLIC 02/04/2019 CRUZ DO NIKKI C Ot O09.2 93 SUPRVSN OF PREG W POOR REPRODCTV OR OBST 02/04/2019 CRUZ DO NIKKI C Ot O09.5 23 SUPERVISION OF ELDERLY MULTIGRAVIDA, [facility] 02/04/2019 NANCY DO NIKKI C Ot O24.1 13 PRE-EXISTING TYPE 2 DIABETES, IN PREGNAN 02/04/2019 NANCY DO NIKKI C Ot Z3A.3 2 32 WEEKS GESTATION OF 02/10/2019 NANCY LEONARDO NIKKI C Ot I12.9 HYPERTENSIVE CHRONIC KIDNEY DISEASE W 02/10/2019 NANCY DO NIKKI C Ot N18.9 CHRONIC KIDNEY DISEASE, UNSPECIFIED 02/10/2019 NANCY DO NIKKI C Ot O09.5 13 SUPERVISION OF ELDERLY PRIMIGRAVIDA, [facility] 02/10/2019 MATILDE CRUZ DOA C Ot O10.2 13 PRE-EXIST HYP CHRONIC KIDNEY DISEASE COM 02/10/2019 NANCY DO NIKKI C Ot O24.4 14 GESTATIONAL DIABETES IN , INSUL 02/10/2019 NANCY DO NIKKI C Ot Z3A.3 5 35 WEEKS GESTATION OF 02/10/2019 NANCY DO NIKKI C Ot O09.5 22 SUPERVISION OF ELDERLY MULTIGRAVIDA, [facility] 02/10/2019 NANCY DO NIKKI C Ot O24.1 12 PRE-EXISTING TYPE 2 DIABETES, IN PREGNAN 02/10/2019 NANCY LEONARDO NIKKI C Ot Z3A.2 1 21 WEEKS GESTATION OF 02/10/2019 BRENDA MO EARLY CHILDHOOD Ot O24.913 UNSPECIFIED DIABETES MELLITUS IN PREGNAN 02/10/2019 BRENDA MO EARLY CHILDHOOD Ot Z3A.30 30 WEEKS GESTATION OF 02/10/2019 NANCY DOMATILDEA C Ot E11.9 TYPE 2 DIABETES MELLITUS WITHOUT COMPLIC 02/10/2019 NANCY DO NIKKI C Ot O09.2 93 SUPRVSN OF PREG W POOR REPRODCTV OR OBST 02/10/2019 NANCY LEONARDO NIKKI C Ot O09.5 23 SUPERVISION OF ELDERLY MULTIGRAVIDA, [facility] 02/10/2019 NIKKI CRUZ DO Ot O24.1 13 PRE-EXISTING TYPE 2 DIABETES, IN PREGNAN 02/10/2019 NIKKI CRUZ DO Ot Z3A.3 2 32 WEEKS GESTATION OF 02/11/2019 BRENDA MO EARLY CHILDHOOD Ot O24.419 GESTATIONAL DIABETES MELLITUS IN PREGNAN 02/11/2019 BRENDA MO EARLY CHILDHOOD Ot Z3A.38 38 WEEKS GESTATION OF 02/23/2019 NIKKI CRUZ DO Ot E11.9 TYPE 2 DIABETES MELLITUS WITHOUT COMPLIC 02/23/2019 NIKKI CRUZ DO Ot O10.9 2 UNSP PRE-EXISTING HYPERTENSION COMPLICAT 02/23/2019 NIKKI CRUZ DO Ot O11.4 PRE-EXISTING HTN WITH PRE-ECLAMPSIA, COM 02/23/2019 NIKKI CRUZ DO Ot O24.3 2 UNSPECIFIED PRE-EXISTING DIABETES MELLIT 02/23/2019 NIKKI CRUZ DO Ot O36.63X0 MATERNAL CARE FOR EXCESS GROWTH, T 02/23/2019 NIKKI CRUZ DO Ot O40.3XX0 POLYHYDRAMNIOS, THIRD TRIMESTER, NOT HEMALATHA 02/23/2019 NIKKI CRUZ DO Ot O66.0 OBSTRUCTED LABOR DUE TO SHOULDER DYSTOCI 02/23/2019 NIKKI CRUZ DO Ot O76 ABNLT IN HEART RATE AND RHYTHM COM 02/23/2019 NIKKI CRUZ DO Ot O99.8 24 STREPTOCOCCUS B CARRIER STATE COMPLICATI 02/23/2019 NIKKI CRUZ DO Ot Z37.0 SINGLE LIVE 02/23/2019 NIKKI CRUZ DO Ot Z3A.3 6 36 WEEKS GESTATION OF 02/23/2019 NIKKI CRUZ DO Ot 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 02/25/2019 NIKKI CRUZ DO Ot I12.9 HYPERTENSIVE CHRONIC KIDNEY DISEASE W ST 02/25/2019 NIKKI CRUZ DO Ot N18.9 CHRONIC KIDNEY DISEASE, UNSPECIFIED 02/25/2019 NIKKI CRUZ DO Ot O09.5 13 SUPERVISION OF ELDERLY PRIMIGRAVIDA, THI 02/25/2019 NIKKI CRUZ DO Ot O10.2 13 PRE-EXIST HYP CHRONIC KIDNEY DISEASE COM 02/25/2019 MATILDE CRUZ DOA Thao Ot O24.4 14 GESTATIONAL DIABETES IN , INSUL 02/25/2019 NIKKI CRUZ DO C Ot Z3A.3 5 35 WEEKS GESTATION OF 02/25/2019 MATILDE CRUZ DOA C Ot O09.5 22 SUPERVISION OF ELDERLY MULTIGRAVIDA, [facility] 02/25/2019 NANCY LEONARDO NIKKI C Ot O24.1 12 PRE-EXISTING TYPE 2 DIABETES, IN PREGNAN 02/25/2019 MATILDE CRUZ DOA C Ot Z3A.2 1 21 WEEKS GESTATION OF 02/25/2019 BRENDA MO EARLY CHILDHOOD Ot O24.913 UNSPECIFIED DIABETES MELLITUS IN PREGNAN 02/25/2019 BRENDA MO EARLY CHILDHOOD Ot Z3A.30 30 WEEKS GESTATION OF 02/25/2019 NIKKI CRUZ DO Ot E11.9 TYPE 2 DIABETES MELLITUS WITHOUT COMPLIC 02/25/2019 MATILDE CRUZ DOA C Ot O09.2 93 SUPRVSN OF PREG W POOR REPRODCTV OR OBST 02/25/2019 NIKKI CRUZ DO C Ot O09.5 23 SUPERVISION OF ELDERLY MULTIGRAVIDA, [facility] 02/25/2019 MATILDE CRUZ DOA C Ot O24.1 13 PRE-EXISTING TYPE 2 DIABETES, IN PREGNAN 02/25/2019 MATILDE CRUZ DOA C Ot Z3A.3 2 32 WEEKS GESTATION OF 02/25/2019 BRENDA MO EARLY CHILDHOOD Ot O24.419 GESTATIONAL DIABETES MELLITUS IN PREGNAN 02/25/2019 BRENDA MO EARLY CHILDHOOD Ot Z3A.38 38 WEEKS GESTATION OF 03/18/2019 BRENDA MO EARLY CHILDHOOD Ot O24.419 GESTATIONAL DIABETES MELLITUS IN PREGNAN 03/18/2019 BRENDA MO EARLY CHILDHOOD Ot Z3A.38 38 WEEKS GESTATION OF 03/18/2019 BRENDA MO EARLY CHILDHOOD Ot O24.419 GESTATIONAL DIABETES MELLITUS IN PREGNAN 03/18/2019 BRENDA MO EARLY CHILDHOOD Ot Z3A.38 38 WEEKS GESTATION OF 03/19/2019 BRENDA MO EARLY CHILDHOOD Ot O24.419 GESTATIONAL DIABETES MELLITUS IN PREGNAN 03/19/2019 BRENDA MO EARLY CHILDHOOD Ot Z3A.38 38 WEEKS GESTATION OF Procedures Code Description Performed By Per alireza On 72.71 VACU UM EXT DEL W EPISIOT 12/25/2008 73.6 EPISIOTOMY 11/01/2010 72.71 VACU UM EXT DEL W EPISIOT 07/31/2012 95682 ROUT INE VENIPUNCTURE 10/30/2012 68391 LIVE R PANEL (LFT) 10/30/2012 96802 ROUT INE VENIPUNCTURE 11/28/2012 71266 LIVE R PANEL (LFT) 11/29/2012 22481 MRI SPINE (LUMBAR) W/O CONTRAST 12/05/2012 ANESTHESI MITRA BOYD 12/06/2012 42112 MICR O ALBUMIN-IN HOUSE 12/30/2012 66330 A1C (IN-HOUSE) 12/30/2012 29649 MICR OALBUMIN 12/30/2012 24836 ROUT INE VENIPUNCTURE 12/31/2012 69487 LIPI D PANEL 12/31/2012 21368 ROUT INE VENIPUNCTURE 06/16/2013 [id number] GF R CALC (RESULT ONLY) 06/16/2013 86538 CMP 06/16/2013 95106 LIPI D PANEL 06/16/2013 90403 A1C (RML) 06/16/2013 36294 PREG ISAEL TEST, URINE (IN- HOUSE) 07/03/2013 90191 MICR O ALBUMIN-IN HOUSE 07/03/2013 48100 US O B - EARLY <14 WEEKS 07/11/2013 73.59 MANU AL ASSIST DELIV NEC 02/12/2014 02717 ROUT INE VENIPUNCTURE 03/12/2014 89643 A1C (IN-HOUSE) 03/12/2014 46603 CMP 03/12/2014 36738 LIPI D PANEL 03/12/2014 [id number] GF R CALC (RESULT ONLY) 03/12/2014 99391 CBC 03/12/2014 59781 TSH 03/12/2014 56682 A1C (IN-HOUSE) 05/25/2014 [id number] DE LIVERY OF PRODUCTS OF CONCEPTION, EXTE 01/17/[id number] HERNANDEZ OF AMNIOTIC [place], THERAP FROM POC 02/22/2019 [id number] DE LIVERY OF PRODUCTS OF CONCEPTION, EXTE 02/22/2019 [id number] IN TRODUCTION OF OTH HORMONE INTO PERIPH 02/22/2019 [id number] IN TRODUCTION OF HORMONE INTO FEM REPROD, 02/22/2019 Results Test Result Range Complete blood count (CBC) with automate d white blood cell (WBC) differential - 01/17/16 08:35 Blood leukocytes automated count (number/volume) 7.3 10*3/uL 4.3-11.0 Blood erythrocytes automated count (number/volume) 4.51 10*6/uL 4.35-5.85 Venous blood hemoglobin measurement (mass/volume) 12.4 g/dL 11.5-16.0 Blood hematocrit (volume fraction) 38 % 35-52 Automated erythrocyte mean corpuscular volume 84 [ foz_us] 80-99 Automated erythrocyte mean corpuscular h emoglobin (mass per erythrocyte) 28 pg 25-34 Automated erythrocyte mean corpuscular h emoglobin concentration measurement (mass/volume) 33 g/dL 32-36 Automated erythrocyte distribution width ratio 13. 5 % 10.0- 14.5 Automated blood platelet count (count/volume) 181 10*3/uL 130-400 Automated blood platelet mean volume measurement 10.2 [foz_us] 7.4-10.4 Automated blood neutrophils/100 leukocytes 76 % 42-75 Automated blood lymphocytes/100 leukocytes 14 % 12-44 Blood monocytes/100 leukocytes 10 % 0-12 Automated blood eosinophils/100 leukocytes 1 % 0-10 Automated blood basophils/100 leukocytes 0 % 0-10 Blood neutrophils automated count (number/volume) 5.6 10*3 1.8-7.8 Blood lymphocytes automated count (number/volume) 1.0 10*3 1.0-4.0 Blood monocytes automated count (number/volume) 0. 7 10*3 0.0-1.0 Automated eosinophil count 0.1 10*3/uL 0 .0-0.3 Automated blood basophil count (count/volume) 0.0 10*3/uL 0.0-0.1 Blood type T Indirect antibody screen pa mookie - 01/17/16 08:35 ABO+Rh group AP NR Transfusion band number [id number] [facility] Blood group antibody screen NEGATIVE NR G Capillary blood glucose measurement by g lucometer (mass/volume) - 01/17/16 09:10 Capillary blood glucose measurement by glucometer (mas s/volume) 95 mg/dL 70-110 Capillary blood glucose measurement by g lucometer (mass/volume) - 01/17/16 10:34 Capillary blood glucose measurement by glucometer (mas s/volume) 84 mg/dL 70-110 Capillary blood glucose measurement by g lucometer (mass/volume) - 01/17/16 12:15 Capillary blood glucose measurement by glucometer (mas s/volume) 79 mg/dL 70-110 Capillary blood glucose measurement by g lucometer (mass/volume) - 01/17/16 13:41 Capillary blood glucose measurement by glucometer (mas s/volume) 109 mg/dL 70-110 Capillary blood glucose measurement by g lucometer (mass/volume) - 01/17/16 15:10 Capillary blood glucose measurement by glucometer (mas s/volume) 86 mg/dL 70-110 Capillary blood glucose measurement by g lucometer (mass/volume) - 01/17/16 15:51 Capillary blood glucose measurement by glucometer (mas s/volume) 86 mg/dL 70-110 Capillary blood glucose measurement by g lucometer (mass/volume) - 01/17/16 17:18 Capillary blood glucose measurement by glucometer (mas s/volume) 87 mg/dL 70-110 Capillary blood glucose measurement by g lucometer (mass/volume) - 01/17/16 18:39 Capillary blood glucose measurement by glucometer (mas s/volume) 102 mg/dL 70-110 Complete blood count (CBC) with automate d white blood cell (WBC) differential - 01/18/16 06:05 Blood leukocytes automated count (number/volume) 9.2 10*3/uL 4.3-11.0 Blood erythrocytes automated count (number/volume) 4.39 10*6/uL 4.35-5.85 Venous blood hemoglobin measurement (mass/volume) 12.1 g/dL 11.5-16.0 Blood hematocrit (volume fraction) 37 % 35-52 Automated erythrocyte mean corpuscular volume 85 [ foz_us] 80-99 Automated erythrocyte mean corpuscular h emoglobin (mass per erythrocyte) 28 pg 25-34 Automated erythrocyte mean corpuscular h emoglobin concentration measurement (mass/volume) 33 g/dL 32-36 Automated erythrocyte distribution width ratio 13. 6 % 10.0- 14.5 Automated blood platelet count (count/volume) 176 10*3/uL 130-400 Automated blood platelet mean volume measurement 10.5 [foz_us] 7.4-10.4 Automated blood neutrophils/100 leukocytes 75 % 42-75 Automated blood lymphocytes/100 leukocytes 15 % 12-44 Blood monocytes/100 leukocytes 9 % 0-12 Automated blood eosinophils/100 leukocytes 1 % 0-10 Automated blood basophils/100 leukocytes 0 % 0-10 Blood neutrophils automated count (number/volume) 6.9 10*3 1.8-7.8 Blood lymphocytes automated count (number/volume) 1.4 10*3 1.0-4.0 Blood monocytes automated count (number/volume) 0. 9 10*3 0.0-1.0 Automated eosinophil count 0.1 10*3/uL 0 .0-0.3 Automated blood basophil count (count/volume) 0.0 10*3/uL 0.0-0.1 Comprehensive metabolic panel - 01/18/16 06:05 Serum or plasma sodium measurement (moles/volume) 134 mmol/L 135-145 Serum or plasma potassium measurement (moles/volume) 4.1 mmol/L 3.6-5.0 Serum or plasma chloride measurement (moles/volume) 107 mmol/L 98-107 Carbon dioxide 19 mmol/L 21-32 Serum or plasma anion gap determination (moles/volume) 8 mmol/L 5-14 Serum or plasma urea nitrogen measurement (mass/volume ) 15 mg/dL 7-18 Serum or plasma creatinine measurement (mass/volume) 0.71 mg/dL 0.60-1.30 Serum or plasma urea nitrogen/creatinine mass ratio 21 NRG Serum or plasma creatinine measurement w ith calculation of estimated glomerular filtration rate > NRG Serum or plasma glucose measurement (mass/volume) 183 mg/dL 70-105 Serum or plasma calcium measurement (mass/volume) 8.9 mg/dL 8.5-10.1 Serum or plasma total bilirubin measurement (mass/volu me) 0.2 mg/dL 0.1-1.0 Serum or plasma alkaline phosphatase marbella surement (enzymatic activity/volume) 93 U/L 40-136 Serum or plasma aspartate aminotransfera se measurement (enzymatic activity/volume) 21 U/L 5-34 Serum or plasma alanine aminotransferase measurement (enzymatic activity/volume) 15 U/L 0-55 Serum or plasma protein measurement (mass/volume) 5.8 g/dL 6.4-8.2 Serum or plasma albumin measurement (mass/volume) 3.1 g/dL 3.2-4.5 Hemoglobin A1c - 01/18/16 06:05 Hemoglobin A1c 6.2 % 4.5-6.2 Capillary blood glucose measurement by g lucometer (mass/volume) - 01/19/16 05:47 Capillary blood glucose measurement by glucometer (mas s/volume) 134 mg/dL 70-110 Comp. Metabolic Panel (14) - 02/23/16 14 :19 Glucose, Serum 251 mg/dL 65-99 BUN 14 mg/dL 6-20 Creatinine, Serum 0.69 mg/dL 0.57-1.00 eGFR If NonAfricn Am 111 mL/min/1.73 >59 eGFR If Africn Am 128 mL/min/1.73 >5 9 BUN/Creatinine Ratio 20 8-20 Sodium, Serum 139 mmol/L 134-144 Potassium, Serum 4.0 mmol/L 3.5-5.2 Chloride, Serum 97 mmol/L 96-106 Carbon Dioxide, Total 22 mmol/L 18-29 Calcium, Serum 10.0 mg/dL 8.7-10.2 Protein, Total, Serum 7.6 g/dL 6.0-8.5 Albumin, Serum 4.6 g/dL 3.5-5.5 Globulin, Total 3.0 g/dL 1.5-4.5 A/G Ratio 1.5 1.1-2.5 Bilirubin, Total 0.3 mg/dL 0.0-1.2 Alkaline Phosphatase, S 89 IU/L 39-117 AST (SGOT) 20 IU/L 0-40 ALT (SGPT) 27 IU/L 0-32 Lipid Panel - 04/10/16 09:11 Cholesterol, Total 102 mg/dL 100-199 Triglycerides 345 mg/dL 0-149 HDL Cholesterol 22 mg/dL >39 VLDL Cholesterol Adam 69 mg/dL 5-40 LDL Cholesterol Calc 11 mg/dL 0-99 Microalb/Creat Ratio, Randm Ur - 7 09:11 Creatinine, Urine 63.3 mg/dL Not Estab. Microalbumin, Urine 67.0 ug/mL Not Estab . Microalb/Creat Ratio 105.8 mg/g creat 0. 0-30.0 CULTURE, GENITAL - 11/10/16 19:59 Genital Culture, Routine Final report N RG Result 1 NRG Result 2 Yeast isolated. NRG Result 3 NRG Genital Culture, Routine - 11/10/16 19:5 9 Genital Culture, Routine Note CBC - 12/04/16 16:43 WBC 5.9 x10E3/uL 3.4-10.8 RBC 4.40 x10E6/uL 3.77-5.28 Hemoglobin 11.6 g/dL 11.1-15.9 Hematocrit 36.2 % 34.0-46.6 MCV 82 fL 79-97 MCH 26.4 pg 26.6-33.0 MCHC 32.0 g/dL 31.5-35.7 RDW 12.9 % 12.3-15.4 Platelets 337 x10E3/uL 150-379 Neutrophils 61 % Not Estab. Lymphs 30 % Not Estab. Monocytes 8 % Not Estab. Eos 1 % Not Estab. Basos 0 % Not Estab. Neutrophils (Absolute) 3.6 x10E3/uL 1.4- 7.0 Lymphs (Absolute) 1.7 x10E3/uL 0.7-3.1 Monocytes(Absolute) 0.5 x10E3/uL 0.1-0.9 Eos (Absolute) 0.1 x10E3/uL 0.0-0.4 Baso (Absolute) 0.0 x10E3/uL 0.0-0.2 Immature Granulocytes 0 % Not Esta b. Immature Grans (Abs) 0.0 x10E3/uL 0.0-0. 1 CBC With Differential/Platelet - 7 16:43 WBC 5.9 x10E3/uL 3.4-10.8 RBC 4.40 x10E6/uL 3.77-5.28 Hemoglobin 11.6 g/dL 11.1-15.9 Hematocrit 36.2 % 34.0-46.6 MCV 82 fL 79-97 MCH 26.4 pg 26.6-33.0 MCHC 32.0 g/dL 31.5-35.7 RDW 12.9 % 12.3-15.4 Platelets 337 x10E3/uL 150-379 Neutrophils 61 % Not Estab. Lymphs 30 % Not Estab. Monocytes 8 % Not Estab. Eos 1 % Not Estab. Basos 0 % Not Estab. Neutrophils (Absolute) 3.6 x10E3/uL 1.4- 7.0 Lymphs (Absolute) 1.7 x10E3/uL 0.7-3.1 Monocytes(Absolute) 0.5 x10E3/uL 0.1-0.9 Eos (Absolute) 0.1 x10E3/uL 0.0-0.4 Baso (Absolute) 0.0 x10E3/uL 0.0-0.2 Immature Granulocytes 0 % Not Esta b. Immature Grans (Abs) 0.0 x10E3/uL 0.0-0. 1 Comp. Metabolic Panel (14) - 12/04/16 16 :43 Glucose, Serum 207 mg/dL 65-99 BUN 18 mg/dL 6-20 Creatinine, Serum 0.66 mg/dL 0.57-1.00 eGFR If NonAfricn Am 112 mL/min/1.73 >59 eGFR If Africn Am 129 mL/min/1.73 >5 9 BUN/Creatinine Ratio 27 9-23 Sodium, Serum 138 mmol/L 134-144 Potassium, Serum 4.3 mmol/L 3.5-5.2 Chloride, Serum 98 mmol/L 96-106 Carbon Dioxide, Total 21 mmol/L 18-29 Calcium, Serum 9.9 mg/dL 8.7-10.2 Protein, Total, Serum 7.9 g/dL 6.0-8.5 Albumin, Serum 4.6 g/dL 3.5-5.5 Globulin, Total 3.3 g/dL 1.5-4.5 A/G Ratio 1.4 1.2-2.2 Bilirubin, Total <0.2 mg/dL 0.0-1.2 Alkaline Phosphatase, S 71 IU/L 39-117 AST (SGOT) 16 IU/L 0-40 ALT (SGPT) 17 IU/L 0-32 Lipid Panel - 12/04/16 16:43 Cholesterol, Total 190 mg/dL 100-199 Triglycerides 633 mg/dL 0-149 HDL Cholesterol 31 mg/dL >39 VLDL Cholesterol Adam Comment mg/dL 5-40 LDL Cholesterol Calc Comment mg/dL 0-99 Microalb/Creat Ratio, Randm Ur - 7 16:43 Creatinine, Urine 76.1 mg/dL Not Estab. Microalbumin, Urine 99.7 ug/mL Not Estab . Microalb/Creat Ratio 131.0 mg/g creat 0. 0-30.0 LIPID PANEL - 01/12/17 08:31 CHOLESTEROL, TOTAL 99 mg/dL <200 HDL CHOLESTEROL 30 mg/dL >50 TRIGLYCERIDES 95 mg/dL <150 LDL-CHOLESTEROL 51 mg/dL (calc) NRG CHOL/HDLC RATIO 3.3 (calc) <5.0 NON HDL CHOLESTEROL 69 mg/dL (calc) <130 CMP - 01/02/18 11:25 GLUCOSE 143 mg/dL 65-139 UREA NITROGEN (BUN) 19 mg/dL 7-25 CREATININE 0.57 mg/dL 0.50-1.10 eGFR NON-AFR. [place] 116 mL/min/1.73m2 > OR = 60 eGFR 134 mL/min/1.73m2 > OR = 60 BUN/CREATININE RATIO NOT APPLICABLE (calc) 6-22 SODIUM 137 mmol/L 135-146 POTASSIUM 4.1 mmol/L 3.5-5.3 CHLORIDE 103 mmol/L 98-110 CARBON DIOXIDE 25 mmol/L 20-32 CALCIUM 9.8 mg/dL 8.6-10.2 PROTEIN, TOTAL 7.9 g/dL 6.1-8.1 ALBUMIN 4.6 g/dL 3.6-5.1 GLOBULIN 3.3 g/dL (calc) 1.9-3.7 ALBUMIN/GLOBULIN RATIO 1.4 (calc) 1.0-2. 5 BILIRUBIN, TOTAL 0.4 mg/dL 0.2-1.2 ALKALINE PHOSPHATASE 66 U/L 33-115 AST 15 U/L 10-30 ALT 16 U/L 6-29 CBC - 01/02/18 11:25 WHITE BLOOD CELL COUNT 5.7 Thousand/uL 3 .8-10.8 RED BLOOD CELL COUNT 5.31 Million/uL 3.8 0-5.10 HEMOGLOBIN 13.8 g/dL 11.7-15.5 HEMATOCRIT 42.9 % 35.0-45.0 MCV 80.8 fL 80.0-100.0 MCH 26.0 pg 27.0-33.0 MCHC 32.2 g/dL 32.0-36.0 RDW 13.8 % 11.0-15.0 PLATELET COUNT 253 Thousand/uL 140-400 MPV 10.7 fL 7.5-12.5 ABSOLUTE NEUTROPHILS 3380 cells/uL 1500- 7800 ABSOLUTE LYMPHOCYTES 1733 cells/uL 850-3 900 ABSOLUTE MONOCYTES 467 cells/uL 200-950 ABSOLUTE EOSINOPHILS 91 cells/uL 15-500 ABSOLUTE BASOPHILS 29 cells/uL 0-200 NEUTROPHILS 59.3 % NRG LYMPHOCYTES 30.4 % NRG MONOCYTES 8.2 % NRG EOSINOPHILS 1.6 % NRG BASOPHILS 0.5 % NRG Complete blood count (CBC) with automate d white blood cell (WBC) differential - 02/21/19 14:00 Blood leukocytes automated count (number/volume) 7.1 10*3/uL 4.3-11.0 Blood erythrocytes automated count (number/volume) 4.83 10*6/uL 4.35-5.85 Venous blood hemoglobin measurement (mass/volume) 11.7 g/dL 11.5-16.0 Blood hematocrit (volume fraction) 38 % 35-52 Automated erythrocyte mean corpuscular volume 78 [ foz_us] 80-99 Automated erythrocyte mean corpuscular h emoglobin (mass per erythrocyte) 24 pg 25-34 Automated erythrocyte mean corpuscular h emoglobin concentration measurement (mass/volume) 31 g/dL 32-36 Automated erythrocyte distribution width ratio 14. 3 % 10.0- 14.5 Automated blood platelet count (count/volume) 220 10*3/uL 130-400 Automated blood platelet mean volume measurement 10.6 [foz_us] 7.4-10.4 Automated blood neutrophils/100 leukocytes 72 % 42-75 Automated blood lymphocytes/100 leukocytes 17 % 12-44 Blood monocytes/100 leukocytes 11 % 0-12 Automated blood eosinophils/100 leukocytes 1 % 0-10 Automated blood basophils/100 leukocytes 0 % 0-10 Blood neutrophils automated count (number/volume) 5.1 10*3 1.8-7.8 Blood lymphocytes automated count (number/volume) 1.2 10*3 1.0-4.0 Blood monocytes automated count (number/volume) 0. 7 10*3 0.0-1.0 Automated eosinophil count 0.1 10*3/uL 0 .0-0.3 Automated blood basophil count (count/volume) 0.0 10*3/uL 0.0-0.1 Comprehensive metabolic panel - 02/21/19 14:00 Serum or plasma sodium measurement (moles/volume) 137 mmol/L 135-145 Serum or plasma potassium measurement (moles/volume) 4.2 mmol/L 3.6-5.0 Serum or plasma chloride measurement (moles/volume) 106 mmol/L 98-107 Carbon dioxide 19 mmol/L 21-32 Serum or plasma anion gap determination (moles/volume) 12 mmol/L 5-14 Serum or plasma urea nitrogen measurement (mass/volume ) 12 mg/dL 7-18 Serum or plasma creatinine measurement (mass/volume) 0.64 mg/dL 0.60-1.30 Serum or plasma urea nitrogen/creatinine mass ratio 19 NRG Serum or plasma creatinine measurement w ith calculation of estimated glomerular filtration rate > NRG Serum or plasma glucose measurement (mass/volume) 84 mg/dL 70-105 Serum or plasma calcium measurement (mass/volume) 9.3 mg/dL 8.5-10.1 Serum or plasma total bilirubin measurement (mass/volu me) 0.2 mg/dL 0.1-1.0 Serum or plasma alkaline phosphatase marbella surement (enzymatic activity/volume) 126 U/L 40-136 Serum or plasma aspartate aminotransfera se measurement (enzymatic activity/volume) 18 U/L 5-34 Serum or plasma alanine aminotransferase measurement (enzymatic activity/volume) 13 U/L 0-55 Serum or plasma protein measurement (mass/volume) 7.1 g/dL 6.4-8.2 Serum or plasma albumin measurement (mass/volume) 3.4 g/dL 3.2-4.5 CALCIUM CORRECTED 9.8 mg/dL 8.5-10.1 Serum or plasma uric acid measurement (m ass/volume) - 02/21/19 14:00 Serum or plasma uric acid measurement (mass/volume) 5.4 mg/dL 2.6-7.2 Magnesium - 02/21/19 14:00 Magnesium 1.8 mg/dL 1.6-2.4 Serum ragweed IgE antibody assay - 02/21 14:00 Serum ragweed IgE antibody assay 238 U/L 125-220 Blood type T Indirect antibody screen pa mookie - 02/21/19 14:00 WRISTBAND NUMBER [id number] NRG ABO+Rh group AP NRG Blood group antibody screen NEGATIVE NR G Complete urinalysis with reflex to cultu re - 02/21/19 14:10 Urine color determination YELLOW NRG Urine clarity determination CLEAR NR G Urine pH measurement by test strip 6.0 5-9 Specific gravity of urine by test strip 1.020 1.016-1.022 Urine protein assay by test strip, semi-quantitative 2+ NEGATIVE Urine glucose detection by automated test strip TR LINA NEGATIVE Erythrocytes detection in urine sediment by light micr oscopy TRACE-I NEGATIVE Urine ketones detection by automated test strip NE GATIVE NEGATIVE Urine nitrite detection by test strip NEGATIVE NEGATIVE Urine total bilirubin detection by test strip NEGA TIVE NEGATIVE Urine urobilinogen measurement by automated test strip (mass/volume) 0.2 mg/dL < = 1.0 Urine leukocyte esterase detection by dipstick TRA CE NEGATIVE Automated urine sediment erythrocyte cou nt by microscopy (number/high power field) RARE NRG Automated urine sediment leukocyte count by microscopy (number/high power field) [HPF] NRG Bacteria detection in urine sediment by light microsco py FEW NRG Squamous epithelial cells detection in u rine sediment by light microscopy 5-10 NRG Crystals detection in urine sediment by light microsco py NONE NRG Casts detection in urine sediment by light microscopy NONE NRG Mucus detection in urine sediment by light microscopy NEGATIVE NRG Complete urinalysis with reflex to culture YES NRG Bacterial urine culture - 02/21/19 14:10 Bacterial urine culture NG NRG Capillary blood glucose measurement by g lucometer (mass/volume) - 02/21/19 14:39 Capillary blood glucose measurement by glucometer (mas s/volume) 62 mg/dL 70-110 Capillary blood glucose measurement by g lucometer (mass/volume) - 02/21/19 16:49 Capillary blood glucose measurement by glucometer (mas s/volume) 85 mg/dL 70-110 Capillary blood glucose measurement by g lucometer (mass/volume) - 02/21/19 22:01 Capillary blood glucose measurement by glucometer (mas s/volume) 61 mg/dL 70-110 Capillary blood glucose measurement by g lucometer (mass/volume) - 02/21/19 22:56 Capillary blood glucose measurement by glucometer (mas s/volume) 93 mg/dL 70-110 Capillary blood glucose measurement by g lucometer (mass/volume) - 02/22/19 06:06 Capillary blood glucose measurement by glucometer (mas s/volume) 89 mg/dL 70-110 Capillary blood glucose measurement by g lucometer (mass/volume) - 02/22/19 10:57 Capillary blood glucose measurement by glucometer (mas s/volume) 160 mg/dL 70-110 Capillary blood glucose measurement by g lucometer (mass/volume) - 02/22/19 20:07 Capillary blood glucose measurement by glucometer (mas s/volume) 459 mg/dL 70-110 Capillary blood glucose measurement by g lucometer (mass/volume) - 02/22/19 21:47 Capillary blood glucose measurement by glucometer (mas s/volume) 341 mg/dL 70-110 Capillary blood glucose measurement by g lucometer (mass/volume) - 02/23/19 04:19 Capillary blood glucose measurement by glucometer (mas s/volume) 292 mg/dL 70-110 Complete blood count (CBC) with automate d white blood cell (WBC) differential - 02/23/19 06:30 Blood leukocytes automated count (number/volume) 9.0 10*3/uL 4.3-11.0 Blood erythrocytes automated count (number/volume) 4.04 10*6/uL 4.35-5.85 Venous blood hemoglobin measurement (mass/volume) 10.0 g/dL 11.5-16.0 Blood hematocrit (volume fraction) 32 % 35-52 Automated erythrocyte mean corpuscular volume 78 [ foz_us] 80-99 Automated erythrocyte mean corpuscular h emoglobin (mass per erythrocyte) 25 pg 25-34 Automated erythrocyte mean corpuscular h emoglobin concentration measurement (mass/volume) 32 g/dL 32-36 Automated erythrocyte distribution width ratio 14. 4 % 10.0- 14.5 Automated blood platelet count (count/volume) 221 10*3/uL 130-400 Automated blood platelet mean volume measurement 10.3 [foz_us] 7.4-10.4 Automated blood neutrophils/100 leukocytes 74 % 42-75 Automated blood lymphocytes/100 leukocytes 14 % 12-44 Blood monocytes/100 leukocytes 12 % 0-12 Automated blood eosinophils/100 leukocytes 1 % 0-10 Automated blood basophils/100 leukocytes 0 % 0-10 Blood neutrophils automated count (number/volume) 6.6 10*3 1.8-7.8 Blood lymphocytes automated count (number/volume) 1.2 10*3 1.0-4.0 Blood monocytes automated count (number/volume) 1. 0 10*3 0.0-1.0 Automated eosinophil count 0.1 10*3/uL 0 .0-0.3 Automated blood basophil count (count/volume) 0.0 10*3/uL 0.0-0.1 Capillary blood glucose measurement by g lucometer (mass/volume) - 02/23/19 09:48 Capillary blood glucose measurement by glucometer (mas s/volume) 254 mg/dL 70-110 Capillary blood glucose measurement by g lucometer (mass/volume) - 02/23/19 11:20 Capillary blood glucose measurement by glucometer (mas s/volume) 195 mg/dL 70-110 Encounters ACCT No. Visit Date/Time Discharge Status Pt. Type Provider Facility Loc./Unit Complaint [id number] 04/11/2016 11:08:00 Document Registration [id number] 02/24/2016 08:06:00 Document Registration [id number] 05/25/2014 10:33:00 05/25/2014 23:59: 59 CLS Outpatient GUIDO LUNA DO [id number] 03/12/2014 09:53:00 03/12/2014 23:59: 59 CLS Outpatient LENORE PATEL APRN [id number] 07/03/2013 15:12:00 07/03/2013 23:59: 59 CLS Outpatient LENORE PATEL APRN [id number] 06/16/2013 16:22:00 06/16/2013 23:59: 59 CLS Outpatient GUIDO LUNA DO [id number] 06/16/2013 14:59:00 06/16/2013 23:59: 59 CLS Outpatient GUIDO LUNA DO [id number] 12/31/2012 08:14:00 12/31/2012 23:59: 59 CLS Outpatient GUIDO LUNA DO [id number] 11/28/2012 15:59:00 11/28/2012 23:59: 59 [place] [id number] 12/25/2011 11:24:00 12/25/2011 23:59:5 9 CLS Outpatient [id number] 10/30/2012 14:46:00 Document Registration [id number] 02/21/2019 12:40:00 11:35:00 DIS Inpatient NIKKI CRUZ DO [facility] LDRP INDUCTION [id number] 02/10/2019 10:38:00 23:59:59 CLS Outpatient BRENDA MO APRN [facility] RAD DIABETES MELLIT US TYPE II, [id number] 01/21/2019 10:40:00 23:59:59 CLS Outpatient NIKKI CRUZ DO [facility] RAD PREEXISTING DIABETES [id number] 12/25/2018 11:08:00 23:59:59 CLS Outpatient BRENDA MO APRN [facility] RAD ,DIABET ES MELLITUS TYPE 2 [id number] 11/04/2018 14:39:00 23:59:59 CLS Outpatient NIKKI CRUZ DO [facility] RAD SURVEY [id number] 01/17/2016 08:09:00 016 13:00:00 DIS Inpatient CRUZLeda LEONARDO NIKKI C [facility] LDRP INDUCTION [id number] 01/13/2016 10:00:00 23:59:59 CLS Outpatient NIKKI CRUZ DO [facility] RAD GESTATIONAL DIABETES ME LLITUS,CLASS B1 [id number] 10/23/2015 07:05:00 016 08:50:00 DIS Emergency DANIELLE COFFEY MD [facility] ER L LEG PAIN [id number] 10/03/2015 15:47:00 016 17:26:00 DIS Emergency DIEGO MOSQUEDA [facility] ER FALL [id number] 07/13/2014 22:05:00 015 22:48:00 DIS Emergency SLIM DIAZ APRN [facility] ER R ANKLE PAIN [id number] 02/12/2014 06:57:00 014 14:30:00 DIS Inpatient CRUZNIKKI Tompkins DO [facility] LDRP INDUCTION [id number] 12/21/2013 14:29:00 014 16:15:00 DIS Outpatient QUYEN SANTIZO DO [facility] WSo DECREASED MOVEME NT [id number] 09/17/2013 18:52:00 014 19:25:00 DIS Emergency SLIM DIAZ APRN [facility] ER R HAND NUMBNESS [id number] 08/26/2013 21:05:00 014 22:06:00 DIS Emergency SLIM DIAZ EARLY CHILDHOOD [facility] ER VAGINAL PAIN [id number] 07/11/2013 13:01:00 014 23:59:59 CLS Outpatient LENORE PATEL EARLY CHILDHOOD [facility] RAD DATING [id number] 12/05/2012 14:54:00 013 23:59:59 CLS Outpatient LENORE PATEL EARLY CHILDHOOD [facility] RAD LUMBAR PAIN, PA IN AND NUMBESS IN LEG [id number] 10/15/2012 19:45:00 013 21:34:00 DIS Emergency DIEGO MOSQUEDA [facility] ER HIP PAIN [id number] 07/31/2012 00:20:00 013 13:45:00 DIS Inpatient CRUZ DONIKKI C [facility] WS PAIN IN LOWER ABD,CONTR ACTIONS [id number] 07/26/2019 05:28:[address] Emergency KETURAH CLARK, JEFF Loja [facility] ER SOB [id number] 08/14/2014 10:53:00 Document Registration [id number] 08/14/2014 10:53:00 Document Registration [id number] 08/14/2014 10:53:00 Document Registration [id number] 08/14/2014 10:53:00 Document Registration [id number] 02/24/2014 10:50:00 Document Registration [id number] 02/24/2014 10:50:00 Document Registration [id number] 01/06/2011 21:14:00 Document Registration [id number] 11/01/2010 08:30:00 Document Registration [id number] 10/03/2010 06:56:00 Document Registration [id number] 03/27/2010 22:26:00 Document Registration [id number] 07/19/2009 08:54:00 Document Registration [id number] 03/19/2009 11:40:00 Document Registration [id number] 07/01/2008 11:48:00 Document Registration [id number] 05/22/2008 11:07:00 Document Registration [id number] 04/28/2008 14:43:00 Document Registration [id number] 02/07/2008 10:55:00 Document Registration [id number] 02/05/2008 11:55:00 Document Registration [id number] 01/23/2007 09:11:00 Document Registration [id number] 07/17/2019 14:20:00 07/17/2019 23:59:5 9 [facility] [id number] 01/02/2018 10:20:00 Document Registration [id number] 01/12/2017 08:40:00 Document Registration [id number] 12/04/2016 16:00:00 Document Registration [id number] 11/10/2016 19:00:00 Document Registration [id number] 12/05/2016 12:09:00 Document Registration [id number] 11/16/2016 17:08:00 Document Registration
[2019-07-26] MEDS ORDERED: cefTRIAXone FOR IV USE 1,000 MG in WATER (STERILE) FOR INJECTION 10 ML IV ONE (05:45)
[2019-07-26] MEDS ORDERED: AZITHROMYCIN INJECTION 500 MG in NS (IVPB) 250 ML IV ONE (05:45)
--- NOTE | 2019-07-26 05:47 | NUR ---
ABG COLLECTED BY RT STAFF
[2019-07-26 05:50] LABS: BASOPHILS % (AUTO) 0 % (0-10); EOSINOPHILS % (AUTO) 0 % (0-10); HEMATOCRIT 38 % (35-52); HEMOGLOBIN 11.9 G/DL (11.5-16.0); LYMPHOCYTES # (AUTO) 0.7 X 10^3 (1.0-4.0); LYMPHOCYTES % (AUTO) 9 % (12-44); MEAN CORPUSCULAR HEMOGLOBIN 24 PG (25-34); MEAN CORPUSCULAR HGB CONC 31 G/DL (32-36); MEAN CORPUSCULAR VOLUME 76 FL (80-99); MEAN PLATELET VOLUME 10.2 FL (7.4-10.4); MONOCYTES # (AUTO) 0.7 X 10^3 (0.0-1.0); MONOCYTES % (AUTO) 10 % (0-12); NEUTROPHILS # (AUTO) 5.9 X 10^3 (1.8-7.8); NEUTROPHILS % (AUTO) 81 % (42-75); PLATELET COUNT 244 10^3/uL (130-400); RED CELL DISTRIBUTION WIDTH 16.2 % (10.0-14.5); WHITE BLOOD COUNT 7.3 10^3/uL (4.3-11.0)
[2019-07-26 05:53] LABS: ABG BASE EXCESS 4.1 MMOL/L (-2.5-2.5); ABG OXYGEN SATURATION 93 % (94-100); ABG PCO2 38 MMHG (35-45); ABG PH 7.48 (7.37-7.43); ABG PO2 74 MMHG (79-93); ABG TCO2 28.7 MMOL/L (21.0-31.0)
[2019-07-26 05:56] LABS: ALLENS TEST YES-POS; INSPIRED O2 4L; PATIENT TEMP 37.2; VENTILATOR NO
[2019-07-26 06:04] LABS: CHLORIDE 103 MMOL/L (98-107); POTASSIUM 4.2 MMOL/L (3.6-5.0); SODIUM 140 MMOL/L (135-145)
[2019-07-26 06:05] LABS: CALCIUM 9.1 MG/DL (8.5-10.1)
[2019-07-26 06:06] LABS: GLUCOSE 119 MG/DL (70-105)
[2019-07-26 06:07] LABS: TOTAL PROTEIN 8.3 GM/DL (6.4-8.2)
[2019-07-26 06:08] LABS: BILIRUBIN,TOTAL 0.5 MG/DL (0.1-1.0); CARBON DIOXIDE 26 MMOL/L (21-32)
[2019-07-26 06:10] LABS: ALKALINE PHOSPHATASE 93 U/L (40-136); CREATININE SERUM 0.74 MG/DL (0.60-1.30); GFR ESTIMATED > 60
[2019-07-26 06:11] LABS: BUN/CREATININE RATIO 18; PROTHROMBIN TIME PATIENT 13.2 SEC (12.2-14.7)
[2019-07-26 06:13] LABS: ALANINE AMINOTRANSFERASE 68 U/L (0-55)
--- NOTE | 2019-07-26 07:07 | NUR ---
Recieved report from HAILEY Peres to assume care of pt at this time.
--- NOTE | 2019-07-26 07:47 | Diagnostic Imaging Report ---
EXAMINATION: Chest 1 view INDICATION: Shortness of breath. COMPARISON: 01/06/2011 FINDINGS: Heart is enlarged, increased from prior exam. No pleural effusion. There are extensive bilateral airspace opacities. No pneumothorax. IMPRESSION: 1. Cardiomegaly with extensive bilateral airspace opacities. Findings may represent severe edema versus pneumonia. Dictated by: Dictated on workstation # [id number]
[2019-07-26] MEDS ORDERED: methylPREDNISolone 125 MG (Solu-MEDROL) VIAL IV STA (08:04)
--- NOTE | 2019-07-26 08:15 | NUR ---
COVID-19 swab obtained at 0745 et walked to lab by this RN at 0815.
--- NOTE | 2019-07-26 08:35 | NUR ---
Assisted pt to bedside commode to obtain clean catch urine sample. Pt tolerated well.
[2019-07-26 08:54] LABS: BILIRUBIN,URINE NEGATIVE (NEGATIVE); CLARITY,URINE CLEAR; COLOR,URINE YELLOW; GLUCOSE, URINE (UA) 3+ (NEGATIVE); KETONES,URINE NEGATIVE (NEGATIVE); LEUKOCYTE ESTERASE ,URINE NEGATIVE (NEGATIVE); NITRITE,URINE NEGATIVE (NEGATIVE); PROTEIN,URINE 2+ (NEGATIVE)
[2019-07-26 09:08] LABS: BACTERIA,URINE TRACE /HPF; WBC,URINE RARE /HPF
--- OUTSIDE RECORDS SUMMARY | 2019-07-26 09:32 | XMS REPORT ---
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 Address [address] [address] Care Team Providers [employer] Sales Representative Name Role Phone GUIDO LUNA Unavailable Unavailable [facility] Unavailable LUNACHINAA K Unavailable PREMA ARANGO Unavailable Unavailable JADE TINEO Unavailable Unavailable NIKKI CRUZ Unavailable LUNACHINAA K Unavailable [facility] Unavailable [phone] CHERYL GUIDO K Unavailable GAULT, DON Unavailable [...] Unavailable Unavailable SLIM DIAZ APRN Unavailable Unavailable FENYANCI DO, QUYEN S Unavailable Unavailable CRUZ DO, NIKKI C Unavailable Unavailable CRUZ DO, NIKKI C Unavailable Unavailable AMANDA, LENORE R VASCULAR NEUROLOGIST Unavailable Unavailable DIEGO MOSQUEDA Unavailable Unavailable OC DO, REGINA K Unavailable Unavailable ERLINDA CLARK, DANIELLE Layton Unavailable Unavailable Migration, Doctor Unavailable Unavailable Migration, Doctor Unavailable Unavailable Migration, Doctor Unavailable Unavailable Migration, Doctor Unavailable Unavailable zzSANCHEZ, LENORE Unavailable zzSANCHEZ, LENORE Unavailable zzSANCHEZ, LENORE Unavailable zzSANCHEZ, LENORE Unavailable zzSANCHEZ, LENORE Unavailable zzSANCHEZ, LENORE Unavailable GAULT, DON Unavailable Unavailable zzSANCHEZ, LENORE Unavailable DIEGO MOSQUEDA Unavailable Unavailable DIAZ, PETER J VASCULAR NEUROLOGIST Unavailable Unavailable LENORE PATEL VASCULAR NEUROLOGIST Unavailable Unavailable ERLINDA CLARK, DANIELLE Layton Unavailable Unavailable NANCY LEONARDO, NIKKI Osuna Unavailable Unavailable QUYEN SANTIZO DO Unavailable Unavailable NANCY DO, NIKKI C Unavailable Unavailable BRENDA MO VASCULAR NEUROLOGIST Unavailable Unavailable LUNA, GUIDO Unavailable LUNA, GUIDO Unavailable Unavailable Unavailable Migration, Doctor Unavailable Unavailable Migration, Doctor Unavailable Unavailable zzSANCHEZ, LENORE Unavailable LUNA, GUIDO Unavailable LUNA, GUIDO Unavailable LUNA, GUIDO Unavailable LUNA, GUIDO Unavailable LUNA, GUIDO Unavailable zzSANCHEZ, LENORE Unavailable zzSANCHEZ, LENORE Unavailable zzSANCHEZ, LENORE Unavailable LUNA, GUIDO Unavailable zzSANCHEZ, LENORE Unavailable zzSANCHEZ, LENORE Unavailable JEFF REBOLLAR MD Unavailable Unavailable Unavailable Unavailable Unavailable Unavailable Unavailable Unavailable Unavailable Unavailable Unavailable Unavailable Allergies Normalized Allergy Reported Date of Reaction(s) Care Provider Facility Allergy Type classification allergen Allergy Onset DA (20 Unclassified No Known Drug 10-03-2015 - no information NIKKI CRUZ , Not Available sources.) Allergies DO (43188) Medications The data below is from unstructured [...] , [facility] Via codes; gestation of DO [facility] - (7 sources.) [facility] () Residual 22 weeks Episodic Active DIEGO [facility] Via codes; gestation of GAVIOTA LEWIS [facility] - (6 sources.) [facility] () Residual 28 weeks Episodic Active DANIELLE [facility] Via codes; [facility] - (7 sources.) [facility] () Residual 30 weeks Episodic Active BRENDA [facility] Via codes; gestation of [facility] - (5 sources.) [facility] (08322) Residual 32 weeks Episodic Active NIKKI CRUZ , [facility] Via codes; gestation of DO [facility] - (5 sources.) [facility] () Residual 35 weeks Episodic Active NIKKI CRUZ , [facility] Via codes; gestation of DO [facility] - (8 sources.) [facility] () Residual 36 weeks Episodic Active NIKKI CRUZ , [facility] Via codes; gestation of DO [facility] - (4 sources.) [facility] (50813) Residual 38 weeks Episodic Active NIKKI CRUZ , [facility] Via codes; gestation of DO [facility] - (13 sources.) [facility] (78727) Other Abnormality in Episodic Active NIKKI CRUZ , [facility] Via complications heart DO [facility] of ; rate and Hospital - puerperium rhythm [facility] affecting complicating (32399) management of labor and mother (4 delivery sources.) Other Abnormality in Episodic Active NIKKI CRUZ , [facility] Via complications heart DO [facility] of ; rate or Hospital - puerperium rhythm, [facility] affecting delivered, (67415) management of with or mother (9 without sources.) mention of antepartum condition Other Anemia of Chronic Active NIKKI CRUZ , Not Avai lable complications mother, DO (17429) of ; delivered, puerperium with mention affecting of management of complication mother (1 source.) Other nervous Carpal tunnel Chronic Active SLIM DIAZ [facility] Via system syndrome [facility] disorders (20 Hospital - sources.) [facility] (27949) Chronic kidney Chronic kidney Chronic Active NIKKI CRUZ , [facility] Via disease (11 disease, DO [facility] sources.) unspecified Hospital - [facility] (16474) External cause Civilian Episodic Active DIEGO [facility] Via codes: activity done [place]AV[place] LEWIS Unspecified (6 for income or Hospital - sources.) pay [facility] (17389) Other Decreased Episodic Active QUYEN SANTIZO [facility] Via complications , DO [facility] of movements, Hospital - (10 sources.) affecting [facility] management of (69127) mother, antepartum condition or complication Spondylosis; 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 lumbar (92195) disc intervertebral disorders; disc without other back myelopathy problems (1 source.) Other Excessive Episodic Active NIKKI CRUZ , Not Avai lable complications growth, DO (25037) of affecting (11 sources.) management of mother, delivered, with or without mention of antepartum condition External cause Fall on same Episodic Active DIEGO [facility] Via codes: Fall (6 level from [place] LEWIS sources.) slipping, Hospital - tripping and [facility] stumbling (93224) without subsequent striking against object, initial encounter Diabetes or Gestational Episodic Active NIKKI CRUZ , [facility] Via abnormal diabetes DO [facility] glucose mellitus in Hospital - tolerance , [facility] complicating insulin (84528) ; controlled childbirth; or Translations: the puerperium [ GESTATNL (24 sources.) DIAB IN CHLDBRTH, CTRL BY ORAL , GESTATIONAL DIABETES MELLITUS IN PREGNAN] Other Maternal care Episodic Active NIKKI CRUZ , [facility] Via complications for excessive DO [facility] of growth, Hospital - (4 sources.) third [facility] trimester, not (32278) applicable or unspecified Umbilical cord Other and Episodic Active NIKKI CRUZ , [facility] Via complication unspecified DO [facility] (9 sources.) cord [facility] without (38660) mention of compression, complicating labor and delivery, delivered, with or without mention of antepartum condition Other Other current Episodic Active NIKKI CRUZ , Not Available complications conditions DO (65633) of ; classifiable puerperium elsewhere of affecting mother, management of delivered, mother (11 with or sources.) without mention of antepartum condition Other Other Episodic Active DIEGO [facility] Via complications specified GAVIOTA LEWIS of diseases and Hospital - (9 sources.) conditions [facility] complicating (24425) , childbirth and the puerperium External cause Other Episodic Active DIEGO [facility] Via codes: Place specified [place] LEW[place] of occurrence places as the Hospital - (6 sources.) place [facility] occurrence of (04948) the external cause Other Pain in right Episodic Active DANIELLE [facility] Via connective lower leg [facility] [place] tissue disease [place] [facility] - (18 sources.) [facility] (52316) Polyhydramnios Polyhydramnios Episodic Active NIKKI CRUZ , Not Available and other , delivered, DO (07977) problems of with or amniotic without cavity (6 mention of sources.) antepartum condition Translations: [ POLYHYDRAMNIOS , THIRD TRIMESTER, NOT HEMALATHA] Fetopelvic Shoulder Episodic Active NIKKI CRUZ , Not Avai lable disproportion; (girdle) DO (95179) obstruction (6 dystocia, sources.) delivered, with or without mention of antepartum condition Translations: [ OBSTRUCTED LABOR DUE TO SHOULDER DYSTOCI] Other Streptococcus Episodic Active NIKKI CRUZ , [facility] Via complications B carrier DO [facility] of ; [facility] - puerperium complicating [facility] affecting childbirth (63232) management of mother (4 sources.) Other Supervision of Episodic Active NIKKI CRUZ , [facility] Via complications elderly DO [facility] of multigravida, Hospital - (7 sources.) second [facility] trimester (26826) Other Supervision of Episodic Active NIKKI CRUZ , [facility] Via complications elderly DO [facility] of multigravida, Hospital - (13 sources.) third [facility] trimester (20394) Other Supervision of Episodic Active NIKKI CRUZ , [facility] Via complications elderly DO [facility] of primigravida, Hospital - (8 sources.) third [facility] trimester (04169) Other Supervision of Episodic Active NIKKI CRUZ , [facility] Via complications with DO [facility] - (5 sources.) reproductive [facility] or obstetric (44227) history, third trimester Other injuries Unspecified Episodic Active DIEGO [facility] V ia and conditions injury of GAVIOTA LEWIS due to right hip, Hospital - external initial [facility] causes (9 encounter (28631) sources.) Hypertension Unspecified Chronic Active NIKKI CRUZ , Not Available complicating pre-existing DO (93768) ; hypertension childbirth and complicating the puerperium [...] Not Available codes; gestation of GAVIOTA LEWIS (08150) unclassified (3 sources.) Residual 28 weeks no information no information DANIELLE Not Available codes; gestation of ERLINDA , (00202) unclassified MD (2 sources.) Residual 35 weeks no information no information NIKKI CRUZ , Not Available codes; gestation of DO (34907) unclassified (3 sources.) Residual 38 weeks no information no information NIKKI SHAW , Not Available codes; gestation of DO (74554) unclassified (3 sources.) Other upper Acute upper Episodic Completed REGINA RENAE , DO Not Available respiratory respiratory (69526) infections (1 infections of source.) unspecified site Deficiency and Anemia, Episodic Completed NIKKI NANCY , Not Available other anemia unspecified DO (43563) (1 source.) External cause Civilian no information no information DIEGO Not Available codes: activity done [place]AV[place] LEWIS (01323) Unspecified (3 for income or sources.) pay Other lower Cough Episodic Completed REGINA OC , DO Not Av ailable respiratory (04975) disease (1 source.) External cause Fall on same no information no information GRETC HEN Not Available codes: Fall (3 level from [place]AVI[place] LEWIS (91245) sources.) slipping, tripping and stumbling without subsequent striking against object, initial encounter Diabetes or Gestational no information no information NIKKI PENG AW , Not Available abnormal diabetes DO (43571) glucose mellitus in tolerance childbirth, complicating controlled by ; oral childbirth; or hypoglycemic the puerperium drugs (3 sources.) External cause Other no information no information DIEGO Not Available codes: Place specified [place]AV[place] LEWIS (67125) of occurrence places as the (3 sources.) [address] of occurrence of the external cause Other Pain in joint, Episodic Completed DIEGO Not Marybel ilable non-traumatic pelvic region GAVIOTA LEWIS (26437) joint and thigh disorders (1 source.) Other lower Painful Episodic Completed REGINA OC , DO Not Av ailable respiratory respiration (15374) disease (1 source.) Other Supervision of no information no information NIKKI THAKUR , Not Available complications elderly DO (17395) of multigravida, (3 sources.) third trimester Other Supervision of no information no information NIKKI THAKUR , Not Available complications elderly DO (25101) of primigravida, (3 sources.) third trimester Procedures Procedure Normalized Procedure Procedure Result Performer Facility Date 01-02-2018 Billing Notes on claim no information no name [facility] ([id number]) 01-11-2018 Debridement nail any no information no name Co count includes the [facility] Health method [address] [place] [address] (58288) 10-05-2017 Debridement nail any no information no name Co count includes the [facility] Health method [address] [place] [address] (61696) 02-22-2019 DELIVERY OF PRODUCTS no information no name [facility] (75165) 01-17-2016 DELIVERY OF PRODUCTS no information no name [facility] (37900) DELIVERY OF PRODUCTS no information no name Not Avail able (20399) OF CONCEPTION, EXTE 02-22-2019 DRAINAGE OF AMNIOTIC no information no name [facility] [place], THERAP FROM [facility] (75855) Episiotomy no information no name Not Available ( 42004) 12-03-2017 Hemoglobin no information no name Critical access hospital glycosylated a1c [facility] (13232) 02-22-2019 INTRODUCTION OF no information no name [facility] Via [facility] HORMONE INTO [facility] REPROD, (96930) 02-22-2019 INTRODUCTION OF OTH no information no name [facility] HORMONE INTO [facility] (50708) 02-12-2014 Other manually no information no name [facility] Via [facility] assisted delivery [facility] (05683) Other manually no information no name Not Available ( 00100) assisted delivery 01-02-2018 Screening of a patient no information no name [facility] (45842) Vacuum extraction with no information no name Not Marybel ilable (00211) episiotomy Immunizations Normalized Immunization Date Notes Care Provider Facili ty Immunization influenza, 12-11-2018 no information no name Critical access hospital injectable, [facility] quadrivalent, - [facility] preservative free (46837) influenza, 12-03-2017 no information [place] [address] [facility], [place] (56040) preservative free influenza, 12-04-2016 no information no name Not Availab le injectable, (35268) quadrivalent, preservative free influenza, seasonal, 12-03-2017 - no information DON DENTON 66 [phone] [facility] injectable 12-03-2017 [facility] Translations: [ [place] (07905) SINGLE IMMUNIZATION ADMIN, IMMUNIZATION ADMIN, EACH ADD (please include units)] pneumococcal 12-03-2017 - no information DON [place] [address] [facility] conjugate vaccine, 12-03-2017 [facility] 13 valent [place] (28082) Translations: [ PCV 13] Results Test Name Value Interpretation Reference Range Date Time Fa cility (Normalized) (Normalized) (Medline Reference) a1c (in house) on null Hemoglobin 12.9 % (no code) 0 - 5.7 % Critical access hospital A1c/Hemoglobin.t [facility] fraction (Bld) (11284) Hemoglobin 9.7 % (no code) 0 - 5.7 % Critical access hospital A1c/Hemoglobin.t [facility] fraction (d) (22880) A1C (IN HOUSE) 0856 (no code) [facility] (11469) A1C (IN HOUSE) 04/2019 (no code) [facility] (75937) not yet categorized on 2019-07-26 Arterial patency YES-POS (no code) 07-26-2019 PENDING L OCATION Wrist artery 01:47-0400 [facility] (73858) --pre arterial puncture Body site RIGHT RADIAL (no code) 07-26-2019 PENDING LOCAT ION 01:47-0400 [facility] (09414) FLU RESULT Negative (no code) 07-26-2019 PENDING LOCATI ON 01:44-0400 [facility] (47243) Inhaled oxygen 4L (no code) 07-26-2019 PENDING LOC ATION flow rate 01:47-0400 [facility] (16257) PROCALCITONIN 0.07 (NEG) 07-26-2019 PENDING LOCA TION (PCT) 01:35-0400 [facility] (18781) Ventilation mode NO (no code) 07-26-2019 PENDING L OCATION Ventilator 01:47-0400 [facility] (56122) laboratory on 2019-07-26 Albumin 4.0 g/dL (NEG) 3.4 - 5.4 g/dL 07-26-2019 PENDING LOCATION [Mass/Vol] 01:35-0400 [facility] (21494) ALP [Catalytic 93 U/L (NEG) 44 - 147 U/L 07-26-2019 PEND ING LOCATION activity/Vol] 01:35-0400 [facility] (90190) ALT [Catalytic 68 U/L (H) 4 - 40 U/L 07-26-2019 PENDIN G LOCATION activity/Vol] 01:35-0400 [facility] (76651) Anion gap 11 mmol/L (NEG) 3 - 11 mmol/L 07-26-2019 PENDING LOCATION [Moles/Vol] 01:35-0400 [facility] (08402) aPTT Coag (PPP) 34 s (NEG) 25 - 35 s 07-26-2019 PENDIN G LOCATION [Time] 01:35-0400 [facility] (55236) AST [Catalytic 30 U/L (NEG) 10 - 34 U/L 07-26-2019 PENDI NG LOCATION activity/Vol] 01:35-0400 [facility] (35546) Base excess Calc 4.1 mmol/L (H) -2 - 2 mmol/L 07-26-2019 PENDING LOCATION (Bld) 01:47-0400 [facility] (85871) [Moles/Vol] Basophils (Bld) 0.0 10*3/uL (NEG) 0 - 0.3 10*3/uL 07-26-2019 PENDING LOCATION [#/Vol] 01:35-0400 [facility] (12475) Basophils/100 0 % (NEG) 0.5 - 1 % 07-26-2019 PENDING LOCATION WBC (Bld) 01:35-0400 [facility] (81751) Bilirubin 0.5 mg/dL (NEG) 0.1 - 1.2 mg/dL 07-26-2019 PENDIN G LOCATION [Mass/Vol] 01:35-0400 [facility] (41322) Calcium 9.1 mg/dL (NEG) 8.5 - 10.2 mg/dL 07-26-2019 PENDI NG LOCATION [Mass/Vol] 01:35-0400 [facility] (05313) Chloride 103 mmol/L (NEG) 95 - 106 mmol/L 07-26-2019 PENDI NG LOCATION [Moles/Vol] 01:35-0400 [facility] (68413) CO2 (Bld) 38 mm[Hg] (NEG) 35 - 45 mm[Hg] 07-26-2019 PENDING LOCATION [Partial 01:47-0400 [facility] (51362) pressure] CO2 [Moles/Vol] 26 mmol/L (NEG) 23 - 29 mmol/L 07-26-2019 P ENDING LOCATION 01:35-0400 [facility] (35057) CO2 [Moles/Vol] 28.7 mmol/L (NEG) 23 - 29 mmol/L 07-26-2019 PENDING LOCATION 01:47-0400 [facility] (94363) Creatinine 0.74 mg/dL (NEG) 07-26-2019 PENDING LOCATI ON [Mass/Vol] 01:35-0400 [facility] (89910) Creatinine and > (no code) 07-26-2019 PENDING LOC ATION Glomerular 01:35-0400 [facility] (12290) filtration rate.predicted panel - Serum, Plasma or Blood CRP [Mass/Vol] 16.57 (H) 07-26-2019 PENDING LOC ATION 01:35-0400 [facility] (63308) Eosinophils 0.0 10*3/uL (NEG) 0.05 - 0.5 07-26-2019 PENDING LOCATION (Bld) [#/Vol] 10*3/uL 01:35-0400 [facility] (67223) Eosinophils/100 0 % (NEG) 1 - 4 % 07-26-2019 [facility] G LOCATION WBC (Bld) 01:35-0400 [facility] (59295) Erythrocyte 16.2 % (H) 11.6 - 14.6 % 07-26-2019 [facility] LOCATION distribution 01:35-0400 [facility] (99597) width (RBC) [Ratio] ESR (Bld) 53 (H) 07-26-2019 PENDING LOCATI ON [Velocity] 01:35-0400 [facility] (86859) Fibrin D-dimer 0.38 (NEG) 07-26-2019 PENDING LOC ATION FEU (PPP) 01:35-0400 [facility] (28617) [Mass/Vol] Glucose 119 mg/dL (H) 60 - 125 mg/dL 07-26-2019 PENDING LOCATION [Mass/Vol] 01:35-0400 [facility] (73018) HCO3 (Bld) 28 mmol/L (H) 22 - 28 mmol/L 07-26-2019 PENDIN G LOCATION [Moles/Vol] 01:47-0400 [facility] (47174) Hematocrit (Bld) 38 % (NEG) 36.1 - 50.3 % 07-26-2019 P ENDING LOCATION [Volume 01:35-0400 [facility] (24784) fraction] Hemoglobin (Bld) 11.9 g/dL (NEG) 12.1 - 17.2 g/dL 07-26-2019 PENDING LOCATION [Mass/Vol] 01:35-0400 [facility] (69496) INR Coag 1.0 (NEG) 07-26-2019 PENDING LOCATI ON (Platelet poor 01:35-0400 [facility] (30215) plasma or blood) [Relative time] Lactate 1.14 mmol/L (NEG) 0.5 - 2.2 mmol/L 07-26-2019 [facility] LOCATION [Moles/Vol] 01:35-0400 [facility] (86939) LDH [Catalytic 311 U/L (H) 105 - 333 U/L 07-26-2019 [facility] LOCATION activity/Vol] 01:35-0400 [facility] (91943) Lymphocytes 0.7 10*3/uL (L) 0.9 - 2.9 07-26-2019 PENDING LOCATION (Bld) [#/Vol] 10*3/uL 01:35-0400 [facility] (52585) Lymphocytes/100 9 % (L) 20 - 40 % 07-26-2019 PENDIN G LOCATION WBC (Bld) 01:35-0400 [facility] (48252) MCH (RBC) 24 pg (L) 27 - 31 pg 07-26-2019 PENDING LOC ATION [Entitic mass] 01:35-0400 [facility] (60509) MCHC (RBC) 31 g/dL (L) 32 - 36 g/dL 07-26-2019 PENDING LOCATION [Mass/Vol] 01:35-0400 [facility] (02189) MCV (RBC) 76 (L) 05 PENDING LOCATI ON [Entitic vol] 01:35-0400 [facility] (21937) Monocytes (Bld) 0.7 10*3/uL (NEG) 0.3 - 0.9 07-26-2019 PEND ING LOCATION [#/Vol] 10*3/uL 01:35-0400 [facility] (98168) Monocytes/100 10 % (NEG) 2 - 8 % 07-26-2019 PENDING LOCATION WBC (Bld) 01:35-0400 [facility] (34680) Natriuretic 16.7 pg/mL (no code) 0 - 100 pg/mL 07-26-2019 PENDI NG LOCATION peptide B (Bld) 01:35-0400 [facility] (20046) [Mass/Vol] Neutrophils 5.9 10*3/uL (NEG) 1.7 - 7 10*3/uL 07-26-2019 [facility] LOCATION (Bld) [#/Vol] 01:35-0400 [facility] (77019) Neutrophils/100 81 % (H) 40 - 60 % 07-26-2019 PENDIN G LOCATION WBC (Bld) 01:35-0400 [facility] (57484) Oxygen (Bld) 74 mm[Hg] (L) 75 - 100 mm[Hg] 07-26-2019 [facility] LOCATION [Partial 01:47-0400 [facility] (97750) pressure] pH adjusted to 7.48 (H) 07-26-2019 PENDING LOC ATION patient's actual 01:47-0400 [facility] (35514) temperature (BldA) Platelet mean 10.2 (NEG) 07-26-2019 PENDING LOCA TION volume (Bld) 01:35-0400 [facility] (06912) [Entitic vol] Platelets (Bld) 244 10*3/uL (NEG) 150 - 450 07-26-2019 PEND ING LOCATION [#/Vol] 10*3/uL 01:35-0400 [facility] (88497) Potassium 4.2 mmol/L (NEG) 3.7 - 5.2 mmol/L 07-26-2019 PEND ING LOCATION [Moles/Vol] 01:35-0400 [facility] (79892) Protein 8.3 g/dL (H) 6.4 - 8.3 g/dL 07-26-2019 PENDING LOCATION [Mass/Vol] 01:35-0400 [facility] (02016) PT Coag (PPP) 13.2 s (NEG) 9.4 - 12.5 s 07-26-2019 PENDI NG LOCATION [Time] 01:35-0400 [facility] (21608) RBC (Bld) 4.99 10*6/uL (NEG) 4.2 - 6.1 07-26-2019 PENDING L OCATION [#/Vol] 10*6/uL 01:35-0400 [facility] (15899) SaO2% (BldA) 93 (L) 07-26-2019 PENDING LOCAT ION [Mass fraction] 01:47-0400 [facility] (46104) Sodium 140 mmol/L (NEG) 135 - 145 mmol/L 07-26-2019 PEND ING LOCATION [Moles/Vol] 01:35-0400 [facility] (07345) Troponin ng/mL (NEG) 0 - 0.4 ng/mL 07-26-2019 PENDING LOCATION I.cardiac 01:350400 [facility] (94872) [Mass/Vol] Urea nitrogen 13 mg/dL (NEG) 7 - 20 mg/dL 07-26-2019 PENDI NG LOCATION [Mass/Vol] 01:35-0400 [facility] (11869) Urea 18 mg/mg (no code) 6 - 22 mg/mg 07-26-2019 PENDING L OCATION nitrogen/Creatin 01:35 [facility] (65175) ine [Mass ratio] WBC (Bld) 7.3 10*3/uL (NEG) 3.5 - 10.5 07-26-2019 PENDING L OCATION [#/Vol] 10*3/uL 01:350400 [facility] (49351) not yet categorized on 2019-07-24 Control neg~neg~+ (no code) [facility] (76083) Exp date 2022-01-15 (no code) [facility] (50146) Exp date neg~+~410c11~ (no code) [facility] 03-06-29 [facility] (05382) Lot # [id number] (no code) [facility] (00100) not yet categorized on 2019-03-06 Exp date 09/2020 (no code) [facility] (05427) Lot 6.8~10.7~0552 (no code) [facility] (28684) not yet categorized on 2018-08-01 Exp date 04/2020 (no code) [facility] (24456) Lot 10.7~11.0~0993 (no code) [facility] (14210) other on 2017-07-16 Exp date 04/2019 (no code) [facility] (85481) Lot 9.7~8.7~0856 (no code) [facility] (72868) urinalysis on 2016-12-05 Albumin DL <= 20 99.7 (no code) 12-05-2016 Not Avail able mg/L mass conc 12: (52096) (U) Albumin/Creatini 131.0 (H) 12-05-2016 Not Avail able ne DL <= 20 mg/L 12: (87995) mass ratio (U) Creatinine mass 76.1 mg/dL (no code) 12-05-2016 Not Availa ble conc (U) 12: (67295) other on 2016-12-05 Albumin/Globulin 1.4 {ratio} (no code) 1 - 2.5 {ratio} 7 Not Available mass ratio 11: (75948) Cholesterol in Comment (no code) 12-05-2016 Not Availab le LDL mass conc 11: (98859) Cholesterol in Comment (no code) 12-05-2016 Not Availab le VLDL mass conc 11: (33628) Globulin 3.3 g/dL (no code) 2 - 3.5 g/dL 12-05-2016 Not Avail able Calculated mass 11: (79572) conc (S) Immature 0.0 10*3/uL (no code) 0 - 0.2 10*3/uL 12-05-2016 Not Available granulocytes 08: (99752) #/vol (Bld) Immature 0 % (no code) 0 - 0.5 % 12-05-2016 Not Availabl e granulocytes/100 08: (37930) WBC (Bld) metabolic panel on 2016-12-05 Albumin mass 4.6 g/dL (no code) 3.4 - 5.4 g/dL 12-05-2016 Not Available conc 11: (51866) ALP enzyme 71 U/L (no code) 44 - 147 U/L 12-05-2016 Not Avai lable act/vol 11: (32808) ALT enzyme 17 U/L (no code) 4 - 40 U/L 12-05-2016 Not Availa ble act/vol 11: (56423) AST enzyme 16 U/L (no code) 10 - 34 U/L 12-05-2016 Not Avail able act/vol 11: (11998) Bilirubin mass mg/dL (no code) 0.1 - 1.2 mg/dL 12-05-2016 N ot Available conc 11: (08649) Calcium mass 9.9 mg/dL (no code) 8.5 - 10.2 mg/dL 12-05-2016 No t Available conc 11: (71688) Chloride molar 98 mmol/L (no code) 95 - 106 mmol/L 12-05-2016 N ot Available conc 11: (48843) CO2 molar conc 21 mmol/L (no code) 23 - 29 mmol/L 12-05-2016 No t Available 11: (74050) Creatinine mass 0.66 mg/dL (no code) 12-05-2016 Not Availa ble conc 11: (54104) GFR/1.73 sq M 129 (no code) 120 12-05-2016 Not Avai lable predicted among mL/min/{1.73_m2} mL/min/{1.73_m2} 11: (79476) blacks MDRD vol rate/area (S/P/Bld) GFR/1.73 sq M 112 (no code) 120 12-05-2016 Not Avai lable predicted among mL/min/{1.73_m2} mL/min/{1.73_m2} 11: (55944) non-blacks MDRD vol rate/area (S/P/Bld) Glucose mass 207 mg/dL (H) 60 - 125 mg/dL 12-05-2016 Not Available conc 11: (70587) Potassium molar 4.3 mmol/L (no code) 3.7 - 5.2 mmol/L 12-05-2016 Not Available conc 11: (05687) Protein mass 7.9 g/dL (no code) 6.4 - 8.3 g/dL 12-05-2016 Not Available conc 11: (75587) Sodium molar 138 mmol/L (no code) 135 - 145 mmol/L 12-05-2016 N ot Available conc 10: (61134) Urea nitrogen 18 mg/dL (no code) 7 - 20 mg/dL 12-05-2016 Not A vailable mass conc 11: (26891) Urea 27 mg/mg (H) 6 - 22 mg/mg 12-05-2016 Not Avail able nitrogen/Creatin 11: (52286) ine mass ratio hematology on 2016-12-05 Basophils Auto 0.0 10*3/uL (no code) 0 - 0.3 10*3/uL 12-05-2016 Not Available #/vol (Bld) 08: (10887) Basophils/100 0 % (no code) 0.5 - 1 % 12-05-2016 Not Avai lable WBC Auto (Bld) 08: (92195) Eosinophils Auto 0.1 10*3/uL (no code) 0.05 - 0.5 12-05-2016 No t Available #/vol (Bld) 10*3/uL 08: (12151) Eosinophils/100 1 % (no code) 1 - 4 % 12-05-2016 Not Av ailable WBC Auto (Bld) 08: (70621) Erythrocyte 12.9 % (no code) 11.6 - 14.6 % 12-05-2016 Not Av ailable distribution 08: (20104) width Auto Ratio (RBC) Hematocrit Auto 36.2 % (no code) 36.1 - 50.3 % 12-05-2016 No t Available Volume Fraction 08: (55493) (Bld) Hemoglobin mass 11.6 g/dL (no code) 12.1 - 17.2 g/dL 12-05-2016 Not Available conc (Bld) 08: (50182) Lymphocytes Auto 1.7 10*3/uL (no code) 0.9 - 2.9 12-05-2016 Not Available #/vol (Bld) 10*3/uL 08: (36907) Lymphocytes/100 30 % (no code) 20 - 40 % 12-05-2016 Not Av ailable WBC Auto (Bld) 08: (92641) MCH Auto Entitic 26.4 pg (L) 27 - 31 pg 12-05-2016 Not Available mass (RBC) 08: (43383) MCHC Auto mass 32.0 g/dL (no code) 32 - 36 g/dL 12-05-2016 Not Available conc (RBC) 08: (25885) MCV Auto Entitic 82 fL (no code) 80 - 100 fL 12-05-2016 Not Available volume (RBC) 08: (86280) Monocytes Auto 0.5 10*3/uL (no code) 0.3 - 0.9 12-05-2016 Not A vailable #/vol (Bld) 10*3/uL 08: (28022) Monocytes/100 8 % (no code) 2 - 8 % 12-05-2016 Not Avai lable WBC Auto (Bld) 08: (52497) Neutrophils Auto 3.6 10*3/uL (no code) 1.7 - 7 10*3/uL 7 Not Available #/vol (Bld) 08: (54280) Neutrophils/100 61 % (no code) 40 - 60 % 12-05-2016 Not Av ailable WBC Auto (Bld) 08: (03418) Platelets Auto 337 10*3/uL (no code) 150 - 450 12-05-2016 Not A vailable #/vol (Bld) 10*3/uL 08: (48810) RBC Auto #/vol 4.40 10*6/uL (no code) 4.2 - 6.1 12-05-2016 Not Available (Bld) 10*6/uL 08: (04091) WBC Auto #/vol 5.9 10*3/uL (no code) 3.5 - 10.5 12-05-2016 Not Available (Bld) 10*3/uL 08:0 (28417) cardiac on 2016-12-05 Cholesterol in 31 mg/dL (L) 12-05-2016 Not Availab le HDL mass conc 11: (64096) Cholesterol mass 190 mg/dL (no code) 180 - 200 mg/dL 12-05-2016 Not Available conc 11: (33952) Triglyceride 633 mg/dL (HH) 0 - 150 mg/dL 12-05-2016 Not A vailable mass conc 11:25-0400 (10805) imm/path on 2016-11-16 Bacteria Note (no code) 11-16-2016 Not Available identified Aer 17:180400 (81074) cx Nom (Genital specimen) Vital Signs Vital Sign Value Interpretation Reference Date Time Care Prov ider Facility (Normalized) (Normalized) Range BMI (Body Mass 36.45 kg/m2 (no code) 15 - 25 kg/m2 12-03-2017 CAMELIA DENTON Community Index) 16:000400 [id number] [facility] ([id number]) Body 37.2 (no code) 07-26-2019 no name PENDING temperature 01:470 LOCATION [facility] ([id number]) Body 98.2 [degF] (no code) 97.8 - 99.0 12-03-2017 DON [facility] Temperature [degF] 16:00-[address] [place] [address] ([id number]) Height 162.56 cm (no code) cm 01-11-2018 JOHNNY JOSE M [facility] 10:15-[address] [place] [address] ([id number]) Height 162.56 cm (no code) cm 12-03-2017 DON GAULT [facility] 16:00-[address] [place] [address] ([id number]) Height 162.56 cm (no code) cm 10-05-2017 JOHNNY JOSE M [facility] 10:00-[address] [place] [address] ([id number]) Weight 96.34 kg (no code) kg 12-03-2017 DON DENTON [facility] 16:000400 [address] [place] [address] ([id number]) Interventions No Information Plan of Treatment Normalized Care Care Detail Care Activity Date Care Provider F acility Activity (CHM) [facility] 12-03-2017 DON DENTON [phone] [facility] ([id number]) (CHM) [facility] 01-02-2018 DON DENTON [phone] [facility] ([id number]) Follow-up encounter [facility] 01-11-2018 DON DENTON [phone] [facility] ([id number]) Follow-up encounter [facility] 04-12-2018 JOHNNY SALGUERO [phone] [facility] ([id number]) Goals No Information Social History The data below is from unstructured sources History Response Recorde d Date/Time Hx Family Cancer N 07/31 12:47am History Response Recorde d Date/Time Alcohol Use Denies Use 0 07/31/12 12:41am Recreational Drug Use N 07/31/12 12:41am Recent Foreign Travel N 07/31/12 12:41am Recent Infectious Disease Exposure N 07/31/12 12:41am Hospitalization with Isolation Denies 08/01/12 2:40pm History Response Recorde d Date/Time Hx Family Cancer N 07/31 12:47am Hx Family Cardiac Disorders Y 07/31/12 12:47am Hx Family Stroke Y Both parents 07/31/12 12:47am Hx Family Hypertension Y FATHER, PAT RUBA GRANDMOTHER 11/01/10 10:32am Hx Family Myocardial Infarction [...] Diagnosis Care Provi yonathan Organization Date Type 07-26-2019 Emergency department no information JEFF REBOLLAR MD (no [facility] patient visit phone) [facility] (no phone) 10-23-2015 Emergency department no information no name [...] 07-24-2019 Patient encounter no information (no phone) On license of [facility] procedure [facility] (no phone) 07-17-2019 Patient encounter no information DON GAULT (no ph one) [facility]) [facility] (no phone) 07-04-2019 Patient encounter no information DON GAULT (no ph one) [facility] ([facility] phone) [facility] (no phone) 06-05-2019 Patient encounter no information DON GAULT (no ph one) [facility] (no phone) 04-11-2019 Patient encounter no information (no phone) [facility] procedure [facility] (no phone) 03-06-2019 Patient encounter [...] Policy Number Subscriber Name Relationship Self Pay Namelo,Parsi 01 Self / Same As Patient Summary Purpose eClinicalWorks SubmissioneClinicalWorks SubmissioneClinicalWorks SubmissioneClinicalWorks SubmissioneClinicalWorks SubmissioneClinicalWorks SubmissioneClinicalWorks SubmissioneClinicalWorks SubmissioneClinicalWorks SubmissioneClinicalWorks SubmissioneClinicalWorks Submission Advance Directives Directive Response Recor ded Date/Time Advance Directives No 3:55pm Health Care Power of Cook [place] No 10/03/15 3:55pm Organ Donor No 10/03/15 3:55pm Resuscitation Status Full Code 10/03/15 3:55pm Directive Response Recor ded Date/Time Advance Directives No 3:55pm Health Care Power of Cook [place] No 10/03/15 3:55pm Organ Donor No 10/03/15 3:55pm Directive Response Recor ded Date/Time Advance Directives No 8:35am Health Care Power of Cook [place]arder No 01/17/16 8:35am Organ Donor No 01/17/16 8:35am Resuscitation Status Full Code 01/17/16 8:35am Directive Response Recor ded Date/Time Advance Directives No 7:55am Health Care Power of Cook Larder No 02/12/14 7:55am Organ Donor No 02/12/14 7:55am Resuscitation Status Full Code 02/12/14 7:55am Directive Response Recor ded Date Advance Directives N 07/08 12:37am Health Care Power of Cook Larder N 07/31/12 12:37am Organ Donor N 07/31/12 1 2:37am Directive Response Recor ded Date/Time Advance Directives No 10:25pm Health Care Power of Cook Larder No 07/13/14 10:25pm Organ Donor No 07/13/14 10:25pm Resuscitation Status Full Code 07/13/14 10:25pm Directive Response Recor ded Date/Time Advance Directives No 6:59pm Health Care Power of Cook Larder No 09/17/13 6:59pm Organ Donor No 09/17/13 6:59pm Resuscitation Status Full Code 09/17/13 6:59pm Directive Response Recor ded Date/Time Advance Directives No 3:13pm Health Care Power of Cook Larder No 12/21/13 3:13pm Organ Donor No 12/21/13 3:13pm Resuscitation Status Full Code 12/21/13 3:13pm Directive Response Recor ded Date Advance Directives N 7:48pm Health Care Power of Cook Larder N 10/15/12 7:48pm Organ Donor N 10/15/12 [...] SMOKING Nothing Inside Vagina: No Douching, No Terril, No Tampons Discharge Diet: ADA Diet Symptoms to Report to : Swelling Increased, Bleeding Excessive, Fever Over 101 [...] discharge, excessive bleeding. Symptoms to Report to : Fever Over 101 Degrees F, Vaginal Bleeding Increase, Cramps in Feet or Legs, Pain/Pressure in Shoulder, Vaginal Discharge Foul For Any Problems or Questions: Contact Your Physician Bathing Instructions: Shower No hospital discharge instructions.No hospital discharge instructions.No hospital discharge instructions. Additional Source Comments This clinical document has been generated using [employer] software that has been certified by the Office of the National Coordinator for Health Information Technology (ONC 15.99.04.3023.Diam.[id number]) and the National Committee for Athletic Monitor (NCQA, as an eMeasure certified technology). FOR [...] BASED ON T HE PRIMARY CLINICAL RECORDS. [employer] provides no warranty or guara ntee of the accuracy or completeness of information in this document.The followi ng information is based on time limited clinical information UNRECOGNIZED CONTENT PROVIDED BELOW FOR UNRECOGNIZED SECTION MEDICAL (GENERAL) HISTORY Type Description Date Medical History HYPERTENSION Medical History RENAL DISEASE- MICRO ALBUMINURIA Medical History HYPERLIPIDEMIA Medical History DM TYPE 2- DX'D 2007 Type Description Date Medical History HYPERTENSION Medical History RENAL DISEASE- MICRO ALBUMINURIA Medical History HYPERLIPIDEMIA Medical History DM TYPE 2- DX'D 2008 Surgical History No Surgical history information Type [...] Refillreferral from family prace/int. dental3 month f/uBS f/[id number]
--- OUTSIDE RECORDS SUMMARY | 2019-07-26 09:40 | XMS REPORT | Continuity of Care Document ---
Demographics Preferred Language Unknown Marital Status Unknown Advent Affiliation Unknown Race Unknown Ethnic Group Unknown Author Organization Unknown Address Unknown Phone Unavailable Allergies Active Description Code Type Severity Reaction Onset Reported/Identified Relationship to Patient Clinical Status Yes lisinopril Drug Allergy 10/20/2009 Yes lisinopril Drug Allergy N/A N/A 10/20/2009 Yes No Known Drug Allergies [id number] Drug Allergy Mild N/A 10/03/2015 Medications There [...] 250.02 DIABETES MELLITUS POORLY CONTROLLED 05/12/2008 BENITO PATEL APRNINA R 641.90 Bleeding During 05/12/2008 GUIDO LUNA DO K 250.02 DIABETES MELLITUS POORLY CONTROLLED 05/12/2008 CHINA LUNA DOA K 641.90 Bleeding During 06/05/2008 V22.0 Pc N ormal First 06/05/2008 V23.9 High -risk Care Unspec 06/05/2008 V22.0 Pc N ormal First 06/05/2008 V23.9 High -risk Care Unspec 06/05/2008 LUNA DO, GUIDO K [...] K V23.9 High-risk Care Unspec 06/05/2008 AMANDA CHAIR INSPECTOR, LENORE R V22.0 Pc Normal First 06/05/2008 AMANDA CHAIR INSPECTOR, LENORE R V23.9 High-risk Care Unspec 06/05/2008 AMANDA CHAIR INSPECTOR, LENORE R V22.0 Pc Normal First 06/05/2008 AMANDA CHAIR INSPECTOR, LENORE R V23.9 High-risk Care Unspec 06/05/2008 [...] K 616.10 VAGINITIS VULVOVAGINITIS UNSPECIFIED 07/07/2008 AMANDA CHAIR INSPECTOR, LENORE R 616.10 VAGINITIS VULVOVAGINITIS UNSPECIFIED 07/07/2008 AMANDA CHAIR INSPECTOR, LENORE R 616.10 VAGINITIS VULVOVAGINITIS UNSPECIFIED 07/07/2008 [...] R 616.10 Vaginitis Vulvovaginitis Unspecified 09/08/2008 AMANDA WASHBURN, [...] 250.00 DIABETES MELLITUS TYPE 2 02/07/2010 AMANDA CHAIR INSPECTOR, LENORE R 250.00 DIABETES MELLITUS TYPE 2 02/07/2010 AMANDA CHAIR INSPECTOR, LENORE R 250.00 DIABETES MELLITUS TYPE 2 02/07/2010 LUNA DO, GUIDO K 250.00 DIABETES MELLITUS TYPE 2 03/10/2010 V22.2 Preg nant Incidental 03/10/2010 V22.2 Preg nant Incidental 03/10/2010 LUNA DO, GUIDO K V22.2 Incidental 03/10/2010 LUNA DO, GUIDO K V22.2 Incidental 03/10/2010 LUNA DO, GUIDO K V22.2 Incidental 03/10/2010 LUNA DO, GUIDO K V22.2 Incidental 03/10/2010 AMANDA CHAIR INSPECTOR, LENORE R V22.2 Incidental 03/10/2010 AMANDA CHAIR INSPECTOR, LENORE R V22.2 Incidental 03/10/2010 LUNA DO, [...] VACCINES PROPHYLACTIC NEED AGAINST INFLUENZA 03/06/2011 AMANDA CHAIR INSPECTOR, LENORE R 401.9 HYPERTENSION (SYSTEMIC) 03/06/2011 AMANDA CHAIR INSPECTOR, LENORE R V04.81 VACCINES PROPHYLACTIC NEED AGAINST INFLUENZA 03/06/2011 AMANDA CHAIR INSPECTOR, LENORE R 401.9 HYPERTENSION (SYSTEMIC) 03/06/2011 AMANDA CHAIR INSPECTOR, LENORE R V04.81 VACCINES PROPHYLACTIC NEED AGAINST [...] GUIDO K V72.42 TEST POSITIVE 12/25/2011 AMANDA CHAIR INSPECTOR LENORE R V72.42 TEST POSITIVE 12/25/2011 AMANDA CHAIR INSPECTOR, LENORE R V72.42 TEST POSITIVE 12/25/2011 LUNA DO, GUIDO K V72.42 TEST POSITIVE 08/01/2012 NIKKI CRUZ DO Ot 648.0 1 DIABETES-DELIVERED 08/01/2012 NIKKI CRUZ DO Ot 648.9 1 OTH [...] 08/01/2012 NANCY LEONARDO NIKKI Thao Ot V06.1 [id number], COMBINED [ 08/01/2012 NIKKI CRUZ DO Ot [...] CARRIER 02/14/2014 NIKKI CRUZ DO Ot V06.1 [id number], COMBINED [ 02/14/2014 NIKKI CRUZ DO Ot V27.0 DELIVER-SINGLE LIVEBORN 02/24/2014 Ot 250.00 02/24/2014 Ot 272.4 02/24/2014 LENORE PATEL APRN Ot 722.10 02/24/2014 LENORE PATEL APRN Ot V72.42 02/25/2014 Ot 250.00 02/25/2014 Ot 272.4 02/25/2014 LENORE PATEL APRN Ot 722.10 02/25/2014 LENORE PATEL APRN Ot V72.42 07/13/2014 SLIM DIAZ CHAIR INSPECTOR Ot 719.47 JOINT PAIN-ANKLE 08/14/2014 Ot V54.89 08/14/2014 Ot 649.53 08/14/2014 Ot V22.1 08/14/2014 Ot V22.0 08/14/2014 Ot 640.93 08/14/2014 Ot 648.03 08/14/2014 Ot 649.53 08/14/2014 Ot 250.00 08/14/2014 Ot 791.9 10/03/2015 DIEGO MOSQUEDA Ot O99.89 OT DISEASES AND CONDITIONS COMPL PREG/C 10/03/2015 DIGEO MOSQUEDA Ot S70.01XA CONTUSION OF RIGHT HIP, [...] LUMBAR DISC DISPLACEMENT 10/03/2015 AMANDA, LENORE R CHAIR INSPECTOR Ot V72.42 EXAMINATION OR TEST, POSITIVE 10/05/2015 [...] 10/23/2015 DANIELLE COFFEY MD T Ot 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.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 10/25/2015 DANIELLE COFFEY MD T Ot M79.661 PAIN IN RIGHT LOWER LEG 10/25/2015 DANIELLE COFFEY MD Ot O24.113 PRE-EXISTING DIABETES, TYPE 2, IN PREGNA 10/25/2015 DANIELLE COFFEY MD T Ot Z3A.28 28 WEEKS GESTATION OF 10/25/2015 DANIELLE COFFEY MD T Ot Z79.4 CUSTODIAL (CURRENT) USE OF INSULIN 12/30/2015 LENORE PATEL CHAIR INSPECTOR Ot 722.10 LUMBAR DISC DISPLACEMENT 12/30/2015 LENORE PATEL CHAIR INSPECTOR Ot V72.42 EXAMINATION OR TEST, POSITIVE 01/13/2016 LENORE PATEL CHAIR INSPECTOR Ot 722.10 LUMBAR DISC DISPLACEMENT 01/13/2016 LENORE PATEL CHAIR INSPECTOR Ot V72.42 EXAMINATION OR TEST, POSITIVE 01/14/2016 [...] Ot O09.5 23 SUPERVISION OF E[facility]ERLY [facility], [facility] 01/19/2016 NIKKI CRUZ DO C Ot O10.9 13 UNSP PRE-EXISTING HTN COMP , TH 01/19/2016 NIKKI CRUZ DO Ot O24.4 25 GESTATNL DIAB IN [facility] BY ORAL 01/19/2016 NIKKI CRUZ DO Ot Z23 ENCOUNTER FOR IMMUNIZATION 01/19/2016 NIKKI CRUZ DO Ot Z37.0 SINGLE LIVE 01/19/2016 NIKKI CRUZ DO Ot Z3A.3 8 38 WEEKS GESTATION OF 03/29/2016 LENORE PATEL CHAIR INSPECTOR Ot 722.10 LUMBAR DISC DISPLACEMENT 03/29/2016 LENORE PATEL CHAIR INSPECTOR Ot V72.42 EXAMINATION OR TEST, POSITIVE 03/29/2016 [...] Ot O09.5 13 SUPERVISION OF [facility] 05/02/2016 CRUZ DO, NIKKI C Ot O10.2 [...] Ot O09.5 13 SUPERVISION OF [facility] 05/05/2016 CRUZ DO, NIKKI C Ot O10.2 [...] Ot O09.5 13 SUPERVISION OF [facility], [facility] 10/02/2018 CRUZ DO, NIKKI C Ot O10.2 13 PRE-EXIST HYP CHRONIC KIDNEY DISEASE COM 10/02/2018 CRUZ DO, NIKKI C Ot O24.4 14 GESTATIONAL DIABETES IN , INSUL 10/02/2018 CRUZ DO, NIKKI C Ot Z3A.3 5 35 WEEKS GESTATION OF 11/04/2018 LENORE PATEL CHAIR INSPECTOR Ot V72.42 EXAMINATION OR TEST, POSITIVE 11/04/2018 [...] 35 WEEKS GESTATION OF 11/05/2018 LENORE PATEL CHAIR INSPECTOR Ot V72.42 EXAMINATION OR TEST, POSITIVE 11/05/2018 CRUZ DO, NIKKI C Ot I12.9 HYPERTENSIVE CHRONIC KIDNEY DISEASE W ST 11/05/2018 CRUZ DO, NIKKI C Ot N18.9 CHRONIC [...] 21 WEEKS GESTATION OF 12/25/2018 LENORE PATEL CHAIR INSPECTOR Ot V72.42 EXAMINATION OR TEST, POSITIVE 12/25/2018 [...] 21 WEEKS GESTATION OF 12/25/2018 LENORE PATEL CHAIR INSPECTOR Ot V72.42 EXAMINATION OR TEST, POSITIVE 12/25/2018 [...] 21 WEEKS GESTATION OF 12/30/2018 BRENDA MO CHAIR INSPECTOR Ot O24.913 UNSPECIFIED DIABETES MELLITUS IN PREGNAN 12/30/2018 BRENDA MO CHAIR INSPECTOR Ot Z3A.30 30 WEEKS GESTATION OF 01/08/2019 BRENDA MO CHAIR INSPECTOR Ot O24.913 UNSPECIFIED DIABETES MELLITUS IN PREGNAN 01/08/2019 BRENDA MO CHAIR INSPECTOR Ot Z3A.30 30 WEEKS GESTATION OF 01/21/2019 [...] Ot O09.5 22 SUPERVISION OF E[facility]ERLY [facility], [facility] 01/21/2019 NANCY DO NIKKI C Ot O24.1 [...] PREG W POOR REPRODCTV OR OBST 01/24/2019 NANYC DO NIKKI C Ot O09.5 23 SUPERVISION [...] Ot O09.5 23 SUPERVISION OF [facility] 02/04/2019 NANCY DO NIKKI C Ot O24.1 13 PRE-EXISTING TYPE 2 DIABETES, IN PREGNAN 02/04/2019 NANCY DO NIKKI C Ot Z3A.3 2 32 WEEKS GESTATION OF 02/10/2019 NANCY LEONARDO NIKKI C Ot I12.9 HYPERTENSIVE CHRONIC KIDNEY DISEASE W 02/10/2019 NANCY DO NIKKI C Ot N18.9 CHRONIC KIDNEY DISEASE, UNSPECIFIED 02/10/2019 NANCY DO NIKKI C Ot O09.5 13 SUPERVISION OF E[facility] 02/10/2019 MATILDE CRUZ DOA C Ot O10.2 13 PRE-EXIST HYP CHRONIC KIDNEY DISEASE COM 02/10/2019 NANCY DO NIKKI C Ot O24.4 14 GESTATIONAL DIABETES IN , INSUL 02/10/2019 NANCY DO NIKKI C Ot Z3A.3 5 35 WEEKS GESTATION OF 02/10/2019 NANCY DO NIKKI C Ot O09.5 22 SUPERVISION OF [facility] 02/10/2019 NANCY DO NIKKI C Ot O24.1 12 PRE-EXISTING TYPE 2 DIABETES, IN PREGNAN 02/10/2019 NANCY LEONARDO NIKKI C Ot Z3A.2 1 21 WEEKS GESTATION OF 02/10/2019 BRENDA MO CHAIR INSPECTOR Ot O24.913 UNSPECIFIED DIABETES MELLITUS IN PREGNAN 02/10/2019 BRENDA MO CHAIR INSPECTOR Ot Z3A.30 30 WEEKS GESTATION OF 02/10/2019 NANCY DOMATILDEA C Ot E11.9 TYPE 2 DIABETES MELLITUS WITHOUT COMPLIC 02/10/2019 NANCY DO NIKKI C Ot O09.2 93 SUPRVSN OF PREG W POOR REPRODCTV OR OBST 02/10/2019 NANCY LEONARDO NIKKI C Ot O09.5 23 SUPERVISION OF [facility] 02/10/2019 NIKKI CRUZ DO Ot O24.1 13 PRE-EXISTING TYPE 2 DIABETES, IN PREGNAN 02/10/2019 NIKKI CRUZ DO Ot Z3A.3 2 32 WEEKS GESTATION OF 02/11/2019 BRENDA MO CHAIR INSPECTOR Ot O24.419 GESTATIONAL DIABETES MELLITUS IN PREGNAN 02/11/2019 BRENDA MO CHAIR INSPECTOR Ot Z3A.38 38 WEEKS GESTATION OF 02/23/2019 [...] OF 02/23/2019 NIKKI CRUZ DO Ot 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.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 02/25/2019 NIKKI CRUZ [...] Ot O09.5 22 SUPERVISION OF E[facility]ERLY [facility], [facility] 02/25/2019 NANCY LEONARDO NIKKI C Ot O24.1 12 PRE-EXISTING TYPE 2 DIABETES, IN PREGNAN 02/25/2019 MATILDE CRUZ DOA C Ot Z3A.2 1 21 WEEKS GESTATION OF 02/25/2019 BRENDA MO CHAIR INSPECTOR Ot O24.913 UNSPECIFIED DIABETES MELLITUS IN PREGNAN 02/25/2019 BRENDA MO CHAIR INSPECTOR Ot Z3A.30 30 WEEKS GESTATION OF 02/25/2019 NIKKI CRUZ DO Ot E11.9 TYPE 2 DIABETES MELLITUS WITHOUT COMPLIC 02/25/2019 MATILDE CRUZ DOA C Ot O09.2 93 SUPRVSN OF PREG W POOR REPRODCTV OR OBST 02/25/2019 NIKKI CRUZ DO C Ot O09.5 23 SUPERVISION OF E[facility] 02/25/2019 MATILDE CRUZ DOA C Ot O24.1 13 PRE-EXISTING TYPE 2 DIABETES, IN PREGNAN 02/25/2019 MATILDE CRUZ DOA C Ot Z3A.3 2 32 WEEKS GESTATION OF 02/25/2019 BRENDA MO CHAIR INSPECTOR Ot O24.419 GESTATIONAL DIABETES MELLITUS IN PREGNAN 02/25/2019 BRENDA MO CHAIR INSPECTOR Ot Z3A.38 38 WEEKS GESTATION OF 03/18/2019 BRENDA MO CHAIR INSPECTOR Ot O24.419 GESTATIONAL DIABETES MELLITUS IN PREGNAN 03/18/2019 BRENDA MO CHAIR INSPECTOR Ot Z3A.38 38 WEEKS GESTATION OF 03/18/2019 BRENDA MO CHAIR INSPECTOR Ot O24.419 GESTATIONAL DIABETES MELLITUS IN PREGNAN 03/18/2019 BRENDA MO CHAIR INSPECTOR Ot Z3A.38 38 WEEKS GESTATION OF 03/19/2019 BRENDA MO CHAIR INSPECTOR Ot O24.419 GESTATIONAL DIABETES MELLITUS IN PREGNAN 03/19/2019 BRENDA MO CHAIR INSPECTOR Ot Z3A.38 38 WEEKS GESTATION OF Procedures Code Description Performed By Per alireza On 72.71 VACU UM EXT DEL W EPISIOT 12/25/2008 73.6 EPISIOTOMY 11/01/2010 72.71 VACU UM EXT DEL W EPISIOT 07/31/2012 26614 ROUT INE VENIPUNCTURE 10/30/2012 23635 LIVE R PANEL (LFT) 10/30/2012 90565 ROUT INE VENIPUNCTURE 11/28/2012 39150 LIVE R PANEL (LFT) 11/29/2012 17740 MRI SPINE (LUMBAR) W/O CONTRAST 12/05/2012 ANESTHESI MITRA BOYD 12/06/2012 69403 MICR O ALBUMIN-IN HOUSE 12/30/2012 71811 A1C (IN-HOUSE) 12/30/2012 77092 MICR OALBUMIN 12/30/2012 42881 ROUT INE VENIPUNCTURE 12/31/2012 18621 LIPI D PANEL 12/31/2012 34431 ROUT INE VENIPUNCTURE 06/16/2013 [id number] GF R CALC (RESULT ONLY) 06/16/2013 82221 CMP 06/16/2013 92907 LIPI D PANEL 06/16/2013 31663 A1C (RML) 06/16/2013 32134 PREG ISAEL TEST, URINE (IN- HOUSE) 07/03/2013 35851 MICR O ALBUMIN-IN HOUSE 07/03/2013 06726 US O B - EARLY <14 WEEKS 07/11/2013 73.59 MANU AL ASSIST DELIV NEC 02/12/2014 17753 ROUT INE VENIPUNCTURE 03/12/2014 85192 A1C (IN-HOUSE) 03/12/2014 37598 CMP 03/12/2014 38790 LIPI D PANEL 03/12/2014 [id number] GF R CALC (RESULT ONLY) 03/12/2014 89832 CBC 03/12/2014 90315 TSH 03/12/2014 90254 A1C (IN-HOUSE) 05/25/2014 [id number] DE LIVERY OF PRODUCTS OF CONCEPTION, EXTE 01/17/[address] HERNANDEZ OF [place], THERAP FROM POC 02/22/2019 65S5PNI DE LIVERY OF PRODUCTS OF CONCEPTION, EXTE 02/22/2019 [id number] IN TRODUCTION OF OTH HORMONE INTO PERIPH 02/22/2019 [id number] IN TRODUCTION OF HORMONE INTO FEM REPROD, [...] ABO+Rh group AP NR Transfusion band number [id number] [facility] Blood group antibody screen NEGATIVE NR G [...] 7-25 CREATININE 0.57 mg/dL 0.50-1.10 eGFR NON-AFR. [place] 116 mL/min/1.73m2 > OR = 60 eGFR [...] pa mookie - 02/21/19 14:00 WRISTBAND NUMBER [id number] NRG ABO+Rh group AP NRG Blood group [...] by glucometer (mas s/volume) 195 mg/dL 70-110 Complete blood count (CBC) with automate d white blood cell (WBC) differential - 07/26/19 05:35 Blood leukocytes automated count (number/volume) 7.3 10*3/uL 4.3-11.0 Blood erythrocytes automated count (number/volume) 4.99 10*6/uL 4.35-5.85 Venous blood hemoglobin measurement (mass/volume) 11.9 g/dL 11.5-16.0 Blood hematocrit (volume fraction) 38 % 35-52 Automated erythrocyte mean corpuscular volume 76 [ foz_us] 80-99 Automated erythrocyte mean corpuscular h emoglobin (mass per erythrocyte) 24 pg 25-34 Automated erythrocyte mean corpuscular h emoglobin concentration measurement (mass/volume) 31 g/dL 32-36 Automated erythrocyte distribution width ratio 16. 2 % 10.0- 14.5 Automated blood platelet count (count/volume) 244 10*3/uL 130-400 Automated blood platelet mean volume measurement 10.2 [foz_us] 7.4-10.4 Automated blood neutrophils/100 leukocytes 81 % 42-75 Automated blood lymphocytes/100 leukocytes 9 % 12-44 Blood monocytes/100 leukocytes 10 % 0-12 Automated blood eosinophils/100 leukocytes 0 % 0-10 Automated blood basophils/100 leukocytes 0 % 0-10 Blood neutrophils automated count (number/volume) 5.9 10*3 1.8-7.8 Blood lymphocytes automated count (number/volume) 0.7 10*3 1.0-4.0 Blood monocytes automated count (number/volume) 0. 7 10*3 0.0-1.0 Automated eosinophil count 0.0 10*3/uL 0 .0-0.3 Automated blood basophil count (count/volume) 0.0 10*3/uL 0.0-0.1 Blood lactic acid measurement (moles/vol ume) - 07/26/19 05:35 Blood lactic acid measurement (moles/volume) 1.14 mmol/L 0.50-2.00 Comprehensive metabolic panel - 07/26/19 05:35 Serum or plasma sodium measurement (moles/volume) 140 mmol/L 135-145 Serum or plasma potassium measurement (moles/volume) 4.2 mmol/L 3.6-5.0 Serum or plasma chloride measurement (moles/volume) 103 mmol/L 98-107 Carbon dioxide 26 mmol/L 21-32 Serum or plasma anion gap determination (moles/volume) 11 mmol/L 5-14 Serum or plasma urea nitrogen measurement (mass/volume ) 13 mg/dL 7-18 Serum or plasma creatinine measurement (mass/volume) 0.74 mg/dL 0.60-1.30 Serum or plasma urea nitrogen/creatinine mass ratio 18 NRG Serum or plasma creatinine measurement w ith calculation of estimated glomerular filtration rate > NRG Serum or plasma glucose measurement (mass/volume) 119 mg/dL 70-105 Serum or plasma calcium measurement (mass/volume) 9.1 mg/dL 8.5-10.1 Serum or plasma total bilirubin measurement (mass/volu me) 0.5 mg/dL 0.1-1.0 Serum or plasma alkaline phosphatase marbella surement (enzymatic activity/volume) 93 U/L 40-136 Serum or plasma aspartate aminotransfera se measurement (enzymatic activity/volume) 30 U/L 5-34 Serum or plasma alanine aminotransferase measurement (enzymatic activity/volume) 68 U/L 0-55 Serum or plasma protein measurement (mass/volume) 8.3 g/dL 6.4-8.2 Serum or plasma albumin measurement (mass/volume) 4.0 g/dL 3.2-4.5 CALCIUM CORRECTED 9.1 mg/dL 8.5-10.1 PT panel in platelet poor plasma by coag ulation assay - 07/26/19 05:35 Prothrombin time (PT) in platelet poor plasma by coagu lation assay 13.2 s 12.2-14.7 INR in platelet poor plasma or blood by coagulation as say 1.0 0.8-1.4 Activated partial thromboplastin time (a PTT) in platelet poor plasma bycoagulation assay - 07/26/19 05:35 Activated partial thromboplastin time (a PTT) in platelet poor plasma bycoagulation assay 34 s 24-35 Serum or plasma troponin i.cardiac measu rement (mass/volume) - 07/26/19 05:35 Serum or plasma troponin i.cardiac measurement (mass/v olume) < ng/mL <0.028 Serum or plasma lithium measurement (mol es/volume) - 07/26/19 05:35 BNP PT 16.7 pg/mL <100.0 Fibrin D-dimer FEU measurement in platel et poor plasma (mass/volume) - 07/26/19 05:35 Fibrin D-dimer FEU measurement in platelet poor plasma (mass/volume) 0.38 ug/mL 0.00-0.49 Serum ragweed IgE antibody assay - 07/25 05:35 Serum ragweed IgE antibody assay 311 U/L 125-220 PROCALCITONIN (PCT) - 07/26/19 05:35 PROCALCITONIN (PCT) 0.07 ng/mL <0.10 Erythrocyte sedimentation rate by narayan gren method - 07/26/19 05:35 Erythrocyte sedimentation rate by westergren method 53 mm 0- 20 Serum or plasma C reactive protein measu rement (mass/volume) - 07/26/19 05:35 Serum or plasma C reactive protein measurement (mass/v olume) 16.57 mg/dL 0.00-0.50 Influenza virus A and B antigen detectio n - 07/26/19 05:44 FLU RESULT NEGATIVE FOR INFLUENZA A AND B ANTIGENS BY IA NRG Arterial blood gas measurement - 0 05:47 Blood pCO2 38 mm[Hg] 35-45 Blood pO2 74 mm[Hg] 79-93 Arterial blood bicarbonate measurement (moles/volume) 28 mmol/L 23-27 Arterial blood base excess by calculation 4.1 mmol /L -2.5-2.5 Arterial blood oxygen saturation measurement 93 % 94-100 * Inhaled oxygen flow rate 4L NRG Arterial blood pH measurement with patient temperature correction 7.48 7.37-7.43 Arterial blood carbon dioxide, total measurement (mole s/volume) 28.7 mmol/L 21.0-31.0 Body site RIGHT RADIAL NRG Assessment of wrist artery patency prior to arterial p uncture YES-POS NRG Setting of ventilation mode NO NR G Measurement of body temperature 37.2 NRG Encounters ACCT No. Visit Date/Time Discharge Status Pt. Type Provider Facility Loc./Unit Complaint [id number] 04/11/2016 11:08:00 Document Registration [id number] 02/24/2016 08:06:00 Document Registration [id number] 05/25/2014 10:33:00 05/25/2014 23:59: 59 CLS Outpatient CHERYL DO GUIDO Clements [id number] 03/12/2014 09:53:00 03/12/2014 23:59: 59 CLS Outpatient LENORE PATEL APRN [id number] 07/03/2013 15:12:00 07/03/2013 23:59: 59 CLS Outpatient LENORE PATEL APRN [id number] 06/16/2013 16:22:00 06/16/2013 23:59: 59 CLS Outpatient CHERYL LEONARDO GUIDO Clements [id number] 06/16/2013 14:59:00 06/16/2013 23:59: 59 CLS Outpatient CHERYL GUIDO [id number] 12/31/2012 08:14:00 12/31/2012 23:59: 59 CLS Outpatient GUIDO LUNA DO [id number] 11/28/2012 15:59:00 11/28/2012 23:59: 59 [place] [id number] 12/25/2011 11:24:00 12/25/2011 23:59:5 9 CLS Outpatient [id number] 10/30/2012 14:46:00 Document Registration [id number] 02/21/2019 12:40:00 11:35:00 DIS Inpatient NIKKI CRZU DO [facility] LDRP INDUCTION [id number] 02/10/2019 10:38:00 23:59:59 CLS Outpatient BRENDA MO APRN [facility] RAD DIABETES MELLIT US TYPE II, [id number] 01/21/2019 10:40:00 23:59:59 CLS Outpatient NIKKI CRUZ DO [facility] RAD PREEXISTING DIABETES [id number] 12/25/2018 11:08:00 23:59:59 CLS Outpatient BRENDA MO APRN [facility] RAD ,DIABET ES MELLITUS TYPE 2 [id number] 11/04/2018 14:39:00 23:59:59 CLS Outpatient NIKKI CRUZ DO [facility] RAD SURVEY [id number] 01/17/2016 08:09:00 016 13:00:00 DIS Inpatient NIKKI CRUZ DO [facility] LDRP INDUCTION [id number] 01/13/2016 10:00:00 016 23:59:59 CLS Outpatient NIKKI CRUZ DO Thao [facility] RAD GESTATIONAL DIABETES ME LLITUS,CLASS B1 [id number] 10/23/2015 07:05:00 016 08:50:00 DIS Emergency DANIELLE COFFEY MD [facility] ER L LEG PAIN [id number] 10/03/2015 15:47:00 016 17:26:00 DIS Emergency DIEGO MOSQUEDA [facility] ER FALL [id number] 07/13/2014 22:05:00 015 22:48:00 DIS Emergency SLIM DIAZ APRN [facility] ER R ANKLE PAIN [id number] 02/12/2014 06:57:00 014 14:30:00 DIS Inpatient NIKKI CRUZ DO Thao [facility] LDRP INDUCTION [id number] 12/21/2013 14:29:00 014 16:15:00 DIS Outpatient DARLYN LEONARDO QUYEN Lazcano [facility] WSo DECREASED MOVEME NT [id number] 09/17/2013 18:52:00 014 19:25:00 DIS Emergency SLIM DIAZ APRN [facility] ER R HAND NUMBNESS [id number] 08/26/2013 21:05:00 014 22:06:00 DIS Emergency SLIM DIAZ APRN [facility] ER VAGINAL PAIN [id number] 07/11/2013 13:01:00 014 23:59:59 CLS Outpatient LENORE PATEL CHAIR INSPECTOR [facility] RAD DATING [id number] 12/05/2012 14:54:00 10/10/2 013 23:59:59 CLS Outpatient LENORE PATEL APRN [facility] RAD LUMBAR PAIN, PA IN AND NUMBESS IN LEG [id number] 10/15/2012 19:45:00 21:34:00 DIS Emergency DIEGO MOSQUEDA [facility] ER HIP PAIN [id number] 07/31/2012 00:20:00 13:45:00 DIS Inpatient NIKKI CRUZ DO [facility] WS PAIN IN LOWER ABD,CONTR ACTIONS [id number] 07/26/2019 05:28:[address] Emergency EVAN GREEN MD [facility] ER SOB [id number] 08/14/2014 10:53:00 Document Registration [id number] 08/14/2014 10:53:00 Document Registration [id number] 08/14/2014 10:53:00 Document Registration [id number] 08/14/2014 10:53:00 Document Registration [id number] 02/24/2014 10:50:00 Document Registration [id number] 02/24/2014 10:50:00 Document Registration [id number] 01/06/2011 21:14:00 Document Registration [id number] 11/01/2010 08:30:00 Document Registration [id number] 10/03/2010 06:56:00 Document Registration [id number] 03/27/2010 22:26:00 Document Registration [id number] 07/19/2009 08:54:00 Document Registration [id number] 03/19/2009 11:40:00 Document Registration [id number] 07/01/2008 11:48:00 Document Registration [id number] 05/22/2008 11:07:00 Document Registration [id number] 04/28/2008 14:43:00 Document Registration [id number] 02/07/2008 10:55:00 Document Registration [id number] 02/05/2008 11:55:00 Document Registration [id number] 01/23/2007 09:11:00 Document Registration [id number] 07/17/2019 14:20:00 07/17/2019 23:59:5 9 CLS Outpatient [facility] [id number] 01/02/2018 10:20:00 Document Registration [id number] 01/12/2017 08:40:00 Document Registration [id number] 12/04/2016 16:00:00 Document Registration [id number] 11/10/2016 19:00:00 Document Registration [id number] 12/05/2016 12:09:00 Document Registration [id number] 11/16/2016 17:08:00 Document Registration
[2019-07-26] MEDS ORDERED: ONDANSETRON 4 MG/2 ML (SDV) Z0FRAN IV PRN (10:30)
[2019-07-26] MEDS: LACTATED RINGERS 1,000 ML IV SCH ×2 (10:31→20:30)
[2019-07-26] MEDS ORDERED: CANA300T PO (10:59)
[2019-07-26] MEDS ORDERED: LOSA25TA41 PO (10:59)
[2019-07-26] MEDS ORDERED: ATOR40TA70 PO (10:59)
--- NOTE | 2019-07-26 11:07 | History & Physical-Hospitalist ---
History of Present Illness HPI/Chief Complaint CC: PNA with hypoxia and dyspnea suspect COVID 19 HPI: This is a 44yoWF clinic patient of [facility] from [facility] who presents to the ER with worsened dyspnea of several days duration. COVID-19 swab early in the week was performed and it was negative but considering the appearance of the CXR and her shortness of breath she was swabbed again and placed on CAP treatment and placed in isolation and PPE was used in all contact with the patient. Patient reports she feels better and less short of breath but her O2 sats are 93% on supplement. Patient does not smoke and takes meds for DM. Source: patient, RN/MD Exam Limitations: no limitations Date Seen 07/26/19 Time Seen by a Provider: 11:00 Attending Physician Jewels Brush DO PCP Rani Mistry DO Referring Physician Date of Admission July 26, 2019 at 07:35 Home Medications & Allergies Home Medications Reviewed patient Home Medication Reconciliation performed by pharmacy medication reconciliations master automotive technician and/or nursing. Patients Allergies have been reviewed. Allergies Allergies Coded Allergies No Known Drug Allergies (Unverified10/03/15) Past Udaahjj-Bnhwsg-Bnzymi Hx Past Med/Social Hx: Reviewed Nursing Past Med/Soc Hx, Reviewed and Corrections made Patient Social History Marrital Status: single Employed/Student: unemployed Alcohol Use: Denies Use Recreational Drug Use: No Smoking Status: Never a Smoker Recent Foreign Travel: No Contact w/other who traveled: No Recent Hopitalizations: No Recent Infectious Disease Expo: No Immunizations Up To Date Tetanus Booster (TDap): Unknown Date of Pneumonia Vaccine: Aug 01, 2012 Date of Influenza Vaccine: Dec 25, 2018 Seasonal Allergies Seasonal Allergies: No Past Medical History Cardiac: High Cholesterol, Hypertension : No Reproductive: No Sexually Transmitted Disease: No HIV/AIDS: No Female Reproductive Disorders: Denies Endocrine: Diabetes, Non-Insulin dep History of Blood Disorders: No Adverse Reaction to Blood Chang: No Family History Diabetes mellitus (MOTHER- NON INSULIN FATHER- INSULIN) FH: CVA (cerebrovascular accident) (PARENTS) FH: epilepsy (MGF) FH: stroke (PARENTS) Hypertension (FATHER, PGM) No Pertinent Family Hx Review of Systems Constitutional: see HPI Respiratory: cough, dyspnea on exertion, wheezing Physical Exam Physical Exam Vital Signs Vital Signs - First Documented 07/26/19 05:26 Temp 37.2 Pulse 84 Resp 20 B/P (MAP) 117/69 (85) Pulse Ox 94 O2 Delivery Nasal Cannula O2 Flow Rate 2.00 Capillary Refill : Less Than 3 Seconds Height, Weight, BMI Height: 5'4.00" Weight: 256lbs. 0.8oz. [id number]; 49.00 BMI Method:Stated General Appearance: No Apparent Distress, Anxious, Chronically ill, Obese Eyes: Right Eye Normal Inspection, Right Eye PERRL HEENT: PERRL/EOMI, Normal ENT Inspection, Pharynx Normal, Moist Mucous Membranes Neck: Full Range of Motion, Normal Inspection, Non Tender Respiratory: Chest Non Tender, No Accessory Muscle Use, No Respiratory Distress, Decreased Breath Sounds, Wheezing Cardiovascular: Regular Rate, Rhythm, No Edema, No Gallop, No JVD, No Murmur, Normal Peripheral Pulses Gastrointestinal: Normal Bowel Sounds, No Organomegaly, No Pulsatile Mass, Non Tender, Soft Back: Normal Inspection, No CVA Tenderness, No Vertebral Tenderness Extremity: Normal Capillary Refill, Normal Inspection, Normal Range of Motion, Non Tender, No Calf Tenderness, No Pedal Edema Neurologic/Psychiatric: Alert, Oriented x3, No Motor/Sensory Deficits, Normal Mood/Affect Skin: Normal Color, Warm/Dry Lymphatic: No Adenopathy Results Results/Procedures Labs Laboratory Tests 07/26/19 05:35 Patient resulted labs reviewed. Assessment/Plan Admission Diagnosis Assessment: PNA suspicious for COVID-19 swabbed early in week negative but swabbed again today DYspnea Hypoxia DM Obesity BMI 50 HTN HLP Plan: CAP treatment Cardiology evaluation PPE used COVID-19 pending Admission Status: Inpatient Order (span 2 midnights) Reason for Inpatient Admission: PNA worsened wheezing and dyspnea suspect COVID-19 Diagnosis/Problems Diagnosis/Problems (1) Respiratory distress Status: Acute (2) Bilateral pneumonia Status: Acute Qualifiers: Pneumonia type: due to unspecified organism Lung location: unspecified part of lung Qualified Codes: J18.9 - Pneumonia, unspecified organism (3) Diabetes mellitus (4) Hypertension (5) Hypoxia Status: Acute JEWELS BRUSH DO July 26, 2019 11:07
[2019-07-26] MEDS: methylPREDNISolone 40 MG/ML (Solu-MEDROL) VIAL IV SCH ×2 (14:43→20:30)
[2019-07-26] MEDS: inSUlin ASPART (NovoLOG) 1 UNIT/0.01 ML (CHARGE PER UNIT) SQ SCH ×2 (15:09→20:38)
[2019-07-26] MEDS ORDERED: HYDROcodone/APAP 5 MG/325 MG (LORTAB) TAB PO PRN (15:30)
[2019-07-26] MEDS ORDERED: ONDANSETRON 4 MG (ZOFRAN) ORAL DISSOLVE TAB PO PRN (15:30)
[2019-07-26] MEDS ORDERED: CALCIUM CARBONATE 500 MG (TUMS) TAB.CHEW PO PRN (15:30)
[2019-07-26] MEDS ORDERED: MELATONIN 3 MG TABLET PO PRN (15:30)
[2019-07-26] MEDS ORDERED: DOCUSATE SODIUM 100 MG (COLACE) CAP PO PRN (15:30)
[2019-07-26] MEDS ORDERED: BISACODYL 10 MG SUPP (DULCOLAX) PR PRN (15:30)
[2019-07-26] MEDS ORDERED: diphenhydrAMINE 25 MG TAB (BENADRYL) PO PRN (15:30)
[2019-07-26] MEDS ORDERED: LOPERAMIDE 2 MG (IMODIUM) TABLET PO PRN (15:30)
[2019-07-26] MEDS: ENOXAPARIN 40 MG/0.4 ML (LOVENOX) SYR SC SCH (16:56)
[2019-07-26] MEDS: IBUPROFEN 600 MG (MOTRIN) TAB PO SCH (17:00)
[2019-07-26] MEDS: ACETAMINOPHEN 500 MG TAB (TYLENOL) PO SCH (17:00)
[2019-07-26] MEDS: SENNA W/DOCUSATE (SENOKOT S) TABLET PO SCH (20:30)
[2019-07-27] VITALS (28 sets, daily range): BP systolic 107–177; BP diastolic 70–110
[2019-07-27] MEDS: IBUPROFEN 600 MG (MOTRIN) TAB PO SCH (01:01)
[2019-07-27] MEDS: ACETAMINOPHEN 500 MG TAB (TYLENOL) PO SCH (01:02)
[2019-07-27] MEDS: methylPREDNISolone 40 MG/ML (Solu-MEDROL) VIAL IV SCH ×4 (01:45→21:56)
--- NOTE | 2019-07-27 03:44 | Pulmonary Consultation ---
History of Present Illness History of Present Illness Date Seen by Provider: July 27, 2019 Time Seen by Provider: 03:39 Date of Admission History of Present Illness 44yo from [facility] presented to ED secondary to worsening dyspnea that started about a week ago. COVID early this week was negative. COVID was repeat in ED and is still negative. CXR shows bilateral pulmonary edema. No smoking history. No prior episodes. I am consulted for pulmonary/ICU management. Allergies and Home Medications Allergies Coded Allergies: No Known Drug Allergies (Unverified , 10/03/15) Home Medications Acetaminophen 500 Mg Tablet, 1,000 MG PO Q6HR Prescribed by: NIKKI CRUZ on 02/23/19 0732 Atorvastatin Calcium 40 Mg Tablet, 40 MG PO DAILY, (Reported) Canagliflozin 300 Mg Tablet, 300 MG PO DAILY, (Reported) Glyburide,Micronized 3 Mg Tablet, 5 MG PO DAILY@0630 Prescribed by: NIKKI CRUZ on 02/23/19 0836 Ibuprofen 600 Mg Tablet, 600 MG PO Q6H Prescribed by: NIKKI CRUZ on 02/23/19 0732 Ibuprofen 600 Mg Tablet, 600 MG PO Q6HR Prescribed by: NIKKI CRUZ on 02/23/19 0836 Losartan Potassium 25 Mg Tablet, 25 MG PO DAILY, (Reported) Metformin HCl 500 Mg Tablet, 1,000 MG PO BID@,17 Prescribed by: NIKKI CRUZ on 02/23/19 0836 Misoprostol 200 Mcg Tablet, 200 MCG PO TID Prescribed by: NIKKI CRUZ on 02/23/19 0836 Past Zkisqdx-Xkcfna-Trplgx Hx Past Med/Social Hx: Reviewed Nursing Past Med/Soc Hx, Reviewed and Corrections made Patient Social History Alcohol Use: Denies Use Recreational Drug Use: No Smoking Status: Never a Smoker Recent Foreign Travel: No Contact w/Someone Who Travel: No Recent Infectious Disease Expo: No Recent Hopitalizations: No Physical Abuse: No Sexual Abuse: No Mistreated: No Fear: No Immunizations Up To Date Tetanus Booster (TDap): Unknown Date of Pneumonia Vaccine: Aug 01, 2012 Date of Influenza Vaccine: Dec 25, 2018 Seasonal Allergies Seasonal Allergies: No Past Medical History Surgeries: No Respiratory: No Cardiac: No High Cholesterol, Hypertension Neurological: No : No Last Menstrual Period: July 10, 2019 Reproductive Disorders: No Female Reproductive Disorders: Denies Sexually Transmitted Disease: No HIV/AIDS: No Genitourinary: No Gastrointestinal: No Musculoskeletal: No Endocrine: Yes Diabetes, Non-Insulin dep HEENT: No Cancer: No Psychosocial: No Integumentary: No Blood Disorders: No Adverse Reaction/Blood Tranf: No Family Medical History Diabetes mellitus (MOTHER- NON INSULIN FATHER- INSULIN) FH: CVA (cerebrovascular accident) (PARENTS) FH: epilepsy (MGF) FH: stroke (PARENTS) Hypertension (FATHER, PGM) No Pertinent Family Hx Review of Systems Time Seen by Provider: 03:48 Sepsis Event Evaluation Height, Weight, BMI Height: 5'4.00" Weight: 256lbs. 0.8oz. 116.833200uk; 49.00 BMI Method:Stated Exam Exam Vital Signs Date Time Temp Pulse Resp B/P (MAP) Pulse Ox O2 Delivery O2 Flow Rate FiO2 07/27/19 03:08 91 Vapotherm 20.00 60 07/27/19 02:00 57 25 161/103 (122) 91 High Flow N/C 10.00 07/27/19 01:00 63 07/27/19 01:00 63 22 161/91 (114) 91 High Flow N/C 10.00 07/27/19 00:00 60 20 161/93 (115) 90 High Flow N/C 10.00 07/27/19 00:00 94 Nasal Cannula 10.00 07/26/19 23:00 65 20 95 High Flow N/C 10.00 07/26/19 22:00 58 22 176/115 (135) 94 High Flow N/C 10.00 07/26/19 21:49 94 High Flow N/C 10.00 07/26/19 21:00 61 21 171/99 (123) 93 High Flow N/C 10.00 07/26/19 20:00 55 21 158/85 (109) 92 High Flow N/C 10.00 07/26/19 20:00 36.9 61 0 158/85 (109) 94 Nasal Cannula 10.00 07/26/19 20:00 94 Nasal Cannula 10.00 07/26/19 19:00 61 07/26/19 19:00 61 23 172/108 (129) 92 High Flow N/C 10.00 07/26/19 18:04 60 56 160/97 (118) 92 Nasal Cannula 10.00 07/26/19 17:00 63 41 164/97 (119) 95 Nasal Cannula 10.00 07/26/19 16:22 94 Nasal Cannula 10.00 07/26/19 16:00 37.0 07/26/19 16:00 61 164/103 (123) 91 Nasal Cannula 10.00 07/26/19 15:00 69 140/81 (100) 95 Nasal Cannula 10.00 07/26/19 14:00 65 160/108 (125) 92 Nasal Cannula 10.00 07/26/19 13:24 70 07/26/19 13:00 151/93 (112) 91 Nasal Cannula 10.00 07/26/19 12:35 94 Nasal Cannula 10.00 07/26/19 12:05 37.0 07/26/19 12:00 70 139/114 (122) 95 Nasal Cannula 10.00 07/26/19 11:09 Nasal Cannula 10.00 07/26/19 11:00 76 147/89 (108) 94 Nasal Cannula 10.00 07/26/19 10:43 73 07/26/19 10:20 93 Simple Mask 10.00 07/26/19 10:15 93 161/103 (122) Nasal Cannula 10.00 07/26/19 10:07 37.5 70 22 124/58 (85) 96 OxyMask 10.00 07/26/19 08:16 94 OxyMask 10.00 07/26/19 05:26 94 Nasal Cannula 2.00 07/26/19 05:26 37.2 84 20 117/69 (85) 94 2.00 I & O 07/27/19 07:00 Intake Total 2740 ml Output Total 2000 ml Balance 740 ml Height & Weight Height: 5'4.00" Weight: 256lbs. 0.8oz. 116.232489je; 49.00 BMI Method:Stated General Appearance: No Apparent Distress, Anxious, Chronically ill, Obese HEENT: PERRL/EOMI, Normal ENT Inspection, Pharynx Normal, Moist Mucous Membranes Neck: Full Range of Motion, Normal Inspection, Non Tender Respiratory: Chest Non Tender, No Accessory Muscle Use, No Respiratory Distress, Decreased Breath Sounds, Wheezing Cardiovascular: Regular Rate, Rhythm, No Edema, No Gallop, No JVD, No Murmur, Normal Peripheral Pulses Capillary Refill: Less Than 3 Seconds Gastrointestinal: normal bowel sounds, non tender, soft Extremity: Normal Capillary Refill, Normal Inspection, Normal Range of Motion, Non Tender, No Calf Tenderness, No Pedal Edema Neurologic/Psychiatric: Alert, Oriented x3, No Motor/Sensory Deficits, Normal Mood/Affect Skin: Normal Color, Warm/Dry Lymphatic: No Adenopathy Results Lab Laboratory Tests 07/26/19 05:35 Assessment/Plan Assessment/Plan Acute respiratory failure with probable ARDS -Continue Abx for now -Influenza is negative -Repeat COVID is negative -Check COVID Ab -Check RVP -MRSA is pending -Check HIV -Repeat labs are pending -Continue respiratory isolation for now AsthmaAE -Continue INH -Continue solumedrol HTN -Monitor -Hydralazine PRN MEENA FRYE DO July 27, 2019 03:44
[2019-07-27] MEDS ORDERED: ACETAMINOPHEN 500 MG TAB (TYLENOL) PO PRN (04:00)
[2019-07-27] MEDS ORDERED: IBUPROFEN 600 MG (MOTRIN) TAB PO PRN (04:00)
[2019-07-27 04:10] LABS: BASOPHILS % (AUTO) 0 % (0-10); EOSINOPHILS % (AUTO) 0 % (0-10); HEMATOCRIT 39 % (35-52); LYMPHOCYTES # (AUTO) 0.5 X 10^3 (1.0-4.0); LYMPHOCYTES % (AUTO) 9 % (12-44); MEAN CORPUSCULAR HEMOGLOBIN 24 PG (25-34); MEAN CORPUSCULAR HGB CONC 31 G/DL (32-36); MEAN CORPUSCULAR VOLUME 77 FL (80-99); MEAN PLATELET VOLUME 10.2 FL (7.4-10.4); MONOCYTES # (AUTO) 0.2 X 10^3 (0.0-1.0); MONOCYTES % (AUTO) 4 % (0-12); NEUTROPHILS # (AUTO) 5.1 X 10^3 (1.8-7.8); NEUTROPHILS % (AUTO) 87 % (42-75); PLATELET COUNT 243 10^3/uL (130-400); WHITE BLOOD COUNT 5.8 10^3/uL (4.3-11.0)
[2019-07-27] MEDS: KCL 20 MEQ TAB (K-DUR) PO SCH (04:14)
[2019-07-27] MEDS: MAGNESIUM 1 GM/100 ML IVPB 100 ML IV SCH (04:14)
[2019-07-27] MEDS: POTASSIUM CL 10MEQ/50ML IVPB 50 ML IV SCH (04:14)
[2019-07-27] MEDS: ENOXAPARIN 40 MG/0.4 ML (LOVENOX) SYR SC SCH ×2 (04:14→16:04)
[2019-07-27 04:20] LABS: ALBUMIN 3.7 GM/DL (3.2-4.5); CHLORIDE 104 MMOL/L (98-107); POTASSIUM 4.2 MMOL/L (3.6-5.0); SODIUM 141 MMOL/L (135-145)
[2019-07-27 04:21] LABS: CALCIUM 8.5 MG/DL (8.5-10.1)
[2019-07-27 04:22] LABS: GLUCOSE 262 MG/DL (70-105)
[2019-07-27 04:23] LABS: TOTAL PROTEIN 7.9 GM/DL (6.4-8.2)
[2019-07-27 04:24] LABS: BILIRUBIN,TOTAL 0.5 MG/DL (0.1-1.0); CARBON DIOXIDE 22 MMOL/L (21-32)
[2019-07-27 04:26] LABS: ALKALINE PHOSPHATASE 99 U/L (40-136); CREATININE SERUM 0.83 MG/DL (0.60-1.30); GFR ESTIMATED > 60; PHOSPHORUS 3.9 MG/DL (2.3-4.7)
[2019-07-27 04:27] LABS: BUN/CREATININE RATIO 30
[2019-07-27 04:29] LABS: ALANINE AMINOTRANSFERASE 55 U/L (0-55); MAGNESIUM 2.5 MG/DL (1.6-2.4)
[2019-07-27] MEDS: inSUlin ASPART (NovoLOG) 1 UNIT/0.01 ML (CHARGE PER UNIT) SQ SCH ×4 (05:09→21:56)
[2019-07-27 05:16] LABS: AMPHETAMINE SCREEN, URINE NEGATIVE (NEGATIVE); BARBITURATE SCREEN URINE NEGATIVE (NEGATIVE); BENZODIAZEPINES SCREEN URINE NEGATIVE (NEGATIVE); CANNABINOID SCREEN, URINE NEGATIVE (NEGATIVE); COCAINE SCREEN URINE NEGATIVE (NEGATIVE); METHADONE STAT NEGATIVE (NEGATIVE); METHAMPHETAMINE SCREEN URINE S NEGATIVE (NEGATIVE); OPIATE SCREEN URINE NEGATIVE (NEGATIVE); OXYCODONE STAT NEGATIVE (NEGATIVE); PROPOXYPHENE STAT NEGATIVE (NEGATIVE); TRICYCLIC ANTIDEPRESSANTS SCRE NEGATIVE (NEGATIVE)
[2019-07-27] MEDS: LACTATED RINGERS 1,000 ML IV SCH ×3 (06:32→19:09)
--- NOTE | 2019-07-27 06:32 | NUR ---
DR FRYE UPDATED ON PT STATUS AND NEGATIVE COVID RESULTS. TO KEEP PT IN AIRBORNE ISOLATION PER DR FRYE.
[2019-07-27] MEDS: RT-ALBUTEROL/IPRATROPIUM 3 ML (DUONEB) VIAL INH SCH ×3 (06:51→18:50)
[2019-07-27] MEDS: PANTOPRAZOLE 40 MG (PROTONIX) VIAL IV SCH (08:04)
[2019-07-27] MEDS: AZITHROMYCIN 500 MG/NS 250 ML IVPB IV SCH ×2 (08:04)
[2019-07-27] MEDS: SENNA W/DOCUSATE (SENOKOT S) TABLET PO SCH ×2 (08:04→21:56)
[2019-07-27] MEDS: cefTRIAXone 1,000 MG/SWFI 10 ML IV PUSH IV SCH ×2 (08:05)
--- NOTE | 2019-07-27 08:19 | Progress Note - Hospitalist ---
Subjective HPI/CC On Admission Date Seen by Provider: July 27, 2019 Time Seen by Provider: 08:30 CC: PNA with hypoxia and dyspnea suspect COVID 19 HPI: This is a 44yoWF clinic patient of [facility] from [facility] who presents to the ER with worsened dyspnea of several days duration. COVID-19 swab early in the week was performed and it was negative but considering the appearance of the CXR and her shortness of breath she was swabbed again and placed on CAP treatment and placed in isolation and PPE was used in all contact with the patient. Patient reports she feels better and less short of breath but her O2 sats are 93% on supplement. Patient does not smoke and takes meds for DM. Subjective/Events-last exam Patient is requiring Vapotherm now Dyspnea about the same COVID-19 negative NO pain reported SUgars noted Labs noted Review of Systems General: Fatigue Pulmonary: Dyspnea, Cough Focused Exam Lactate Level 07/26/19 05:35: Lactic Acid Level 1.14 07/27/19 03:56: Lactic Acid Level 0.81 Objective Exam Vital Signs Vital Signs Date Time Temp Pulse Resp B/P (MAP) Pulse Ox O2 Delivery O2 Flow Rate FiO2 07/27/19 13:50 NIV Bilevel 70.00 07/27/19 13:44 64 35 96 07/27/19 13:00 127/90 (102) 07/27/19 12:00 70 07/27/19 11:59 36.0 Capillary Refill : Less Than 3 Seconds General Appearance: No Apparent Distress, WD/WN, Chronically ill, Obese Respiratory: Chest Non Tender, No Accessory Muscle Use, No Respiratory Distress, Decreased Breath Sounds Cardiovascular: Regular Rate, Rhythm, No Edema, No Gallop, No JVD, No Murmur, Normal Peripheral Pulses Neurologic/Psychiatric: Alert, Oriented x3, No Motor/Sensory Deficits, Normal Mood/Affect Results/Procedures Lab Laboratory Tests 07/27/19 03:18 Patient resulted labs reviewed. Assessment/Plan Assessment and Plan Assess & Plan/Chief Complaint Assessment: PNA suspicious for COVID-19 swabbed early in week negative but swabbed again yesterday and again it is negative Dyspnea Hypoxia requiring increased O2 to Vapotherm DM Obesity BMI 50 HTN HLP Plan: CAP treatment Cardiology evaluation appreciated PPE used until swab negative COVID-19 negative Steroids Diagnosis/Problems Diagnosis/Problems (1) Respiratory distress Status: Acute (2) Bilateral pneumonia Status: Acute Qualifiers: Pneumonia type: due to unspecified organism Lung location: unspecified part of lung Qualified Codes: J18.9 - Pneumonia, unspecified organism (3) Diabetes mellitus (4) Hypertension (5) Hypoxia Status: Acute Clinical Quality Measures DVT/VTE Risk/Contraindication: Risk Factor Score Per Nursin RFS Level Per Nursing on Admit: 2=Moderate BEE CHAVIS DO July 27, 2019 08:19
--- NOTE | 2019-07-27 08:45 | Diagnostic Imaging Report ---
INDICATION: Dyspnea. TECHNIQUE: Single view chest 2:30 AM. CORRELATION STUDY: 07/26/2019 FINDINGS: Unchanged cardiac enlargement with prominent mediastinum. Scattered patchy somewhat nodular consolidating infiltrates throughout both lung mann persisting. Stable to slightly improved. IMPRESSION: 1. Extensive bilateral pulmonary opacities persisting stable to slightly improved. Given cardiac enlargement may reflect residual edema versus pneumonia. Dictated by: Dictated on workstation # [id number]
[2019-07-27] MEDS ORDERED: LOSARTAN 25 MG (COZAAR) TAB PO SCH (09:00)
--- NOTE | 2019-07-27 10:33 | Consultation-Cardiology ---
HPI-Cardiology Cardiology Consultation Date of Consultation 07/27/19 Date of Admission Time Seen by Provider: 10:29 Indication: shortness of breath HPI 44-year-old lady with worsening shortness of breath for the past week in addition to generalized fatigue and loss of energy. Seen in the emergency room and admitted noted to have elevated sedimentation rate and BNP. Had COVID te sting negative twice. Currently feeling better, still complaining of fatigue, denied any chest pain, denied any palpitation. No syncope or near syncopal episodes. Home Medications & Allergies Allergies: Coded Allergies: No Known Drug Allergies (Unverified , 10/03/15) Home Medication List Reviewed: Yes FUU-Ozjpat-Twslsf Hx Patient Social History Marital Status: single Employed/Student: unemployed Alcohol Use: Denies Use Recreational Drug Use: No Smoking Status: Never a Smoker Recent Foreign Travel: No Recent Infectious Disease Expo: No Recent Hopitalizations: No Immunizations Up To Date Tetanus Booster (TDap): Unknown Date of Pneumonia Vaccine: Aug 01, 2012 Date of Influenza Vaccine: Dec 25, 2018 Past Medical History Discussed below Family Medical History Significant Family History: No Pertinent Family Hx Family History: Diabetes mellitus (MOTHER- NON INSULIN FATHER- INSULIN) FH: CVA (cerebrovascular accident) (PARENTS) FH: epilepsy (MGF) FH: stroke (PARENTS) Hypertension (FATHER, PGM) Review of Systems-General Review of Systems Constitutional: see HPI; No chills, No fever; malaise, weakness EENTM: see HPI; No ear discharge, No ear pain Respiratory: see HPI, cough; No orthopnea; phlegm, short of breath; No wheezing Cardiovascular: see HPI; No chest pain, No edema, No Hx of Intervention, No palpitations, No syncope Gastrointestinal: see HPI; No abdominal pain, No constipation, No diarrhea, No dysphagia Genitourinary: see HPI; No discharge, No dysuria Musculoskeletal: see HPI; No back pain, No joint pain Skin: see HPI; No pruritus, No rash Psychiatric/Neurological: See HPI, Headache; Denies Numbness, Denies Paresthesia All Other Systems Reviewed Negative Unless Noted: Yes Reviewed Test Results Reviewed Test Results Lab Laboratory Tests Test 07/26/19 14:52 07/26/19 20:38 07/27/19 03:18 07/27/19 03:56 Range/Units Glucometer 271 H 178 H 70-110 MG/DL White Blood Count 5.8 4.3-11.0 10^3/uL Red Blood Count 5.01 4.35-5.85 10^6/uL Hemoglobin 12.0 11.5-16.0 G/DL Hematocrit 39 35-52 % Mean Corpuscular Volume 77 L 80-99 FL Mean Corpuscular Hemoglobin 24 L 25-34 PG Mean Corpuscular Hemoglobin Concent 31 L 32-36 G/DL Red Cell Distribution Width 16.0 H 10.0-14.5 % Platelet Count 243 130-400 10^3/uL Mean Platelet Volume 10.2 7.4-10.4 FL Neutrophils (%) (Auto) 87 H 42-75 % Lymphocytes (%) (Auto) 9 L 12-44 % Monocytes (%) (Auto) 4 0-12 % Eosinophils (%) (Auto) 0 0-10 % Basophils (%) (Auto) 0 0-10 % Neutrophils # (Auto) 5.1 1.8-7.8 X 10^3 Lymphocytes # (Auto) 0.5 L 1.0-4.0 X 10^3 Monocytes # (Auto) 0.2 0.0-1.0 X 10^3 Eosinophils # (Auto) 0.0 0.0-0.3 10^3/uL Basophils # (Auto) 0.0 0.0-0.1 10^3/uL Sodium Level 141 135-145 MMOL/L Potassium Level 4.2 3.6-5.0 MMOL/L Chloride Level 104 98-107 MMOL/L Carbon Dioxide Level 22 21-32 MMOL/L Anion Gap 15 H 5-14 MMOL/L Blood Urea Nitrogen 25 H 7-18 MG/DL Creatinine 0.83 0.60-1.30 MG/DL Estimat Glomerular Filtration Rate > 60 BUN/Creatinine Ratio 30 Glucose Level 262 H 70-105 MG/DL Calcium Level 8.5 8.5-10.1 MG/DL Corrected Calcium 8.7 8.5-10.1 MG/DL Phosphorus Level 3.9 2.3-4.7 MG/DL Magnesium Level 2.5 H 1.6-2.4 MG/DL Total Bilirubin 0.5 0.1-1.0 MG/DL Aspartate Amino Transf (AST/SGOT) 34 5-34 U/L Alanine Aminotransferase (ALT/SGPT) 55 0-55 U/L Alkaline Phosphatase 99 40-136 U/L B-Type Natriuretic Peptide 131.6 H <100.0 PG/ML Total Protein 7.9 6.4-8.2 GM/DL Albumin 3.7 3.2-4.5 GM/DL Lactic Acid Level 0.81 0.50-2.00 MMOL/L Test 07/27/19 04:10 07/27/19 04:30 Range/Units Urine Test NEGATIVE NEGATIVE Urine Opiates Screen NEGATIVE NEGATIVE Urine Oxycodone Screen NEGATIVE NEGATIVE Urine Methadone Screen NEGATIVE NEGATIVE Urine Propoxyphene Screen NEGATIVE NEGATIVE Urine Barbiturates Screen NEGATIVE NEGATIVE Ur Tricyclic Antidepressants Screen NEGATIVE NEGATIVE Urine Phencyclidine Screen NEGATIVE NEGATIVE Urine Amphetamines Screen NEGATIVE NEGATIVE Urine Methamphetamines Screen NEGATIVE NEGATIVE Urine Benzodiazepines Screen NEGATIVE NEGATIVE Urine Cocaine Screen NEGATIVE NEGATIVE Urine Cannabinoids Screen NEGATIVE NEGATIVE Physical Exam Physical Exam Vital Signs Vital Signs - First Documented 07/26/19 07/27/19 05:26 03:08 Temp 37.2 Pulse 84 Resp 20 B/P (MAP) 117/69 (85) Pulse Ox 94 O2 Delivery Nasal Cannula O2 Flow Rate 2.00 FiO2 60 Capillary Refill : Less Than 3 Seconds Height, Weight, BMI Height: 5'4.00" Weight: 256lbs. 0.8oz. 116.480991hy; 49.00 BMI Method:Stated General Appearance: No Apparent Distress, Anxious, Chronically ill, Obese Eyes: Right Eye Normal Inspection, Right Eye PERRL; Left Eye EOMI HEENT: PERRL/EOMI, Normal ENT Inspection, Pharynx Normal, Moist Mucous Membranes Neck: Full Range of Motion, Normal Inspection, Non Tender Respiratory: Chest Non Tender, No Accessory Muscle Use, No Respiratory Distress, Decreased Breath Sounds, Wheezing Cardiovascular: Regular Rate, Rhythm, No Edema, No Gallop, No JVD, No Murmur, Normal Peripheral Pulses Gastrointestinal: Normal Bowel Sounds, No Organomegaly, No Pulsatile Mass, Non Tender, Soft Back: Normal Inspection, No CVA Tenderness, No Vertebral Tenderness Extremity: Normal Capillary Refill, Normal Inspection, Normal Range of Motion, Non Tender, No Calf Tenderness, No Pedal Edema Neurologic/Psychiatric: Alert, Oriented x3, No Motor/Sensory Deficits, Normal Mood/Affect Skin: Normal Color, Warm/Dry Lymphatic: No Adenopathy A/P-Cardiology Admission Diagnosis Acute respiratory failure Hypertension Diabetes mellitus Hyperlipidemia Assessment/Plan Status post acute respiratory failure, better at this time, COVID testing is negative, had elevated sedimentation rate and BNP, questionable underlying heart failure. I will evaluate 2-D echocardiogram. Hypertension, continue to monitor blood pressure Diabetes mellitus, managed by primary care physician Hyperlipidemia maintained on Lipitor Multiple risk factors for coronary artery disease, cardiac enzymes were negative. Continue to monitor at this time. Clinical Quality Measures DVT/VTE Risk/Contraindication: Risk Factor Score Per Nursin RFS Level Per Nursing on Admit: 2=Moderate DOROTHY GOMEZ MD July 27, 2019 10:33
[2019-07-27] MEDS: ADVAIR HFA 115/21 MCG INHALER 8 GM IH SCH ×2 (10:45→19:00)
--- NOTE | 2019-07-27 13:13 | NUR ---
DUE TO CHANGES IN STAFFING CARE OF PT TO THIS RN.
[2019-07-27] MEDS: hydrALAZINE (APESOLINE) 20 MG/ML VIAL IV PRN (18:14)
[2019-07-28] VITALS (24 sets, daily range): BP systolic 133–203; BP diastolic 60–108
--- NOTE | 2019-07-28 00:31 | NUR ---
PT REPORTS FEELING LIKE SHE IS GOING TO VOMIT. PT SWITCHED FROM BI-PAP TO VAPO THERM PER RT AT THIS TIME (40L AND 70% FIO2). BUCKET AND COLD WASH CLOTH PROVIDED FOR PATIENT AND PRN ZOFRAN ADMINISTERED ORDERED.
--- NOTE | 2019-07-28 01:17 | NUR ---
PT REQUESTING TO BE PUT BACK ON BI-PAP AT THIS TIME. PT REPORTS SHE IS NO LONGER NAUSEOUS AND THAT ALL SHE NEEDED WAS A DRINK. THIS RN PROVIDED STRICT EDUCATION ON REMOVING THE BI-PAP AND PRESSING THE CALL LIGHT IF SHE BEGINS TO FEEL LIKE SHE IS GOING TO THROW UP. BI-PAP AT 50% 15 AT THIS TIME. R/T NOTIFIED.
[2019-07-28] MEDS: methylPREDNISolone 40 MG/ML (Solu-MEDROL) VIAL IV SCH ×4 (02:04→21:03)
[2019-07-28 02:29] LABS: ABG OXYGEN SATURATION 96 % (94-100); ABG PCO2 39 MMHG (35-45); ABG PH 7.39 (7.37-7.43); ABG PO2 97 MMHG (79-93); ABG TCO2 24.6 MMOL/L (21.0-31.0)
[2019-07-28 02:31] LABS: ALLENS TEST YES-POS; INSPIRED O2 50%; PATIENT TEMP 36.3; VENTILATOR NO
[2019-07-28] MEDS: RT-ALBUTEROL/IPRATROPIUM 3 ML (DUONEB) VIAL INH SCH (03:02)
[2019-07-28] MEDS: LACTATED RINGERS 1,000 ML IV SCH (03:44)
[2019-07-28] MEDS: ENOXAPARIN 40 MG/0.4 ML (LOVENOX) SYR SC SCH ×2 (03:44→14:10)
[2019-07-28] MEDS: hydrALAZINE (APESOLINE) 20 MG/ML VIAL IV PRN ×2 (03:44→23:30)
[2019-07-28 04:19] LABS: BASOPHILS % (AUTO) 0 % (0-10); EOSINOPHILS % (AUTO) 0 % (0-10); HEMATOCRIT 35 % (35-52); HEMOGLOBIN 11.1 G/DL (11.5-16.0); LYMPHOCYTES # (AUTO) 0.6 X 10^3 (1.0-4.0); LYMPHOCYTES % (AUTO) 7 % (12-44); MEAN CORPUSCULAR HEMOGLOBIN 24 PG (25-34); MEAN CORPUSCULAR HGB CONC 31 G/DL (32-36); MEAN CORPUSCULAR VOLUME 77 FL (80-99); MEAN PLATELET VOLUME 9.7 FL (7.4-10.4); MONOCYTES # (AUTO) 0.5 X 10^3 (0.0-1.0); MONOCYTES % (AUTO) 6 % (0-12); NEUTROPHILS # (AUTO) 8.1 X 10^3 (1.8-7.8); NEUTROPHILS % (AUTO) 88 % (42-75); PLATELET COUNT 252 10^3/uL (130-400); RED CELL DISTRIBUTION WIDTH 15.7 % (10.0-14.5); WHITE BLOOD COUNT 9.3 10^3/uL (4.3-11.0)
[2019-07-28 04:30] LABS: CHLORIDE 104 MMOL/L (98-107); POTASSIUM 4.6 MMOL/L (3.6-5.0); SODIUM 139 MMOL/L (135-145)
[2019-07-28 04:31] LABS: CALCIUM 8.3 MG/DL (8.5-10.1)
[2019-07-28 04:32] LABS: GLUCOSE 199 MG/DL (70-105)
[2019-07-28 04:33] LABS: CARBON DIOXIDE 18 MMOL/L (21-32)
[2019-07-28 04:36] LABS: CREATININE SERUM 0.77 MG/DL (0.60-1.30); GFR ESTIMATED > 60
[2019-07-28 04:37] LABS: BUN/CREATININE RATIO 25
[2019-07-28 04:38] LABS: MAGNESIUM 2.3 MG/DL (1.6-2.4)
[2019-07-28] MEDS: MAGNESIUM 1 GM/100 ML IVPB 100 ML IV SCH (04:50)
[2019-07-28] MEDS: KCL 20 MEQ TAB (K-DUR) PO SCH (04:50)
[2019-07-28] MEDS: POTASSIUM CL 10MEQ/50ML IVPB 50 ML IV SCH (04:50)
[2019-07-28] MEDS ORDERED: FUROSEMIDE 40 MG/4 ML INJ (LASIX) IVP NR (06:15)
[2019-07-28] MEDS ORDERED: FUROSEMIDE 40 MG/4 ML INJ (LASIX) ONE (06:19)
--- NOTE | 2019-07-28 06:22 | Pulmonary Progress Note ---
Subjective Time Seen by a Provider: 06:18 Sepsis Event Evaluation Height, Weight, BMI Height: 5'4.00" Weight: 256lbs. 0.8oz. 116.783706jk; 49.00 BMI Method:Stated Focused Exam Lactate Level 07/26/19 05:35: Lactic Acid Level 1.14 07/27/19 03:56: Lactic Acid Level 0.81 Exam Exam Vital Signs Date Time Temp Pulse Resp B/P (MAP) Pulse Ox O2 Delivery O2 Flow Rate FiO2 07/28/19 05:56 36.6 07/28/19 05:00 64 37 149/78 (101) 93 NIV Bilevel 60.00 07/28/19 04:00 66 157/87 (110) 97 NIV Bilevel 50.00 07/28/19 04:00 93 NIV Bilevel 50 07/28/19 03:02 63 34 100 50.00 07/28/19 03:00 52 38 164/95 (118) 92 NIV Bilevel 50.00 07/28/19 02:00 53 159/90 (113) 92 NIV Bilevel 50.00 07/28/19 01:00 60 26 171/108 (129) 94 NIV Bilevel 50.00 07/28/19 01:00 60 07/28/19 00:03 68 21 95 Vapotherm 40.00 70.00 07/28/19 00:00 36.3 07/28/19 00:00 60 30 146/86 (106) 96 NIV Bilevel 45.00 07/28/19 00:00 93 Vapotherm 40.00 70 07/27/19 23:56 96 Vapotherm 40.00 70 07/27/19 23:50 60 31 100 70.00 07/27/19 23:00 59 157/89 (111) 93 NIV Bilevel 45.00 07/27/19 22:00 64 30 152/91 (111) 96 NIV Bilevel 45.00 07/27/19 21:59 NIV Bilevel 45.00 07/27/19 21:00 66 146/84 (104) 95 NIV Bilevel 60.00 07/27/19 20:00 36.4 07/27/19 20:00 81 33 107/70 (82) 97 NIV Bilevel 60.00 07/27/19 20:00 97 NIV Bilevel 60 07/27/19 19:04 77 35 98 NIV Bilevel 60.00 07/27/19 19:01 75 32 100 70.00 07/27/19 19:00 78 07/27/19 19:00 78 26 148/78 (101) 98 NIV Bilevel 70.00 07/27/19 18:53 75 32 100 70.00 07/27/19 18:08 NIV Bilevel 70.00 07/27/19 18:00 59 29 157/88 (111) 90 Vapotherm 40.00 70.00 07/27/19 17:00 66 39 141/82 (101) 92 Vapotherm 40.00 70.00 07/27/19 16:48 Vapotherm 40.00 70.00 07/27/19 16:10 98 NIV Bilevel 40.00 70 07/27/19 16:00 59 39 141/82 (101) 95 NIV Bilevel 70.00 07/27/19 16:00 36.4 07/27/19 15:00 68 136/72 (93) 97 NIV Bilevel 70.00 07/27/19 14:00 69 33 157/87 (110) 98 NIV Bilevel 70.00 07/27/19 13:50 NIV Bilevel 70.00 07/27/19 13:44 64 35 96 70.00 07/27/19 13:00 68 37 127/90 (102) 88 Vapotherm 40.00 70.00 07/27/19 12:28 67 07/27/19 12:00 62 29 148/78 (101) 91 Vapotherm 40.00 70.00 07/27/19 12:00 93 Vapotherm 40.00 70 07/27/19 11:59 36.0 07/27/19 11:00 67 29 155/91 (112) 90 Vapotherm 40.00 70.00 07/27/19 10:48 90 Vapotherm 40.00 70 07/27/19 10:16 Vapotherm 40.00 70.00 07/27/19 10:00 65 140/78 (98) 90 Vapotherm 40.00 65.00 07/27/19 09:00 64 126/72 (90) 90 Vapotherm 40.00 65.00 07/27/19 08:19 Vapotherm 40.00 65.00 07/27/19 08:05 36.0 07/27/19 08:00 93 Vapotherm 40.00 65 07/27/19 08:00 61 144/84 (104) Vapotherm 35.00 60.00 07/27/19 07:00 58 142/110 (121) 93 Vapotherm 35.00 60.00 07/27/19 07:00 67 07/27/19 06:58 90 Vapotherm 35.00 60 I & O 07/28/19 07:00 Intake Total 3330 ml Output Total 4950 ml Balance -1620 ml Height & Weight Height: 5'4.00" Weight: 256lbs. 0.8oz. 116.564925ws; 49.00 BMI Method:Stated General Appearance: No Apparent Distress, WD/WN, Chronically ill, Obese HEENT: PERRL/EOMI, Normal ENT Inspection, Pharynx Normal, Moist Mucous Membranes Neck: Full Range of Motion, Normal Inspection, Non Tender Respiratory: Chest Non Tender, No Accessory Muscle Use, No Respiratory Distress , Decreased Breath Sounds Cardiovascular: Regular Rate, Rhythm, No Edema, No Gallop, No JVD, No Murmur, Normal Peripheral Pulses Capillary Refill: Less Than 3 Seconds Gastrointestinal: normal bowel sounds, non tender, soft Extremity: Normal Capillary Refill, Normal Inspection, Normal Range of Motion, Non Tender, No Calf Tenderness, No Pedal Edema Neurologic/Psychiatric: Alert, Oriented x3, No Motor/Sensory Deficits, Normal Mood/Affect Skin: Normal Color, Warm/Dry Lymphatic: No Adenopathy Results Lab Laboratory Tests 07/27/19 03:18 07/28/19 03:50 Assessment/Plan Assessment/Plan Acute respiratory failure with probable ARDS -Continue Abx for now -Awake proning -Lasix 60mg IV X 1 -Ct of chest -Echo reviewed -Influenza is negative -Repeat COVID is negative - COVID Ab pending -RVP pending -MRSA is pending -Check HIV -Repeat labs are pending -Continue respiratory isolation for now AsthmaAE -Continue INH -Continue solumedrol HTN -Monitor -Hydralazine PRN MEENA FRYE DO Jul 28, 2019 06:22
--- NOTE | 2019-07-28 06:38 | Progress Note - Hospitalist ---
Subjective HPI/CC On Admission Date Seen by Provider: Jul 28, 2019 Time Seen by Provider: 09:30 CC: PNA with hypoxia and dyspnea suspect COVID 19 HPI: This is a 44yoWF clinic patient of [facility] from [facility] who presents to the ER with worsened dyspnea of several days duration. COVID-19 swab early in the week was performed and it was negative but considering the appearance of the CXR and her shortness of breath she was swabbed again and placed on CAP treatment and placed in isolation and PPE was used in all contact with the patient. Patient reports she feels better and less short of breath but her O2 sats are 93% on supplement. Patient does not smoke and takes meds for DM. Subjective/Events-last exam Pt still in isolation CT scan obtained those results are pending Now on prone position on biPAP Overall it appears that ARDS is the cause of the significant issue she is having from the pneumonia IV steroids maintained with abx and IV Lasix After rounds the COVID-19 abx results revealed + Review of Systems General: Fatigue Pulmonary: Dyspnea, Cough Focused Exam Lactate Level 07/26/19 05:35: Lactic Acid Level 1.14 07/27/19 03:56: Lactic Acid Level 0.81 Objective Exam Vital Signs Vital Signs Date Time Temp Pulse Resp B/P (MAP) Pulse Ox O2 Delivery O2 Flow Rate FiO2 07/28/19 20:00 36.4 07/28/19 20:00 58 188/81 (116) 91 Vapotherm 15.00 40.00 07/28/19 18:00 36 07/28/19 16:00 40 Capillary Refill : Less Than 3 Seconds General Appearance: Chronically ill, Obese Respiratory: Decreased Breath Sounds Cardiovascular: Regular Rate, Rhythm Results/Procedures Lab Laboratory Tests 07/28/19 03:50 Patient resulted labs reviewed. Assessment/Plan Assessment and Plan Assess & Plan/Chief Complaint Assessment: PNA suspicious for COVID-19 swabbed early in week negative but swabbed again yesterday and again it is negative but COVID-19 antibody + Abnormal CT chest multifocal infiltrates Dyspnea Hypoxia requiring increased O2 to Vapotherm DM Obesity BMI 50 HTN HLP Plan: CAP treatment Cardiology evaluation appreciated PPE used until swab negative COVID-19 negative but antibody negative Steroids Diagnosis/Problems Diagnosis/Problems (1) Respiratory distress Status: Acute (2) Bilateral pneumonia Status: Acute Qualifiers: Pneumonia type: due to unspecified organism Lung location: unspecified part of lung Qualified Codes: J18.9 - Pneumonia, unspecified organism (3) Diabetes mellitus (4) Hypertension (5) Hypoxia Status: Acute Clinical Quality Measures DVT/VTE Risk/Contraindication: Risk Factor Score Per Nursin RFS Level Per Nursing on Admit: 2=Moderate BEE CHAVIS DO Jul 28, 2019 06:38
[2019-07-28] MEDS: inSUlin ASPART (NovoLOG) 1 UNIT/0.01 ML (CHARGE PER UNIT) SQ SCH ×4 (06:41→21:03)
[2019-07-28] MEDS ORDERED: HOLD METFORMIN - RECEIVED CONTRAST 20 ML VIAL IV SCH (08:00)
[2019-07-28] MEDS ORDERED: NS 100 ML (IVPB) BAG IV ONE (08:00)
[2019-07-28] MEDS ORDERED: IOHEXOL 350 MG/ML 100 ML (OMNIPAQUE 350) VIAL IV ONE (08:00)
--- NOTE | 2019-07-28 08:07 | Physician Query Clarification ---
PQ-Conflicting Diagnosis Admission/Discharge Admission Date: July 26, 2019 at 07:35 Discharge Date: The medical record reflects the following clinical scenario: History/Risk Factors: Pneumonia Asthma Clinical Findings: Chest xray showing bilateral pulmonary edema per Dr. Reddy. Respiratory distress, decreased breath sounds, accessory muscle use (mild), rales (right base). Blood gases: pH 7.48, pC02 38, p02 74, HC03 28, Total C02 28.7, 02 sats 93%, Base excess 4.1, Vitals on admission: T 37.2, P 84, Resp 20, pulse ox 94, 02 sats 87%, BP 117/69. Treatment: 4 L nasal cannula switched to 6 L simple 02 mask to 10L nasal cannula and Vapotherm on 07/26. Albuterol inhalation therapy. Question: Do you agree with the impression of the Acute respiratory failure with probable ARDS per Dr. Reddy? Please document a response in Progress Note or Discharge Summary. 1. Yes 2. No 3. Other, with explanation of clinical findings 4. Clinically undetermined, no explanation for clinical findings. PHYSICIAN RESPONSE Do you agree w/Consulting Dx?: Yes Please remember a lack of response to the above will prompt a phone page by CDI/Coding staff. In responding to this query, please exercise your independent professional judgment. The purpose of this communication is to more accurately reflect the complexity of your patients condition. The fact that a question is asked does not imply that any particular answer is desired or expected. Thank you for your timely response to this clarification. Requestors name: Padmini Craig [facility] Phone # ext [phone] or [phone] THIS PHYSICIAN QUERY FORM IS A PERMANENT PART OF THE MEDICAL RECORD PADMINI CRAIG Jul 28, 2019 08:07 BEE CHAVIS DO Jul 28, 2019 08:56
--- NOTE | 2019-07-28 08:29 | Diagnostic Imaging Report ---
INDICATION: Dyspnea. Compared 07/27/2019 FINDINGS: Extensive five lobed airspace pulmonary opacities are redemonstrated and showed little, if any, interval change when compared to the recent. No convincing evidence for pleural fluid. The upper limits heart size showed no obvious change. The vascularity largely obscured. IMPRESSION: Severe five lobed airspace opacities and upper limits heart size unchanged. Dictated by: Dictated on workstation # [id number]
[2019-07-28] MEDS: glyBURIDE 5 MG (MICRONASE) TAB PO SCH ×2 (09:21→14:10)
[2019-07-28] MEDS: LOSARTAN 100 MG (COZAAR) TABLET PO SCH (09:21)
[2019-07-28] MEDS: cefTRIAXone 1,000 MG/SWFI 10 ML IV PUSH IV SCH ×2 (09:22)
[2019-07-28] MEDS: AZITHROMYCIN 500 MG/NS 250 ML IVPB IV SCH ×2 (09:22)
[2019-07-28] MEDS: ALPRAZolam 0.25 MG (XANAX) TAB PO PRN (09:22)
[2019-07-28] MEDS: PANTOPRAZOLE 40 MG (PROTONIX) VIAL IV SCH (09:22)
[2019-07-28] MEDS: SENNA W/DOCUSATE (SENOKOT S) TABLET PO SCH ×3 (09:23→21:04)
--- NOTE | 2019-07-28 10:05 | Diagnostic Imaging Report ---
PROCEDURE: CT chest with contrast only. TECHNIQUE: Multiple contiguous axial images were obtained through the chest after administration of intravenous contrast. Auto Exposure Controls were utilized during the CT exam to meet ALARA standards for radiation dose reduction. DATE: July 28, 2019. COMPARISON: July 28, 2019 chest radiograph. INDICATION: 44-year-old female, respiratory failure. FINDINGS: There is multifocal patchy alveolar consolidation in both lungs. Some of the areas of consolidation are near groundglass in attenuation. There are some foci of higher attenuation as well. There is no pneumothorax. There is no pleural effusion. The central airways are patent. There is no volume loss involving either lung. The main pulmonary artery diameter measures 3.4 cm on axial image 50. This is suggestive of pulmonary artery hypertension. There is nondiagnostic assessment for segmental and subsegmental pulmonary emboli given the timing of the contrast bolus. There is no identified large central pulmonary embolus. The heart is not enlarged. There is no pericardial effusion. There is no identified abnormally enlarged mediastinal, hilar, or axillary lymph node which specifically meets CT size criteria for adenopathy. There is diffuse fatty infiltration of the liver. Additional evaluation of the imaged portions of the upper abdomen is unremarkable. There are degenerative changes of the spine. There is no identified acute bony abnormality. IMPRESSION: CT CHEST. 1. Multifocal extensive and patchy bilateral alveolar consolidation in the lungs. Differential diagnostic considerations would include multifocal pneumonia including atypical infectious etiologies including viral. Other considerations would include pneumonitis, blood product and other causes of alveolar consolidation. 2. No mediastinal, hilar, or axillary adenopathy. 3. Abnormally dilated main pulmonary artery diameter suggesting pulmonary artery hypertension. No identified large central embolus. 4. Diffuse fatty infiltration of the liver. Dictated by: Dictated on workstation # [id number]
[2019-07-28] MEDS: ADVAIR HFA 115/21 MCG INHALER 8 GM IH SCH ×2 (21:20→21:59)
[2019-07-28] MEDS: ALBUTEROL/IPRATROP (COMBIVENT RESPIMAT) 4 GM INHALER IH SCH (21:20)
--- NOTE | 2019-07-28 21:20 | NUR ---
PER HAILEY ONOFRE WANTS HER MEDICINE WHEN SHE GETS ONT [facility]. NO DISTRESS NOTED, Addendum: 07/28/19 at 2121 by NISHANT ORTIZ RT Amended: Links added.
--- NOTE | 2019-07-28 21:58 | NUR ---
Pt placed in prone position, per Dr. Reddy's order. Pt on BiPAP 35%. VSS. Call light within reach. Will continue to monitor.
[2019-07-29] VITALS (29 sets, daily range): BP systolic 113–206; BP diastolic 68–155
--- NOTE | 2019-07-29 00:25 | NUR ---
This RN notified Tele-ICU of patient's continued Hypertension despite PRN given. SBP in 180's. Patient denies pain. New order received at this time, see order hx.
[2019-07-29] MEDS ORDERED: FUROSEMIDE 40 MG/4 ML INJ (LASIX) IVP ONE (00:30)
[2019-07-29] MEDS: methylPREDNISolone 40 MG/ML (Solu-MEDROL) VIAL IV SCH ×4 (01:10→20:48)
[2019-07-29] MEDS: ALBUTEROL/IPRATROP (COMBIVENT RESPIMAT) 4 GM INHALER IH SCH ×4 (03:18→20:41)
[2019-07-29 03:22] LABS: ABG BASE EXCESS 5.3 MMOL/L (-2.5-2.5); ABG OXYGEN SATURATION 93 % (94-100); ABG PCO2 37 MMHG (35-45); ABG PO2 70 MMHG (79-93); ABG TCO2 30.1 MMOL/L (21.0-31.0)
[2019-07-29 03:25] LABS: INSPIRED O2 35%; PATIENT TEMP 35.9; VENTILATOR NO
[2019-07-29 03:28] LABS: BASOPHILS % (AUTO) 0 % (0-10); EOSINOPHILS % (AUTO) 0 % (0-10); HEMATOCRIT 39 % (35-52); HEMOGLOBIN 12.3 G/DL (11.5-16.0); LYMPHOCYTES # (AUTO) 0.5 X 10^3 (1.0-4.0); LYMPHOCYTES % (AUTO) 8 % (12-44); MEAN CORPUSCULAR HEMOGLOBIN 24 PG (25-34); MEAN CORPUSCULAR HGB CONC 32 G/DL (32-36); MEAN CORPUSCULAR VOLUME 75 FL (80-99); MEAN PLATELET VOLUME 9.5 FL (7.4-10.4); MONOCYTES # (AUTO) 0.3 X 10^3 (0.0-1.0); MONOCYTES % (AUTO) 5 % (0-12); NEUTROPHILS # (AUTO) 5.5 X 10^3 (1.8-7.8); NEUTROPHILS % (AUTO) 87 % (42-75); PLATELET COUNT 287 10^3/uL (130-400); RED CELL DISTRIBUTION WIDTH 15.5 % (10.0-14.5); WHITE BLOOD COUNT 6.3 10^3/uL (4.3-11.0)
[2019-07-29 03:40] LABS: CHLORIDE 98 MMOL/L (98-107); POTASSIUM 4.1 MMOL/L (3.6-5.0); SODIUM 139 MMOL/L (135-145)
[2019-07-29 03:41] LABS: CALCIUM 8.8 MG/DL (8.5-10.1); GLUCOSE 328 MG/DL (70-105)
[2019-07-29 03:43] LABS: CARBON DIOXIDE 24 MMOL/L (21-32)
[2019-07-29 03:45] LABS: CREATININE SERUM 0.82 MG/DL (0.60-1.30); GFR ESTIMATED > 60; PHOSPHORUS 3.6 MG/DL (2.3-4.7)
[2019-07-29 03:46] LABS: BUN/CREATININE RATIO 30
[2019-07-29] MEDS: ENOXAPARIN 40 MG/0.4 ML (LOVENOX) SYR SC SCH ×2 (03:47→14:24)
[2019-07-29 03:49] LABS: MAGNESIUM 2.3 MG/DL (1.6-2.4)
--- NOTE | 2019-07-29 03:50 | NUR ---
Pt requested to be placed back on Vapotherm. Patient now in sitting position, Vapotherm on 40L 45%. Vital signs stable and call light within reach.
--- NOTE | 2019-07-29 04:34 | Pulmonary Progress Note ---
Subjective Time Seen by a Provider: 04:48 Subjective/Events-last exam Pt continues to require high flow oxygen Sepsis Event Evaluation Height, Weight, BMI Height: 5'4.00" Weight: 256lbs. 0.8oz. 116.151887jp; 49.00 BMI Method:Stated Focused Exam Lactate Level 07/26/19 05:35: Lactic Acid Level 1.14 07/27/19 03:56: Lactic Acid Level 0.81 Exam Exam Vital Signs Date Time Temp Pulse Resp B/P (MAP) Pulse Ox O2 Delivery O2 Flow Rate FiO2 07/29/19 03:51 Vapotherm 40.00 45.00 07/29/19 03:50 36.0 Vapotherm 40.00 35.00 07/29/19 03:18 59 33 94 35.00 07/29/19 00:00 93 NIV Bilevel 35 07/28/19 23:00 52 37 203/98 (133) 95 NIV Bilevel 35.00 07/28/19 22:08 56 28 94 NIV Bilevel 35.00 07/28/19 22:00 56 30 186/84 (118) 99 NIV Bilevel 45.00 07/28/19 22:00 57 28 98 35.00 07/28/19 21:58 NIV Bilevel 45.00 07/28/19 21:00 59 179/103 (128) 93 Vapotherm 15.00 40.00 07/28/19 20:00 36.4 07/28/19 20:00 58 188/81 (116) 91 Vapotherm 15.00 40.00 07/28/19 20:00 93 Vapotherm 15.00 40 07/28/19 19:00 55 176/82 (113) 89 Vapotherm 15.00 40.00 07/28/19 19:00 55 07/28/19 18:00 62 36 176/85 (115) 91 Vapotherm 15.00 40.00 07/28/19 17:00 59 42 176/86 (116) 92 Vapotherm 15.00 40.00 07/28/19 16:25 Vapotherm 17.00 40.00 07/28/19 16:00 93 Vapotherm 15.00 40 07/28/19 16:00 62 24 178/108 (131) 90 Vapotherm 15.00 45.00 07/28/19 16:00 36.3 07/28/19 15:00 54 8 177/92 (120) 91 Vapotherm 15.00 45.00 07/28/19 14:00 65 31 157/86 (109) 92 Vapotherm 15.00 45.00 07/28/19 13:00 65 25 170/95 (120) 93 Vapotherm 15.00 45.00 07/28/19 13:00 63 07/28/19 12:00 65 25 151/78 (102) 93 NIV Bilevel 50.00 07/28/19 12:00 93 Vapotherm 15.00 45 07/28/19 11:00 76 14 157/95 (115) 90 NIV Bilevel 50.00 07/28/19 10:00 61 20 133/60 (84) 94 NIV Bilevel 50.00 07/28/19 09:00 73 58 90 NIV Bilevel 50.00 07/28/19 08:00 60 39 141/79 (99) 93 NIV Bilevel 50.00 07/28/19 08:00 93 NIV Bilevel 50 07/28/19 07:00 59 07/28/19 07:00 59 44 149/75 (99) 92 NIV Bilevel 50.00 07/28/19 06:00 63 161/87 (111) 96 NIV Bilevel 60.00 07/28/19 05:56 36.6 07/28/19 05:00 64 37 149/78 (101) 93 NIV Bilevel 60.00 I & O 07/29/19 07:00 Intake Total 1345 ml Output Total 8875 ml Balance -7530 ml Height & Weight Height: 5'4.00" Weight: 256lbs. 0.8oz. 116.517421fp; 49.00 BMI Method:Stated General Appearance: No Apparent Distress, WD/WN, Chronically ill, Obese HEENT: PERRL/EOMI, Normal ENT Inspection, Pharynx Normal, Moist Mucous Membranes Neck: Full Range of Motion, Normal Inspection, Non Tender Respiratory: Chest Non Tender, No Accessory Muscle Use, No Respiratory Distress, Decreased Breath Sounds Cardiovascular: Regular Rate, Rhythm, No Edema, No Gallop, No JVD, No Murmur, Normal Peripheral Pulses Capillary Refill: Less Than 3 Seconds Gastrointestinal: normal bowel sounds, non tender, soft Extremity: Normal Capillary Refill, Normal Inspection, Normal Range of Motion, Non Tender, No Calf Tenderness, No Pedal Edema Neurologic/Psychiatric: Alert, Oriented x3, No Motor/Sensory Deficits, Normal Mood/Affect Skin: Normal Color, Warm/Dry Lymphatic: No Adenopathy Results Lab Laboratory Tests 07/28/19 03:50 07/29/19 03:16 Assessment/Plan Assessment/Plan COVID positive with ARDS -Continue Abx for now -Start Lasix 20mg IV BID -Continue Isolation -Continue awake proning -Ct of chest -Echo reviewed -Influenza is negative - COVID Ab is positive -RVP pending -MRSA is pending -Check HIV -- neg -Repeat labs are pending -Continue respiratory isolation for now AsthmaAE -Continue INH -Continue solumedrol HTN -Monitor -Hydralazine PRN MEENA FRYE DO Jul 29, 2019 04:34
[2019-07-29] MEDS ORDERED: [UNRECOGNIZED DRUG - REMARK] IV ONE (04:45)
[2019-07-29] MEDS: KCL 20 MEQ TAB (K-DUR) PO SCH (05:20)
[2019-07-29] MEDS: POTASSIUM CL 10MEQ/50ML IVPB 50 ML IV SCH (05:20)
[2019-07-29] MEDS: MAGNESIUM 1 GM/100 ML IVPB 100 ML IV SCH (05:20)
[2019-07-29] MEDS: inSUlin ASPART (NovoLOG) 1 UNIT/0.01 ML (CHARGE PER UNIT) SQ SCH ×4 (05:56→20:48)
[2019-07-29] MEDS: glyBURIDE 5 MG (MICRONASE) TAB PO SCH ×2 (05:56→17:41)
--- NOTE | 2019-07-29 06:00 | NUR ---
Pt put in prone position at this time, per Dr. Reddy. VSS, on Vapotherm 40L 55%. Call light within reach.
--- NOTE | 2019-07-29 08:13 | Diagnostic Imaging Report ---
Portable erect AP chest at 3:46. Indication: Dyspnea The appearance of the chest has improved somewhat since the prior exam of 07/28/2019 as alveolar/interstitial pulmonary infiltrates involving both lungs have diminished. In particular, the right lung base and left upper lung do seem much better aerated. However there are still residual alveolar/interstitial pulmonary infiltrates present. The heart is stable in size. The mediastinum is not widened. The osseous structures are intact. Impression: The appearance of the chest has improved as both lungs are better aerated. There are still residual alveolar/interstitial infiltrates bilaterally however. Dictated by: Dictated on workstation # [id number]
[2019-07-29] MEDS ORDERED: KCL 20 MEQ TAB (K-DUR) PO ONE (09:00)
[2019-07-29] MEDS ORDERED: NON-FORMULARY MEDICATION 1 EA EA IV SCH (09:00)
--- NOTE | 2019-07-29 09:08 | Progress Note - Hospitalist ---
Subjective HPI/CC On Admission Date Seen by Provider: Jul 29, 2019 Time Seen by Provider: 09:30 CC: PNA with hypoxia and dyspnea suspect COVID 19 HPI: This is a 44yoWF clinic patient of [facility] from [facility] who presents to the ER with worsened dyspnea of several days duration. COVID-19 swab early in the week was performed and it was negative but considering the appearance of the CXR and her shortness of breath she was swabbed again and placed on CAP treatment and placed in isolation and PPE was used in all contact with the patient. Patient reports she feels better and less short of breath but her O2 sats are 93% on supplement. Patient does not smoke and takes meds for DM. Subjective/Events-last exam She was prone with BiPAP 6 hours yesterday and now much improved Now on Vapotherm Bowels are moving Eating and drinking better Definite improvement in her status today and appears better and she feels better Review of Systems General: Fatigue Pulmonary: Dyspnea, Cough Focused Exam Lactate Level 07/27/19 03:56: Lactic Acid Level 0.81 Objective Exam Vital Signs Vital Signs Date Time Temp Pulse Resp B/P (MAP) Pulse Ox O2 Delivery O2 Flow Rate FiO2 07/29/19 18:00 67 167/155 (159) 93 Vapotherm 15.00 40.00 07/29/19 17:00 26 07/29/19 16:00 50 07/29/19 16:00 37.0 Capillary Refill : Less Than 3 Seconds General Appearance: No Apparent Distress, WD/WN, Anxious, Chronically ill, Obese Respiratory: Chest Non Tender, Lungs Clear, No Accessory Muscle Use, No Respiratory Distress, Decreased Breath Sounds Cardiovascular: Regular Rate, Rhythm Neurologic/Psychiatric: Alert, Oriented x3, No Motor/Sensory Deficits, Normal Mood/Affect Results/Procedures Lab Laboratory Tests 07/29/19 03:16 Patient resulted labs reviewed. Assessment/Plan Assessment and Plan Assess & Plan/Chief Complaint Assessment: PNA suspicious for COVID-19 swabbed early in week negative but swabbed again 2 days ago and again it ass negative again but COVID-19 antibody + Abnormal CT chest multifocal infiltrates Dyspnea Hypoxia requiring increased O2 to Vapotherm DM Obesity BMI 50 HTN HLP Plan: CAP treatment Cardiology evaluation appreciated PPE used until swab negative COVID-19 negative but antibody positive Steroids Diagnosis/Problems Diagnosis/Problems (1) Respiratory distress Status: Acute (2) Bilateral pneumonia Status: Acute Qualifiers: Pneumonia type: due to unspecified organism Lung location: unspecified part of lung Qualified Codes: J18.9 - Pneumonia, unspecified organism (3) Diabetes mellitus (4) Hypertension (5) Hypoxia Status: Acute Clinical Quality Measures DVT/VTE Risk/Contraindication: Risk Factor Score Per Nursin RFS Level Per Nursing on Admit: 2=Moderate BEE CHAVIS DO Jul 29, 2019 09:08
[2019-07-29] MEDS: ADVAIR HFA 115/21 MCG INHALER 8 GM IH SCH ×2 (09:25→20:41)
--- NOTE | 2019-07-29 09:31 | NUR ---
Spoke to [facility] Patient will be classified as probable case of COVID based on the positive IgG and 2 negative nares. Likely miguel of shedding is low but after careful discussion with the local health department we will leave her in airborne isolation for duration of her illness.
[2019-07-29] MEDS: SENNA W/DOCUSATE (SENOKOT S) TABLET PO SCH ×2 (09:40→19:57)
[2019-07-29] MEDS: LOSARTAN 100 MG (COZAAR) TABLET PO SCH (09:41)
[2019-07-29] MEDS: ALPRAZolam 0.25 MG (XANAX) TAB PO PRN ×2 (09:41→20:53)
[2019-07-29] MEDS: FUROSEMIDE 40 MG/4 ML INJ (LASIX) IVP SCH ×2 (09:42→20:48)
[2019-07-29] MEDS: cefTRIAXone 1,000 MG/SWFI 10 ML IV PUSH IV SCH ×2 (09:42)
[2019-07-29] MEDS: PANTOPRAZOLE 40 MG (PROTONIX) VIAL IV SCH (09:42)
[2019-07-29] MEDS: AZITHROMYCIN 500 MG/NS 250 ML IVPB IV SCH ×2 (09:43)
[2019-07-29 09:44] LABS: RSV PCR TEST Not Detected (Not Detected)
--- NOTE | 2019-07-29 11:30 | NUR ---
Spoke with pts RN who stated she would advise of [employer] availability for pt via telephone and also for pts family.
[2019-07-29] MEDS ORDERED: INSU100I29 SQ (13:15)
[2019-07-29] MEDS ORDERED: GLYB5TAB6 PO (13:15)
[2019-07-29] MEDS ORDERED: METF-479 PO (13:15)
--- NOTE | 2019-07-29 13:15 | NUR ---
SPOKE WITH THE PT (THRU THE ROOM PHONE) AND CALLED [facility] TO COMPLETE THE MED REC THE FOLLOWING ARE FILL DATES FROM [facility]: 04-25-2019 LEVEMIR FLEXPEN #10 PEN/30DS (I DID DOCUMENT THE PAST DUE FILL ON THE MED REC) 06-30-2019 METFORMIN ER 1000MG #60/30DS 06-30-2019 GLYBURIDE 5MG #30/30DS 07-11-2019 ATORVASTATIN 40MG #30/30DS 07-17-2019 INVOKANA 300MG #30/30DS
--- NOTE | 2019-07-29 13:30 | NUR ---
DISCUSSED WITH PT THE USE OF REMDESIVIR MEDICATION. PT WAS INFORMED THAT SERIOUS AND UNEXPECTED SIDE EFFECTS MAY HAPPEN, SUCH BRIEF PAIN , BLEEDING, BRUISING OF THE SKIN, SORENESS, SWELLING AND POSSIBLE INFECTION AT THE INJECTION SITE. SHE IS ALSO INFORMED THAT THIS DRUG IS IN TESTING PHASE NOW. AFTER DISCUSSION OF THE MEDICATION AND HER OPTIONS NORMA VOICED UNDERSTANDING AND ALSO VOICED THAT SHE IS WILLING TO TAKE THE DRUG.
--- NOTE | 2019-07-29 14:03 | NUR ---
DR FRYE NOTIFIED OF BLOOD SUGAR OF 499. 12 UNITS NOVOLOG GIVEN PER SLIDING SCALE. DR FRYE ORDERS GIVE 10 UNITS LEVEMIR NOW AND DAILY. ALSO ORDERS DECREASE ASIF U MEDROL TO Q12H
--- NOTE | 2019-07-29 14:09 | Diagnostic Imaging Report ---
EXAMINATION: Chest, one view at 1:59 PM. INDICATION: PICC line insertion. FINDINGS: In the interval since the exam performed earlier today at 3:46 AM, a left-sided PICC line has been inserted. The tip of the line overlies the distal superior vena cava and seems to be in good position. There is no sign of a pneumothorax. The overall appearance of the chest does not appear to have changed significantly otherwise. The heart is stable in size. There are still alveolar/interstitial infiltrates involving both lungs, particularly the left mid lung and left lung base. IMPRESSION: There has been interval insertion of a left-sided PICC line without apparent complication. The overall appearance of the chest is otherwise stable. A followup exam would be recommended for continued evaluation. Dictated by: Dictated on workstation # [id number]
[2019-07-29] MEDS ORDERED: REMDESIVIR INJ (NON-FORMULARY) 200 MG in NS (IVPB) 210 ML IV NR (14:30)
--- NOTE | 2019-07-29 21:07 | NUR ---
NOTIFIED EICU OF PT BLOOD GLUCOSE OF 475. ADMIN 12 UNITS PER SLIDING SCALE PROTOCOL. SEE ORDER HX.
[2019-07-29] MEDS ORDERED: inSUlin ASPART (NovoLOG) 1 UNIT/0.01 ML (CHARGE PER UNIT) SQ SCH (21:15)
--- NOTE | 2019-07-29 21:30 | NUR ---
BIPAP PUT ON AND PT PRONED SELF AT THIS TIME
[2019-07-30] VITALS (24 sets, daily range): BP systolic 105–178; BP diastolic 56–99
[2019-07-30] MEDS: inSUlin ASPART (NovoLOG) 1 UNIT/0.01 ML (CHARGE PER UNIT) SQ SCH ×4 (00:46→11:58)
[2019-07-30 03:27] LABS: BASOPHILS % (AUTO) 0 % (0-10); EOSINOPHILS % (AUTO) 0 % (0-10); HEMATOCRIT 37 % (35-52); HEMOGLOBIN 12.1 G/DL (11.5-16.0); LYMPHOCYTES # (AUTO) 0.6 X 10^3 (1.0-4.0); LYMPHOCYTES % (AUTO) 10 % (12-44); MEAN CORPUSCULAR HEMOGLOBIN 25 PG (25-34); MEAN CORPUSCULAR HGB CONC 32 G/DL (32-36); MEAN CORPUSCULAR VOLUME 76 FL (80-99); MEAN PLATELET VOLUME 9.8 FL (7.4-10.4); MONOCYTES # (AUTO) 0.5 X 10^3 (0.0-1.0); MONOCYTES % (AUTO) 8 % (0-12); NEUTROPHILS # (AUTO) 5.2 X 10^3 (1.8-7.8); NEUTROPHILS % (AUTO) 82 % (42-75); PLATELET COUNT 289 10^3/uL (130-400); RED CELL DISTRIBUTION WIDTH 14.7 % (10.0-14.5); WHITE BLOOD COUNT 6.4 10^3/uL (4.3-11.0)
[2019-07-30 03:37] LABS: CHLORIDE 96 MMOL/L (98-107); POTASSIUM 4.2 MMOL/L (3.6-5.0); SODIUM 137 MMOL/L (135-145)
[2019-07-30 03:38] LABS: CALCIUM 8.7 MG/DL (8.5-10.1)
[2019-07-30 03:39] LABS: GLUCOSE 384 MG/DL (70-105)
[2019-07-30 03:40] LABS: CARBON DIOXIDE 28 MMOL/L (21-32)
[2019-07-30 03:42] LABS: PHOSPHORUS 3.7 MG/DL (2.3-4.7)
[2019-07-30 03:43] LABS: CREATININE SERUM 0.77 MG/DL (0.60-1.30); GFR ESTIMATED > 60
[2019-07-30 03:44] LABS: BUN/CREATININE RATIO 36
[2019-07-30 03:45] LABS: MAGNESIUM 2.4 MG/DL (1.6-2.4)
[2019-07-30] MEDS: ENOXAPARIN 40 MG/0.4 ML (LOVENOX) SYR SC SCH ×2 (04:49→17:24)
[2019-07-30] MEDS: KCL 20 MEQ TAB (K-DUR) PO SCH (04:50)
[2019-07-30] MEDS: ALBUTEROL/IPRATROP (COMBIVENT RESPIMAT) 4 GM INHALER IH SCH ×4 (04:50→21:37)
[2019-07-30] MEDS: POTASSIUM CL 10MEQ/50ML IVPB 50 ML IV SCH (04:50)
[2019-07-30] MEDS: MAGNESIUM 1 GM/100 ML IVPB 100 ML IV SCH (04:50)
--- NOTE | 2019-07-30 05:10 | Pulmonary Progress Note ---
Subjective Time Seen by a Provider: 05:10 Subjective/Events-last exam pt is currently on BIPAP Sepsis Event Evaluation Height, Weight, BMI Height: 5'4.00" Weight: 256lbs. 0.8oz. 116.278978ud; 49.00 BMI Method:Stated Exam Exam Vital Signs Date Time Temp Pulse Resp B/P (MAP) Pulse Ox O2 Delivery O2 Flow Rate FiO2 07/30/19 03:57 93 NIV Bilevel 45 07/30/19 01:00 55 07/30/19 00:43 36.0 07/30/19 00:00 93 NIV Bilevel 45 07/29/19 21:00 58 143/79 (100) 99 NIV Bilevel 45.00 07/29/19 20:52 163/117 (132) NIV Bilevel 45.00 07/29/19 20:41 58 34 97 45.00 07/29/19 20:00 58 172/123 (139) 92 Vapotherm 15.00 40.00 07/29/19 20:00 36.4 07/29/19 20:00 93 Vapotherm 15.00 40 07/29/19 19:00 64 07/29/19 19:00 69 130/98 (109) 92 Vapotherm 15.00 40.00 07/29/19 18:00 67 167/155 (159) 93 Vapotherm 15.00 40.00 07/29/19 17:00 68 26 147/94 (111) 94 Vapotherm 15.00 40.00 07/29/19 16:20 68 34 89 35.00 07/29/19 16:00 65 169/102 (124) 75 Vapotherm 40.00 55.00 07/29/19 16:00 93 Vapotherm 30.00 50 07/29/19 16:00 37.0 07/29/19 15:00 59 157/104 (121) 90 Vapotherm 40.00 55.00 07/29/19 14:00 64 156/99 (118) 92 Vapotherm 40.00 55.00 07/29/19 13:28 64 07/29/19 13:00 61 159/88 (111) 90 Vapotherm 40.00 55.00 07/29/19 12:00 36.9 07/29/19 12:00 117/68 (84) 95 Vapotherm 40.00 55.00 07/29/19 12:00 93 Vapotherm 30.00 50 07/29/19 11:27 60 07/29/19 11:00 136/106 (116) 91 Vapotherm 40.00 55.00 07/29/19 10:00 21 113/92 (99) 89 Vapotherm 40.00 55.00 07/29/19 09:28 95 Vapotherm 30.00 55 07/29/19 09:24 93 Vapotherm 30.00 55 07/29/19 09:00 78 166/100 (122) 90 Vapotherm 40.00 55.00 07/29/19 08:00 62 29 159/89 (112) 89 Vapotherm 40.00 55.00 07/29/19 08:00 93 NIV Bilevel 35 07/29/19 07:00 37.1 07/29/19 07:00 62 47 168/104 (125) 94 Vapotherm 40.00 55.00 07/29/19 06:00 66 34 165/99 (121) 92 Vapotherm 40.00 55.00 07/29/19 06:00 Vapotherm 40.00 55.00 I & O 07/30/19 07:00 Intake Total 2700 ml Output Total 4750 ml Balance -2050 ml Height & Weight Height: 5'4.00" Weight: 256lbs. 0.8oz. 116.390701on; 49.00 BMI Method:Stated General Appearance: No Apparent Distress, WD/WN, Anxious, Chronically ill, Obese HEENT: PERRL/EOMI, Normal ENT Inspection, Pharynx Normal, Moist Mucous Membranes Neck: Full Range of Motion, Normal Inspection, Non Tender Respiratory: Chest Non Tender, Lungs Clear, No Accessory Muscle Use, No Respiratory Distress, Decreased Breath Sounds Cardiovascular: Regular Rate, Rhythm Capillary Refill: Less Than 3 Seconds Gastrointestinal: normal bowel sounds, non tender, soft Extremity: Normal Capillary Refill, Normal Inspection, Normal Range of Motion, Non Tender, No Calf Tenderness, No Pedal Edema Neurologic/Psychiatric: Alert, Oriented x3, No Motor/Sensory Deficits, Normal Mood/Affect Skin: Normal Color, Warm/Dry Lymphatic: No Adenopathy Results Lab Laboratory Tests 07/29/19 03:16 07/30/19 03:00 Assessment/Plan Assessment/Plan COVID positive with ARDS -Continue Abx for now -Started on Remdesivir -Lasix 20mg IV BID -Continue Isolation -Continue awake proning -Echo reviewed -Influenza is negative - COVID Ab is positive -RVP pending -MRSA is pending -Check HIV -- neg -Repeat labs are pending -Continue respiratory isolation for now AsthmaAE -Continue INH -Continue solumedrol HTN -Monitor -Hydralazine PRN MEENA FRYE DO Jul 30, 2019 05:10
--- NOTE | 2019-07-30 06:04 | NUR ---
PT TO USE BIPAP PRN PER DR FRYE. TITRATE VAPOTHERM. PRONE QHS
[2019-07-30] MEDS: glyBURIDE 5 MG (MICRONASE) TAB PO SCH ×2 (06:32→17:24)
[2019-07-30] MEDS: ADVAIR HFA 115/21 MCG INHALER 8 GM IH SCH ×2 (06:59→21:36)
[2019-07-30] MEDS: SENNA W/DOCUSATE (SENOKOT S) TABLET PO SCH ×2 (09:08→19:55)
[2019-07-30] MEDS: LOSARTAN 100 MG (COZAAR) TABLET PO SCH (09:08)
[2019-07-30] MEDS: cefTRIAXone 1,000 MG/SWFI 10 ML IV PUSH IV SCH ×2 (09:08)
[2019-07-30] MEDS: methylPREDNISolone 40 MG/ML (Solu-MEDROL) VIAL IV SCH ×2 (09:08→20:06)
[2019-07-30] MEDS: FUROSEMIDE 40 MG/4 ML INJ (LASIX) IVP SCH ×2 (09:08→20:06)
[2019-07-30] MEDS: PANTOPRAZOLE 40 MG (PROTONIX) VIAL IV SCH (09:09)
[2019-07-30] MEDS: AZITHROMYCIN 500 MG/NS 250 ML IVPB IV SCH ×2 (09:09)
--- NOTE | 2019-07-30 09:22 | Progress Note - Hospitalist ---
Subjective HPI/CC On Admission Date Seen by Provider: Jul 30, 2019 Time Seen by Provider: 10:00 CC: PNA with hypoxia and dyspnea suspect COVID 19 HPI: This is a 44yoWF clinic patient of [facility] from [facility] who presents to the ER with worsened dyspnea of several days duration. COVID-19 swab early in the week was performed and it was negative but considering the appearance of the CXR and her shortness of breath she was swabbed again and placed on CAP treatment and placed in isolation and PPE was used in all contact with the patient. Patient reports she feels better and less short of breath but her O2 sats are 93% on supplement. Patient does not smoke and takes meds for DM. Subjective/Events-last exam Pt remains in isolation Respiratory failure continues Supportive care Review of Systems General: Fatigue Pulmonary: Dyspnea Objective Exam Vital Signs Vital Signs Date Time Temp Pulse Resp B/P (MAP) Pulse Ox O2 Delivery O2 Flow Rate FiO2 07/30/19 19:00 66 07/30/19 18:00 114/73 (87) 93 Vapotherm 25.00 35.00 07/30/19 17:20 36.4 07/30/19 16:00 35 07/29/19 20:41 34 Capillary Refill : Less Than 3 Seconds General Appearance: Chronically ill, Obese, Other (asleep) Results/Procedures Lab Laboratory Tests 07/30/19 03:00 Patient resulted labs reviewed. Assessment/Plan Assessment and Plan Assess & Plan/Chief Complaint Assessment: PNA suspicious for COVID-19 swabbed early in week negative but swabbed again 2 days ago and again it ass negative again but COVID-19 antibody + Abnormal CT chest multifocal infiltrates Dyspnea Hypoxia requiring increased O2 to Vapotherm DM Obesity BMI 50 HTN HLP Plan: CAP treatment Cardiology evaluation appreciated PPE used until swab negative COVID-19 negative but antibody positive Steroids Diagnosis/Problems Diagnosis/Problems (1) Respiratory distress Status: Acute (2) Bilateral pneumonia Status: Acute Qualifiers: Pneumonia type: due to unspecified organism Lung location: unspecified part of lung Qualified Codes: J18.9 - Pneumonia, unspecified organism (3) Diabetes mellitus (4) Hypertension (5) Hypoxia Status: Acute Clinical Quality Measures DVT/VTE Risk/Contraindication: Risk Factor Score Per Nursin RFS Level Per Nursing on Admit: 2=Moderate BEE CHAVIS DO Jul 30, 2019 09:22
[2019-07-30] MEDS: NS IV SCH (13:47)
[2019-07-30] MEDS: REMDESIVIR IV SCH (13:47)
--- NOTE | 2019-07-30 16:05 | NUR ---
THIS NURSE NOTIFIED DR GOMEZ AND DR CHAVIS OF EKG RESULTS. NO NEW ORDERS AT THIS TIME. WILL CONTINUE TO MONITOR.
--- NOTE | 2019-07-30 16:06 | NUR ---
THIS NURSE NOTIFIED DR CHAVIS OF PT BLOOD SUGAR 493. ORDERS GIVEN. SEE ORDER HX. WILL CONTINUE TO MONITOR.
[2019-07-30] MEDS ORDERED: inSUlin ASPART (NovoLOG) 1 UNIT/0.01 ML (CHARGE PER UNIT) SC SCH (16:45)
[2019-07-30] MEDS ORDERED: inSUlin ASPART (NovoLOG) 1 UNIT/0.01 ML (CHARGE PER UNIT) ONE (20:10)
[2019-07-30] MEDS: inSUlin ASPART (NovoLOG) 1 UNIT/0.01 ML (CHARGE PER UNIT) SC SCH (20:11)
[2019-07-31] VITALS (24 sets, daily range): BP systolic 92–136; BP diastolic 54–100
[2019-07-31] MEDS: inSUlin ASPART (NovoLOG) 1 UNIT/0.01 ML (CHARGE PER UNIT) SC SCH ×6 (00:14→20:25)
[2019-07-31 03:23] LABS: BASOPHILS % (AUTO) 0 % (0-10); EOSINOPHILS % (AUTO) 0 % (0-10); HEMATOCRIT 38 % (35-52); HEMOGLOBIN 12.3 G/DL (11.5-16.0); LYMPHOCYTES # (AUTO) 0.6 X 10^3 (1.0-4.0); LYMPHOCYTES % (AUTO) 9 % (12-44); MEAN CORPUSCULAR HEMOGLOBIN 24 PG (25-34); MEAN CORPUSCULAR HGB CONC 32 G/DL (32-36); MEAN CORPUSCULAR VOLUME 75 FL (80-99); MEAN PLATELET VOLUME 9.4 FL (7.4-10.4); MONOCYTES # (AUTO) 0.5 X 10^3 (0.0-1.0); MONOCYTES % (AUTO) 8 % (0-12); NEUTROPHILS % (AUTO) 83 % (42-75); PLATELET COUNT 273 10^3/uL (130-400); RED CELL DISTRIBUTION WIDTH 14.6 % (10.0-14.5)
[2019-07-31 03:42] LABS: BUN/CREATININE RATIO 37; CALCIUM 8.7 MG/DL (8.5-10.1); CARBON DIOXIDE 29 MMOL/L (21-32); CHLORIDE 96 MMOL/L (98-107); CREATININE SERUM 0.78 MG/DL (0.60-1.30); GFR ESTIMATED > 60; MAGNESIUM 2.2 MG/DL (1.6-2.4); PHOSPHORUS 3.5 MG/DL (2.3-4.7); POTASSIUM 4.3 MMOL/L (3.6-5.0); SODIUM 134 MMOL/L (135-145)
[2019-07-31 03:45] LABS: GLUCOSE 402 MG/DL (70-105)
[2019-07-31] MEDS: ENOXAPARIN 40 MG/0.4 ML (LOVENOX) SYR SC SCH ×2 (04:34→17:15)
[2019-07-31] MEDS: ALBUTEROL/IPRATROP (COMBIVENT RESPIMAT) 4 GM INHALER IH SCH ×4 (04:34→18:57)
--- NOTE | 2019-07-31 05:09 | Pulmonary Progress Note ---
Subjective Time Seen by a Provider: 05:07 Subjective/Events-last exam Pt appears to be doing better. Sepsis Event Evaluation Height, Weight, BMI Height: 5'4.00" Weight: 256lbs. 0.8oz. 116.719528hu; 49.00 BMI Method:Stated Exam Exam Vital Signs Date Time Temp Pulse Resp B/P (MAP) Pulse Ox O2 Delivery O2 Flow Rate FiO2 07/31/19 05:00 50 117/72 (87) Vapotherm 25.00 35.00 07/31/19 04:00 54 120/74 (89) Vapotherm 25.00 35.00 07/31/19 04:00 36.5 07/31/19 04:00 91 Vapotherm 25.00 35 07/31/19 03:00 63 101/55 (70) Vapotherm 25.00 35.00 07/31/19 02:00 53 118/77 (91) Vapotherm 25.00 35.00 07/31/19 01:00 58 108/66 (80) Vapotherm 25.00 35.00 07/31/19 01:00 60 07/31/19 00:13 96 Vapotherm 25.00 35 07/31/19 00:00 36.0 07/31/19 00:00 61 132/100 (111) Vapotherm 25.00 35.00 07/30/19 23:00 62 108/64 (79) Vapotherm 25.00 35.00 07/30/19 22:00 73 120/78 (92) 96 Vapotherm 25.00 35.00 07/30/19 21:37 94 Vapotherm 25.00 35 07/30/19 21:00 67 116/74 (88) 94 Vapotherm 25.00 35.00 07/30/19 20:13 36.0 Vapotherm 25.00 35.00 07/30/19 20:00 70 131/91 (104) 93 Vapotherm 25.00 35.00 07/30/19 20:00 93 Vapotherm 25.00 35 07/30/19 19:00 70 136/95 (109) 95 Vapotherm 25.00 35.00 07/30/19 19:00 66 07/30/19 18:00 65 114/73 (87) 93 Vapotherm 25.00 35.00 07/30/19 17:20 36.4 07/30/19 17:00 60 130/97 (108) 97 Vapotherm 25.00 35.00 07/30/19 16:00 93 Vapotherm 25.00 35 07/30/19 16:00 80 124/78 (93) 81 Vapotherm 25.00 35.00 07/30/19 15:00 70 124/78 (93) 93 Vapotherm 25.00 35.00 07/30/19 14:45 94 Vapotherm 25.00 35 07/30/19 14:42 36.6 07/30/19 14:37 Vapotherm 25.00 35.00 07/30/19 14:00 53 152/92 (112) 91 Vapotherm 35.00 40.00 07/30/19 13:19 62 07/30/19 13:00 55 135/84 (101) 85 Vapotherm 35.00 40.00 07/30/19 12:00 58 137/88 (104) 98 Vapotherm 35.00 40.00 07/30/19 11:25 93 Vapotherm 35.00 40 07/30/19 11:08 54 07/30/19 11:00 76 119/85 (96) 92 Vapotherm 35.00 40.00 07/30/19 10:21 Vapotherm 35.00 40.00 07/30/19 10:00 120/70 (87) 74 Vapotherm 20.00 40.00 07/30/19 09:00 74 105/56 (72) 92 Vapotherm 20.00 40.00 07/30/19 08:00 60 126/68 (87) 94 Vapotherm 20.00 40.00 07/30/19 08:00 36.4 07/30/19 08:00 94 Vapotherm 20.00 40 07/30/19 07:02 95 Vapotherm 30.00 55 07/30/19 07:01 91 Vapotherm 20.00 40 07/30/19 07:00 52 114/80 (91) 90 Vapotherm 20.00 40.00 07/30/19 06:05 NIV Bilevel 40.00 07/30/19 06:00 40 153/80 (104) 99 NIV Bilevel 45.00 I & O 07/31/19 07:00 Intake Total 3820 ml Output Total 2900 ml Balance 920 ml Height & Weight Height: 5'4.00" Weight: 256lbs. 0.8oz. 116.289553ds; 49.00 BMI Method:Stated General Appearance: Chronically ill, Obese, Other (asleep) HEENT: PERRL/EOMI, Normal ENT Inspection, Pharynx Normal, Moist Mucous Membranes Neck: Full Range of Motion, Normal Inspection, Non Tender Respiratory: Chest Non Tender, Lungs Clear, No Accessory Muscle Use, No Respiratory Distress, Decreased Breath Sounds Cardiovascular: Regular Rate, Rhythm Capillary Refill: Less Than 3 Seconds Gastrointestinal: normal bowel sounds, non tender, soft Extremity: Normal Capillary Refill, Normal Inspection, Normal Range of Motion, Non Tender, No Calf Tenderness, No Pedal Edema Neurologic/Psychiatric: Alert, Oriented x3, No Motor/Sensory Deficits, Normal Mood/Affect Skin: Normal Color, Warm/Dry Lymphatic: No Adenopathy Results Lab Laboratory Tests 07/30/19 03:00 07/31/19 03:10 Assessment/Plan Assessment/Plan COVID positive with ARDS -Continue Abx for now -Titrate oxygen down -Started on Remdesivir -Lasix 20mg IV BID -Continue Isolation -Continue awake proning -Echo reviewed -Influenza is negative - COVID Ab is positive -RVP pending -MRSA is pending -Check HIV -- neg -Repeat labs are pending -Continue respiratory isolation for now AsthmaAE -Continue INH -D/C solumedrol Hyperglycemia -Continue insulin -continue Q4 accu checks HTN -Monitor -Hydralazine MEENA SULILVAN DO Jul 31, 2019 05:09
[2019-07-31] MEDS: KCL 20 MEQ TAB (K-DUR) PO SCH (06:09)
[2019-07-31] MEDS: POTASSIUM CL 10MEQ/50ML IVPB 50 ML IV SCH (06:09)
[2019-07-31] MEDS: MAGNESIUM 1 GM/100 ML IVPB 100 ML IV SCH (06:09)
--- NOTE | 2019-07-31 06:11 | NUR ---
NOTIFIED DR FRYE OF CRITICAL BLOOD SUGARS.
[2019-07-31] MEDS: glyBURIDE 5 MG (MICRONASE) TAB PO SCH ×2 (06:30→17:17)
--- NOTE | 2019-07-31 07:00 | Progress Note - Hospitalist ---
Subjective HPI/CC On Admission Date Seen by Provider: Jul 31, 2019 Time Seen by Provider: 09:30 CC: PNA with hypoxia and dyspnea suspect COVID 19 HPI: This is a 44yoWF clinic patient of [facility] from [facility] who presents to the ER with worsened dyspnea of several days duration. COVID-19 swab early in the week was performed and it was negative but considering the appearance of the CXR and her shortness of breath she was swabbed again and placed on CAP treatment and placed in isolation and PPE was used in all contact with the patient. Patient reports she feels better and less short of breath but her O2 sats are 93% on supplement. Patient does not smoke and takes meds for DM. Subjective/Events-last exam Pt still in isolation for Brewer Virus Sitting at the side of the bed Vapotherm maintained Review of Systems Pulmonary: Dyspnea Objective Exam Vital Signs Vital Signs Date Time Temp Pulse Resp B/P (MAP) Pulse Ox O2 Delivery O2 Flow Rate FiO2 07/31/19 20:20 36.0 High Flow N/C 2.00 07/31/19 20:00 93 07/31/19 19:00 68 07/31/19 18:00 136/95 (109) 07/31/19 04:00 35 07/29/19 20:41 34 Capillary Refill : Less Than 3 Seconds General Appearance: No Apparent Distress, WD/WN Results/Procedures Lab Laboratory Tests 07/31/19 03:10 Patient resulted labs reviewed. Assessment/Plan Assessment and Plan Assess & Plan/Chief Complaint Assessment: PNA suspicious for COVID-19 swabbed early in week negative but swabbed again 2 days ago and again it ass negative again but COVID-19 antibody + Abnormal CT chest multifocal infiltrates Dyspnea Hypoxia requiring increased O2 to Vapotherm DM Obesity BMI 50 HTN HLP Plan: CAP treatment Cardiology evaluation appreciated PPE used until swab negative COVID-19 negative but antibody positive Steroids Diagnosis/Problems Diagnosis/Problems (1) Respiratory distress Status: Acute (2) Bilateral pneumonia Status: Acute Qualifiers: Pneumonia type: due to unspecified organism Lung location: unspecified part of lung Qualified Codes: J18.9 - Pneumonia, unspecified organism (3) Diabetes mellitus (4) Hypertension (5) Hypoxia Status: Acute Clinical Quality Measures DVT/VTE Risk/Contraindication: Risk Factor Score Per Nursin RFS Level Per Nursing on Admit: 2=Moderate BEE CHAVIS DO Jul 31, 2019 07:00
[2019-07-31] MEDS: ADVAIR HFA 115/21 MCG INHALER 8 GM IH SCH ×2 (08:12→18:58)
[2019-07-31] MEDS: PANTOPRAZOLE 40 MG (PROTONIX) VIAL IV SCH (08:46)
[2019-07-31] MEDS: LOSARTAN 100 MG (COZAAR) TABLET PO SCH (08:46)
[2019-07-31] MEDS: FUROSEMIDE 40 MG/4 ML INJ (LASIX) IVP SCH ×2 (08:46→20:22)
[2019-07-31] MEDS: SENNA W/DOCUSATE (SENOKOT S) TABLET PO SCH ×2 (08:47→20:23)
--- NOTE | 2019-07-31 09:20 | Cardiology Progress Note ---
Subjective Date Seen by Provider: Jul 31, 2019 Time Seen by Provider: 09:18 Subjective/Events-last exam Patient is feeling better, breathing better. I was called due to some EKG changes noted on telemetry and EKG was ordered. Objective-Cardiology Exam Last Set of Vital Signs Vital Signs 07/29/19 07/31/19 07/31/19 07/31/19 07/31/19 20:41 04:00 08:00 08:54 09:00 Temp 36.5 Pulse 91 Resp 34 B/P (MAP) 111/70 (84) Pulse Ox 98 O2 Delivery High Flow N/C O2 Flow Rate 4.00 FiO2 35 Capillary Refill : Less Than 3 Seconds I&O Intake and Output 07/31/19 00:00 Intake Total 4470 ml Output Total 3800 ml Balance 670 ml Intake Oral 4210 ml IV Total 260 ml Output Urine Total 3800 ml # Voids 4 Results Lab Laboratory Tests 07/31/19 03:10 A/P-Cardiology Admission Diagnosis Acute respiratory failure Hypertension Diabetes mellitus Hyperlipidemia Assessment/Plan Status post acute respiratory failure, better at this time, COVID testing is negative, COVID antibodies were positive. Cardec workup so far has been negative. Reporting improvement, managed by primary care team Mild EKG changes with nonspecific T wave abnormality. Patient is asymptomatic at this time, reported improvement. Continue to monitor Hypertension, continue to monitor blood pressure Diabetes mellitus, managed by primary care physician Hyperlipidemia maintained on Lipitor Multiple risk factors for coronary artery disease, cardiac enzymes were negative. Will consider stress test as an outpatient once patient is clinically stable Clinical Quality Measures DVT/VTE Risk/Contraindication: Risk Factor Score Per Nursin RFS Level Per Nursing on Admit: 2=Moderate DOROTHY GOMEZ MD Jul 31, 2019 09:19
[2019-07-31] MEDS: ACETAMINOPHEN 500 MG TAB (TYLENOL) PO PRN (12:09)
[2019-07-31] MEDS: REMDESIVIR IV SCH (14:02)
[2019-07-31] MEDS: NS IV SCH (14:02)
[2019-08-01] VITALS (7 sets, daily range): BP systolic 92–140; BP diastolic 54–111
[2019-08-01] MEDS: inSUlin ASPART (NovoLOG) 1 UNIT/0.01 ML (CHARGE PER UNIT) SC SCH ×2 (00:29→04:08)
[2019-08-01] MEDS: ACETAMINOPHEN 500 MG TAB (TYLENOL) PO PRN (00:29)
[2019-08-01] MEDS: ALPRAZolam 0.25 MG (XANAX) TAB PO PRN (00:29)
[2019-08-01] MEDS: ALBUTEROL/IPRATROP (COMBIVENT RESPIMAT) 4 GM INHALER IH SCH ×2 (02:42→07:46)
[2019-08-01 04:06] LABS: BASOPHILS % (AUTO) 0 % (0-10); EOSINOPHILS % (AUTO) 0 % (0-10); HEMATOCRIT 39 % (35-52); HEMOGLOBIN 12.4 G/DL (11.5-16.0); LYMPHOCYTES # (AUTO) 1.1 X 10^3 (1.0-4.0); LYMPHOCYTES % (AUTO) 20 % (12-44); MEAN CORPUSCULAR HEMOGLOBIN 24 PG (25-34); MEAN CORPUSCULAR HGB CONC 32 G/DL (32-36); MEAN CORPUSCULAR VOLUME 76 FL (80-99); MEAN PLATELET VOLUME 9.3 FL (7.4-10.4); MONOCYTES # (AUTO) 0.5 X 10^3 (0.0-1.0); MONOCYTES % (AUTO) 8 % (0-12); NEUTROPHILS % (AUTO) 72 % (42-75); PLATELET COUNT 230 10^3/uL (130-400); RED CELL DISTRIBUTION WIDTH 14.6 % (10.0-14.5); WHITE BLOOD COUNT 5.5 10^3/uL (4.3-11.0)
[2019-08-01] MEDS: ENOXAPARIN 40 MG/0.4 ML (LOVENOX) SYR SC SCH (04:07)
[2019-08-01 04:19] LABS: CHLORIDE 97 MMOL/L (98-107); POTASSIUM 3.6 MMOL/L (3.6-5.0)
[2019-08-01 04:20] LABS: SODIUM 138 MMOL/L (135-145)
[2019-08-01 04:21] LABS: CALCIUM 8.3 MG/DL (8.5-10.1); GLUCOSE 138 MG/DL (70-105)
[2019-08-01 04:23] LABS: CARBON DIOXIDE 29 MMOL/L (21-32)
[2019-08-01 04:25] LABS: CREATININE SERUM 0.66 MG/DL (0.60-1.30); GFR ESTIMATED > 60; PHOSPHORUS 4.3 MG/DL (2.3-4.7)
[2019-08-01 04:26] LABS: BUN/CREATININE RATIO 39
[2019-08-01 04:28] LABS: MAGNESIUM 2.1 MG/DL (1.6-2.4)
--- NOTE | 2019-08-01 04:59 | Pulmonary Progress Note ---
Subjective Time Seen by a Provider: 04:56 Subjective/Events-last exam Pt is doing much better. Sepsis Event Evaluation Height, Weight, BMI Height: 5'4.00" Weight: 256lbs. 0.8oz. 116.062107fv; 49.00 BMI Method:Stated Exam Exam Vital Signs Date Time Temp Pulse Resp B/P (MAP) Pulse Ox O2 Delivery O2 Flow Rate FiO2 08/01/19 04:00 99 High Flow N/C 2.00 08/01/19 03:00 62 92/62 (72) 99 High Flow N/C 2.00 08/01/19 02:43 94 High Flow N/C 2.00 08/01/19 02:00 56 101/55 (70) 97 High Flow N/C 2.00 08/01/19 01:00 64 08/01/19 01:00 64 93/54 (67) 99 High Flow N/C 2.00 08/01/19 00:25 37.0 08/01/19 00:00 99 High Flow N/C 2.00 08/01/19 00:00 70 103/75 (84) 95 High Flow N/C 2.00 07/31/19 23:00 70 95/67 (76) 98 High Flow N/C 2.00 07/31/19 22:00 65 98/54 (69) 96 High Flow N/C 2.00 07/31/19 21:00 65 109/72 (84) 94 High Flow N/C 2.00 07/31/19 20:20 36.0 High Flow N/C 2.00 07/31/19 20:00 93 High Flow N/C 1.00 07/31/19 20:00 61 108/99 (102) 95 High Flow N/C 1.00 07/31/19 19:00 72 117/71 (86) 94 High Flow N/C 1.00 07/31/19 19:00 68 07/31/19 18:58 94 High Flow N/C 2.00 07/31/19 18:00 89 136/95 (109) 95 High Flow N/C 1.00 07/31/19 17:24 93 High Flow N/C 1.00 07/31/19 17:21 36.0 92 High Flow N/C 1.00 07/31/19 17:00 61 103/68 (80) 97 High Flow N/C 2.00 07/31/19 16:00 64 105/74 (84) 96 High Flow N/C 2.00 07/31/19 16:00 95 High Flow N/C 2.00 07/31/19 15:00 121 92/65 (74) 94 High Flow N/C 2.00 07/31/19 14:20 96 High Flow N/C 2.00 07/31/19 14:02 94 High Flow N/C 2.00 07/31/19 14:00 61 120/78 (92) 95 High Flow N/C 3.00 07/31/19 13:00 69 107/82 (90) 94 High Flow N/C 3.00 07/31/19 12:26 73 07/31/19 12:06 36.6 07/31/19 12:03 97 High Flow N/C 3.00 07/31/19 12:00 97 High Flow N/C 4.00 07/31/19 12:00 74 104/83 (90) 96 High Flow N/C 4.00 07/31/19 11:00 74 103/77 (86) 97 High Flow N/C 4.00 07/31/19 10:00 74 105/70 (82) 95 High Flow N/C 4.00 07/31/19 09:00 91 106/72 (83) 98 High Flow N/C 4.00 07/31/19 08:54 36.5 07/31/19 08:14 92 High Flow N/C 5.00 07/31/19 08:12 92 High Flow N/C 5.00 07/31/19 08:00 65 111/70 (84) 95 High Flow N/C 10.00 07/31/19 08:00 95 High Flow N/C 6.00 07/31/19 07:00 59 116/71 (86) 96 High Flow N/C 10.00 07/31/19 07:00 53 07/31/19 06:30 High Flow N/C 10.00 07/31/19 06:00 58 120/64 (82) Vapotherm 25.00 35.00 07/31/19 05:00 50 117/72 (87) Vapotherm 25.00 35.00 I & O 08/01/19 07:00 Intake Total 1780 ml Balance 1780 ml Height & Weight Height: 5'4.00" Weight: 256lbs. 0.8oz. 116.696332et; 49.00 BMI Method:Stated General Appearance: No Apparent Distress, WD/WN HEENT: PERRL/EOMI, Normal ENT Inspection, Pharynx Normal, Moist Mucous Membranes Neck: Full Range of Motion, Normal Inspection, Non Tender Respiratory: Chest Non Tender, Lungs Clear, No Accessory Muscle Use, No Respiratory Distress, Decreased Breath Sounds Cardiovascular: Regular Rate, Rhythm Capillary Refill: Less Than 3 Seconds Gastrointestinal: normal bowel sounds, non tender, soft Extremity: Normal Capillary Refill, Normal Inspection, Normal Range of Motion, Non Tender, No Calf Tenderness, No Pedal Edema Neurologic/Psychiatric: Alert, Oriented x3, No Motor/Sensory Deficits, Normal Mood/Affect Skin: Normal Color, Warm/Dry Lymphatic: No Adenopathy Results Lab Laboratory Tests 07/31/19 03:10 08/01/19 03:50 Assessment/Plan Assessment/Plan COVID positive with ARDS -Titrate oxygen down -Remdesivir -Lasix 20mg IV BID -Continue Isolation -Continue awake proning -Echo reviewed -Influenza is negative - COVID Ab is positive -Check HIV -- neg -Continue respiratory isolation for now AsthmaAE -Continue INH -D/C solumedrol Hyperglycemia -Continue insulin -continue Q4 accu checks HTN -Monitor -Hydralazine PRMEENA NAIR DO Aug 01, 2019 04:59
--- NOTE | 2019-08-01 05:59 | Diagnostic Imaging Report ---
EXAMINATION: Portable erect AP chest at 5:26 AM INDICATION: Respiratory distress The cardiomegaly and the alveolar/interstitial pulmonary infiltrates involving both lungs seen on the prior exam of 07/29/2019 are again evident. The density in the right upper lung has increased since the prior exam and there may be somewhat greater density in the right lung base. Conversely, the left mid lung seems better aerated. The mediastinum is not widened. The osseous structures are intact. The central venous catheter on the left remains in position. IMPRESSION: There are mixed results. There does seem to be somewhat greater involvement of the right lung by pneumonia/atelectasis but the left midlung is better aerated than on the prior exam. A follow-up study would be recommended for continued evaluation. Dictated by: Dictated on workstation # [id number]
[2019-08-01] MEDS: ADVAIR HFA 115/21 MCG INHALER 8 GM IH SCH (07:46)
[2019-08-01] MEDS: LOSARTAN 100 MG (COZAAR) TABLET PO SCH (08:34)
[2019-08-01] MEDS: FUROSEMIDE 40 MG/4 ML INJ (LASIX) IVP SCH (08:35)
[2019-08-01] MEDS: PANTOPRAZOLE 40 MG (PROTONIX) VIAL IV SCH (08:35)
[2019-08-01] MEDS: SENNA W/DOCUSATE (SENOKOT S) TABLET PO SCH (08:35)
[2019-08-01] MEDS: glyBURIDE 5 MG (MICRONASE) TAB PO SCH (08:35)
--- NOTE | 2019-08-01 09:57 | Progress Note - Hospitalist ---
Subjective HPI/CC On Admission Date Seen by Provider: Aug 01, 2019 Time Seen by Provider: 09:00 CC: PNA with hypoxia and dyspnea suspect COVID 19 HPI: This is a 44yoWF clinic patient of [facility] from [facility] who presents to the ER with worsened dyspnea of several days duration. COVID-19 swab early in the week was performed and it was negative but considering the appearance of the CXR and her shortness of breath she was swabbed again and placed on CAP treatment and placed in isolation and PPE was used in all contact with the patient. Patient reports she feels better and less short of breath but her O2 sats are 93% on supplement. Patient does not smoke and takes meds for DM. Subjective/Events-last exam Since the patient is in isolation the room was not entered. Detailed discussion was held with the nurse who just come from the room. Patient had been seen by Dr. Reddy this morning. Patient is doing better and would like to go home. She says she has 6 children at home and her 's working. Her O2 sat is in the 90s on 2 L nasal cannula she did desaturate overnight while sleeping. She is feeling much better but the chest x-ray remains abnormal. Objective Exam Vital Signs Vital Signs Date Time Temp Pulse Resp B/P (MAP) Pulse Ox O2 Delivery O2 Flow Rate FiO2 08/01/19 09:00 High Flow N/C 2.00 08/01/19 08:00 74 08/01/19 07:52 95 08/01/19 06:00 08/01/19 00:25 37.0 07/31/19 04:00 35 Capillary Refill : Less Than 3 Seconds General Appearance: No Apparent Distress, WD/WN Results/Procedures Lab Laboratory Tests 08/01/19 03:50 Patient resulted labs reviewed. Assessment/Plan Assessment and Plan Assess & Plan/Chief Complaint Respiratory failure most likely secondary to COVID antigen testing negative 2 but IgG positive Hypoxia secondary to number 1 improving Type II diabetes Morbid obesity Plan to transfer to the floor with discharge planning. Will check O2 sat with ambulation. Clinical Quality Measures DVT/VTE Risk/Contraindication: Risk Factor Score Per Nursin RFS Level Per Nursing on Admit: 2=Moderate SANDNESSZELDA MD Aug 01, 2019 09:57
--- NOTE | 2019-08-01 10:00 | NUR ---
RECEIVED REPORT FROM REJI HART REGARDING TRANSFER OF PT. PTS VS WNL 132/56, P 76 02 92 RA 20 RR TEMP 36.O C. PT ORIENTED TO ROOM AND SHE REQUESTED TO TAKE SHOWER. SHE DENIES NEEDING ASSISTANCE. RN DID COVER PICC LINE AND TOOK HER OFF TELE FOR SHOWER.
--- NOTE | 2019-08-01 10:05 | NUR ---
Report called to Mary HART. Patient and belongings to room 432.
[2019-08-01] MEDS ORDERED: inSUlin ASPART (NovoLOG) 1 UNIT/0.01 ML (CHARGE PER UNIT) SC NR (13:30)
--- NOTE | 2019-08-01 13:30 | NUR ---
DR WICK NOTIFIED OF PTS CRITICAL BLOOD SUGAR AT 431. SHE ORDERED 12 U NOVOLOG.
[2019-08-01] MEDS: REMDESIVIR IV SCH (13:35)
[2019-08-01] MEDS: NS IV SCH (13:35)
[2019-08-01] MEDS ORDERED: IPRA4AER IH (13:59)
--- NOTE | 2019-08-01 14:06 | NUR ---
RD ASSESSMENT PMHx: DM; HTN; hypercholesterolemia; PT INTERACTION: Note pt is under isolation for COLBY at this time. All information gathered from pt was done over the phone. Pt was awake and pleasant during nutrition assessment for LOS. Pt states current appetite is okay. Note avg PO intake 98% x4d, per chart review. Pt states trying to follow a low-CHO diet, and has no issues with chewing/swallowing food. Pt states no recent issues with nausea, vomiting, constipation, or diarrhea. Note last BM was 07/31, and pt currently on bowel regimen of senna BID, per chart review. Pt states no recent wt changes. Note unable to determine recent wt hx, per chart review. Pt states current DM management: "sometimes it's really high, sometimes it's normal." Note recent HbA1c of 10.5 on 07/29, per chart review. ABNORMAL NUTRITION-RELATED LAB VALUES LOW: Cl 97; Ca 8.3 HIGH: BUN 26; glu 138 Est. kcal needs: [id number] kcal | 15-18 kcal/kg Est. Pro needs: 84-105 g Pro | 0.8-1.0 g Pro/kg PES STATEMENT: Given current PO intake, no nutrition diagnosis at this time (NO-1.1) INTERVENTION: Continue with current diet order of CHO 60g/m 1snack diet. Offered diet education on DM management, but pt declined at this time. Will attempt to offer again prior to discharge. Will continue to follow and reassess as pt needs, intake, and status change. MONITOR/EVALUATE: PO Intake; Plan of Care; Hydration Status; Weight Status; Lab Values Amos Moralez, MS, RD, LD
--- NOTE | 2019-08-01 14:42 | NUR ---
Notified Health Dept in [facility] Hailey Caceres RN of patient Discharge. Spoke to patient about staying in quarantine. Questions answered. No other needs.
--- NOTE | 2019-08-01 14:45 | NUR ---
1300 DR WICK AGREED TO D/C PATIENT SINCE O2 WAS 93% ON RA. DR WICK SAID THAT PT CAN GO HOME SOON SHE TAKES HER LAST DOSE OF ANTI VIRAL IV MEDICATION. 1445: PT HAS FINISHED IV MED, DOWN STAIRS WAITING ON HER. THIS RN GAVE PT HER DISCHARGE PAPERS, SHE SIGNED D/C FORM AND THIS NURSE DIRECTOR OF STATE TOOK HER DOWNSTAIRS TO VIA WC. BOTH RN AND PT WERE WEARING MASKS. PT MET AT OUTPATIENT ENTRANCE AND LEFT IN PRIVATE VEHICLE. .
--- NOTE | 2019-08-01 14:47 | Discharge Summary ---
Diagnosis/Chief Complaint Date of Admission July 26, 2019 at 07:35 Date of Discharge August 01, 2019 Discharge Date: Aug 01, 2019 Discharge Time: 16:00 Admission Diagnosis Assessment: PNA suspicious for COVID-19 swabbed early in week negative but swabbed again today DYspnea Hypoxia DM Obesity BMI 50 HTN HLP Plan: CAP treatment Cardiology evaluation PPE used COVID-19 pending Primary Care Guido Luna DO Discharge Diagnosis Acute respiratory failure secondary to COVID related complications Morbid obesity Type II diabetes- Hypertension (1) Respiratory distress Status: Acute (2) Bilateral pneumonia Status: Acute (3) Diabetes mellitus (4) Hypertension (5) Hypoxia Status: Acute Discharge Summary Procedures/Consulations CT chest Pulmonology Cardiology Discharge Physical Exam Allergies: Coded Allergies: No Known Drug Allergies (Unverified , 10/03/15) Vitals & I&Os Vital Signs Date Time Temp Pulse Resp B/P (MAP) Pulse Ox O2 Delivery O2 Flow Rate FiO2 08/01/19 10:00 75 High Flow N/C 2.00 08/01/19 07:52 95 08/01/19 06:00 08/01/19 00:25 37.0 07/31/19 04:00 35 General Appearance: Obese Neurologic/Psychiatric: Alert, Oriented x3 Hospital Course Was the Problem List Reviewed?: Yes This is a 44-year-old female from on who was admitted with respiratory symptoms. Her condition worsened with bilateral infiltrates as evidenced on CT scan. She was tested for COVID antigen by nasopharyngeal swab twice both of which were negative. Specific IgG antibody did become positive for SARS COVID 2. The patient worsened and didn't did up in the ICU where she had prone ventilation and aggressive pulmonary toilet. Remdesivir there was started after being obtained for compassionate use. The patient began to improve rapidly and on day number 4 of the Remdesivir the patient's oxygen saturation was 93-94 percent on room air and the patient was adamant that she had to go home. Consultation with infectious disease nurse and to the other hospitalist it was determined that she was stable enough for discharge even though not receiving 5 days of antiviral medication. Blood pressures are stable. Blood sugars have been labile. Labs (last 24 hrs) Laboratory Tests 07/31/19 17:14: Glucometer 334H 07/31/19 20:17: Glucometer 374H 08/01/19 00:20: Glucometer 254H 08/01/19 03:49: Glucometer 157H 08/01/19 03:50: White Blood Count 5.5, Red Blood Count 5.08, Hemoglobin 12.4, Hematocrit 39, Mean Corpuscular Volume 76L, Mean Corpuscular Hemoglobin 24L, Mean Corpuscular Hemoglobin Concent 32, Red Cell Distribution Width 14.6H, Platelet Count 230, Mean Platelet Volume 9.3, Neutrophils (%) (Auto) 72, Lymphocytes (%) (Auto) 20, Monocytes (%) (Auto) 8, Eosinophils (%) (Auto) 0, Basophils (%) (Auto) 0, Neutrophils # (Auto) 4.0, Lymphocytes # (Auto) 1.1, Monocytes # (Auto) 0.5, Eosinophils # (Auto) 0.0, Basophils # (Auto) 0.0, Sodium Level 138, Potassium Level 3.6, Chloride Level 97L, Carbon Dioxide Level 29, Anion Gap 12, Blood Urea Nitrogen 26H, Creatinine 0.66, Estimat Glomerular Filtration Rate > 60, BUN/Creatinine Ratio 39, Glucose Level 138H, Calcium Level 8.3L, Phosphorus L evel 4.3, Magnesium Level 2.1 08/01/19 09:49: Glucometer 331H 08/01/19 12:57: Glucometer 431*H Microbiology 07/27/19 MRSA Screen - Final, Complete MRSA not isolated 07/26/19 Urine Culture - Final, Complete NO GROWTH 07/26/19 Blood Culture - Final, Complete No growth Patient resulted labs reviewed. Pending Labs Laboratory Tests 08/01/19 09:49: Glucometer 331 08/01/19 12:57: Glucometer 431 Imaging: Reviewed Imaging Films Discussion & Recommendations Discharge Planning: >30 minutes discharge planning The infectious disease nurse had a long conversation with the patient about quarantine at home as well as with her family for about 5 more days and to return with any more symptoms. Discharge Home Medications: Active Scripts Active Combivent Respimat Inhal [place] (Albuterol/Ipratropium) 4 Gm Aero 1 Puff IH RTQ6HR 28 Days Ibu (Ibuprofen) 600 Mg Tablet 600 Mg PO Q6HR Reported Levemir Flextouch (Insulin Detemir) 100 Unit/1 Ml Insuln.pen 50 Unit SQ BID LAST FILLED 04-25-2019 #10 PENS/30 DAY SUPPLY Metformin HCl ER (Metformin HCl) 1,000 Mg Tab.er.24 1,000 Mg PO BID Glyburide 5 Mg Tablet 5 Mg PO DAILY Atorvastatin Calcium 40 Mg Tablet 40 Mg PO DAILY Invokana (Canagliflozin) 300 Mg Tablet 300 Mg PO DAILY Condition at discharge Improved Instructions to patient/family Please see electronic discharge instructions given to patient. Clinical Quality Measures DVT/VTE Risk/Contraindication: Risk Factor Score Per Nursin RFS Level Per Nursing on Admit: 2=Moderate Copy Copies To 1: GUIDO LUNA DO Problem Qualifiers (1) Bilateral pneumonia: Pneumonia type: due to unspecified organism Lung location: unspecified part of lung Qualified Codes: J18.9 - Pneumonia, unspecified organism ZELDA WICK MD Aug 01, 2019 14:47
== END 2019-08-01 14:00 | disposition home or self-care (01) | DRG 177 ==
LOC: EDUNIT# 05:26 → ER 05:28 → ICU 07:35 → 4TH 08-01 10:00
PROVIDERS: ADMIT Internal Medicine; ATTEND Internal Medicine
DX: U07.1 COVID-19 (principal); J80 Acute respiratory distress syndrome; J12.89 Other viral pneumonia; J45.901 Unspecified asthma with (acute) exacerbation; Z68.43 Body mass index [BMI] 50.0-59.9, adult; E11.65 Type 2 diabetes mellitus with hyperglycemia; I10 Essential (primary) hypertension; E78.00 Pure hypercholesterolemia, unspecified; E78.5 Hyperlipidemia, unspecified; E66.01 Morbid (severe) obesity due to excess calories; R94.31 Abnormal electrocardiogram [ECG] [EKG]; Z79.84 Long term (current) use of oral hypoglycemic drugs
CPT/HCPCS: 36415; 36569; 36600; 71045; 71260; 76937; 80048; 80053; 80306; 81000; 82805; 82962; 83036; 83605; 83615; 83735; 83880; 84100; 84145; 84484; 84703; 85025; 85379; 85610; 85652; 85730; 86141; 86703; 86769; 86788; 86789; 87040; 87081; 87088; 87631; 87635; 87804; 93005; 93306; 94640; 94660; 94760; 96361; 96365; 96375